=== PATIENT | female | born 1960 ===

== ENCOUNTER 2016-12-05 21:10 | Emergency (ER) | payer MEDICAID ==
[2016-12-05 21:14] VITALS: BP 163/82; PULSE 94; RESP 16; TEMP 98.5; O2SAT 98
--- NOTE | 2016-12-05 22:03 | ED PDOC ---
HPI: Back Time Seen by Provider: 12/05/16 21:22 Chief Complaint (Nursing): Back Pain Chief Complaint (Provider): Right lower back pain x 3 weeks History Per: Patient History/Exam Limitations: no limitations Onset/Duration Of Symptoms: Days Current Symptoms Are (Timing): Still Present Quality Of Discomfort: Sharp (With movement ) Severity: Moderate Pain Scale Rating Of: 7 Previous Symptoms: None Associated Symptoms: None Additional Complaint(s): Pt saw PMD last week and was given unknown muscle relaxor but she is unsure of the name. Pt states she took it a few times. No urinary symptoms. Pt states she has had kidney stones in the past but states it feels a little different. Past Medical History Reviewed: Historical Data, Nursing Documentation, Vital Signs Vital Signs: Last Vital Signs Temp 98.5 F 12/05/16 21:15 Pulse 94 H 12/05/16 21:15 Resp 16 12/05/16 21:15 BP 163/82 H 12/05/16 21:15 Pulse Ox 98 12/05/16 21:15 - Medical History PMH: Diabetes, HTN - Surgical History Surgical History: Cholecystectomy, - Family History Family History: States: No Known Family Hx - Living Arrangements Living Arrangements: With Family - Social History Current smoker - smoking cessation education provided: No Alcohol: None Drugs: Denies - Home Medications Home Medications: Ambulatory Orders Medication Instructions Recorded Ciprofloxacin HCl [Cipro] 500 mg PO BID #14 tab 01/20/15 Ibuprofen [Motrin Tab] 600 mg PO Q6 PRN #20 tab 01/20/15 Tamsulosin [Flomax] 0.4 mg PO DAILY #14 cap 01/20/15 - Allergies Allergies/Adverse Reactions: Allergies Allergy/AdvReac Type Severity Reaction Status Date / Time FISH Allergy RASH Verified 12/05/16 21:15 Review of Systems ROS Statement: Except As Marked, All Systems Reviewed And Found Negative Musculoskeletal: Positive for: Back Pain Physical Exam - Reviewed Nursing Documentation Reviewed: Yes Vital Signs Reviewed: Yes - Physical Exam Appears: Positive for: Well, Non-toxic, No Acute Distress Head Exam: Positive for: ATRAUMATIC, NORMAL INSPECTION, NORMOCEPHALIC Skin: Positive for: Normal Color, Warm, DRY Eye Exam: Positive for: Normal appearance ENT: Positive for: Normal ENT Inspection Neck: Positive for: Normal, Painless ROM Cardiovascular/Chest: Positive for: Regular Rate, Rhythm Respiratory: Positive for: Normal Breath Sounds. Negative for: Accessory Muscle Use, Respiratory Distress Gastrointestinal/Abdominal: Positive for: Normal Exam, Bowel Sounds, Soft. Negative for: Tenderness Back: Positive for: Normal Inspection, Other ((+) right leg raise ). Negative for: Vertebral Tenderness, Muscle Spasm Extremity: Positive for: Normal ROM Neurologic/Psych: Positive for: Alert, Oriented - ECG O2 Sat by Pulse Oximetry: 98 Pulse Ox Interpretation: Normal Medical Decision Making Medical Decision Making: Pt refusing medication and does not want to given urine sample. Disposition - Clinical Impression Clinical Impression: Sciatica - Patient ED Disposition Is Patient to be Admitted: No Counseled Patient/Family Regarding: Diagnosis, Need For Followup - Disposition Disposition: Routine/Home Disposition Time: 23:05 Condition: STABLE Instructions: Sciatica (ED)
== END 2016-12-05 23:32 | disposition home or self-care (01) ==
LOC: H.ER 21:10
DX: M54.31 Sciatica, right side (principal); E11.9 Type 2 diabetes mellitus without complications; I10 Essential (primary) hypertension

== ENCOUNTER 2017-04-27 09:24 | Inpatient (IN) | payer MEDICAID ==
[2017-04-27] MEDS ORDERED: Sodium Chloride 0.9% 1,000 ML IV STA ×2 (09:49→12:04)
--- NOTE | 2017-04-27 09:58 | ED PDOC ---
HPI: General Adult Time Seen by Provider: 04/27/17 09:48 Chief Complaint (Nursing): Weakness/Neurological Deficit Chief Complaint (Provider): weakness, confusion History Per: Patient, Family History/Exam Limitations: clinical condition Onset/Duration Of Symptoms: Days (4-5), Gradual Current Symptoms Are (Timing): Still Present Severity: Moderate Additional Complaint(s): 57yo female per family hx DM and asthma presents c/o generalized weakness, fall last week, now becoming more confused. No focal weakness per family. On evaluation, obvious jaundice when questioned family states "yes, her skin does look more yellow than normal", they deny history of alcohol abuse or frequent tylenol ingestion. She denies abdominal pain or vomiting. History is limited due to both patient and family being poor historians. [place]" Past Medical History Reviewed: Historical Data, Nursing Documentation, Vital Signs Vital Signs: Last Vital Signs Temp 97.6 F 04/27/17 14:04 Pulse 88 04/27/17 14:04 Resp 18 04/27/17 14:04 BP 152/82 H 04/27/17 14:04 Pulse Ox 100 04/27/17 14:04 - Medical History PMH: Asthma, Diabetes, HTN - Surgical History Surgical History: Cholecystectomy, - Family History Family History: States: Unknown Family Hx - Living Arrangements Living Arrangements: With Family - Social History Current smoker - smoking cessation education provided: No (quit 4months ago) Alcohol: None Drugs: Denies - Home Medications Home Medications: Ambulatory Orders Medication Instructions Recorded Insulin Detemir [Levemir] 30 unit SC DAILY 04/27/17 MetFORMIN [glucoPHAGE] 1,000 mg PO BID 04/27/17 Multivitamin [Multi-Vitamin Daily] 1 tab PO DAILY 04/27/17 - Allergies Allergies/Adverse Reactions: Allergies Allergy/AdvReac Type Severity Reaction Status Date / Time FISH Allergy RASH Verified 04/27/17 09:31 Review of Systems ROS Statement: Except As Marked, All Systems Reviewed And Found Negative Constitutional: Positive for: Weakness, Malaise. Negative for: Fever Eyes: Negative for: Vision Change ENT: Negative for: Nose Discharge, Mouth Swelling, Throat Pain Cardiovascular: Negative for: Chest Pain, Palpitations Respiratory: Positive for: Shortness of Breath. Negative for: Cough Gastrointestinal: Negative for: Nausea, Vomiting, Abdominal Pain Genitourinary Female: Negative for: Dysuria Musculoskeletal: Negative for: Neck Pain, Back Pain Skin: Positive for: Jaundice. Negative for: Rash, Lesions Neurological: Positive for: Altered Mental Status, Dizziness. Negative for: Weakness, Headache Psych: Negative for: Suicidal ideation Physical Exam - Reviewed Nursing Documentation Reviewed: Yes Vital Signs Reviewed: Yes - Physical Exam Appears: Positive for: Non-toxic (jaundice, confused, ill appearing). Negative for: Uncomfortable Head Exam: Positive for: ATRAUMATIC, NORMAL INSPECTION, NORMOCEPHALIC Skin: Positive for: Warm, Jaundice Eye Exam: Positive for: EOMI, PERRL, Scleral icterus ENT: Positive for: Normal ENT Inspection Neck: Positive for: Normal, Painless ROM Cardiovascular/Chest: Positive for: Regular Rate, Rhythm Respiratory: Positive for: Normal Breath Sounds. Negative for: Respiratory Distress Gastrointestinal/Abdominal: Positive for: Bowel Sounds, Soft. Negative for: Tenderness, Guarding Back: Positive for: Normal Inspection Extremity: Positive for: Normal ROM Neurologic/Psych: Positive for: Alert, Other (moves all ext w equal tone, confused) - Laboratory Results Result Diagrams: 04/27/17 10:34 04/27/17 10:34 - ECG O2 Sat by Pulse Oximetry: 96 Pulse Ox Interpretation: Normal - Radiology X-Ray: Read By Radiologist X-Ray Interpretation: No Acute Disease - Critical Care Total Time (In Min): 75 Comments: patient required immediate bedside attention given AMS and ill appearance Medical Decision Making Medical Decision Making: Workup was initiated for metabolic vs neurologic vs infectious vs hematologic etiologies EKG reviewed, ?aflutter vs Sinus tach w leavitt waves CXR no focal infiltrate per radiologist labs reviewed, with profound hematologic and metabolic derangememt anemia- likely hemolytic given elev LDH thrombocytopenia - ?TTP vs malignancy BUN 33 [employer] 1.3 Significant hypercalcemia- ?paraneoplastic Lactate elevate 5.1, code sepsis activated and patient received total >30ml/kg. Zosyn/vanco initiated after cultures obtained. 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 : [id number] Patient Name / ID : RADHA ARRIETA / [id number] Exam Date : 04/27/2017 12:41:33 ( Approved ) Study Comment : Sex / Age : F / 57Y Creator : Becky Baron MD Dictator : Becky Baron MD Hospitality Housekeeper : Greens Cutter : Approver2 : Report Date : 04/27/2017 14:14:08 My Comment : PROCEDURE: CT Chest, Abdomen and Pelvis with intravenous contrast HISTORY: Anemia, jaundice COMPARISON: None. TECHNIQUE: CT scan of the chest, abdomen and pelvis was performed after intravenous injection of contrast. Oral contrast was not administered. Coronal and sagittal reformatted images were obtained. IV dose administered: 50 cc Visipaque 320 Radiation dose: Total exam DLP = 1223.64 mGy-cm. This CT exam was performed using one or more of the following dose reduction techniques: Automated exposure control, adjustment of the mA and/or kV according to patient size, and/or use of iterative reconstruction technique. FINDINGS: CT CHEST WITH CONTRAST: LUNGS: The lungs are well inflated. There is confluent airspace disease in the left lower lobe. There is subsegmental atelectasis in the posterior lungs. There are no endobronchial lesions. MEDIASTINUM: There is mild cardiomegaly. No pericardial effusion. LYMPH NODES: No pathologic hilar or mediastinal lymphadenopathy PLEURA: No pleural effusions or pneumothorax. BONES: Diffuse osteolytic metastasis. OTHER FINDINGS: None. CT ABDOMEN AND PELVIS: LIVER: The liver is enlarged and measures 21 cm in craniocaudad dimension. No focal mass. There is mild intrahepatic biliary dilatation and mild diffuse dilatation of the common bile duct in keeping with postcholecystectomy status. GALLBLADDER AND BILE DUCTS: Surgically absent. PANCREAS: Mild diffuse fatty atrophy. No gross lesion or ductal dilatation. SPLEEN: There is moderate splenomegaly. The spleen measures 20 cm. No focal lesions. ADRENALS: Mild thickening without discrete nodule. KIDNEYS AND URETERS: Both kidneys are normal in size and there is homogeneous enhancement. No hydronephrosis. No solid mass. VASCULATURE: No aortic aneurysm. BOWEL: Evaluation of the bowel is limited in the absence of oral contrast. Allowing for this, there is mild small bowel wall thickening. There is also segmental circumferential mural thickening in the splenic flexure of colon. APPENDIX: Normal appendix. PERITONEUM: No free fluid. No free air. LYMPH NODES: No enlarged lymph nodes. BLADDER: Grossly normal in appearance. REPRODUCTIVE: The uterus is normal in size. 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 OTHER FINDINGS: None. IMPRESSION: 1. 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 The differential considerations include metastasis and lymphoma. 2. Mild hepatomegaly and moderate splenomegaly. 3. Evaluation of the colon is limited in the absence of oral contrast. Allowing for this, apparent diffuse small bowel wall thickening is nonspecific and could be related to underdistention or nonspecific enteritis. Also noted is segmental mural thickening in the splenic flexure of colon, again could be related to underdistention however underlying mass cannot be excluded. Please correlate with colonoscopy. 3. Left lower lobe pneumonia. ----- Accession No. : [id number] Patient Name / ID : RADHA ARRIETA / [id number] Exam Date : 04/27/2017 12:44:15 ( Approved ) Study Comment : Sex / Age : F / 57Y Creator : Becky Baron MD Dictator : Becky Baron MD Hospitality Housekeeper : Greens Cutter : Becky Baron MD Approver2 : Report Date : 04/27/2017 14:06:05 My Comment : PROCEDURE: CT HEAD WITHOUT CONTRAST. HISTORY: Fall, altered mental status COMPARISON: None available. TECHNIQUE: Axial computed tomography images were obtained through the head/brain without intravenous contrast. Examination is limited by patient motion. Radiation dose: Total exam DLP = 1735.87 mGy-cm. This CT exam was performed using one or more of the following dose reduction techniques: Automated exposure control, adjustment of the mA and/or kV according to patient size, and/or use of iterative reconstruction technique. FINDINGS: HEMORRHAGE: No intracranial hemorrhage. BRAIN: Grady-white matter differentiation is preserved. There is no mass, mass effect or abnormal extra-axial fluid collection. VENTRICLES: The ventricles are normal in size, shape and configuration. CALVARIUM: There is no calvarial fracture or extracranial soft tissue swelling. PARANASAL SINUSES: There is mild mucosal thickening in the left maxillary sinus. The remaining included paranasal sinuses are predominantly clear. MASTOID AIR CELLS: Predominantly clear. OTHER FINDINGS: None. IMPRESSION: No acute intracranial abnormality. Disposition - Clinical Impression Clinical Impression: T.T.P. syndrome, Malignancy, Sepsis, Severe anemia, Thrombocytopenia - Patient ED Disposition Is Patient to be Admitted: No Counseled Patient/Family Regarding: Studies Performed, Diagnosis - Disposition Disposition Time: 13:00 Condition: CRITICAL - Pt Status Changed To: Hospital Disposition Of: Inpatient - Admit Certification Admit to Inpatient:: After my assessment, the patient will require hospitalization for at least two midnights. This is because of the severity of symptoms shown, intensity of services needed, and/or the medical risk in this patient being treated as an outpatient. - POA Present On Arrival: Falls Or Trauma, Poor Glycemic Control
[2017-04-27 10:42] LABS: BASO # 0.2 K/uL (0.0-0.2); BASO % 1.2 % (0.0-2.0); EOS # 0.1 K/uL (0.0-0.7); EOS % 0.4 % (0.0-4.0); MEAN CELL VOLUME 103.8 fl (81.0-99.0); MEAN CORPUSCULAR HEMOGLOBIN 32.8 pg (27.0-31.0); MEAN CORPUSCULAR HGB CONC 31.6 g/dL (33.0-37.0); MEAN PLATELET VOLUME 10.2 fl (7.2-11.7); MONO # 1.3 K/uL (0.0-0.8); MONO % 7.6 % (0.0-10.0); NEUT # 5.7 K/uL (1.8-7.0); NEUT % 32.8 % (50.0-75.0); NRBC % 8.1 % (0.0-0.0); RED CELL DISTRIBUTION WIDTH 22.7 % (11.5-14.5); WHITE BLOOD COUNT 17.4 K/uL (4.8-10.8)
[2017-04-27 10:46] LABS: URINE BILIRUBIN NEGATIVE (NEGATIVE); URINE BLOOD SMALL (NEGATIVE); URINE COLOR AMBER (YELLOW); URINE GLUCOSE (UA) NEG (Normal); URINE KETONE NEGATIVE (NEGATIVE); URINE LEUKOCYTE ESTERASE NEG Leu/uL (Negative); URINE PROTEIN NEGATIVE (NEGATIVE)
[2017-04-27 10:51] LABS: PARTIAL THROMBOPLASTIN TIME 35.5 Seconds (25.6-37.1)
[2017-04-27 11:11] LABS: ALB/GLOB RATIO 0.5 (1.0-2.1); BILIRUBIN,TOTAL 6.7 mg/dl (0.2-1.3); CARBON DIOXIDE 24 mmol/L (22-30); CHLORIDE 104 mmol/L (98-107); GFR AFRICAN-AMERICAN 56; GLUCOSE,RANDOM 129 mg/dL (65-105); SODIUM 140 mmol/l (132-148); TOTAL PROTEIN 9.1 G/DL (6.3-8.2)
--- NOTE | 2017-04-27 11:12 | RAD ---
HISTORY: SOB COMPARISON: No prior. FINDINGS: LUNGS: The lungs are well inflated. There is left lower lobe atelectasis. No focal consolidation. PLEURA: No significant pleural effusion identified, no pneumothorax apparent. CARDIOVASCULAR: Normal. OSSEOUS STRUCTURES: No significant abnormalities. VISUALIZED UPPER ABDOMEN: Normal. OTHER FINDINGS: None. IMPRESSION: Subsegmental atelectasis in the left lower lobe. No acute findings
[2017-04-27 11:19] LABS: BLOOD UREA NITROGEN 33 mg/dl (7-17); PLATELET COUNT 39 K/uL (130-400)
[2017-04-27 11:21] LABS: ALKALINE PHOSPHATASE 245 U/L (38-126); ALT/SGPT 22 U/L (9-52); AST/SGOT 168 U/L (14-36); POTASSIUM 5.2 MMOL/L (3.6-5.0)
[2017-04-27 11:26] LABS: METAMYELOCYTE 2 % (0-0); MYELOCYTE 1 % (0-0); NEUTROPHIL 39 % (42-75); NUCLEATED RED BLOOD CELL 18 % (0-0); TOTAL CELLS COUNTED 100
[2017-04-27 11:28] LABS: LARGE PLATELETS PRESENT; SMUDGE CELLS PRESENT; SPHEROCYTES SLIGHT
[2017-04-27 11:38] LABS: LIPASE 130 U/L (23-300)
[2017-04-27 11:59] LABS: VENOUS BLOOD GAS BASE EXCESS 3.3 mmol/L (0.0-2.0); VENOUS BLOOD GAS PCO2 42 mmHg (40-60); VENOUS BLOOD PH 7.43 (7.32-7.43)
[2017-04-27 12:05] LABS: ALCOHOL SERUM < 10 mg/dl (0-10)
[2017-04-27] MEDS ORDERED: Iohexol 300 100 ML IJ ONE (12:24)
[2017-04-27] MEDS ORDERED: Sodium Chloride 0.9% 50 ML IV ONE (12:25)
[2017-04-27] MEDS ORDERED: Piperacillin/Tazobact 4.5 GM in Sodium Chloride 0.9% 100 ML IVPB ONE (12:30)
[2017-04-27 12:33] LABS: MAGNESIUM 1.8 MG/DL (1.6-2.3); PHOSPHOROUS 5.1 mg/dl (2.5-4.5); URIC ACID 11.5 mg/Dl (2.2-7.5)
[2017-04-27] MEDS ORDERED: Vancomycin 1 g Inj ONE (12:45)
[2017-04-27] MEDS ORDERED: Iodixanol 320 MG/ML 100 ML BOTTLE IV ONE (12:53)
[2017-04-27 13:29] LABS: T3 UPTAKE 42.7 % (23.0-41.0); T4 7.84 ug/dl (5.5-11.0)
[2017-04-27 13:43] LABS: THYROID STIMULATING HORMONE 0.4 mIU/ML (0.46-4.68)
[2017-04-27 13:53] LABS: VENOUS BLOOD GAS BASE EXCESS 0.3 mmol/L (0.0-2.0); VENOUS BLOOD GAS PCO2 26 mmHg (40-60); VENOUS BLOOD PH 7.53 (7.32-7.43)
[2017-04-27] MEDS ORDERED: Zoledronic Acid 4 MG in Sodium Chloride 0.9% 100 ML IVPB ONE (14:00)
--- NOTE | 2017-04-27 14:07 | CT ---
PROCEDURE: CT HEAD WITHOUT CONTRAST. HISTORY: Fall, altered mental status COMPARISON: None available. TECHNIQUE: Axial computed tomography images were obtained through the head/brain without intravenous contrast. Examination is limited by patient motion. Radiation dose: Total exam DLP = 1735.87 mGy-cm. This CT exam was performed using one or more of the following dose reduction techniques: Automated exposure control, adjustment of the mA and/or kV according to patient size, and/or use of iterative reconstruction technique. FINDINGS: HEMORRHAGE: No intracranial hemorrhage. BRAIN: Grady-white matter differentiation is preserved. There is no mass, mass effect or abnormal extra-axial fluid collection. VENTRICLES: The ventricles are normal in size, shape and configuration. CALVARIUM: There is no calvarial fracture or extracranial soft tissue swelling. PARANASAL SINUSES: There is mild mucosal thickening in the left maxillary sinus. The remaining included paranasal sinuses are predominantly clear. MASTOID AIR CELLS: Predominantly clear. OTHER FINDINGS: None. IMPRESSION: No acute intracranial abnormality.
[2017-04-27] MEDS ORDERED: Hydrocortisone Succinat 250 MG vial IV SCH (14:30)
--- NOTE | 2017-04-27 14:35 | CP.PCM.CON ---
History of Present Illness - History of Present Illness History of Present Illness: This is a 57 yrs old female who came to the Er with severe anemia hgb 5.7, platelets of 39, and wbc 17.4. Her diff showed lymphicytosis, and several Nucleated RBC. There is also a shift to the left in the WBC. The mcv is 103, The peripheral smear shows schiztocytes and NRBC indicating hemolysis. the LDH is also elevated. The pt was apparently fine a week ago. Over the past 2 days she has slowly got confused, and very weak where she could not even walk to the bathroom.She was therefore brought to the ER. Her total protein was elevated to 9.1, with globulin 6.0. her calcium 14.0. bilirubin was 6.7, AST/SGOT Bun is 33 and [id number]. Urinalysis did not show elevated protein. Past medical history of , Dm , and HTN asthma, Her CXR is normal Past Patient History - Past Social History Smoking Status: Smoker Currrent Status Unknown - CARDIAC Hx Hypertension: Yes - PULMONARY Hx Asthma: Yes - NEUROLOGICAL Hx Vertigo: Yes - ENDOCRINE/METABOLIC Hx Diabetes Mellitus Type 2: Yes - HEMATOLOGICAL/ONCOLOGICAL Hx Blood Disorders: Yes Hx Hepatitis C: Yes - MUSCULOSKELETAL/RHEUMATOLOGICAL Hx Musculoskeletal Disorders: Yes Other/Comment: meniscus disease - PSYCHIATRIC Hx Substance Use: No - SURGICAL HISTORY Hx Cholecystectomy: Yes - ANESTHESIA Hx Anesthesia: Yes Meds Allergies/Adverse Reactions: Allergies Allergy/AdvReac Type Severity Reaction Status Date / Time FISH Allergy RASH Verified 04/27/17 09:31 - Medications Medications: Current Medications Hydrocortisone Sodium Succinate (Solu-Cortef) 100 mg IV Q6H ARLET Sodium Chloride (Sodium Chloride 0.9%) 1,000 mls @ 200 mls/hr IV .Q5H STA Stop: 04/27/17 17:03 Zoledronic Acid 4 mg/ Sodium (Chloride) 105 mls @ 210 mls/hr IVPB ONCE ONE Stop: 04/27/17 14:29 Physical Exam - Additional Findings Additional findings: Physical exam; Awake but cannot answer questions . Neck; Supple, no adenopathy Chest; Clear, no rales or rhonchi Heart; RSR, no murmur Abd; soft, no mass, no h/s megaly. Results - Vital Signs Recent Vital Signs: Last Vital Signs Temp 97.6 F 04/27/17 14:04 Pulse 88 04/27/17 14:04 Resp 18 04/27/17 14:04 BP 152/82 H 04/27/17 14:04 Pulse Ox 100 04/27/17 14:04 - Labs Result Diagrams: 04/27/17 10:34 04/27/17 10:34 Labs: Laboratory Results - last 24 hr 04/27/17 04/27/17 04/27/17 10:34 10:34 10:34 WBC 17.4 H D RBC 1.73 L Hgb 5.7 L* Hct 18.0 L MCV 103.8 H D MCH 32.8 H MCHC 31.6 L RDW 22.7 H Plt Count 39 L D MPV 10.2 Neut % (Auto) 32.8 L Lymph % (Auto) 58.0 H [place] % (Auto) 7.6 Eos % (Auto) 0.4 Baso % (Auto) 1.2 Neut # 5.7 Lymph # 10.0 H [place] # 1.3 H Eos # 0.1 Baso # 0.2 Neutrophils % (Manual) 39 L Band Neutrophils % 1 Lymphocytes % (Manual) 41 Monocytes % (Manual) 16 H Metamyelocytes % 2 H Myelocytes % 1 H Nucleated RBC % 18 H Smudge Cells Present Platelet Estimate Decreased L Large Platelets Present Hypochromasia (manual) Slight Poikilocytosis (manual Slight Anisocytosis (manual) Moderate Microcytosis (manual) Slight Macrocytosis (manual) Slight Spherocytes Slight Target Cells Slight Ovalocytes Slight PT INR APTT pO2 VBG pH VBG pCO2 VBG HCO3 VBG Total CO2 VBG O2 Sat (Calc) VBG Base Excess VBG Potassium A-a O2 Difference Glucose Lactate FiO2 Crit Value Called To Crit Value Called By Crit Value Read Back Blood Gas Notified Time Sodium 140 Potassium 5.2 H Chloride 104 Carbon Dioxide 24 Anion Gap 17 BUN 33 H Creatinine 1.2 Est GFR ( Amer) 56 Est GFR (Non-Af Amer) 47 Random Glucose 129 H Uric Acid Calcium 14.0 H* D Phosphorus Magnesium Total Bilirubin 6.7 H AST 168 H ALT 22 Alkaline Phosphatase 245 H Ammonia 24 Lactate Dehydrogenase 1456 H Total Creatine Kinase 42 Troponin I 0.0660 Total Protein 9.1 H Albumin 3.1 L Globulin 6.0 H Albumin/Globulin Ratio 0.5 L Lipase 130 Thyroxine (T4) Total T3 T3 Uptake TSH 3rd Generation Venous Blood Potassium Urine Color Urine Clarity Urine pH Ur Specific [place] Urine Protein Urine Glucose (UA) Urine Ketones Urine Blood Urine Nitrate Urine Bilirubin Urine Urobilinogen Ur Leukocyte Esterase Ur Squamous Epith Cells Amorphous Sediment Hyaline Casts Stool Occult Blood Alcohol, Quantitative < 10 Blood Type Antibody Screen Crossmatch BBK History Checked 04/27/17 04/27/17 04/27/17 10:34 10:34 11:20 WBC RBC Hgb Hct MCV MCH MCHC RDW Plt Count MPV Neut % (Auto) Lymph % (Auto) [place] % (Auto) Eos % (Auto) Baso % (Auto) Neut # Lymph # [place] # Eos # Baso # Neutrophils % (Manual) Band Neutrophils % Lymphocytes % (Manual) Monocytes % (Manual) Metamyelocytes % Myelocytes % Nucleated RBC % Smudge Cells Platelet Estimate Large Platelets Hypochromasia (manual) Poikilocytosis (manual Anisocytosis (manual) Microcytosis (manual) Macrocytosis (manual) Spherocytes Target Cells Ovalocytes PT 19.7 H INR 1.7 H APTT 35.5 pO2 VBG pH VBG pCO2 VBG HCO3 VBG Total CO2 VBG O2 Sat (Calc) VBG Base Excess VBG Potassium A-a O2 Difference Glucose Lactate FiO2 Crit Value Called To Crit Value Called By Crit Value Read Back Blood Gas Notified Time Sodium Potassium Chloride Carbon Dioxide Anion Gap BUN Creatinine Est GFR ( Amer) Est GFR (Non-Af Amer) Random Glucose Uric Acid Calcium Phosphorus Magnesium Total Bilirubin AST ALT Alkaline Phosphatase Ammonia Lactate Dehydrogenase Total Creatine Kinase Troponin I Total Protein Albumin Globulin Albumin/Globulin Ratio Lipase Thyroxine (T4) Total T3 T3 Uptake TSH 3rd Generation Venous Blood Potassium Urine Color [place] Urine Clarity Cloudy Urine pH 6.0 Ur Specific [place] 1.013 Urine Protein Negative Urine Glucose (UA) Neg Urine Ketones Negative Urine Blood Small Urine Nitrate Negative Urine Bilirubin Negative Urine Urobilinogen 4.0 H Ur Leukocyte Esterase Neg Ur Squamous Epith Cells 1 Amorphous Sediment Rare H Hyaline Casts 0-2 Stool Occult Blood Negative Alcohol, Quantitative Blood Type Antibody Screen Crossmatch BBK History Checked 04/27/17 04/27/17 04/27/17 11:39 11:45 12:19 WBC RBC Hgb Hct MCV MCH MCHC RDW Plt Count MPV Neut % (Auto) Lymph % (Auto) [place] % (Auto) Eos % (Auto) Baso % (Auto) Neut # Lymph # [place] # Eos # Baso # Neutrophils % (Manual) Band Neutrophils % Lymphocytes % (Manual) Monocytes % (Manual) Metamyelocytes % Myelocytes % Nucleated RBC % Smudge Cells Platelet Estimate Large Platelets Hypochromasia (manual) Poikilocytosis (manual Anisocytosis (manual) Microcytosis (manual) Macrocytosis (manual) Spherocytes Target Cells Ovalocytes PT INR APTT pO2 24 L VBG pH 7.43 VBG pCO2 42 VBG HCO3 26.9 VBG Total CO2 29.2 H VBG O2 Sat (Calc) 45.5 VBG Base Excess 3.3 H VBG Potassium 4.2 A-a O2 Difference 73.0 Glucose 126 H Lactate 5.1 H* FiO2 21.0 Crit Value Called To Dr thomson Crit Value Called By 15 Crit Value Read Back Y Blood Gas Notified Time 1159 Sodium 139.0 Potassium Chloride 107.0 Carbon Dioxide Anion Gap BUN Creatinine Est GFR ( Amer) Est GFR (Non-Af Amer) Random Glucose Uric Acid 11.5 H Calcium Phosphorus 5.1 H Magnesium 1.8 Total Bilirubin AST ALT Alkaline Phosphatase Ammonia Lactate Dehydrogenase Total Creatine Kinase Troponin I Total Protein Albumin Globulin Albumin/Globulin Ratio Lipase Thyroxine (T4) 7.84 Total T3 0.909 L T3 Uptake 42.7 H TSH 3rd Generation 0.40 L Venous Blood Potassium 4.2 Urine Color Urine Clarity Urine pH Ur Specific [place] Urine Protein Urine Glucose (UA) Urine Ketones Urine Blood Urine Nitrate Urine Bilirubin Urine Urobilinogen Ur Leukocyte Esterase Ur Squamous Epith Cells Amorphous Sediment Hyaline Casts Stool Occult Blood Alcohol, Quantitative Blood Type A POSITIVE Antibody Screen Negative Crossmatch See Detail BBK History Checked No verified bt 04/27/17 13:47 WBC RBC Hgb Hct MCV MCH MCHC RDW Plt Count MPV Neut % (Auto) Lymph % (Auto) [place] % (Auto) Eos % (Auto) Baso % (Auto) Neut # Lymph # [place] # Eos # Baso # Neutrophils % (Manual) Band Neutrophils % Lymphocytes % (Manual) Monocytes % (Manual) Metamyelocytes % Myelocytes % Nucleated RBC % Smudge Cells Platelet Estimate Large Platelets Hypochromasia (manual) Poikilocytosis (manual Anisocytosis (manual) Microcytosis (manual) Macrocytosis (manual) Spherocytes Target Cells Ovalocytes PT INR APTT pO2 46 VBG pH 7.53 H VBG pCO2 26 L VBG HCO3 24.9 VBG Total CO2 22.5 VBG O2 Sat (Calc) VBG Base Excess 0.3 VBG Potassium 3.4 L A-a O2 Difference 71.0 Glucose 99 Lactate 3.6 H FiO2 21.0 Crit Value Called To Dhara mayen Crit Value Called By 15 Crit Value Read Back N Blood Gas Notified Time Sodium 139.0 Potassium Chloride 113.0 H Carbon Dioxide Anion Gap BUN Creatinine Est GFR ( Amer) Est GFR (Non-Af Amer) Random Glucose Uric Acid Calcium Phosphorus Magnesium Total Bilirubin AST ALT Alkaline Phosphatase Ammonia Lactate Dehydrogenase Total Creatine Kinase Troponin I Total Protein Albumin Globulin Albumin/Globulin Ratio Lipase Thyroxine (T4) Total T3 T3 Uptake TSH 3rd Generation Venous Blood Potassium 3.4 L Urine Color Urine Clarity Urine pH Ur Specific [place] Urine Protein Urine Glucose (UA) Urine Ketones Urine Blood Urine Nitrate Urine Bilirubin Urine Urobilinogen Ur Leukocyte Esterase Ur Squamous Epith Cells Amorphous Sediment Hyaline Casts Stool Occult Blood Alcohol, Quantitative Blood Type Antibody Screen Crossmatch BBK History Checked Assessment & Plan - Assessment and Plan (Free Text) Assessment: Imp; Hemolytic anemia , possible multiple myeloma, ?hyperviscosity syndrome. Considering the acute onset of the symptoms and the change in mental status , hemolysis with thrombocytopenia, TTP cannot be ruled out. Plan: Plan; Spoke to data entry processor Dr Patricia nguyen plasmapheresis. which will be done as soon as a emmett catheter is placed. - Date & Time Date: 04/27/17 Time: 14:46
[2017-04-27] MEDS ORDERED: Hydrocortisone- 100 MG in Sodium Chloride 0.9% 100 ML IV SCH (16:00)
--- NOTE | 2017-04-27 16:04 | CP.CCUPN ---
CCU Subjective - Physician Review Subjective (Free Text): Admission to ICU for multiple abnormal Labs: Patient is a poor historian, available [facility] records all reviewed. 57F admitted with altered mental status, frequent falls at home and increasing jaundice. Labs showed an elevated lactate, abnormal LFTs, severe anemia, low platelets, mild coagulopathy, Azotemia with increased K, hypercalcemia. 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 Has already recd a dose of Vanco and Zosyn in the ER, as well as approx. 5L fluids. Other vitals and I/O's reviewed. ALLERGIES: NKDA ROS: Unobtainable due to altered mental status and intubation. No other pertinent negs or positives on 10+ system review. Home Meds: Levemir, Glucophage PMSFH: HTN, DM II, Asthma. All other Nursing and physician documentation reviewed to date; no new pertinent info noted relevant to current medical problems. CXR: minimal scattered interstitial changes, no gross consolidation. EKG: sinus 104/min, nonspecific ST-T changes. IMPRESSION / MAJOR PROBLEMS NOW: 1. AMS, with Severe Anemia, thrombocytopenia, coagulopathy, abnormal LFTs: 2 TTP 2. Azotemia with Hyperkalemia 3. Hypercalcemia PLAN: 1. Central venous line for Plasmapheresis has been placed by Surgical team; plasma exchange anticipated with FFP. 2. IVF hydration. 3. Check repeat serum Ca. One dose of Zometa ordered in ER. 4. Lactates have improved a bit after fluids. 5. Would check HIV status, FROYLAN, and AMAs. 6. PRBCs. No active bleeding now. Check Haptoglobin levels. 7. Empiric abx coverage started with Vanco / Zosyn. 8. No need for airway protection, gag intact and she is conversant after fluid challenges. 9. Full Code status as per Family. Time spent with this patient did not overlap with any other provider's medical or critical care time. Additionally the code selected for the services rendered in this note includes the time spent: talking to the patients family, associated physicians and reviewing hospital data/results not listed here which extended to a total of 45 minutes. CCU Objective - Vital Signs / Intake & Output Vital Signs (Last 4 hours): Vital Signs Temp Pulse Resp BP Pulse Ox 04/27/17 15:50 97.6 F 88 18 154/85 H 100 04/27/17 15:10 96 04/27/17 15:00 97.6 F 88 18 152/82 H 04/27/17 14:04 97.6 F 88 18 152/82 H 100 Intake and Output (Last 8hrs): Intake & Output 04/27/17 04/27/17 04/27/17 06:59 14:59 22:59 Weight 180 lb - Physical Exam Head: Positive for: Atraumatic, Normocephalic Pupils: Positive for: PERRL Extroacular Muscles: Positive for: EOMI Conjunctiva: Positive for: Icteric Mouth: Positive for: Dry Pharnyx: Negative for: ERYTHEMA, EXUDATE Neck: Negative for: Meningeal Signs, JVD, Lymphadenopathy Cardiovascular: Positive for: Regular Rate and Rhythm, Tachycardic. Negative for: Murmurs, Rub Abdomen: Positive for: Normal Bowel Sounds, Other (+ splenomegaly). Negative for: Tenderness, Distention Rectal: Negative for: Occult Blood, Melena, Fissures Lower Extremity: Positive for: Edema, NORMAL PULSES. Negative for: CALF TENDERNESS, Cyanosis Neurological: Positive for: GCS=15, Motor Func Grossly Intact, Normal Sensory Function, Norm Deep Tendon Reflexes Skin: Positive for: Warm, Dry, Other (no petechiae). Negative for: Rashes Psychiatric: Positive for: Alert. Negative for: Oriented x 3 (oriented to person and place) - Medications Active Medications: Active Medications Generic Name Dose Route Start Last Admin Trade Name Freq PRN Reason Stop Dose Admin Hydrocortisone Sodium Succinate 100 mg 04/27/17 14:30 Solu-Cortef IV Q6H ARLET Sodium Chloride 1,000 mls @ 200 mls/hr 04/27/17 12:04 04/27/17 15:28 Sodium Chloride 0.9% IV 04/27/17 17:03 200 mls/hr .Q5H STA Administration Insulin Detemir 12 units 04/27/17 22:00 Levemir SC HS ARLET Insulin Human Lispro 0 units 04/27/17 16:30 Humalog SC ACHS ARLET Protocol - Patient Studies Lab Studies: Lab Studies 04/27/17 04/27/17 04/27/17 Range/Units 13:47 12:19 11:45 WBC (4.8-10.8) K/uL RBC (3.80-5.20) Mil/uL Hgb (12.0-16.0) g/dL Hct (34.0-47.0) % MCV (81.0-99.0) fl MCH (27.0-31.0) pg MCHC (33.0-37.0) g/dL RDW (11.5-14.5) % Plt Count (130-400) K/uL MPV (7.2-11.7) fl Neut % (Auto) (50.0-75.0) % Lymph % (Auto) (20.0-40.0) % Bulloch % (Auto) (0.0-10.0) % Eos % (Auto) (0.0-4.0) % Baso % (Auto) (0.0-2.0) % Neut # (1.8-7.0) K/uL Lymph # (1.0-4.3) K/uL Bulloch # (0.0-0.8) K/uL Eos # (0.0-0.7) K/uL Baso # (0.0-0.2) K/uL Neutrophils % (Manual) (42-75) % Band Neutrophils % (0-2) % Lymphocytes % (Manual) (20-50) % Monocytes % (Manual) (0-10) % Metamyelocytes % (0-0) % Myelocytes % (0-0) % Nucleated RBC % (0-0) % Smudge Cells Platelet Estimate (NORMAL) Large Platelets Hypochromasia (manual) Poikilocytosis (manual Anisocytosis (manual) Microcytosis (manual) Macrocytosis (manual) Spherocytes Target Cells Ovalocytes PT (9.8-13.1) Seconds INR (0.9-1.2) APTT (25.6-37.1) Seconds pO2 46 (30-55) mm/Hg VBG pH 7.53 H (7.32-7.43) VBG pCO2 26 L (40-60) mmHg VBG HCO3 24.9 mmol/L VBG Total CO2 22.5 (22-28) mmol/L VBG O2 Sat (Calc) (40-65) % VBG Base Excess 0.3 (0.0-2.0) mmol/L VBG Potassium 3.4 L (3.6-5.2) mmol/L A-a O2 Difference 71.0 mm/Hg Glucose 99 (65-105) mg/dL Lactate 3.6 H (0.7-2.1) mmol/L FiO2 21.0 % Crit Value Called To R sheri mayen Crit Value Called By 15 Crit Value Read Back N Blood Gas Notified Time Sodium 139.0 (132-148) mmol/l Potassium (3.6-5.0) MMOL/L Chloride 113.0 H (98-107) mmol/L Carbon Dioxide (22-30) mmol/L Anion Gap (10-20) BUN (7-17) mg/dl Creatinine (0.7-1.2) mg/dl Est GFR ( Amer) Est GFR (Non-Af Amer) Random Glucose (65-105) mg/dL Uric Acid 11.5 H (2.2-7.5) mg/Dl Calcium (8.4-10.2) mg/dL Phosphorus 5.1 H (2.5-4.5) mg/dl Magnesium 1.8 (1.6-2.3) MG/DL Total Bilirubin (0.2-1.3) mg/dl AST (14-36) U/L ALT (9-52) U/L Alkaline Phosphatase (38-126) U/L Ammonia (11-51) umo/L Lactate Dehydrogenase (313-618) U/L Total Creatine Kinase (30-135) U/L Troponin I (0.00-0.120) ng/mL Total Protein (6.3-8.2) G/DL Albumin (3.5-5.0) g/dL Globulin (2.2-3.9) gm/dL Albumin/Globulin Ratio (1.0-2.1) Lipase (23-300) U/L Thyroxine (T4) 7.84 (5.5-11.0) ug/dl Total T3 0.909 L (1.49-2.60) nmol/L T3 Uptake 42.7 H (23.0-41.0) % TSH 3rd Generation 0.40 L (0.46-4.68) mIU/ML Venous Blood Potassium 3.4 L (3.6-5.2) mmol/L Urine Color (YELLOW) Urine Clarity (Clear) Urine pH (5.0-8.0) Ur Specific [place] (1.003-1.030) Urine Protein (NEGATIVE) mg/dL Urine Glucose (UA) (Normal) mg/dL Urine Ketones (NEGATIVE) mg/dL Urine Blood (NEGATIVE) Urine Nitrate (NEGATIVE) Urine Bilirubin (NEGATIVE) Urine Urobilinogen (0.2-1.0) mg/dL Ur Leukocyte Esterase (Negative) Barak/uL Ur Squamous Epith Cells (0-5) /hpf Amorphous Sediment (<OCC) /ul Hyaline Casts (0-2) /hpf Stool Occult Blood (NEGATIVE) Alcohol, Quantitative (0-10) mg/dl Blood Type A POSITIVE Antibody Screen Negative Crossmatch See Detail BBK History Checked No verified bt 04/27/17 04/27/17 04/27/17 Range/Units 11:39 11:20 10:34 WBC (4.8-10.8) K/uL RBC (3.80-5.20) Mil/uL Hgb (12.0-16.0) g/dL Hct (34.0-47.0) % MCV (81.0-99.0) fl MCH (27.0-31.0) pg MCHC (33.0-37.0) g/dL RDW (11.5-14.5) % Plt Count (130-400) K/uL MPV (7.2-11.7) fl Neut % (Auto) (50.0-75.0) % Lymph % (Auto) (20.0-40.0) % Bulloch % (Auto) (0.0-10.0) % Eos % (Auto) (0.0-4.0) % Baso % (Auto) (0.0-2.0) % Neut # (1.8-7.0) K/uL Lymph # (1.0-4.3) K/uL Bulloch # (0.0-0.8) K/uL Eos # (0.0-0.7) K/uL Baso # (0.0-0.2) K/uL Neutrophils % (Manual) (42-75) % Band Neutrophils % (0-2) % Lymphocytes % (Manual) (20-50) % Monocytes % (Manual) (0-10) % Metamyelocytes % (0-0) % Myelocytes % (0-0) % Nucleated RBC % (0-0) % Smudge Cells Platelet Estimate (NORMAL) Large Platelets Hypochromasia (manual) Poikilocytosis (manual Anisocytosis (manual) Microcytosis (manual) Macrocytosis (manual) Spherocytes Target Cells Ovalocytes PT (9.8-13.1) Seconds INR (0.9-1.2) APTT (25.6-37.1) Seconds pO2 24 L (30-55) mm/Hg VBG pH 7.43 (7.32-7.43) VBG pCO2 42 (40-60) mmHg VBG HCO3 26.9 mmol/L VBG Total CO2 29.2 H (22-28) mmol/L VBG O2 Sat (Calc) 45.5 (40-65) % VBG Base Excess 3.3 H (0.0-2.0) mmol/L VBG Potassium 4.2 (3.6-5.2) mmol/L A-a O2 Difference 73.0 mm/Hg Glucose 126 H (65-105) mg/dL Lactate 5.1 H* (0.7-2.1) mmol/L FiO2 21.0 % Crit Value Called To Dr thomson Crit Value Called By 15 Crit Value Read Back Y Blood Gas Notified Time 1159 Sodium 139.0 (132-148) mmol/l Potassium (3.6-5.0) MMOL/L Chloride 107.0 (98-107) mmol/L Carbon Dioxide (22-30) mmol/L Anion Gap (10-20) BUN (7-17) mg/dl Creatinine (0.7-1.2) mg/dl Est GFR ( Amer) Est GFR (Non-Af Amer) Random Glucose (65-105) mg/dL Uric Acid (2.2-7.5) mg/Dl Calcium (8.4-10.2) mg/dL Phosphorus (2.5-4.5) mg/dl Magnesium (1.6-2.3) MG/DL Total Bilirubin (0.2-1.3) mg/dl AST (14-36) U/L ALT (9-52) U/L Alkaline Phosphatase (38-126) U/L Ammonia (11-51) umo/L Lactate Dehydrogenase (313-618) U/L Total Creatine Kinase (30-135) U/L Troponin I (0.00-0.120) ng/mL Total Protein (6.3-8.2) G/DL Albumin (3.5-5.0) g/dL Globulin (2.2-3.9) gm/dL Albumin/Globulin Ratio (1.0-2.1) Lipase (23-300) U/L Thyroxine (T4) (5.5-11.0) ug/dl Total T3 (1.49-2.60) nmol/L T3 Uptake (23.0-41.0) % TSH 3rd Generation (0.46-4.68) mIU/ML Venous Blood Potassium 4.2 (3.6-5.2) mmol/L Urine Color Frieda (YELLOW) Urine Clarity Cloudy (Clear) Urine pH 6.0 (5.0-8.0) Ur Specific [place] 1.013 (1.003-1.030) Urine Protein Negative (NEGATIVE) mg/dL Urine Glucose (UA) Neg (Normal) mg/dL Urine Ketones Negative (NEGATIVE) mg/dL Urine Blood Small (NEGATIVE) Urine Nitrate Negative (NEGATIVE) Urine Bilirubin Negative (NEGATIVE) Urine Urobilinogen 4.0 H (0.2-1.0) mg/dL Ur Leukocyte Esterase Neg (Negative) Barak/uL Ur Squamous Epith Cells 1 (0-5) /hpf Amorphous Sediment Rare H (<OCC) /ul Hyaline Casts 0-2 (0-2) /hpf Stool Occult Blood Negative (NEGATIVE) Alcohol, Quantitative (0-10) mg/dl Blood Type Antibody Screen Crossmatch BBK History Checked 04/27/17 04/27/17 04/27/17 Range/Units 10:34 10:34 10:34 WBC 17.4 H D (4.8-10.8) K/uL RBC 1.73 L (3.80-5.20) Mil/uL Hgb 5.7 L* (12.0-16.0) g/dL Hct 18.0 L (34.0-47.0) % MCV 103.8 H D (81.0-99.0) fl MCH 32.8 H (27.0-31.0) pg MCHC 31.6 L (33.0-37.0) g/dL RDW 22.7 H (11.5-14.5) % Plt Count 39 L D (130-400) K/uL MPV 10.2 (7.2-11.7) fl Neut % (Auto) 32.8 L (50.0-75.0) % Lymph % (Auto) 58.0 H (20.0-40.0) % Bulloch % (Auto) 7.6 (0.0-10.0) % Eos % (Auto) 0.4 (0.0-4.0) % Baso % (Auto) 1.2 (0.0-2.0) % Neut # 5.7 (1.8-7.0) K/uL Lymph # 10.0 H (1.0-4.3) K/uL Bulloch # 1.3 H (0.0-0.8) K/uL Eos # 0.1 (0.0-0.7) K/uL Baso # 0.2 (0.0-0.2) K/uL Neutrophils % (Manual) 39 L (42-75) % Band Neutrophils % 1 (0-2) % Lymphocytes % (Manual) 41 (20-50) % Monocytes % (Manual) 16 H (0-10) % Metamyelocytes % 2 H (0-0) % Myelocytes % 1 H (0-0) % Nucleated RBC % 18 H (0-0) % Smudge Cells Present Platelet Estimate Decreased L (NORMAL) Large Platelets Present Hypochromasia (manual) Slight Poikilocytosis (manual Slight Anisocytosis (manual) Moderate Microcytosis (manual) Slight Macrocytosis (manual) Slight Spherocytes Slight Target Cells Slight Ovalocytes Slight PT 19.7 H (9.8-13.1) Seconds INR 1.7 H (0.9-1.2) APTT 35.5 (25.6-37.1) Seconds pO2 (30-55) mm/Hg VBG pH (7.32-7.43) VBG pCO2 (40-60) mmHg VBG HCO3 mmol/L VBG Total CO2 (22-28) mmol/L VBG O2 Sat (Calc) (40-65) % VBG Base Excess (0.0-2.0) mmol/L VBG Potassium (3.6-5.2) mmol/L A-a O2 Difference mm/Hg Glucose (65-105) mg/dL Lactate (0.7-2.1) mmol/L FiO2 % Crit Value Called To Crit Value Called By Crit Value Read Back Blood Gas Notified Time Sodium (132-148) mmol/l Potassium (3.6-5.0) MMOL/L Chloride (98-107) mmol/L Carbon Dioxide (22-30) mmol/L Anion Gap (10-20) BUN (7-17) mg/dl Creatinine (0.7-1.2) mg/dl Est GFR ( Amer) Est GFR (Non-Af Amer) Random Glucose (65-105) mg/dL Uric Acid (2.2-7.5) mg/Dl Calcium (8.4-10.2) mg/dL Phosphorus (2.5-4.5) mg/dl Magnesium (1.6-2.3) MG/DL Total Bilirubin (0.2-1.3) mg/dl AST (14-36) U/L ALT (9-52) U/L Alkaline Phosphatase (38-126) U/L Ammonia 24 (11-51) umo/L Lactate Dehydrogenase (313-618) U/L Total Creatine Kinase (30-135) U/L Troponin I (0.00-0.120) ng/mL Total Protein (6.3-8.2) G/DL Albumin (3.5-5.0) g/dL Globulin (2.2-3.9) gm/dL Albumin/Globulin Ratio (1.0-2.1) Lipase (23-300) U/L Thyroxine (T4) (5.5-11.0) ug/dl Total T3 (1.49-2.60) nmol/L T3 Uptake (23.0-41.0) % TSH 3rd Generation (0.46-4.68) mIU/ML Venous Blood Potassium (3.6-5.2) mmol/L Urine Color (YELLOW) Urine Clarity (Clear) Urine pH (5.0-8.0) Ur Specific [place] (1.003-1.030) Urine Protein (NEGATIVE) mg/dL Urine Glucose (UA) (Normal) mg/dL Urine Ketones (NEGATIVE) mg/dL Urine Blood (NEGATIVE) Urine Nitrate (NEGATIVE) Urine Bilirubin (NEGATIVE) Urine Urobilinogen (0.2-1.0) mg/dL Ur Leukocyte Esterase (Negative) Barak/uL Ur Squamous Epith Cells (0-5) /hpf Amorphous Sediment (<OCC) /ul Hyaline Casts (0-2) /hpf Stool Occult Blood (NEGATIVE) Alcohol, Quantitative (0-10) mg/dl Blood Type Antibody Screen Crossmatch BBK History Checked 04/27/17 Range/Units 10:34 WBC (4.8-10.8) K/uL RBC (3.80-5.20) Mil/uL Hgb (12.0-16.0) g/dL Hct (34.0-47.0) % MCV (81.0-99.0) fl MCH (27.0-31.0) pg MCHC (33.0-37.0) g/dL RDW (11.5-14.5) % Plt Count (130-400) K/uL MPV (7.2-11.7) fl Neut % (Auto) (50.0-75.0) % Lymph % (Auto) (20.0-40.0) % Bull[place] % (Auto) (0.0-10.0) % Eos % (Auto) (0.0-4.0) % Baso % (Auto) (0.0-2.0) % Neut # (1.8-7.0) K/uL Lymph # (1.0-4.3) K/uL Bulloch # (0.0-0.8) K/uL Eos # (0.0-0.7) K/uL Baso # (0.0-0.2) K/uL Neutrophils % (Manual) (42-75) % Band Neutrophils % (0-2) % Lymphocytes % (Manual) (20-50) % Monocytes % (Manual) (0-10) % Metamyelocytes % (0-0) % Myelocytes % (0-0) % Nucleated RBC % (0-0) % Smudge Cells Platelet Estimate (NORMAL) Large Platelets Hypochromasia (manual) Poikilocytosis (manual Anisocytosis (manual) Microcytosis (manual) Macrocytosis (manual) Spherocytes Target Cells Ovalocytes PT (9.8-13.1) Seconds INR (0.9-1.2) APTT (25.6-37.1) Seconds pO2 (30-55) mm/Hg VBG pH (7.32-7.43) VBG pCO2 (40-60) mmHg VBG HCO3 mmol/L VBG Total CO2 (22-28) mmol/L VBG O2 Sat (Calc) (40-65) % VBG Base Excess (0.0-2.0) mmol/L VBG Potassium (3.6-5.2) mmol/L A-a O2 Difference mm/Hg Glucose (65-105) mg/dL Lactate (0.7-2.1) mmol/L FiO2 % Crit Value Called To Crit Value Called By Crit Value Read Back Blood Gas Notified Time Sodium 140 (132-148) mmol/l Potassium 5.2 H (3.6-5.0) MMOL/L Chloride 104 (98-107) mmol/L Carbon Dioxide 24 (22-30) mmol/L Anion Gap 17 (10-20) BUN 33 H (7-17) mg/dl Creatinine 1.2 (0.7-1.2) mg/dl Est GFR ( Amer) 56 Est GFR (Non-Af Amer) 47 Random Glucose 129 H (65-105) mg/dL Uric Acid (2.2-7.5) mg/Dl Calcium 14.0 H* D (8.4-10.2) mg/dL Phosphorus (2.5-4.5) mg/dl Magnesium (1.6-2.3) MG/DL Total Bilirubin 6.7 H (0.2-1.3) mg/dl AST 168 H (14-36) U/L ALT 22 (9-52) U/L Alkaline Phosphatase 245 H (38-126) U/L Ammonia (11-51) umo/L Lactate Dehydrogenase 1456 H (313-618) U/L Total Creatine Kinase 42 (30-135) U/L Troponin I 0.0660 (0.00-0.120) ng/mL Total Protein 9.1 H (6.3-8.2) G/DL Albumin 3.1 L (3.5-5.0) g/dL Globulin 6.0 H (2.2-3.9) gm/dL Albumin/Globulin Ratio 0.5 L (1.0-2.1) Lipase 130 (23-300) U/L Thyroxine (T4) (5.5-11.0) ug/dl Total T3 (1.49-2.60) nmol/L T3 Uptake (23.0-41.0) % TSH 3rd Generation (0.46-4.68) mIU/ML Venous Blood Potassium (3.6-5.2) mmol/L Urine Color (YELLOW) Urine Clarity (Clear) Urine pH (5.0-8.0) Ur Specific [place] (1.003-1.030) Urine Protein (NEGATIVE) mg/dL Urine Glucose (UA) (Normal) mg/dL Urine Ketones (NEGATIVE) mg/dL Urine Blood (NEGATIVE) Urine Nitrate (NEGATIVE) Urine Bilirubin (NEGATIVE) Urine Urobilinogen (0.2-1.0) mg/dL Ur Leukocyte Esterase (Negative) Barak/uL Ur Squamous Epith Cells (0-5) /hpf Amorphous Sediment (<OCC) /ul Hyaline Casts (0-2) /hpf Stool Occult Blood (NEGATIVE) Alcohol, Quantitative < 10 (0-10) mg/dl Blood Type Antibody Screen Crossmatch BBK History Checked Laboratory Results - last 24 hr 04/27/17 04/27/17 04/27/17 10:34 10:34 10:34 WBC 17.4 H D RBC 1.73 L Hgb 5.7 L* Hct 18.0 L MCV 103.8 H D MCH 32.8 H MCHC 31.6 L RDW 22.7 H Plt Count 39 L D MPV 10.2 Neut % (Auto) 32.8 L Lymph % (Auto) 58.0 H Bulloch % (Auto) 7.6 Eos % (Auto) 0.4 Baso % (Auto) 1.2 Neut # 5.7 Lymph # 10.0 H Bulloch # 1.3 H Eos # 0.1 Baso # 0.2 Neutrophils % (Manual) 39 L Band Neutrophils % 1 Lymphocytes % (Manual) 41 Monocytes % (Manual) 16 H Metamyelocytes % 2 H Myelocytes % 1 H Nucleated RBC % 18 H Smudge Cells Present Platelet Estimate Decreased L Large Platelets Present Hypochromasia (manual) Slight Poikilocytosis (manual Slight Anisocytosis (manual) Moderate Microcytosis (manual) Slight Macrocytosis (manual) Slight Spherocytes Slight Target Cells Slight Ovalocytes Slight PT INR APTT pO2 VBG pH VBG pCO2 VBG HCO3 VBG Total CO2 VBG O2 Sat (Calc) VBG Base Excess VBG Potassium A-a O2 Difference Glucose Lactate FiO2 Crit Value Called To Crit Value Called By Crit Value Read Back Blood Gas Notified Time Sodium 140 Potassium 5.2 H Chloride 104 Carbon Dioxide 24 Anion Gap 17 BUN 33 H Creatinine 1.2 Est GFR ( Amer) 56 Est GFR (Non-Af Amer) 47 Random Glucose 129 H Uric Acid Calcium 14.0 H* D Phosphorus Magnesium Total Bilirubin 6.7 H AST 168 H ALT 22 Alkaline Phosphatase 245 H Ammonia 24 Lactate Dehydrogenase 1456 H Total Creatine Kinase 42 Troponin I 0.0660 Total Protein 9.1 H Albumin 3.1 L Globulin 6.0 H Albumin/Globulin Ratio 0.5 L Lipase 130 Thyroxine (T4) Total T3 T3 Uptake TSH 3rd Generation Venous Blood Potassium Urine Color Urine Clarity Urine pH Ur Specific [place] Urine Protein Urine Glucose (UA) Urine Ketones Urine Blood Urine Nitrate Urine Bilirubin Urine Urobilinogen Ur Leukocyte Esterase Ur Squamous Epith Cells Amorphous Sediment Hyaline Casts Stool Occult Blood Alcohol, Quantitative < 10 Blood Type Antibody Screen Crossmatch BBK History Checked 04/27/17 04/27/17 04/27/17 10:34 10:34 11:20 WBC RBC Hgb Hct MCV MCH MCHC RDW Plt Count MPV Neut % (Auto) Lymph % (Auto) Bull[place] % (Auto) Eos % (Auto) Baso % (Auto) Neut # Lymph # Bulloch # Eos # Baso # Neutrophils % (Manual) Band Neutrophils % Lymphocytes % (Manual) Monocytes % (Manual) Metamyelocytes % Myelocytes % Nucleated RBC % Smudge Cells Platelet Estimate Large Platelets Hypochromasia (manual) Poikilocytosis (manual Anisocytosis (manual) Microcytosis (manual) Macrocytosis (manual) Spherocytes Target Cells Ovalocytes PT 19.7 H INR 1.7 H APTT 35.5 pO2 VBG pH VBG pCO2 VBG HCO3 VBG Total CO2 VBG O2 Sat (Calc) VBG Base Excess VBG Potassium A-a O2 Difference Glucose Lactate FiO2 Crit Value Called To Crit Value Called By Crit Value Read Back Blood Gas Notified Time Sodium Potassium Chloride Carbon Dioxide Anion Gap BUN Creatinine Est GFR ( Amer) Est GFR (Non-Af Amer) Random Glucose Uric Acid Calcium Phosphorus Magnesium Total Bilirubin AST ALT Alkaline Phosphatase Ammonia Lactate Dehydrogenase Total Creatine Kinase Troponin I Total Protein Albumin Globulin Albumin/Globulin Ratio Lipase Thyroxine (T4) Total T3 T3 Uptake TSH 3rd Generation Venous Blood Potassium Urine Color Frieda Urine Clarity Cloudy Urine pH 6.0 Ur Specific [place] 1.013 Urine Protein Negative Urine Glucose (UA) Neg Urine Ketones Negative Urine Blood Small Urine Nitrate Negative Urine Bilirubin Negative Urine Urobilinogen 4.0 H Ur Leukocyte Esterase Neg Ur Squamous Epith Cells 1 Amorphous Sediment Rare H Hyaline Casts 0-2 Stool Occult Blood Negative Alcohol, Quantitative Blood Type Antibody Screen Crossmatch BBK History Checked 04/27/17 04/27/17 04/27/17 11:39 11:45 12:19 WBC RBC Hgb Hct MCV MCH MCHC RDW Plt Count MPV Neut % (Auto) Lymph % (Auto) Bull[place] % (Auto) Eos % (Auto) Baso % (Auto) Neut # Lymph # Bull[place] # Eos # Baso # Neutrophils % (Manual) Band Neutrophils % Lymphocytes % (Manual) Monocytes % (Manual) Metamyelocytes % Myelocytes % Nucleated RBC % Smudge Cells Platelet Estimate Large Platelets Hypochromasia (manual) Poikilocytosis (manual Anisocytosis (manual) Microcytosis (manual) Macrocytosis (manual) Spherocytes Target Cells Ovalocytes PT INR APTT pO2 24 L VBG pH 7.43 VBG pCO2 42 VBG HCO3 26.9 VBG Total CO2 29.2 H VBG O2 Sat (Calc) 45.5 VBG Base Excess 3.3 H VBG Potassium 4.2 A-a O2 Difference 73.0 Glucose 126 H Lactate 5.1 H* FiO2 21.0 Crit Value Called To Dr thomson Crit Value Called By 15 Crit Value Read Back Y Blood Gas Notified Time 1159 Sodium 139.0 Potassium Chloride 107.0 Carbon Dioxide Anion Gap BUN Creatinine Est GFR ( Amer) Est GFR (Non-Af Amer) Random Glucose Uric Acid 11.5 H Calcium Phosphorus 5.1 H Magnesium 1.8 Total Bilirubin AST ALT Alkaline Phosphatase Ammonia Lactate Dehydrogenase Total Creatine Kinase Troponin I Total Protein Albumin Globulin Albumin/Globulin Ratio Lipase Thyroxine (T4) 7.84 Total T3 0.909 L T3 Uptake 42.7 H TSH 3rd Generation 0.40 L Venous Blood Potassium 4.2 Urine Color Urine Clarity Urine pH Ur Specific [place] Urine Protein Urine Glucose (UA) Urine Ketones Urine Blood Urine Nitrate Urine Bilirubin Urine Urobilinogen Ur Leukocyte Esterase Ur Squamous Epith Cells Amorphous Sediment Hyaline Casts Stool Occult Blood Alcohol, Quantitative Blood Type A POSITIVE Antibody Screen Negative Crossmatch See Detail BBK History Checked No verified bt 04/27/17 13:47 WBC RBC Hgb Hct MCV MCH MCHC RDW Plt Count MPV Neut % (Auto) Lymph % (Auto) [place] % (Auto) Eos % (Auto) Baso % (Auto) Neut # Lymph # [place] # Eos # Baso # Neutrophils % (Manual) Band Neutrophils % Lymphocytes % (Manual) Monocytes % (Manual) Metamyelocytes % Myelocytes % Nucleated RBC % Smudge Cells Platelet Estimate Large Platelets Hypochromasia (manual) Poikilocytosis (manual Anisocytosis (manual) Microcytosis (manual) Macrocytosis (manual) Spherocytes Target Cells Ovalocytes PT INR APTT pO2 46 VBG pH 7.53 H VBG pCO2 26 L VBG HCO3 24.9 VBG Total CO2 22.5 VBG O2 Sat (Calc) VBG Base Excess 0.3 VBG Potassium 3.4 L A-a O2 Difference 71.0 Glucose 99 Lactate 3.6 H FiO2 21.0 Crit Value Called To Dhara mayen Crit Value Called By 15 Crit Value Read Back N Blood Gas Notified Time Sodium 139.0 Potassium Chloride 113.0 H Carbon Dioxide Anion Gap BUN Creatinine Est GFR ( Amer) Est GFR (Non-Af Amer) Random Glucose Uric Acid Calcium Phosphorus Magnesium Total Bilirubin AST ALT Alkaline Phosphatase Ammonia Lactate Dehydrogenase Total Creatine Kinase Troponin I Total Protein Albumin Globulin Albumin/Globulin Ratio Lipase Thyroxine (T4) Total T3 T3 Uptake TSH 3rd Generation Venous Blood Potassium 3.4 L Urine Color Urine Clarity Urine pH Ur Specific [place] Urine Protein Urine Glucose (UA) Urine Ketones Urine Blood Urine Nitrate Urine Bilirubin Urine Urobilinogen Ur Leukocyte Esterase Ur Squamous Epith Cells Amorphous Sediment Hyaline Casts Stool Occult Blood Alcohol, Quantitative Blood Type Antibody Screen Crossmatch BBK History Checked Radiology Interpretations (Free Text): See above EKG/Cardiology Studies: see above Fingerstick Blood Sugar Results: 143 Review of Systems - Review of Systems All systems: reviewed and no additional remarkable complaints except (as above) Critical Care Progress Note - Ventilator Checklist Head of Bed 30 Degrees: Yes - Extremities/Vascular Does the Patient have a Central Venous Catheter?: Yes Insertion Site: Femoral Vein Does the Patient need a Central Venous Catheter?: Yes Does the Patient have a Valadez Catheter?: No - Prophylaxis GI Prophylaxis GI: Pepsid - Prophylaxis DVT Prophylaxis DVT: SCDs
[2017-04-27] MEDS: Insulin Lispro (humaLOG) 100 Units/ml Inj SC SCH ×2 (16:57→22:00)
--- NOTE | 2017-04-27 17:40 | CARD ---
APPROVED REPORT EKG Measurement Heart [id number] [id number] <Conclusion> Sinus Tachycardia nonspecific stt changes
--- NOTE | 2017-04-27 18:37 | CP.PCM.HP ---
History of Present Illness - History of Present Illness History of Present Illness: Chief complaint: Confusion , altered mental status and generalized weakness History obtained mostly from patient's fiance and son since patient is confused 57 y/o female with PMH IDDM , HTN, dyslipidemia was brought to ER for evaluation. As per son and her fiance for the last 3 days patient has not been herself, she is more weak, unabve to get out of bed, confused , talking to herself, disoriented.Patient also appears more jaundiced. As per family she has been complaining of lower back pain and has been seeing and physicina who gave her an injection 1 month ago.Family denies any upper respiratory illness, nausea , vomiting , diarrhea, abdominal pain , recent illness or blood transfusion.As per family patient was complaining of SOB and some CP as per family. Patient at present is awake , alert , confused , denies any pain or discomfort . Allergies ; NKDA PMH DM , HTN, Dyslipidemia Medications. Vitamins, Levemir Surgery ; left kidney stone Family history ; Denies Socila history :lives in [place] but presently lives with son in [place] , has 2 children, single, has a fiance, quit smoking 1 month ago ( has been smoking for many years /2 PPD ), no ETOH abuse or drug abuse ROs ; 14 point review of system negative except above Code status ; Full next of kin : Daughter Paola # [phone] Fiance Homero [phone] Present on Admission - Present on Admission Any Indicators Present on Admission: No Review of Systems - Review of Systems All systems: reviewed and no additional remarkable complaints except Past Patient History - Infectious Disease Hx of Infectious Diseases: None - Past Medical History & Family History Past Medical History?: No Past Family History: Reviewed and not pertinent - Past Social History Smoking Status: Former Smoker Chewing Tobacco Use: No Cigar Use: No Alcohol: None Drugs: Denies Home Situation {Lives}: With Family Domestic Violence: Negative - CARDIAC Hx Cardiac Disorders: Yes Hx Hypertension: Yes - PULMONARY Hx Asthma: Yes - NEUROLOGICAL Hx Neurological Disorder: Yes Hx Vertigo: Yes - HEENT Hx HEENT Problems: No - RENAL Hx Chronic Kidney Disease: Yes Hx Kidney Stones: Yes (2015) - ENDOCRINE/METABOLIC Hx Endocrine Disorders: Yes Hx Diabetes Mellitus Type 2: Yes - HEMATOLOGICAL/ONCOLOGICAL Hx Blood Disorders: Yes Hx AIDS: No Hx Anemia: No Hx Leukemia: No Hx Sickle Cell Disease: No Hx Unexplained Bleeding: No - INTEGUMENTARY Hx Dermatological Problems: No - MUSCULOSKELETAL/RHEUMATOLOGICAL Hx Musculoskeletal Disorders: Yes Hx Back Pain: Yes Hx Falls: Yes - GASTROINTESTINAL Hx Gastrointestinal Disorders: No Hx Pancreatitis: No HX Swallowing Problems: No Hx Ulcer: No Hx Vomiting: No - GENITOURINARY/GYNECOLOGICAL Hx Genitourinary Disorders: No - PSYCHIATRIC Hx Psychophysiologic Disorder: No Hx Anxiety: No Hx Bipolar Disorder: No Hx Depression: No Hx Emotional Abuse: No Hx Hallucinations: No Hx Substance Use: No - SURGICAL HISTORY Hx Surgeries: Yes Hx Cholecystectomy: Yes - ANESTHESIA Hx Anesthesia: Yes Hx Anesthesia Reactions: No Hx Malignant Hyperthermia: No Has any member of the family had a problem w/ anesthesia?: No Meds Allergies/Adverse Reactions: Allergies Allergy/AdvReac Type Severity Reaction Status Date / Time FISH Allergy RASH Verified 04/27/17 09:31 Physical Exam - Constitutional Appears: Confused, Other (jaundized ) - Head Exam Head Exam: ATRAUMATIC, NORMAL INSPECTION, NORMOCEPHALIC - Eye Exam Eye Exam: PERRL, Scleral icterus - ENT Exam ENT Exam: Mucous Membranes Dry, Normal Exam - Neck Exam Neck exam: Positive for: Normal Inspection - Respiratory Exam Respiratory Exam: Clear to Auscultation Bilateral, NORMAL BREATHING PATTERN. absent: Rales, Rhonchi, Wheezes - Cardiovascular Exam Cardiovascular Exam: REGULAR RHYTHM, RRR, +S1, +S2. absent: JVD - GI/Abdominal Exam GI & Abdominal Exam: Normal Bowel Sounds, Soft. absent: Distended, Guarding, Rebound, Tenderness - Rectal Exam Rectal Exam: Deferred - Extremities Exam Extremities exam: Positive for: normal capillary refill, normal inspection, pedal pulses present. Negative for: calf tenderness, pedal edema - Neurological Exam Neurological exam: Alert Additional comments: awake confused follows commands answering questions moves all 4 extremities - Psychiatric Exam Psychiatric exam: Flat Affect - Skin Skin Exam: Dry, Pallor Additional comments: jaundized no rash , no petechia Results - Vital Signs Recent Vital Signs: Last Vital Signs Temp 97.6 F 04/27/17 15:50 Pulse 78 04/27/17 18:00 Resp 16 04/27/17 18:00 BP 103/56 L 04/27/17 18:00 Pulse Ox 98 04/27/17 18:00 - Labs Result Diagrams: 04/27/17 10:34 11/17/17 10:34 Labs: Laboratory Results - last 24 hr 04/27/17 04/27/17 04/27/17 10:34 10:34 10:34 WBC 17.4 H D RBC 1.73 L Hgb 5.7 L* Hct 18.0 L MCV 103.8 H D MCH 32.8 H MCHC 31.6 L RDW 22.7 H Plt Count 39 L D MPV 10.2 Neut % (Auto) 32.8 L Lymph % (Auto) 58.0 H Anson % (Auto) 7.6 Eos % (Auto) 0.4 Baso % (Auto) 1.2 Neut # 5.7 Lymph # 10.0 H Anson # 1.3 H Eos # 0.1 Baso # 0.2 Neutrophils % (Manual) 39 L Band Neutrophils % 1 Lymphocytes % (Manual) 41 Monocytes % (Manual) 16 H Metamyelocytes % 2 H Myelocytes % 1 H Nucleated RBC % 18 H Smudge Cells Present Platelet Estimate Decreased L Large Platelets Present Hypochromasia (manual) Slight Poikilocytosis (manual Slight Anisocytosis (manual) Moderate Microcytosis (manual) Slight Macrocytosis (manual) Slight Spherocytes Slight Target Cells Slight Ovalocytes Slight PT INR APTT pO2 VBG pH VBG pCO2 VBG HCO3 VBG Total CO2 VBG O2 Sat (Calc) VBG Base Excess VBG Potassium A-a O2 Difference Glucose Lactate FiO2 Crit Value Called To Crit Value Called By Crit Value Read Back Blood Gas Notified Time Sodium 140 Potassium 5.2 H Chloride 104 Carbon Dioxide 24 Anion Gap 17 BUN 33 H Creatinine 1.2 Est GFR ( Amer) 56 Est GFR (Non-Af Amer) 47 POC Glucose (mg/dL) Random Glucose 129 H Uric Acid Calcium 14.0 H* D Phosphorus Magnesium Total Bilirubin 6.7 H AST 168 H ALT 22 Alkaline Phosphatase 245 H Ammonia 24 Lactate Dehydrogenase 1456 H Total Creatine Kinase 42 Troponin I 0.0660 Total Protein 9.1 H Albumin 3.1 L Globulin 6.0 H Albumin/Globulin Ratio 0.5 L Lipase 130 Thyroxine (T4) Total T3 T3 Uptake TSH 3rd Generation Venous Blood Potassium Urine Color Urine Clarity Urine pH Ur Specific Barre Urine Protein Urine Glucose (UA) Urine Ketones Urine Blood Urine Nitrate Urine Bilirubin Urine Urobilinogen Ur Leukocyte Esterase Ur Squamous Epith Cells Amorphous Sediment Hyaline Casts Stool Occult Blood Alcohol, Quantitative < 10 Blood Type Antibody Screen Crossmatch BBK History Checked 04/27/17 04/27/17 04/27/17 10:34 10:34 11:20 WBC RBC Hgb Hct MCV MCH MCHC RDW Plt Count MPV Neut % (Auto) Lymph % (Auto) Anson % (Auto) Eos % (Auto) Baso % (Auto) Neut # Lymph # Anson # Eos # Baso # Neutrophils % (Manual) Band Neutrophils % Lymphocytes % (Manual) Monocytes % (Manual) Metamyelocytes % Myelocytes % Nucleated RBC % Smudge Cells Platelet Estimate Large Platelets Hypochromasia (manual) Poikilocytosis (manual Anisocytosis (manual) Microcytosis (manual) Macrocytosis (manual) Spherocytes Target Cells Ovalocytes PT 19.7 H INR 1.7 H APTT 35.5 pO2 VBG pH VBG pCO2 VBG HCO3 VBG Total CO2 VBG O2 Sat (Calc) VBG Base Excess VBG Potassium A-a O2 Difference Glucose Lactate FiO2 Crit Value Called To Crit Value Called By Crit Value Read Back Blood Gas Notified Time Sodium Potassium Chloride Carbon Dioxide Anion Gap BUN Creatinine Est GFR ( Amer) Est GFR (Non-Af Amer) POC Glucose (mg/dL) Random Glucose Uric Acid Calcium Phosphorus Magnesium Total Bilirubin AST ALT Alkaline Phosphatase Ammonia Lactate Dehydrogenase Total Creatine Kinase Troponin I Total Protein Albumin Globulin Albumin/Globulin Ratio Lipase Thyroxine (T4) Total T3 T3 Uptake TSH 3rd Generation Venous Blood Potassium Urine Color Frieda Urine Clarity Cloudy Urine pH 6.0 Ur Specific Barre 1.013 Urine Protein Negative Urine Glucose (UA) Neg Urine Ketones Negative Urine Blood Small Urine Nitrate Negative Urine Bilirubin Negative Urine Urobilinogen 4.0 H Ur Leukocyte Esterase Neg Ur Squamous Epith Cells 1 Amorphous Sediment Rare H Hyaline Casts 0-2 Stool Occult Blood Negative Alcohol, Quantitative Blood Type Antibody Screen Crossmatch BBK History Checked 04/27/17 04/27/17 04/27/17 11:39 11:45 12:19 WBC RBC Hgb Hct MCV MCH MCHC RDW Plt Count MPV Neut % (Auto) Lymph % (Auto) Anson % (Auto) Eos % (Auto) Baso % (Auto) Neut # Lymph # Anson # Eos # Baso # Neutrophils % (Manual) Band Neutrophils % Lymphocytes % (Manual) Monocytes % (Manual) Metamyelocytes % Myelocytes % Nucleated RBC % Smudge Cells Platelet Estimate Large Platelets Hypochromasia (manual) Poikilocytosis (manual Anisocytosis (manual) Microcytosis (manual) Macrocytosis (manual) Spherocytes Target Cells Ovalocytes PT INR APTT pO2 24 L VBG pH 7.43 VBG pCO2 42 VBG HCO3 26.9 VBG Total CO2 29.2 H VBG O2 Sat (Calc) 45.5 VBG Base Excess 3.3 H VBG Potassium 4.2 A-a O2 Difference 73.0 Glucose 126 H Lactate 5.1 H* FiO2 21.0 Crit Value Called To Dr thomson Crit Value Called By 15 Crit Value Read Back Y Blood Gas Notified Time 1159 Sodium 139.0 Potassium Chloride 107.0 Carbon Dioxide Anion Gap BUN Creatinine Est GFR ( Amer) Est GFR (Non-Af Amer) POC Glucose (mg/dL) Random Glucose Uric Acid 11.5 H Calcium Phosphorus 5.1 H Magnesium 1.8 Total Bilirubin AST ALT Alkaline Phosphatase Ammonia Lactate Dehydrogenase Total Creatine Kinase Troponin I Total Protein Albumin Globulin Albumin/Globulin Ratio Lipase Thyroxine (T4) 7.84 Total T3 0.909 L T3 Uptake 42.7 H TSH 3rd Generation 0.40 L Venous Blood Potassium 4.2 Urine Color Urine Clarity Urine pH Ur Specific Barre Urine Protein Urine Glucose (UA) Urine Ketones Urine Blood Urine Nitrate Urine Bilirubin Urine Urobilinogen Ur Leukocyte Esterase Ur Squamous Epith Cells Amorphous Sediment Hyaline Casts Stool Occult Blood Alcohol, Quantitative Blood Type A POSITIVE Antibody Screen Negative Crossmatch See Detail BBK History Checked No verified bt 04/27/17 04/27/17 13:47 16:38 WBC RBC Hgb Hct MCV MCH MCHC RDW Plt Count MPV Neut % (Auto) Lymph % (Auto) Anson % (Auto) Eos % (Auto) Baso % (Auto) Neut # Lymph # Anson # Eos # Baso # Neutrophils % (Manual) Band Neutrophils % Lymphocytes % (Manual) Monocytes % (Manual) Metamyelocytes % Myelocytes % Nucleated RBC % Smudge Cells Platelet Estimate Large Platelets Hypochromasia (manual) Poikilocytosis (manual Anisocytosis (manual) Microcytosis (manual) Macrocytosis (manual) Spherocytes Target Cells Ovalocytes PT INR APTT pO2 46 VBG pH 7.53 H VBG pCO2 26 L VBG HCO3 24.9 VBG Total CO2 22.5 VBG O2 Sat (Calc) VBG Base Excess 0.3 VBG Potassium 3.4 L A-a O2 Difference 71.0 Glucose 99 Lactate 3.6 H FiO2 21.0 Crit Value Called To Dhara mayen Crit Value Called By 15 Crit Value Read Back N Blood Gas Notified Time Sodium 139.0 Potassium Chloride 113.0 H Carbon Dioxide Anion Gap BUN Creatinine Est GFR ( Amer) Est GFR (Non-Af Amer) POC Glucose (mg/dL) 115 H Random Glucose Uric Acid Calcium Phosphorus Magnesium Total Bilirubin AST ALT Alkaline Phosphatase Ammonia Lactate Dehydrogenase Total Creatine Kinase Troponin I Total Protein Albumin Globulin Albumin/Globulin Ratio Lipase Thyroxine (T4) Total T3 T3 Uptake TSH 3rd Generation Venous Blood Potassium 3.4 L Urine Color Urine Clarity Urine pH Ur Specific Barre Urine Protein Urine Glucose (UA) Urine Ketones Urine Blood Urine Nitrate Urine Bilirubin Urine Urobilinogen Ur Leukocyte Esterase Ur Squamous Epith Cells Amorphous Sediment Hyaline Casts Stool Occult Blood Alcohol, Quantitative Blood Type Antibody Screen Crossmatch BBK History Checked - EKG Data EKG shows normal: Sinus rhythm Rate: Tachycardia - Imaging and Cardiology Chest x-ray Additional comment: no acute pathology CT scan - head Additional comment: no acute pathology abdomen and pelvis Additional comment: 1. 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 The differential considerations include metastasis and lymphoma. 2. Mild hepatomegaly and moderate splenomegaly. 3. Evaluation of the colon is limited in the absence of oral contrast. Allowing for this, apparent diffuse small bowel wall thickening is nonspecific and could be related to underdistention or nonspecific enteritis. Also noted is segmental mural thickening in the splenic flexure of colon, again could be related to underdistention however underlying mass cannot be excluded. Please correlate with colonoscopy. 3. Left lower lobe pneumonia. Assessment & Plan - Assessment and Plan (Free Text) Assessment: 57 y/o female with PMH IDDM , HTN, dyslipidemia was brought to ER for evaluation. As per son and her fiance for the last 3 days patient has not been herself, she is more weak, unable to get out of bed, confused , talking to herself, disoriented.Patient also appears more jaundiced. As per family she has been complaining of lower back pain and has been seeing and physician who gave her an injection 1 month ago.Family denies any upper respiratory illness, nausea , vomiting , diarrhea, abdominal pain , recent illness or blood transfusion.As per family patient was complaining of SOB and some CP as per family. Patient at present is awake , alert , confused , denies any pain or discomfort . In ER patient found to confused , jaundiced with Hgb 5.7, plt 39 K tea 6.7 , elevated LDH WBC 17 k lactic acid 5 cr 1.2 total protein 9 Ca 14 CXR - clear PS showed schisctocytes , nucleated RBC-s Patient is critically ill. Will admit to ICU for sepsis , Altered mental status , metabolic derangement with hypercalcemia, hyperkalemia ,hemolytic anemia and possible malignancy. 1. Sepsis of unclear etiology responded to IVF resuscitation lactic acid elevated 5 , WBC [address] chest showed LLL pneumonia blood and urine cx sent Received vancomycin 1 g IV and Zosyn Continue IV antibiotics Id consult repeat lactic acid 2. Altered mental status most likely related to metabolic derangement ( metabolic encephalopathy) CT head showed no acute pathology hematology consult appreciated and case discussed Peripheral smear showed nucleated RBC-s and schisctocytes -- most likely hemolytic anemia .F/u haptoglobin , fibrinogen CT abdomen and pelvis showed diffuse ostelytic lesions of the skeleton -- most likely multiple myeloma vs other malignancy Follow up flow cytometry, protein electrophoresis continue IVF, IV antibiotics Started Zometa for hypercalcemia Continue Solucortef for hemolytic anemia and transfuse 3 unit PRBC 3. Hemolytic anemia of unclear etiology Hgb 5.7 LDH elevated , bili 6.7-- check haptoglobin hematology consulted peripheral smear showed schistocytes significant for hemolysis Check retic count , haptoglobin, Leonardo test Started Solucortef transfuse 2-3 unit PRBC Check HIV, Hepatis profile , FROYLAN,RF, mycoplasma , fibrinogen, retic count Transfuse 4. Thrombocytopenia/ coagulopathy suspected TTP due to AMS ? PT/INR elevated , no proteinuria, normal Cr - suggest possible DIC secondary to sepsis check Fibrinogen , retic count ,haptoglobin , blood cx, urine cx Hematology on board Hold on any Plt transfusion As per hematology will start Plasmaphresis 5.Diffuse Osteolytic lesions of the spine Probably Multiple myeloma but need to rule out CLL or lymphoma check Flow cytometry ,protein electrophoresis follow up with oncology recommendations 6.Hypercalcemia IVF started Zometa Endo consulted 7. Left Lower Lobe Pneumonia Most likely CAP Check mycoplasma Ag Started vanco and Zosyn 8.DM start diabetic diet Check Hgb A1c Hold insulin for now endo consulted insulin coverage and ACHS 7. Azotemia/ hyperkalemia IVF , 8. DVT/ GI prophylaxis SCD Protonix IV
[2017-04-27] MEDS ORDERED: Albuterol 0.083% Inhal Sol (2.5 mg/3 mL) UD INH PRN ×2 (19:20→19:45)
[2017-04-27] MEDS: Piperacill/Tazo 2.25gm in Dex 2.25 GM/50 ML BAG IVPB SCH (21:34)
[2017-04-27] MEDS: Insulin Detemir 100 Units/ml Inj SC SCH (22:00)
[2017-04-27] MEDS: Hydrocortisone Succinat 250 MG vial IV SCH (22:00)
--- NOTE | 2017-04-27 23:18 | CP.PCM.CON ---
History of Present Illness - History of Present Illness History of Present Illness: REASONS FOR CONSULT : PROBABLE TTP IN NEED FOR TPE .. CASE D/W DR JIMÉNEZ PT WAS SEEN AND EXAMINED IN ICU CASE D/W DR CLAY ,[employer] PER [employer] AND SON : PT HAS H/O IDDM ,HTN AND ASTHMA ONE MONTH AGO SHE STARTED HAVING LOWER BACK PAIN .. WENT TO AN MD IN [facility] WHO GAVE HER LOCAL INJECTION WITH SOME RELIEF WEAKNESS FOR 2 WEEKS SEVERE CHANGE IN MENTAL STATUS FOR 2-3 DAYS .. FELL DOWN Past Patient History - Infectious Disease Hx of Infectious Diseases: None - Past Medical History & Family History Past Medical History?: No Past Family History: Reviewed and not pertinent - Past Social History Smoking Status: Former Smoker Chewing Tobacco Use: No Cigar Use: No Alcohol: None Drugs: Denies Home Situation {Lives}: With Family Domestic Violence: Negative - CARDIAC Hx Cardiac Disorders: Yes Hx Hypertension: Yes - PULMONARY Hx Asthma: Yes - NEUROLOGICAL Hx Neurological Disorder: Yes Hx Vertigo: Yes - HEENT Hx HEENT Problems: No - RENAL Hx Chronic Kidney Disease: Yes Hx Kidney Stones: Yes (2015) - ENDOCRINE/METABOLIC Hx Endocrine Disorders: Yes Hx Diabetes Mellitus Type 2: Yes - HEMATOLOGICAL/ONCOLOGICAL Hx Blood Disorders: Yes Hx AIDS: No Hx Anemia: No Hx Leukemia: No Hx Sickle Cell Disease: No Hx Unexplained Bleeding: No - INTEGUMENTARY Hx Dermatological Problems: No - MUSCULOSKELETAL/RHEUMATOLOGICAL Hx Musculoskeletal Disorders: Yes Hx Back Pain: Yes Hx Falls: Yes - GASTROINTESTINAL Hx Gastrointestinal Disorders: No Hx Pancreatitis: No HX Swallowing Problems: No Hx Ulcer: No Hx Vomiting: No - GENITOURINARY/GYNECOLOGICAL Hx Genitourinary Disorders: No - PSYCHIATRIC Hx Psychophysiologic Disorder: No Hx Anxiety: No Hx Bipolar Disorder: No Hx Depression: No Hx Emotional Abuse: No Hx Hallucinations: No Hx Substance Use: No - SURGICAL HISTORY Hx Surgeries: Yes Hx Cholecystectomy: Yes - ANESTHESIA Hx Anesthesia: Yes Hx Anesthesia Reactions: No Hx Malignant Hyperthermia: No Has any member of the family had a problem w/ anesthesia?: No Meds Allergies/Adverse Reactions: Allergies Allergy/AdvReac Type Severity Reaction Status Date / Time FISH Allergy RASH Verified 04/27/17 09:31 - Medications Medications: Current Medications Acetaminophen (Tylenol 325mg Tab) 650 mg PO Q6H PRN PRN Reason: Fever >100.4 F Albuterol Sulfate (Albuterol 0.083% Inhal Rae (2.5 Mg/3 Ml) Ud) 2.5 mg INH RQ4 PRN PRN Reason: Shortness of Breath Hydrocortisone Sodium Succinate (Solu-Cortef) 100 mg IV 0400,1000,1600,2200 [facility] Vancomycin HCl 1 gm/ Sodium (Chloride) 250 mls @ 166.667 mls/hr IVPB DAILY [facility] PRN Reason: Protocol Piperacillin Sod/Tazobactam Sod (Zosyn 2.25 Gm Iv Premix) 2.25 gm in 50 mls @ 50 mls/hr IVPB Q6 [facility] PRN Reason: Protocol Last Admin: 04/27/17 21:34 Dose: 50 mls/hr Insulin Detemir (Levemir) 12 units SC HS [facility] Insulin Human Lispro (Humalog) 0 units SC ACHS [facility] PRN Reason: Protocol Last Admin: 04/27/17 16:57 Dose: Not Given Ondansetron HCl (Zofran Inj) 4 mg IVP Q6H PRN PRN Reason: Nausea/Vomiting Pantoprazole Sodium (Protonix Inj) 40 mg IVP DAILY [facility] Results - Vital Signs Recent Vital Signs: Last Vital Signs Temp 97.4 F L 04/27/17 18:45 Pulse 74 04/27/17 18:45 Resp 11 L 04/27/17 18:45 BP 113/65 04/27/17 18:45 Pulse Ox 98 04/27/17 18:00 - Labs Result Diagrams: 04/27/17 10:34 04/27/17 10:34 Labs: Laboratory Results - last 24 hr 04/27/17 04/27/17 04/27/17 10:34 10:34 10:34 WBC 17.4 H D RBC 1.73 L Hgb 5.7 L* Hct 18.0 L MCV 103.8 H D MCH 32.8 H MCHC 31.6 L RDW 22.7 H Plt Count 39 L D MPV 10.2 Neut % (Auto) 32.8 L Lymph % (Auto) 58.0 H [place] % (Auto) 7.6 Eos % (Auto) 0.4 Baso % (Auto) 1.2 Neut # 5.7 Lymph # 10.0 H [place] # 1.3 H Eos # 0.1 Baso # 0.2 Neutrophils % (Manual) 39 L Band Neutrophils % 1 Lymphocytes % (Manual) 41 Monocytes % (Manual) 16 H Metamyelocytes % 2 H Myelocytes % 1 H Nucleated RBC % 18 H Smudge Cells Present Platelet Estimate Decreased L Large Platelets Present Hypochromasia (manual) Slight Poikilocytosis (manual Slight Anisocytosis (manual) Moderate Microcytosis (manual) Slight Macrocytosis (manual) Slight Spherocytes Slight Target Cells Slight Ovalocytes Slight PT INR APTT pO2 VBG pH VBG pCO2 VBG HCO3 VBG Total CO2 VBG O2 Sat (Calc) VBG Base Excess VBG Potassium A-a O2 Difference Glucose Lactate FiO2 Crit Value Called To Crit Value Called By Crit Value Read Back Blood Gas Notified Time Sodium 140 Potassium 5.2 H Chloride 104 Carbon Dioxide 24 Anion Gap 17 BUN 33 H Creatinine 1.2 Est GFR ( Amer) 56 Est GFR (Non-Af Amer) 47 POC Glucose (mg/dL) Random Glucose 129 H Uric Acid Calcium 14.0 H* D Phosphorus Magnesium Total Bilirubin 6.7 H AST 168 H ALT 22 Alkaline Phosphatase 245 H Ammonia 24 Lactate Dehydrogenase 1456 H Total Creatine Kinase 42 Troponin I 0.0660 Total Protein 9.1 H Albumin 3.1 L Globulin 6.0 H Albumin/Globulin Ratio 0.5 L Lipase 130 Thyroxine (T4) Total T3 T3 Uptake TSH 3rd Generation Venous Blood Potassium Urine Color Urine Clarity Urine pH Ur Specific [place] Urine Protein Urine Glucose (UA) Urine Ketones Urine Blood Urine Nitrate Urine Bilirubin Urine Urobilinogen Ur Leukocyte Esterase Ur Squamous Epith Cells Amorphous Sediment Hyaline Casts Stool Occult Blood Alcohol, Quantitative < 10 Blood Type Antibody Screen Crossmatch BBK History Checked 04/27/17 04/27/17 04/27/17 10:34 10:34 11:20 WBC RBC Hgb Hct MCV MCH MCHC RDW Plt Count MPV Neut % (Auto) Lymph % (Auto) [place] % (Auto) Eos % (Auto) Baso % (Auto) Neut # Lymph # [place] # Eos # Baso # Neutrophils % (Manual) Band Neutrophils % Lymphocytes % (Manual) Monocytes % (Manual) Metamyelocytes % Myelocytes % Nucleated RBC % Smudge Cells Platelet Estimate Large Platelets Hypochromasia (manual) Poikilocytosis (manual Anisocytosis (manual) Microcytosis (manual) Macrocytosis (manual) Spherocytes Target Cells Ovalocytes PT 19.7 H INR 1.7 H APTT 35.5 pO2 VBG pH VBG pCO2 VBG HCO3 VBG Total CO2 VBG O2 Sat (Calc) VBG Base Excess VBG Potassium A-a O2 Difference Glucose Lactate FiO2 Crit Value Called To Crit Value Called By Crit Value Read Back Blood Gas Notified Time Sodium Potassium Chloride Carbon Dioxide Anion Gap BUN Creatinine Est GFR ( Amer) Est GFR (Non-Af Amer) POC Glucose (mg/dL) Random Glucose Uric Acid Calcium Phosphorus Magnesium Total Bilirubin AST ALT Alkaline Phosphatase Ammonia Lactate Dehydrogenase Total Creatine Kinase Troponin I Total Protein Albumin Globulin Albumin/Globulin Ratio Lipase Thyroxine (T4) Total T3 T3 Uptake TSH 3rd Generation Venous Blood Potassium Urine Color [place] Urine Clarity Cloudy Urine pH 6.0 Ur Specific [place] 1.013 Urine Protein Negative Urine Glucose (UA) Neg Urine Ketones Negative Urine Blood Small Urine Nitrate Negative Urine Bilirubin Negative Urine Urobilinogen 4.0 H Ur Leukocyte Esterase Neg Ur Squamous Epith Cells 1 Amorphous Sediment Rare H Hyaline Casts 0-2 Stool Occult Blood Negative Alcohol, Quantitative Blood Type Antibody Screen Crossmatch BBK History Checked 04/27/17 04/27/17 04/27/17 11:39 11:45 12:19 WBC RBC Hgb Hct MCV MCH MCHC RDW Plt Count MPV Neut % (Auto) Lymph % (Auto) [place] % (Auto) Eos % (Auto) Baso % (Auto) Neut # Lymph # [place] # Eos # Baso # Neutrophils % (Manual) Band Neutrophils % Lymphocytes % (Manual) Monocytes % (Manual) Metamyelocytes % Myelocytes % Nucleated RBC % Smudge Cells Platelet Estimate Large Platelets Hypochromasia (manual) Poikilocytosis (manual Anisocytosis (manual) Microcytosis (manual) Macrocytosis (manual) Spherocytes Target Cells Ovalocytes PT INR APTT pO2 24 L VBG pH 7.43 VBG pCO2 42 VBG HCO3 26.9 VBG Total CO2 29.2 H VBG O2 Sat (Calc) 45.5 VBG Base Excess 3.3 H VBG Potassium 4.2 A-a O2 Difference 73.0 Glucose 126 H Lactate 5.1 H* FiO2 21.0 Crit Value Called To Dr thomson Crit Value Called By 15 Crit Value Read Back Y Blood Gas Notified Time 1159 Sodium 139.0 Potassium Chloride 107.0 Carbon Dioxide Anion Gap BUN Creatinine Est GFR ( Amer) Est GFR (Non-Af Amer) POC Glucose (mg/dL) Random Glucose Uric Acid 11.5 H Calcium Phosphorus 5.1 H Magnesium 1.8 Total Bilirubin AST ALT Alkaline Phosphatase Ammonia Lactate Dehydrogenase Total Creatine Kinase Troponin I Total Protein Albumin Globulin Albumin/Globulin Ratio Lipase Thyroxine (T4) 7.84 Total T3 0.909 L T3 Uptake 42.7 H TSH 3rd Generation 0.40 L Venous Blood Potassium 4.2 Urine Color Urine Clarity Urine pH Ur Specific [place] Urine Protein Urine Glucose (UA) Urine Ketones Urine Blood Urine Nitrate Urine Bilirubin Urine Urobilinogen Ur Leukocyte Esterase Ur Squamous Epith Cells Amorphous Sediment Hyaline Casts Stool Occult Blood Alcohol, Quantitative Blood Type A POSITIVE Antibody Screen Negative Crossmatch See Detail BBK History Checked No verified bt 04/27/17 04/27/17 04/27/17 13:47 16:38 22:18 WBC RBC Hgb Hct MCV MCH MCHC RDW Plt Count MPV Neut % (Auto) Lymph % (Auto) [place] % (Auto) Eos % (Auto) Baso % (Auto) Neut # Lymph # [place] # Eos # Baso # Neutrophils % (Manual) Band Neutrophils % Lymphocytes % (Manual) Monocytes % (Manual) Metamyelocytes % Myelocytes % Nucleated RBC % Smudge Cells Platelet Estimate Large Platelets Hypochromasia (manual) Poikilocytosis (manual Anisocytosis (manual) Microcytosis (manual) Macrocytosis (manual) Spherocytes Target Cells Ovalocytes PT INR APTT pO2 46 VBG pH 7.53 H VBG pCO2 26 L VBG HCO3 24.9 VBG Total CO2 22.5 VBG O2 Sat (Calc) VBG Base Excess 0.3 VBG Potassium 3.4 L A-a O2 Difference 71.0 Glucose 99 Lactate 3.6 H FiO2 21.0 Crit Value Called To Dhara mayen Crit Value Called By 15 Crit Value Read Back N Blood Gas Notified Time Sodium 139.0 Potassium Chloride 113.0 H Carbon Dioxide Anion Gap BUN Creatinine Est GFR ( Amer) Est GFR (Non-Af Amer) POC Glucose (mg/dL) 115 H 123 H Random Glucose Uric Acid Calcium Phosphorus Magnesium Total Bilirubin AST ALT Alkaline Phosphatase Ammonia Lactate Dehydrogenase Total Creatine Kinase Troponin I Total Protein Albumin Globulin Albumin/Globulin Ratio Lipase Thyroxine (T4) Total T3 T3 Uptake TSH 3rd Generation Venous Blood Potassium 3.4 L Urine Color Urine Clarity Urine pH Ur Specific [place] Urine Protein Urine Glucose (UA) Urine Ketones Urine Blood Urine Nitrate Urine Bilirubin Urine Urobilinogen Ur Leukocyte Esterase Ur Squamous Epith Cells Amorphous Sediment Hyaline Casts Stool Occult Blood Alcohol, Quantitative Blood Type Antibody Screen Crossmatch BBK History Checked Assessment & Plan - Assessment and Plan (Free Text) Assessment: SEVERE HEMATOLOGIC DISSORDER .. R/O TTP ..R/O MM SEVERE HYPERCALCEMIA .. P : TRANSFUSE 2-3 UNITS OVER NIGHT IF OK WITH DR JIMÉNEZ START TPE IN AM IV HYDRATION FOR HYPERCALCEMIA CONSENT FOT TPE WAS OBTAINED FROM [facility] OR KEEP A CLOSE EYE - Date & Time Date: 04/27/17 Time: 15:00
--- NOTE | 2017-04-28 03:09 | CON ---
DATE: ENDOCRINOLOGY CONSULTATION LOCATION: In ER holding, probably going to ICU. HISTORY OF PRESENT ILLNESS: This is a 57-year-old female with known history of type 2 insulin-requiring diabetes presenting here with generalized body weakness and increasing bouts of dizziness and lightheadedness with supervening altered mental status and confusion and disorientation, and has been evaluated to have marked hemolytic anemia and also marked hypercalcemia, and is being referred now for endocrine evaluation and management. PAST MEDICAL HISTORY: As mentioned above, history of type 2 insulin-requiring diabetes, currently on a combination of Levemir given once daily with metformin given as 500 mg b.i.d., history of hypertension and dyslipidemia, history of chronic anemia as noted. FAMILY HISTORY: Positive for diabetes and hypertension. SOCIAL HISTORY: The patient has a supportive family. No known substance use. REVIEW OF SYSTEMS: As mentioned above. Admits to generalized body weakness with easy fatigability and tiredness, and suboptimal energy level. Also admits to supervening dizziness and lightheadedness, worse on the day of admission, and she was also noted by her family members to have increasing hypersomnolence with confusion and disorientation as noted. No chest pains or palpitations or PND. Her oral intake has been variable with nausea, dyspepsia and suboptimal meal portions. Also admits to habitual constipation. PHYSICAL EXAMINATION: GENERAL: Is an average built female, in no apparent distress. VITAL SIGNS: Blood pressure of 140/80, pulse of 70 beats per minute and regular, temperature 99, respirations 20, height is 5 feet 4 inches, weight is 180 pounds. HEENT: Head normocephalic. Eyes anicteric with pink conjunctivae. Funduscopy is not possible at this time. Ears, nose and throat otherwise normal. NECK: Supple. Thyroid gland is normal in size. No carotid bruits or cervical adenopathy. CARDIOPULMONARY: Some adynamic precordium. S1, S2 is rapid and regular. LUNGS: Clear to auscultation. ABDOMEN: Flat, soft, with positive bowel sounds. EXTREMITIES: No peripheral edema. Pulses are +2 bilaterally. LABORATORY DATA: Her chemistry showed a BUN of 33, sodium 140, potassium 5.2, chloride 104, CO2 of 24, glucose 129, and creatinine 1.2. Her calcium level is 14.0, with an albumin level of 3.1 and a corrected calcium of 14.9 for the low albumin level. Her LDH 1456. Phosphorus is 5.1. Magnesium is 1.8. The initial hemoglobin is 5.7, WBC 17.4, hematocrit of 18, platelets of 39,000, MCV 103.8. ASSESSMENT: This is a 57-year-old female with marked hemolytic anemia with supervening symptomatic malignant hypercalcemia and the possibility always of an underlying humoral hypercalcemia of malignancy versus osteolytic related hypercalcemia of malignancy has to be excluded at this point in time. The possibility of neuroendocrine versus a paraneoplastic syndrome also has to be excluded at this time. PLAN OF MANAGEMENT: As discussed with the ER physician, we cannot give calcitonin subcutaneously as our hospital pharmacy will not order this medications because of the extremely exorbitant and formidable expense costing over $2000 at this time. So we will actually be recommending Zometa given as 4 mg IV piggyback as one dose, which is also another kind of bisphosphonate which will help lower the malignant range hypercalcemia at this time. We will continue with vigorous IV hydration as given and obtain serial chemistries and supplement accordingly as needed. We will obtain a PTH intact level and a PTH related protein to determine whether we are dealing with an underlying malignancy versus a parathyroid related etiology although this is quite unlikely with the high range of calcium levels as noted. We will obtain baseline thyroid function studies and also a lipid panel, and also a hemoglobin A1c to confirm her prior glycemic control. A low-dose algorithm with Humalog insulin will be given and we will start her right away on the Levemir given as 12 units subcu at bedtime daily to start tonight. We will switch her over to a basal and bolus insulin regimen as indicated. We will follow up. Laure De Santiago MD
[2017-04-28] MEDS: Piperacill/Tazo 2.25gm in Dex 2.25 GM/50 ML BAG IVPB SCH ×4 (04:00→21:23)
[2017-04-28] MEDS: Hydrocortisone Succinat 250 MG vial IV SCH ×4 (04:00→21:23)
[2017-04-28 06:17] LABS: BASO # 0.2 K/uL (0.0-0.2); BASO % 1.2 % (0.0-2.0); EOS % 0.1 % (0.0-4.0); HEMATOCRIT 28.8 % (34.0-47.0); LYMPH # 6.5 K/uL (1.0-4.3); LYMPH % 49.5 % (20.0-40.0); MEAN CELL VOLUME 90.7 fl (81.0-99.0); MEAN CORPUSCULAR HEMOGLOBIN 29.5 pg (27.0-31.0); MEAN CORPUSCULAR HGB CONC 32.5 g/dL (33.0-37.0); MEAN PLATELET VOLUME 9.4 fl (7.2-11.7); MONO # 0.9 K/uL (0.0-0.8); MONO % 6.7 % (0.0-10.0); NEUT # 5.6 K/uL (1.8-7.0); NEUT % 42.5 % (50.0-75.0); NRBC % 8.8 % (0.0-0.0); RED CELL DISTRIBUTION WIDTH 18.6 % (11.5-14.5); WHITE BLOOD COUNT 13.2 K/uL (4.8-10.8)
[2017-04-28 06:38] LABS: ALB/GLOB RATIO 0.5 (1.0-2.1); BILIRUBIN,TOTAL 6.5 mg/dl (0.2-1.3); MAGNESIUM 1.8 MG/DL (1.6-2.3); PHOSPHOROUS 5.2 mg/dl (2.5-4.5); POTASSIUM 4.2 MMOL/L (3.6-5.0); TOTAL PROTEIN 8.4 G/DL (6.3-8.2)
[2017-04-28 06:50] LABS: CALCIUM 13.9 mg/dL (8.4-10.2)
[2017-04-28] MEDS: Insulin Lispro (humaLOG) 100 Units/ml Inj SC SCH ×4 (07:04→21:31)
[2017-04-28 07:11] LABS: PARTIAL THROMBOPLASTIN TIME 41.1 Seconds (25.6-37.1)
[2017-04-28 07:12] LABS: TOTAL PROTEIN, SERUM 6.5 g/dL (6.1-8.1)
[2017-04-28] MEDS ORDERED: methylPREDNISolone 100 MG in Sodium Chloride 0.9% 50 ML IV ONE (10:00)
[2017-04-28] MEDS ORDERED: Calcium Gluconate 9.3 MEQ in Sodium Chloride 0.9% 250 ML IVPB ONE (10:00)
[2017-04-28] MEDS ORDERED: DiphenhydrAMINE 50 mg/ml Inj IVP ONE (10:00)
--- NOTE | 2017-04-28 10:28 | CP.PCM.PN ---
Subjective - Date & Time of Evaluation Date of Evaluation: 04/28/17 Time of Evaluation: 10:25 - Subjective Subjective: Pt is still very lethargic , Does not answer any questions,. Responds to painful stimuli. Her Plasma exchange has still not been done. After 3 units of blood the hgb today is .9.4gms. No platelets were transfused in case this is a TTP. Awaiting the flow cytometry fom the blood done yesterday. Awaiting the protein elctrophoresis and immunofixation. Objective - Vital Signs/Intake and Output Vital Signs (last 24 hours): Temp Pulse Resp BP Pulse Ox 98.4 F 86 16 132/71 96 04/28/17 08:00 04/28/17 10:00 04/28/17 10:00 04/28/17 10:00 04/28/17 10:00 Intake and Output: 04/28/17 04/28/17 06:59 18:59 Output Total 500 Balance -500 - Medications Medications: Current Medications Acetaminophen (Tylenol 325mg Tab) 650 mg PO Q6H PRN PRN Reason: Fever >100.4 F Acetaminophen (Tylenol 650 Mg Supp) 650 mg ND ONCE [facility] Albuterol Sulfate (Albuterol 0.083% Inhal Rae (2.5 Mg/3 Ml) Ud) 2.5 mg INH RQ4 PRN PRN Reason: Shortness of Breath Allopurinol (Zyloprim) 200 mg PO DAILY [facility] Hydrocortisone Sodium Succinate (Solu-Cortef) 100 mg IV 0400,1000,1600,2200 [facility] Last Admin: 04/28/17 09:01 Dose: 100 mg Vancomycin HCl 1 gm/ Sodium (Chloride) 250 mls @ 166.667 mls/hr IVPB DAILY [facility] PRN Reason: Protocol Last Admin: 04/28/17 08:33 Dose: 166.667 mls/hr Piperacillin Sod/Tazobactam Sod (Zosyn 2.25 Gm Iv Premix) 2.25 gm in 50 mls @ 50 mls/hr IVPB Q6 [facility] PRN Reason: Protocol Last Admin: 04/28/17 09:01 Dose: 50 mls/hr Methylprednisolone 100 mg/ (Sodium Chloride) 50 mls @ 100 mls/hr IV ONCE ONE Stop: 04/28/17 10:29 Calcium Gluconate 9.3 meq/ (Sodium Chloride) 270 mls @ 270 mls/hr IVPB ONCE ONE Stop: 04/28/17 10:59 Insulin Detemir (Levemir) 12 units SC HS [facility] Last Admin: 04/27/17 22:00 Dose: 12 units Insulin Human Lispro (Humalog) 0 units SC ACHS [facility] PRN Reason: Protocol Last Admin: 04/28/17 07:04 Dose: Not Given Ondansetron HCl (Zofran Inj) 4 mg IVP Q6H PRN PRN Reason: Nausea/Vomiting Pantoprazole Sodium (Protonix Inj) 40 mg IVP DAILY [facility] Last Admin: 04/28/17 08:32 Dose: 40 mg - Labs Labs: 04/28/17 05:30 04/28/17 05:30 PT 20.7 Seconds (9.8-13.1) H 04/28/17 05:30 INR 1.8 (0.9-1.2) H 04/28/17 05:30 APTT 41.1 Seconds (25.6-37.1) H D 04/28/17 05:30
[2017-04-28] MEDS: Sodium Chloride 0.9% 1,000 ML IV SCH (12:15)
--- NOTE | 2017-04-28 14:26 | CP.PCM.PN ---
Subjective - Date & Time of Evaluation Date of Evaluation: 04/28/17 Time of Evaluation: 10:00 - Subjective Subjective: Patient seen and examined bedside. Lying in bed confused. Opens eyes to name calling and command but unable to answer any questions. Hemodynamically stable, afebrile.Jaundiced, moves her extremities BP 132/71 HR 86 afebrile saturating 96 5 on 2 L O2 via NC WBC 13k hgb 9.4 plt 28 K BUN/cr 35/1.3 Ca 13.9 Objective - Vital Signs/Intake and Output Vital Signs (last 24 hours): Temp Pulse Resp BP Pulse Ox 98.6 F 105 H 24 149/102 H 98 04/28/17 12:00 04/28/17 12:00 04/28/17 12:00 04/28/17 12:00 04/28/17 12:00 Intake and Output: 04/28/17 04/28/17 06:59 18:59 Output Total 500 Balance -500 - Medications Medications: Current Medications Acetaminophen (Tylenol 325mg Tab) 650 mg PO Q6H PRN PRN Reason: Fever >100.4 F Acetaminophen (Tylenol 650 Mg Supp) 650 mg [place] ONCE [facility] Albuterol Sulfate (Albuterol 0.083% Inhal Rae (2.5 Mg/3 Ml) Ud) 2.5 mg INH RQ4 PRN PRN Reason: Shortness of Breath Allopurinol (Zyloprim) 200 mg PO DAILY [facility] Last Admin: 04/28/17 11:34 Dose: 200 mg Hydrocortisone Sodium Succinate (Solu-Cortef) 100 mg IV 0400,1000,1600,2200 [facility] Last Admin: 04/28/17 09:01 Dose: 100 mg Vancomycin HCl 1 gm/ Sodium (Chloride) 250 mls @ 166.667 mls/hr IVPB DAILY [facility] PRN Reason: Protocol Last Admin: 04/28/17 08:33 Dose: 166.667 mls/hr Piperacillin Sod/Tazobactam Sod (Zosyn 2.25 Gm Iv Premix) 2.25 gm in 50 mls @ 50 mls/hr IVPB Q6 [facility] PRN Reason: Protocol Last Admin: 04/28/17 09:01 Dose: 50 mls/hr Sodium Chloride (Sodium Chloride 0.9%) 1,000 mls @ 75 mls/hr IV .[id number] [facility] Stop: 04/29/17 11:50 Last Admin: 04/28/17 12:15 Dose: 75 mls/hr Insulin Detemir (Levemir) 12 units SC HS [facility] Last Admin: 04/27/17 22:00 Dose: 12 units Insulin Human Lispro (Humalog) 0 units SC ACHS [facility] PRN Reason: Protocol Last Admin: 04/28/17 11:33 Dose: Not Given Ondansetron HCl (Zofran Inj) 4 mg IVP Q6H PRN PRN Reason: Nausea/Vomiting Pantoprazole Sodium (Protonix Inj) 40 mg IVP DAILY [facility] Last Admin: 04/28/17 08:32 Dose: 40 mg - Labs Labs: 04/28/17 05:30 04/28/17 05:30 PT 20.7 Seconds (9.8-13.1) H 04/28/17 05:30 INR 1.8 (0.9-1.2) H 04/28/17 05:30 APTT 41.1 Seconds (25.6-37.1) H D 04/28/17 05:30 - Constitutional Appears: Confused, Other (restless) - Head Exam Head Exam: ATRAUMATIC, NORMAL INSPECTION, NORMOCEPHALIC - Eye Exam Eye Exam: EOMI, PERRL, Scleral icterus - ENT Exam ENT Exam: Mucous Membranes Dry, Normal Exam - Neck Exam Neck Exam: Normal Inspection - Respiratory Exam Respiratory Exam: Clear to Ausculation Bilateral. absent: Rales, Rhonchi, Wheezes - Cardiovascular Exam Cardiovascular Exam: REGULAR RHYTHM, RRR, +S1, +S2. absent: JVD - GI/Abdominal Exam GI & Abdominal Exam: Soft, Normal Bowel Sounds. absent: Distended, Guarding, Tenderness, Rebound - Rectal Exam Rectal Exam: Deferred - Extremities Exam Extremities Exam: Full ROM, Normal Capillary Refill, Normal Inspection. absent : Pedal Edema - Neurological Exam Additional comments: responds to name calling and commands, opens eyes, unable to answer questions - Skin Skin Exam: Dry, Warm Additional comments: jaundiced upper chest spider nevi Assessment and Plan - Assessment and Plan (Free Text) Assessment: 57 y/o female with PMH IDDM , HTN, dyslipidemia was brought to ER for evaluation. As per son and her fiance for the last 3 days patient has not been herself, she is more weak, unable to get out of bed, confused , talking to herself, disoriented.Patient also appears more jaundiced. As per family she has been complaining of lower back pain and has been seeing and physician who gave her an injection 1 month ago.Family denies any upper respiratory illness, nausea , vomiting , diarrhea, abdominal pain , recent illness or blood transfusion.As per family patient was complaining of SOB and some CP. Patient at present is awake , alert , confused , denies any pain or discomfort . In ER patient found to confused , jaundiced with Hgb 5.7, plt 39 K tea 6.7 , elevated LDH WBC 17 k lactic acid 5 cr 1.2 total protein 9 Ca 14 CXR - clear Peripheral Smear showed schisctocytes , nucleated RBC-s Pt/Inr elevated Patient is critically ill. Admitted to ICU for sepsis , Altered mental status, metabolic derangement with hypercalcemia, hyperkalemia ,hemolytic anemia and possible malignancy. 1. Sepsis of unclear etiology responded to IVF resuscitation lactic acid and WBC trending down ( 17 K -- 13 K 5--3.6 ) Ct chest showed LLL pneumonia blood and urine cx sent continue vancomycin 1 g IV and Zosyn Id consulted 2. Altered mental status most likely related to metabolic derangement ( metabolic encephalopathy) CT head showed no acute pathology hematology consult appreciated and case discussed Peripheral smear showed nucleated RBC-s and schisctocytes -- most likely hemolytic anemia . PT/INR elevated and fibrinogen low . f/u haptoglobin , retic count, siria test CT abdomen and pelvis showed diffuse ostelytic lesions of the skeleton -- most likely multiple myeloma vs other malignancy Follow up flow cytometry, protein electrophoresis continue IVF, IV antibiotics Started Zometa for hypercalcemia Continue Solucortef for hemolytic anemia and transfused 3 unit PRBC plan for plasmaphresiss today as per hematology 3. Hemolytic anemia of unclear etiology Hgb 5.7 LDH elevated , bili 6.7 peripheral smear showed nucleated RBC-s and schistocytes s/p 3 unit PRBc transfusin with Hgb 9.4 today hematology consult appreciated Check retic count , haptoglobin, Siria test ,Hepatis profile , FROYLAN,RF, mycoplasma continue Solucortef 4. Thrombocytopenia/ coagulopathy suspected TTP due to AMS ? PT/INR elevated , no proteinuria,Fibrinogen low - suggest possible DIC check retic count ,haptoglobin , f/u blood cx, urine cx Hematology on board Hold on any Plt transfusion as per hematology.Plt count trending down to 28 K today ( high risk of bleeding ) As per hematology will start Plasmaphresis 5.Diffuse Osteolytic lesions of the spine Probably Multiple myeloma but need to rule out CLL ,lymphoma OR OTHER MALIGNANCY f/u Flow cytometry ,protein electrophoresis follow up with oncology recommendations 6.Hypercalcemia IVF on Zometa Endo consulted 7. Left Lower Lobe Pneumonia Most likely CAP Check mycoplasma Ag on vanco and Zosyn 8.DM start diabetic diet f/u Hgb A1c Hold insulin for now endo consulted insulin coverage and ACHS 7.KIRSTIN / Azotemia/ hyperkalemia continue IVF Creatinine trending up 1.3 today 8. DVT/ GI prophylaxis SCD Protonix IV
[2017-04-28] MEDS ORDERED: Chlorhexidine Gluconate 1 APPL/PKT TP ONE (14:34)
--- NOTE | 2017-04-28 14:46 | PN ---
DATE: ENDOCRINOLOGY FOLLOWUP NOTE LOCATION: In ICU, room 435. SUBJECTIVE: This is a 57-year-old female with recent admission for marked anemia and supervening malignant hypercalcemia, and is now being followed closely for metabolic management. She received zoledronic acid at 4 mg IV piggyback 1 dose last night for management of marked hypercalcemic elevations as noted. The repeat chemistries today showed a BUN of 35, sodium 142, potassium 4.2, chloride 109, CO2 of 27, glucose 148 and creatinine 1.3. Her calcium level now is 13.9 with an albumin level of 2.7 and a corrected calcium of 15.2 mg per dL. Her liver transaminases are slightly elevated as noted. The glucose values have ranged from 123 to 145 mg per dL. Her latest hematology report showed a CBC of 13.2, hemoglobin of 9.4, hematocrit of 28.8 and platelets of 28,000. She has been seen by multiple specialists like Hematology, Nephrology and Neurology as noted. She was started empirically on hydrocortisone at 100 mg every 6 hours as noted. Moreover, the current impression at this time is hemolytic anemia and associated thrombocytopenia, and there is the possibility of her undergoing plasmapheresis depending on the nephrology evaluation at this time. She has ongoing workup for also possible multiple myeloma. From the Endocrine view point, we have to exclude any underlying neuroendocrine tumors and/or humoral hypercalcemia of malignancy causing the aforementioned malignant rise of the calcium levels. The parathyroid hormone intact level and parathyroid hormone related peptide levels have been sent out today as noted. We will continue the vigorous IV hydration and start her also on nasal calcitonin since we cannot obtain the subcutaneous calcitonin injections because of the formidable and expensive rao tag that goes with the medication. We will obtain serial chemistry and supplement accordingly needed. We will also continue the Levemir given as basal insulin at 12 units subcu at bedtime daily with the low-dose correction scale using Humalog insulin as given. We will follow. Laure De Santiago MD
--- NOTE | 2017-04-28 17:27 | CP.CCUPN ---
CCU Subjective - Physician Review Events Since Last Encounter (Free Text): 04/28/17 17:24 altered mental status, not following commands. CCU Objective - Vital Signs / Intake & Output Vital Signs (Last 4 hours): Vital Signs Temp Pulse Resp BP Pulse Ox 04/28/17 16:00 98.5 F 82 15 121/75 95 04/28/17 14:00 87 15 125/74 95 Intake and Output (Last 8hrs): Intake & Output 04/28/17 04/28/17 04/28/17 06:59 14:59 22:59 Intake Total 250 150 Output Total 500 200 60 Balance -500 50 90 Intake: IV 150 150 Oral 100 Output: Urine 500 200 60 Urethral (Hernandez) 200 60 Urine, Voided 500 Other: # Voids Urine, Voided 2 - Physical Exam Physical Exam Limitations: Positive for: Altered Mental Status Head: Positive for: Atraumatic, Normocephalic Pupils: Positive for: PERRL Extroacular Muscles: Positive for: EOMI Conjunctiva: Positive for: Icteric Mouth: Positive for: Dry Pharnyx: Negative for: ERYTHEMA, EXUDATE Neck: Negative for: Meningeal Signs, JVD, Lymphadenopathy Cardiovascular: Positive for: Regular Rate and Rhythm. Negative for: Murmurs, Rub Abdomen: Positive for: Normal Bowel Sounds, Other (+ splenomegaly). Negative for: Tenderness, Distention Rectal: Negative for: Occult Blood, Melena, Fissures Lower Extremity: Positive for: Edema, NORMAL PULSES. Negative for: CALF TENDERNESS, Cyanosis Neurological: Positive for: GCS=15, Motor Func Grossly Intact, Normal Sensory Function, Norm Deep Tendon Reflexes Skin: Positive for: Warm, Dry, Other (no petechiae). Negative for: Rashes Psychiatric: Positive for: Alert. Negative for: Oriented x 3 (oriented to person and place) - Medications Active Medications: Active Medications Generic Name Dose Route Start Last Admin Trade Name Freq PRN Reason Stop Dose Admin Acetaminophen 650 mg 04/27/17 19:20 Tylenol 325mg Tab PO Q6H PRN Fever >100.4 F Acetaminophen 650 mg 04/28/17 10:00 04/28/17 14:30 Tylenol 650 Mg Supp LA 650 mg ONCE ARLET Administration Albuterol Sulfate 2.5 mg 04/27/17 19:45 Albuterol 0.083% Inhal Rae (2.5 Mg/3 Ml) Ud INH RQ4 PRN Shortness of Breath Allopurinol 200 mg 04/28/17 09:00 04/28/17 11:34 Zyloprim PO 200 mg DAILY ARLET Administration Hydrocortisone Sodium Succinate 100 mg 04/27/17 22:00 04/28/17 16:20 Solu-Cortef IV 100 mg 0400,1000,1600,2200 ARLET Administration Vancomycin HCl 1 gm/ Sodium 250 mls @ 166.667 mls/hr 04/28/17 09:00 04/28/17 08:33 Chloride IVPB 166.667 mls/hr DAILY ARLET Administration Protocol Piperacillin Sod/Tazobactam Sod 2.25 gm in 50 mls @ 50 mls/hr 04/27/17 22:00 04/28/17 16:20 Zosyn 2.25 Gm Iv Premix IVPB 50 mls/hr Q6 ARLET Administration Protocol Sodium Chloride 1,000 mls @ 75 mls/hr 04/28/17 12:00 04/28/17 12:15 Sodium Chloride 0.9% IV 04/29/17 11:50 75 mls/hr .[id number] ARLET Administration Insulin Detemir 12 units 04/27/17 22:00 04/27/17 22:00 Levemir SC 12 units HS ARLET Administration Insulin Human Lispro 0 units 04/27/17 16:30 04/28/17 16:15 Humalog SC Not Given ACHS ARLET Protocol Ondansetron HCl 4 mg 04/27/17 19:20 Zofran Inj IVP Q6H PRN Nausea/Vomiting Pantoprazole Sodium 40 mg 04/28/17 09:00 04/28/17 08:32 Protonix Inj IVP 40 mg DAILY ARLET Administration - Patient Studies Lab Studies: Microbiology Studies 04/27/17 12:49 Urine Culture - Final Urine No Growth (<1,000 CFU/ML) Lab Studies 04/28/17 04/28/17 04/28/17 Range/Units 16:11 11:23 07:03 WBC (4.8-10.8) K/uL RBC (3.80-5.20) Mil/uL Hgb (12.0-16.0) g/dL Hct (34.0-47.0) % MCV (81.0-99.0) fl MCH (27.0-31.0) pg MCHC (33.0-37.0) g/dL RDW (11.5-14.5) % Plt Count (130-400) K/uL MPV (7.2-11.7) fl Neut % (Auto) (50.0-75.0) % Lymph % (Auto) (20.0-40.0) % [place] % (Auto) (0.0-10.0) % Eos % (Auto) (0.0-4.0) % Baso % (Auto) (0.0-2.0) % Neut # (1.8-7.0) K/uL Lymph # (1.0-4.3) K/uL [place] # (0.0-0.8) K/uL Eos # (0.0-0.7) K/uL Baso # (0.0-0.2) K/uL PT (9.8-13.1) Seconds INR (0.9-1.2) APTT (25.6-37.1) Seconds Fibrinogen (200-400) mg/dl Sodium (132-148) mmol/l Potassium (3.6-5.0) MMOL/L Chloride (98-107) mmol/L Carbon Dioxide (22-30) mmol/L Anion Gap (10-20) BUN (7-17) mg/dl Creatinine (0.7-1.2) mg/dl Est GFR ( Amer) Est GFR (Non-Af Amer) POC Glucose (mg/dL) 218 H 158 H 145 H (65-110) mg/dL Random Glucose (65-105) mg/dL Calcium (8.4-10.2) mg/dL Phosphorus (2.5-4.5) mg/dl Magnesium (1.6-2.3) MG/DL Total Bilirubin (0.2-1.3) mg/dl AST (14-36) U/L ALT (9-52) U/L Alkaline Phosphatase (38-126) U/L Total Protein (6.3-8.2) G/DL Total Protein (PEP) (6.1-8.1) g/dL Albumin (3.5-5.0) g/dL Globulin (2.2-3.9) gm/dL Albumin/Globulin Ratio (1.0-2.1) Triglycerides (0-149) mg/DL Cholesterol (0-199) mg/dL LDL Cholesterol Direct (0-129) mg/dL HDL Cholesterol (30-70) MG/DL HIV-1 Ab Rapid Screen (NON REAC) Blood Type Antibody Screen Crossmatch BBK History Checked 04/28/17 04/28/17 04/28/17 Range/Units 05:30 05:30 05:30 WBC 13.2 H (4.8-10.8) K/uL RBC 3.18 L (3.80-5.20) Mil/uL Hgb 9.4 L D (12.0-16.0) g/dL Hct 28.8 L (34.0-47.0) % MCV 90.7 D (81.0-99.0) fl MCH 29.5 (27.0-31.0) pg MCHC 32.5 L (33.0-37.0) g/dL RDW 18.6 H (11.5-14.5) % Plt Count 28 L* D (130-400) K/uL MPV 9.4 (7.2-11.7) fl Neut % (Auto) 42.5 L (50.0-75.0) % Lymph % (Auto) 49.5 H (20.0-40.0) % [place] % (Auto) 6.7 (0.0-10.0) % Eos % (Auto) 0.1 (0.0-4.0) % Baso % (Auto) 1.2 (0.0-2.0) % Neut # 5.6 (1.8-7.0) K/uL Lymph # 6.5 H (1.0-4.3) K/uL Shawnee # 0.9 H (0.0-0.8) K/uL Eos # 0.0 (0.0-0.7) K/uL Baso # 0.2 (0.0-0.2) K/uL PT 20.7 H (9.8-13.1) Seconds INR 1.8 H (0.9-1.2) APTT 41.1 H D (25.6-37.1) Seconds Fibrinogen 129 L* (200-400) mg/dl Sodium (132-148) mmol/l Potassium (3.6-5.0) MMOL/L Chloride (98-107) mmol/L Carbon Dioxide (22-30) mmol/L Anion Gap (10-20) BUN (7-17) mg/dl Creatinine (0.7-1.2) mg/dl Est GFR ( Amer) Est GFR (Non-Af Amer) POC Glucose (mg/dL) (65-110) mg/dL Random Glucose (65-105) mg/dL Calcium (8.4-10.2) mg/dL Phosphorus (2.5-4.5) mg/dl Magnesium (1.6-2.3) MG/DL Total Bilirubin (0.2-1.3) mg/dl AST (14-36) U/L ALT (9-52) U/L Alkaline Phosphatase (38-126) U/L Total Protein (6.3-8.2) G/DL Total Protein (PEP) (6.1-8.1) g/dL Albumin (3.5-5.0) g/dL Globulin (2.2-3.9) gm/dL Albumin/Globulin Ratio (1.0-2.1) Triglycerides (0-149) mg/DL Cholesterol (0-199) mg/dL LDL Cholesterol Direct (0-129) mg/dL HDL Cholesterol (30-70) MG/DL HIV-1 Ab Rapid Screen Non reactive (NON REAC) Blood Type Antibody Screen Crossmatch BBK History Checked 04/28/17 04/27/17 04/27/17 Range/Units 05:30 22:18 17:10 WBC (4.8-10.8) K/uL RBC (3.80-5.20) Mil/uL Hgb (12.0-16.0) g/dL Hct (34.0-47.0) % MCV (81.0-99.0) fl MCH (27.0-31.0) pg MCHC (33.0-37.0) g/dL RDW (11.5-14.5) % Plt Count (130-400) K/uL MPV (7.2-11.7) fl Neut % (Auto) (50.0-75.0) % Lymph % (Auto) (20.0-40.0) % [place] % (Auto) (0.0-10.0) % Eos % (Auto) (0.0-4.0) % Baso % (Auto) (0.0-2.0) % Neut # (1.8-7.0) K/uL Lymph # (1.0-4.3) K/uL Shawnee # (0.0-0.8) K/uL Eos # (0.0-0.7) K/uL Baso # (0.0-0.2) K/uL PT (9.8-13.1) Seconds INR (0.9-1.2) APTT (25.6-37.1) Seconds Fibrinogen (200-400) mg/dl Sodium 142 (132-148) mmol/l Potassium 4.2 (3.6-5.0) MMOL/L Chloride 109 H (98-107) mmol/L Carbon Dioxide 27 (22-30) mmol/L Anion Gap 10 (10-20) BUN 35 H (7-17) mg/dl Creatinine 1.3 H (0.7-1.2) mg/dl Est GFR ( Amer) 51 Est GFR (Non-Af Amer) 43 POC Glucose (mg/dL) 123 H (65-110) mg/dL Random Glucose 148 H (65-105) mg/dL Calcium 13.9 H* (8.4-10.2) mg/dL Phosphorus 5.2 H (2.5-4.5) mg/dl Magnesium 1.8 (1.6-2.3) MG/DL Total Bilirubin 6.5 H (0.2-1.3) mg/dl AST 131 H D (14-36) U/L ALT 22 (9-52) U/L Alkaline Phosphatase 204 H (38-126) U/L Total Protein 8.4 H (6.3-8.2) G/DL Total Protein (PEP) 6.5 (6.1-8.1) g/dL Albumin 2.7 L (3.5-5.0) g/dL Globulin 5.7 H (2.2-3.9) gm/dL Albumin/Globulin Ratio 0.5 L (1.0-2.1) Triglycerides 149 (0-149) mg/DL Cholesterol 96 (0-199) mg/dL LDL Cholesterol Direct 47 (0-129) mg/dL HDL Cholesterol 6 L (30-70) MG/DL HIV-1 Ab Rapid Screen (NON REAC) Blood Type Antibody Screen Crossmatch BBK History Checked 04/27/17 04/27/17 Range/Units 12:19 09:44 WBC (4.8-10.8) K/uL RBC (3.80-5.20) Mil/uL Hgb (12.0-16.0) g/dL Hct (34.0-47.0) % MCV (81.0-99.0) fl MCH (27.0-31.0) pg MCHC (33.0-37.0) g/dL RDW (11.5-14.5) % Plt Count (130-400) K/uL MPV (7.2-11.7) fl Neut % (Auto) (50.0-75.0) % Lymph % (Auto) (20.0-40.0) % [place] % (Auto) (0.0-10.0) % Eos % (Auto) (0.0-4.0) % Baso % (Auto) (0.0-2.0) % Neut # (1.8-7.0) K/uL Lymph # (1.0-4.3) K/uL [place] # (0.0-0.8) K/uL Eos # (0.0-0.7) K/uL Baso # (0.0-0.2) K/uL PT (9.8-13.1) Seconds INR (0.9-1.2) APTT (25.6-37.1) Seconds Fibrinogen (200-400) mg/dl Sodium (132-148) mmol/l Potassium (3.6-5.0) MMOL/L Chloride (98-107) mmol/L Carbon Dioxide (22-30) mmol/L Anion Gap (10-20) BUN (7-17) mg/dl Creatinine (0.7-1.2) mg/dl Est GFR ( Amer) Est GFR (Non-Af Amer) POC Glucose (mg/dL) 143 H (65-110) mg/dL Random Glucose (65-105) mg/dL Calcium (8.4-10.2) mg/dL Phosphorus (2.5-4.5) mg/dl Magnesium (1.6-2.3) MG/DL Total Bilirubin (0.2-1.3) mg/dl AST (14-36) U/L ALT (9-52) U/L Alkaline Phosphatase (38-126) U/L Total Protein (6.3-8.2) G/DL Total Protein (PEP) (6.1-8.1) g/dL Albumin (3.5-5.0) g/dL Globulin (2.2-3.9) gm/dL Albumin/Globulin Ratio (1.0-2.1) Triglycerides (0-149) mg/DL Cholesterol (0-199) mg/dL LDL Cholesterol Direct (0-129) mg/dL HDL Cholesterol (30-70) MG/DL HIV-1 Ab Rapid Screen (NON REAC) Blood Type A POSITIVE Antibody Screen Negative Crossmatch See Detail BBK History Checked No verified bt Laboratory Results - last 24 hr 04/27/17 04/27/17 04/27/17 09:44 12:19 17:10 WBC RBC Hgb Hct MCV MCH MCHC RDW Plt Count MPV Neut % (Auto) Lymph % (Auto) [place] % (Auto) Eos % (Auto) Baso % (Auto) Neut # Lymph # [place] # Eos # Baso # PT INR APTT Fibrinogen Sodium Potassium Chloride Carbon Dioxide Anion Gap BUN Creatinine Est GFR ( Amer) Est GFR (Non-Af Amer) POC Glucose (mg/dL) 143 H Random Glucose Calcium Phosphorus Magnesium Total Bilirubin AST ALT Alkaline Phosphatase Total Protein Total Protein (PEP) 6.5 Albumin Globulin Albumin/Globulin Ratio Triglycerides Cholesterol LDL Cholesterol Direct HDL Cholesterol HIV-1 Ab Rapid Screen Blood Type A POSITIVE Antibody Screen Negative Crossmatch See Detail BBK History Checked No verified bt 04/27/17 04/28/17 04/28/17 22:18 05:30 05:30 WBC 13.2 H RBC 3.18 L Hgb 9.4 L D Hct 28.8 L MCV 90.7 D MCH 29.5 MCHC 32.5 L RDW 18.6 H Plt Count 28 L* D MPV 9.4 Neut % (Auto) 42.5 L Lymph % (Auto) 49.5 H [place] % (Auto) 6.7 Eos % (Auto) 0.1 Baso % (Auto) 1.2 Neut # 5.6 Lymph # 6.5 H Shawnee # 0.9 H Eos # 0.0 Baso # 0.2 PT INR APTT Fibrinogen Sodium 142 Potassium 4.2 Chloride 109 H Carbon Dioxide 27 Anion Gap 10 BUN 35 H Creatinine 1.3 H Est GFR ( Amer) 51 Est GFR (Non-Af Amer) 43 POC Glucose (mg/dL) 123 H Random Glucose 148 H Calcium 13.9 H* Phosphorus 5.2 H Magnesium 1.8 Total Bilirubin 6.5 H AST 131 H D ALT 22 Alkaline Phosphatase 204 H Total Protein 8.4 H Total Protein (PEP) Albumin 2.7 L Globulin 5.7 H Albumin/Globulin Ratio 0.5 L Triglycerides 149 Cholesterol 96 LDL Cholesterol Direct 47 HDL Cholesterol 6 L HIV-1 Ab Rapid Screen Blood Type Antibody Screen Crossmatch BBK History Checked 04/28/17 04/28/17 04/28/17 05:30 05:30 07:03 WBC RBC Hgb Hct MCV MCH MCHC RDW Plt Count MPV Neut % (Auto) Lymph % (Auto) [place] % (Auto) Eos % (Auto) Baso % (Auto) Neut # Lymph # [place] # Eos # Baso # PT 20.7 H INR 1.8 H APTT 41.1 H D Fibrinogen 129 L* Sodium Potassium Chloride Carbon Dioxide Anion Gap BUN Creatinine Est GFR ( Amer) Est GFR (Non-Af Amer) POC Glucose (mg/dL) 145 H Random Glucose Calcium Phosphorus Magnesium Total Bilirubin AST ALT Alkaline Phosphatase Total Protein Total Protein (PEP) Albumin Globulin Albumin/Globulin Ratio Triglycerides Cholesterol LDL Cholesterol Direct HDL Cholesterol HIV-1 Ab Rapid Screen Non reactive Blood Type Antibody Screen Crossmatch BBK History Checked 04/28/17 04/28/17 11:23 16:11 WBC RBC Hgb Hct MCV MCH MCHC RDW Plt Count MPV Neut % (Auto) Lymph % (Auto) [place] % (Auto) Eos % (Auto) Baso % (Auto) Neut # Lymph # [place] # Eos # Baso # PT INR APTT Fibrinogen Sodium Potassium Chloride Carbon Dioxide Anion Gap BUN Creatinine Est GFR ( Amer) Est GFR (Non-Af Amer) POC Glucose (mg/dL) 158 H 218 H Random Glucose Calcium Phosphorus Magnesium Total Bilirubin AST ALT Alkaline Phosphatase Total Protein Total Protein (PEP) Albumin Globulin Albumin/Globulin Ratio Triglycerides Cholesterol LDL Cholesterol Direct HDL Cholesterol HIV-1 Ab Rapid Screen Blood Type Antibody Screen Crossmatch BBK History Checked Fingerstick Blood Sugar Results: 218 Review of Systems - Review of Systems Systems not reviewed;Unavailable: Altered Mental Status Critical Care Progress Note - Nutrition Nutrition: Nutrition Category Date Time Status Heart Healthy Diet [DIET] Diets 04/27/17 Dinner Active Assessment/Plan (1) Severe anemia Assessment and plan: 57yo F. PMHx IDDM, HTN, dyslipidemia, IDDM, nephrolithiasis. p/w AMS, jaundice , anemia. Neuro: altered mental status secondary to metaobolic encephalopathy Pulm: no acute issues, breathing spontaneously on room air CV: hemodynamically stable. Hem: hemolytic anemia (shistocytes, elevated LDH, elevated bilirubin), severe thrombocytopenia, leucocytosis. patient has signs of possible TTP, or DIC, or Multiple Myeloma with AIHA, f/u SPEP/UPEP, flow cytometry. Patient getting plasmapharesis today. Hem/Onc - Dr. Barker Renal: creatinine stabilizing. Endo: IDDM, short acting insulin sliding scale and levemir. GI: heart healthy diet, no signs of liver damage. Jaundice from hemolysis. ID: sepsis from LLL pneumonia seen on CT abdomen, started on Vanco and Zosyn. DVT proph - SCD's, held a/c with current bleeding risk high with coagulopathy. GI proph - protonix IV hernandez for strict I/O's during acute illness Code status - full code Critical Care Time spent 35 minutes Multi-disciplinary rounds were performed with house staff, nursing, speech therapy, respiratory therapy, pharmacy and nutrition with integrated input from the primary team/attending and other consulting services. The documented time is cumulative and includes review of patient data/exams/labs/chart review and examination of the patient on rounds and throughout the day; time is exclusive of any procedures or teaching time. Current Visit: Yes Status: Acute
[2017-04-28] MEDS: Insulin Detemir 100 Units/ml Inj SC SCH (21:24)
[2017-04-29] MEDS: Sodium Chloride 0.9% 1,000 ML IV SCH (02:19)
[2017-04-29 02:46] LABS: ABG ALLEN TEST YES; ARTERIAL BLOOD GAS HCO3 25.6 mmol/L (21-28); ARTERIAL BLOOD GAS O2 CAPACITY 12.9 mL/dL (16-24); ARTERIAL BLOOD GAS O2 CONTENT 11.6 ML/dL (15-23); ARTERIAL BLOOD GAS PH 7.54 (7.35-7.45); ARTERIAL BLOOD GAS PO2 46 mm/Hg (80-100); ARTERIAL BLOOD HGB O2 SAT 86.9 % (95.0-98.0); CARBOXYHEMOGLOBIN 2.5 % (0.5-1.5); HHB 9.6 % (0.0-5.0); METHEMOGLOBIN 1.1 % (0.0-3.0)
--- NOTE | 2017-04-29 03:12 | CP.PCM.PN ---
Subjective - Date & Time of Evaluation Date of Evaluation: 04/29/17 Time of Evaluation: 03:12 - Subjective Subjective: Called to evaluate restless patient The family members present The patient is awake and alert, with groans and moving about the bed restlessly , SOB on 2L of Oxygen via Nasal cannula, IV Fluid NS at 75mls/hr SpO2 92%; HR140/min; RR 28; BP 182/77mmHg Exam: Resp: Inspiratory and expiratory crackles in both lung blanchard CVS: S1 S2 tachycardic and regular ABD: Soft +ve bowel sounds, non tender Ext: No edema Neuro: Non focal ABG on 2L Ph 7.50/27/46/25.6 CXR: Bibasal and bihilar interstitial infiltrate A&P #. Pulmonary congestion - Lsix 80mg IV given - Dilaudid0.5 IV given for anxiety/restlessness #. Hypoxemia - Patient became more restless with the NRBM - High flow Oxygen started at 30Liters / 80% to titrate to EnE338% and over. #. Metabolic Encephalopathy with elevated Calcium, Hemolytic anemia picture - Nephrology on consult - Hematology on consul - Continue Present treatment. Critical care time 25 mins Sea Alejo MD Objective - Vital Signs/Intake and Output Vital Signs (last 24 hours): Temp Pulse Resp BP Pulse Ox 98.9 F 123 H 19 167/98 H 92 L 04/29/17 00:00 04/29/17 02:00 04/29/17 02:00 04/29/17 02:00 04/29/17 02:00 Intake and Output: 04/28/17 04/29/17 18:59 06:59 Intake Total 400 525 Output Total 260 Balance 140 525 - Medications Medications: Current Medications Acetaminophen (Tylenol 325mg Tab) 650 mg PO Q6H PRN PRN Reason: Fever >100.4 F Acetaminophen (Tylenol 650 Mg Supp) 650 mg [place] ONCE ARLET Last Admin: 04/28/17 14:30 Dose: 650 mg Albuterol Sulfate (Albuterol 0.083% Inhal Rae (2.5 Mg/3 Ml) Ud) 2.5 mg INH RQ4 PRN PRN Reason: Shortness of Breath Allopurinol (Zyloprim) 200 mg PO DAILY ARLET Last Admin: 04/28/17 11:34 Dose: 200 mg Furosemide (Lasix) 80 mg IV STAT STA Stop: 04/29/17 03:12 Hydrocortisone Sodium Succinate (Solu-Cortef) 100 mg IV 0400,1000,1600,2200 ON LICENSE OF [facility] Last Admin: 04/28/17 21:23 Dose: 100 mg Hydromorphone HCl (Dilaudid) 0.5 mg IVP Q4 PRN PRN Reason: Pain, moderate (4-7) Last Admin: 04/28/17 23:11 Dose: 0.5 mg Vancomycin HCl 1 gm/ Sodium (Chloride) 250 mls @ 166.667 mls/hr IVPB DAILY ON LICENSE OF [facility] PRN Reason: Protocol Last Admin: 04/28/17 08:33 Dose: 166.667 mls/hr Piperacillin Sod/Tazobactam Sod (Zosyn 2.25 Gm Iv Premix) 2.25 gm in 50 mls @ 50 mls/hr IVPB Q6 ARLET PRN Reason: Protocol Last Admin: 04/28/17 21:23 Dose: 50 mls/hr Sodium Chloride (Sodium Chloride 0.9%) 1,000 mls @ 75 mls/hr IV .[id number] ON LICENSE OF [facility] Stop: 04/29/17 11:50 Last Admin: 04/29/17 02:19 Dose: 75 mls/hr Insulin Detemir (Levemir) 12 units SC HS ON LICENSE OF [facility] Last Admin: 04/28/17 21:24 Dose: 12 units Insulin Human Lispro (Humalog) 0 units SC ACHS ON LICENSE OF [facility] PRN Reason: Protocol Last Admin: 04/28/17 21:31 Dose: Not Given Ondansetron HCl (Zofran Inj) 4 mg IVP Q6H PRN PRN Reason: Nausea/Vomiting Pantoprazole Sodium (Protonix Inj) 40 mg IVP DAILY ON LICENSE OF [facility] Last Admin: 04/28/17 08:32 Dose: 40 mg - Labs Labs: 04/28/17 05:30 04/28/17 05:30 PT 20.7 Seconds (9.8-13.1) H 04/28/17 05:30 INR 1.8 (0.9-1.2) H 04/28/17 05:30 APTT 41.1 Seconds (25.6-37.1) H D 04/28/17 05:30
[2017-04-29] MEDS ORDERED: Sodium Chloride 0.9% 1,000 ML IV SCH (03:17)
[2017-04-29] MEDS: Piperacill/Tazo 2.25gm in Dex 2.25 GM/50 ML BAG IVPB SCH ×4 (03:53→21:47)
[2017-04-29] MEDS: Hydrocortisone Succinat 250 MG vial IV SCH ×4 (04:00→21:48)
[2017-04-29] MEDS ORDERED: Dexmedetomidine Hydrochloride 400 MCG in Sodium Chloride 0.9% 96 ML IV ONE (04:41)
[2017-04-29 06:28] LABS: CALCIUM 12.3 mg/dL (8.4-10.2)
[2017-04-29 06:33] LABS: ABG ALLEN TEST YES; ARTERIAL BLOOD FLOW 30; ARTERIAL BLOOD GAS HCO3 25.8 mmol/L (21-28); ARTERIAL BLOOD GAS MODE HIGH FLOW LPM; ARTERIAL BLOOD GAS O2 CAPACITY 13.2 mL/dL (16-24); ARTERIAL BLOOD GAS O2 CONTENT 12.8 ML/dL (15-23); ARTERIAL BLOOD GAS PH 7.46 (7.35-7.45); ARTERIAL BLOOD GAS PO2 71 mm/Hg (80-100); ARTERIAL BLOOD HGB O2 SAT 93.3 % (95.0-98.0); CARBOXYHEMOGLOBIN 2.4 % (0.5-1.5); HHB 2.6 % (0.0-5.0); METHEMOGLOBIN 1.7 % (0.0-3.0)
[2017-04-29 06:56] LABS: HEMATOCRIT 30.4 % (34.0-47.0); MEAN CELL VOLUME 93.8 fl (81.0-99.0); MEAN CORPUSCULAR HEMOGLOBIN 29.8 pg (27.0-31.0); MEAN CORPUSCULAR HGB CONC 31.7 g/dL (33.0-37.0); WHITE BLOOD COUNT 13.1 K/uL (4.8-10.8)
--- NOTE | 2017-04-29 10:10 | RAD ---
HISTORY: Hypoxic COMPARISON: Portable chest 04/27/2017. FINDINGS: LUNGS: Heterogeneous airspace disease now identified at the mid to inferior right lung zone at the left perihilar and lingular spaces suspicious for interval pneumonia pattern. CHF is a possibility as well. Clinically correlate further. PLEURA: No significant pleural effusion identified, no pneumothorax apparent. CARDIOVASCULAR: Cardiac silhouette remains prominent with questionable all hilar hypervascular markings and pulmonary venous congestion. OSSEOUS STRUCTURES: No significant abnormalities. VISUALIZED UPPER ABDOMEN: Normal. OTHER FINDINGS: None. IMPRESSION: Interval bilateral airspace disease with possible CHF/pulmonary vascular congestion.
--- NOTE | 2017-04-29 10:11 | CP.PCM.PN ---
Subjective - Date & Time of Evaluation Date of Evaluation: 04/29/17 Time of Evaluation: 10:05 - Subjective Subjective: Pt is more awake. Opens her eyes on command. She is very restless and does not answer questions, mainly groans. This is an improvement from when yesterday when she was totally unresponsive. Her HGB had stayed stable after the transfusion., platelets are holding at 31K. The liver enzymes, the bun and creatinine are all trending down as is her calcium which is 100.4 from 14.3, Flow cytometry results not yet available. The SPE and Immunofixation , light chains are all awaited, but there is no protein in the urine. The boyfriend today gives te information that the pt has a h/o hepatitis c and was on Epclusa for the same. This medicine in itself does not cause hemolysis, but it is often given with ribovirin which can can do it. Whether or not pt is on the ribovirin is not known. we also dont have a final report on the ct chest,abdomen and pelvis done in the ER. [place]wr vital signs show a axallary temp of 97.2, h/r 127/min, BP 152/107 and O2 is 96 on high flow oxygen. She is to have another plasmapheresis tomorrow, and hopefully some of te other studies wll br back as well. Objective - Vital Signs/Intake and Output Vital Signs (last 24 hours): Temp Pulse Resp BP Pulse Ox 97.2 F L 128 H 15 155/97 H 98 04/29/17 08:00 04/29/17 09:00 04/29/17 09:00 04/29/17 09:00 04/29/17 09:00 Intake and Output: 04/29/17 04/29/17 06:59 18:59 Intake Total 600 120 Output Total 1250 Balance -650 120 - Medications Medications: Current Medications Acetaminophen (Tylenol 325mg Tab) 650 mg PO Q6H PRN PRN Reason: Fever >100.4 F Acetaminophen (Tylenol 650 Mg Supp) 650 mg [place] ONCE ARLET Last Admin: 04/28/17 14:30 Dose: 650 mg Albuterol Sulfate (Albuterol 0.083% Inhal Rae (2.5 Mg/3 Ml) Ud) 2.5 mg INH RQ4 PRN PRN Reason: Shortness of Breath Allopurinol (Zyloprim) 200 mg PO DAILY [facility] Last Admin: 04/29/17 08:18 Dose: 200 mg Hydrocortisone Sodium Succinate (Solu-Cortef) 100 mg IV 0400,1000,1600,2200 [facility] Last Admin: 04/29/17 09:07 Dose: 100 mg Hydromorphone HCl (Dilaudid) 0.5 mg IVP Q4 PRN PRN Reason: Pain, moderate (4-7) Last Admin: 04/29/17 09:59 Dose: 0.5 mg Vancomycin HCl 1 gm/ Sodium (Chloride) 250 mls @ 166.667 mls/hr IVPB DAILY [facility] PRN Reason: Protocol Last Admin: 04/29/17 08:41 Dose: 166.667 mls/hr Piperacillin Sod/Tazobactam Sod (Zosyn 2.25 Gm Iv Premix) 2.25 gm in 50 mls @ 50 mls/hr IVPB Q6 [facility] PRN Reason: Protocol Last Admin: 04/29/17 09:06 Dose: 50 mls/hr Sodium Chloride (Sodium Chloride 0.9%) 1,000 mls @ 20 mls/hr IV .Q24H [facility] Stop: 04/29/17 11:50 Last Admin: 04/29/17 02:30 Dose: 20 mls/hr Potassium Chloride 10 meq/ (Sodium Chloride) 55 mls @ 55 mls/hr IV Q1 [facility] Stop: 04/29/17 12:59 Last Admin: 04/29/17 10:05 Dose: 55 mls/hr Insulin Detemir (Levemir) 12 units SC HS [facility] Last Admin: 04/28/17 21:24 Dose: 12 units Insulin Human Lispro (Humalog) 0 units SC ACHS [facility] PRN Reason: Protocol Last Admin: 04/28/17 21:31 Dose: Not Given Ondansetron HCl (Zofran Inj) 4 mg IVP Q6H PRN PRN Reason: Nausea/Vomiting Pantoprazole Sodium (Protonix Inj) 40 mg IVP DAILY [facility] Last Admin: 04/29/17 08:18 Dose: 40 mg - Labs Labs: 04/29/17 05:30 04/29/17 05:30 PT 20.7 Seconds (9.8-13.1) H 04/28/17 05:30 INR 1.8 (0.9-1.2) H 04/28/17 05:30 APTT 41.1 Seconds (25.6-37.1) H D 04/28/17 05:30
--- NOTE | 2017-04-29 10:17 | CP.PCM.PN ---
Subjective - Date & Time of Evaluation Date of Evaluation: 04/29/17 Time of Evaluation: 09:40 - Subjective Subjective: Pt's boyfriend was at bedside. Further history obtained form him. He states that pt was and Ex IVDU and has Hep C and is under treatment. Instructed him to bring in any medical record at home. Today he hands me some medical correspondence pt's PMD sent via mail .Reviewed medical records - this was a referral form for pt to see a Tooth Grinder and in it were some medical data. 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 It was noted that her Platelet and hemoglobin dropped thus the PMD was referring her to a Tooth Grinder. Pt is more alert , just moaning but did not verbally respond rto my questions. After some prodding she did raise both arms as intructed. Had eaten breakfast this am accdg to the boyfriend. No fever She had Plasmapharesis yesterday, Objective - Vital Signs/Intake and Output Vital Signs (last 24 hours): Temp Pulse Resp BP Pulse Ox 97.2 F L 128 H 15 155/97 H 98 04/29/17 08:00 04/29/17 09:00 04/29/17 09:00 04/29/17 09:00 04/29/17 09:00 Intake and Output: 04/29/17 04/29/17 06:59 18:59 Intake Total 600 120 Output Total 1250 Balance -650 120 - Medications Medications: Current Medications Acetaminophen (Tylenol 325mg Tab) 650 mg PO Q6H PRN PRN Reason: Fever >100.4 F Acetaminophen (Tylenol 650 Mg Supp) 650 mg SC ONCE [facility] Last Admin: 04/28/17 14:30 Dose: 650 mg Albuterol Sulfate (Albuterol 0.083% Inhal Rae (2.5 Mg/3 Ml) Ud) 2.5 mg INH RQ4 PRN PRN Reason: Shortness of Breath Allopurinol (Zyloprim) 200 mg PO DAILY [facility] Last Admin: 04/29/17 08:18 Dose: 200 mg Hydrocortisone Sodium Succinate (Solu-Cortef) 100 mg IV 0400,1000,1600,2200 [facility] Last Admin: 04/29/17 09:07 Dose: 100 mg Hydromorphone HCl (Dilaudid) 0.5 mg IVP Q4 PRN PRN Reason: Pain, moderate (4-7) Last Admin: 04/29/17 09:59 Dose: 0.5 mg Vancomycin HCl 1 gm/ Sodium (Chloride) 250 mls @ 166.667 mls/hr IVPB DAILY [facility] PRN Reason: Protocol Last Admin: 04/29/17 08:41 Dose: 166.667 mls/hr Piperacillin Sod/Tazobactam Sod (Zosyn 2.25 Gm Iv Premix) 2.25 gm in 50 mls @ 50 mls/hr IVPB Q6 [facility] PRN Reason: Protocol Last Admin: 04/29/17 09:06 Dose: 50 mls/hr Sodium Chloride (Sodium Chloride 0.9%) 1,000 mls @ 20 mls/hr IV .Q24H [facility] Stop: 04/29/17 11:50 Last Admin: 04/29/17 02:30 Dose: 20 mls/hr Potassium Chloride 10 meq/ (Sodium Chloride) 55 mls @ 55 mls/hr IV Q1 [facility] Stop: 04/29/17 12:59 Last Admin: 04/29/17 10:05 Dose: 55 mls/hr Insulin Detemir (Levemir) 12 units SC HS [facility] Last Admin: 04/28/17 21:24 Dose: 12 units Insulin Human Lispro (Humalog) 0 units SC ACHS [facility] PRN Reason: Protocol Last Admin: 04/28/17 21:31 Dose: Not Given Ondansetron HCl (Zofran Inj) 4 mg IVP Q6H PRN PRN Reason: Nausea/Vomiting Pantoprazole Sodium (Protonix Inj) 40 mg IVP DAILY [facility] Last Admin: 04/29/17 08:18 Dose: 40 mg - Labs Labs: 04/29/17 05:30 04/29/17 05:30 PT 20.7 Seconds (9.8-13.1) H 04/28/17 05:30 INR 1.8 (0.9-1.2) H 04/28/17 05:30 APTT 41.1 Seconds (25.6-37.1) H D 04/28/17 05:30 - Constitutional Appears: Toxic, Older Than Stated Age, Chronically Ill - Head Exam Head Exam: NORMAL INSPECTION, NORMOCEPHALIC - Eye Exam Eye Exam: EOMI, Normal appearance, PERRL Pupil Exam: NORMAL ACCOMODATION - ENT Exam ENT Exam: Mucous Membranes Moist, Normal External Ear Exam - Neck Exam Neck Exam: Full ROM. absent: Meningismus - Respiratory Exam Respiratory Exam: Rales. absent: Wheezes Additional comments: On High Flow Oxygen - Cardiovascular Exam Cardiovascular Exam: Tachycardia, REGULAR RHYTHM, +S1, +S2 - GI/Abdominal Exam GI & Abdominal Exam: Distended, Soft, Normal Bowel Sounds. absent: Tenderness - Extremities Exam Extremities Exam: Full ROM, Normal Capillary Refill, Pedal Edema - Neurological Exam Neurological Exam: Alert, Awake Additional comments: moves all extremities does not follow all commands - Psychiatric Exam Psychiatric exam: Flat Affect - Skin Skin Exam: Dry, Pallor, Warm Assessment and Plan - Assessment and Plan (Free Text) Assessment: 57 y/o female with PMH IDDM , HTN, dyslipidemia , Cirrhosis sec to Hep C was brought to ER bec of AMS. For the past 3 days patient has not been herself, she was very weak, unable to get out of bed, confused , talking to herself, disoriented. Patient also appears jaundiced. As per family she has been complaining of lower back pain and has been seeing and physician who gave her an injection 1 month ago. Family denies any upper respiratory illness, nausea , vomiting , diarrhea, abdominal pain , recent illness or blood transfusion.As per family patient was complaining of SOB and some CP. In ER patient found to confused , jaundiced with Hgb 5.7, plt 39 K tea 6.7 , elevated LDH WBC 17 k lactic acid 5 cr 1.2 total protein 9 Ca 14 CXR - clear Peripheral Smear showed schistocytes , nucleated RBC-s Pt/Inr elevated Patient is critically ill. Admitted to ICU for sepsis , Altered mental status, metabolic derangement with hypercalcemia, hyperkalemia ,hemolytic anemia and possible malignancy. Some new information gathered - Pt has Hx of Cirrhosis due to Hep C and is on treatment with Ribavirin and Epclusa since February. ( Ribavirin can be the etiology of her Hemolytic Anemia) 1. Sepsis of ? sec to PNeumonia responded to IVF resuscitation lactic acid and WBC trending down ( 17 K -- 13 K 5--3.6 ) Ct chest showed LLL pneumonia blood and urine cx sent continue vancomycin 1 g IV and Zosyn ID consulted 2. Altered mental status likely sec to Metabolic Encephalopathy most likely related to metabolic derangement CT head showed no acute pathology hematology consult appreciated and case discussed Peripheral smear showed nucleated RBC-s and schisctocytes -- most likely hemolytic anemia . PT/INR elevated and fibrinogen low . f/u haptoglobin , retic count, siria test CT abdomen and pelvis showed diffuse ostelytic lesions of the skeleton -- most likely multiple myeloma vs other malignancy Follow up flow cytometry, protein electrophoresis continue IVF, IV antibiotics Started Zometa for hypercalcemia Continue Solucortef for hemolytic anemia and transfused 3 unit PRBC plan for plasmaphresiss today as per hematology 3. Hemolytic anemia prob sec to Ribavirin Hgb 5.7 LDH elevated , bili 6.7 peripheral smear showed nucleated RBC-s and schistocytes s/p 3 unit PRBc transfusin with Hgb 9.4 hematology consult appreciated Check retic count , haptoglobin, Siria test ,Hepatis profile , FROYLAN,RF, mycoplasma continue Solucortef 4. Thrombocytopenia/ coagulopathy prob sec to Cirrhosis initially suspected TTP and was started on Plasmapharesis PT/INR elevated , no proteinuria,Fibrinogen low - suggest possible DIC check retic count ,haptoglobin , f/u blood cx, urine cx Hematology on board Hold off any Platelet transfusion as per hematology 5.Diffuse Osteolytic lesions of the spine Probably Multiple myeloma but need to rule out CLL ,lymphoma OR OTHER MALIGNANCY f/u Flow cytometry ,protein electrophoresis follow up with oncology recommendations 6.Hypercalcemia IVF on Zometa Endo consulted 7. Left Lower Lobe Pneumonia Most likely CAP Check mycoplasma Ag on vanco and Zosyn 8.DM start diabetic diet f/u Hgb A1c endo consulted - started Levemir insulin coverage and ACHS 7.KIRSTIN / Azotemia/ hyperkalemia ? sec to MM continue IVF monitor renal fxn 8. DVT/ GI prophylaxis SCD Protonix IV no anticoag sec to thrmobocytopenia
[2017-04-29] MEDS: Insulin Lispro (humaLOG) 100 Units/ml Inj SC SCH ×4 (11:08→21:47)
--- NOTE | 2017-04-29 15:23 | CP.PCM.PN ---
Subjective - Date & Time of Evaluation Date of Evaluation: 04/29/17 Time of Evaluation: 14:00 - Subjective Subjective: SEEN ON RENAL F/U HAD TPE YESTERDAY .. FOR 2ND ONE TOMORROW ALL PREVIOUS EMR REVIWED Objective - Vital Signs/Intake and Output Vital Signs (last 24 hours): Temp Pulse Resp BP Pulse Ox 97.4 F L 140 H 38 H 158/60 H 96 04/29/17 12:00 04/29/17 14:00 04/29/17 14:00 04/29/17 14:00 04/29/17 14:00 Intake and Output: 04/29/17 04/29/17 06:59 18:59 Intake Total 600 640 Output Total 1250 Balance -650 640 - Medications Medications: Current Medications Acetaminophen (Tylenol 325mg Tab) 650 mg PO Q6H PRN PRN Reason: Fever >100.4 F Acetaminophen (Tylenol 650 Mg Supp) 650 mg [place] ONCE [facility] Last Admin: 04/28/17 14:30 Dose: 650 mg Albuterol Sulfate (Albuterol 0.083% Inhal Rae (2.5 Mg/3 Ml) Ud) 2.5 mg INH RQ4 PRN PRN Reason: Shortness of Breath Allopurinol (Zyloprim) 200 mg PO DAILY [facility] Last Admin: 04/29/17 08:18 Dose: 200 mg Haloperidol Lactate (Haldol) 2.5 mg IVP Q6 PRN PRN Reason: Agitation Last Admin: 04/29/17 15:06 Dose: 2.5 mg Hydrocortisone Sodium Succinate (Solu-Cortef) 100 mg IV 0400,1000,1600,2200 [facility] Last Admin: 04/29/17 15:08 Dose: 100 mg Hydromorphone HCl (Dilaudid) 0.5 mg IVP Q4 PRN PRN Reason: Pain, moderate (4-7) Last Admin: 04/29/17 09:59 Dose: 0.5 mg Vancomycin HCl 1 gm/ Sodium (Chloride) 250 mls @ 166.667 mls/hr IVPB DAILY [facility] PRN Reason: Protocol Last Admin: 04/29/17 08:41 Dose: 166.667 mls/hr Piperacillin Sod/Tazobactam Sod (Zosyn 2.25 Gm Iv Premix) 2.25 gm in 50 mls @ 50 mls/hr IVPB Q6 [facility] PRN Reason: Protocol Last Admin: 04/29/17 15:09 Dose: 50 mls/hr Insulin Detemir (Levemir) 12 units SC HS [facility] Last Admin: 04/28/17 21:24 Dose: 12 units Insulin Human Lispro (Humalog) 0 units SC ACHS [facility] PRN Reason: Protocol Last Admin: 04/29/17 14:35 Dose: Not Given Ondansetron HCl (Zofran Inj) 4 mg IVP Q6H PRN PRN Reason: Nausea/Vomiting Pantoprazole Sodium (Protonix Inj) 40 mg IVP DAILY [facility] Last Admin: 04/29/17 08:18 Dose: 40 mg - Labs Labs: 04/29/17 05:30 04/29/17 05:30 PT 20.7 Seconds (9.8-13.1) H 04/28/17 05:30 INR 1.8 (0.9-1.2) H 04/28/17 05:30 APTT 41.1 Seconds (25.6-37.1) H D 04/28/17 05:30
--- NOTE | 2017-04-29 15:40 | CP.CCUPN ---
CCU Subjective - Physician Review Events Since Last Encounter (Free Text): 04/29/17 15:26 more alert today, responding more appropriately, but still in an agitated state. CCU Objective - Vital Signs / Intake & Output Vital Signs (Last 4 hours): Vital Signs Temp Pulse Resp BP Pulse Ox 04/29/17 14:00 140 H 38 H 158/60 H 96 04/29/17 13:00 130 H 24 140/90 97 04/29/17 12:00 97.4 F L 119 H 34 H 171/90 H 98 04/29/17 11:47 20 Intake and Output (Last 8hrs): Intake & Output 04/29/17 04/29/17 04/29/17 06:59 14:59 22:59 Intake Total 400 640 Output Total 1250 Balance -850 640 Intake: IV 325 Intake, Piggyback 50 400 Oral 25 240 Output: Urine 1250 Urethral (Hernandez) 1250 - Physical Exam Physical Exam Limitations: Positive for: Altered Mental Status Head: Positive for: Atraumatic, Normocephalic Pupils: Positive for: PERRL Extroacular Muscles: Positive for: EOMI Conjunctiva: Positive for: Icteric Mouth: Positive for: Dry Pharnyx: Negative for: ERYTHEMA, EXUDATE Neck: Negative for: Meningeal Signs, JVD, Lymphadenopathy Cardiovascular: Positive for: Regular Rate and Rhythm. Negative for: Murmurs, Rub Abdomen: Positive for: Normal Bowel Sounds, Other (+ splenomegaly). Negative for: Tenderness, Distention Rectal: Negative for: Occult Blood, Melena, Fissures Lower Extremity: Positive for: Edema, NORMAL PULSES. Negative for: CALF TENDERNESS, Cyanosis Neurological: Positive for: GCS=15, Motor Func Grossly Intact, Normal Sensory Function, Norm Deep Tendon Reflexes Skin: Positive for: Warm, Dry, Other (no petechiae). Negative for: Rashes Psychiatric: Positive for: Alert. Negative for: Oriented x 3 (oriented to person and place) - Medications Active Medications: Active Medications Generic Name Dose Route Start Last Admin Trade Name Freq PRN Reason Stop Dose Admin Acetaminophen 650 mg 04/27/17 19:20 Tylenol 325mg Tab PO Q6H PRN Fever >100.4 F Acetaminophen 650 mg 04/28/17 10:00 04/28/17 14:30 Tylenol 650 Mg Supp SD 650 mg ONCE ARLET Administration Albuterol Sulfate 2.5 mg 04/27/17 19:45 Albuterol 0.083% Inhal Rae (2.5 Mg/3 Ml) Ud INH RQ4 PRN Shortness of Breath Allopurinol 200 mg 04/28/17 09:00 04/29/17 08:18 Zyloprim PO 200 mg DAILY [facility] Administration Haloperidol Lactate 2.5 mg 04/29/17 13:43 04/29/17 15:06 Haldol IVP 2.5 mg Q6 PRN Administration Agitation Hydrocortisone Sodium Succinate 100 mg 04/27/17 22:00 04/29/17 15:08 Solu-Cortef IV 100 mg 0400,1000,1600,2200 ARLET Administration Hydromorphone HCl 0.5 mg 04/28/17 23:02 04/29/17 09:59 Dilaudid IVP 0.5 mg Q4 PRN Administration Pain, moderate (4-7) Vancomycin HCl 1 gm/ Sodium 250 mls @ 166.667 mls/hr 04/28/17 09:00 04/29/17 08:41 Chloride IVPB 166.667 mls/hr DAILY [facility] Administration Protocol Piperacillin Sod/Tazobactam Sod 2.25 gm in 50 mls @ 50 mls/hr 04/27/17 22:00 04/29/17 15:09 Zosyn 2.25 Gm Iv Premix IVPB 50 mls/hr Q6 [facility] Administration Protocol Insulin Detemir 12 units 04/27/17 22:00 04/28/17 21:24 Levemir SC 12 units HS [facility] Administration Insulin Human Lispro 0 units 04/27/17 16:30 04/29/17 14:35 Humalog SC Not Given ACHS [facility] Protocol Ondansetron HCl 4 mg 04/27/17 19:20 Zofran Inj IVP Q6H PRN Nausea/Vomiting Pantoprazole Sodium 40 mg 04/28/17 09:00 04/29/17 08:18 Protonix Inj IVP 40 mg DAILY [facility] Administration - Patient Studies Lab Studies: Microbiology Studies 04/27/17 20:22 MRSA Culture (Admit) - Final Nose MRSA NOT DETECTED 04/27/17 14:05 Blood Culture - Preliminary Blood-Venous NO GROWTH AFTER 24 HOURS 04/27/17 13:35 Blood Culture - Preliminary Blood-Venous NO GROWTH AFTER 24 HOURS 04/27/17 12:49 Urine Culture - Final Urine No Growth (<1,000 CFU/ML) Lab Studies 04/29/17 04/29/17 04/29/17 Range/Units 11:04 06:28 05:30 WBC (4.8-10.8) K/uL RBC (3.80-5.20) Mil/uL Hgb (12.0-16.0) g/dL Hct (34.0-47.0) % MCV (81.0-99.0) fl MCH (27.0-31.0) pg MCHC (33.0-37.0) g/dL RDW (11.5-14.5) % Plt Count (130-400) K/uL Retic Count (0.5-1.5) % Fibrinogen (200-400) mg/dl pCO2 35 (35-45) mm/Hg pO2 71 L (80-100) mm/Hg HCO3 25.8 (21-28) mmol/L ABG pH 7.46 H (7.35-7.45) ABG Total CO2 26.0 (22-28) mmol/L ABG O2 Saturation 97.3 (95-98) % ABG O2 Content 12.8 L (15-23) ML/dL ABG Base Excess 1.2 (-2.0-3.0) mmol/L ABG Hemoglobin 9.7 L (11.7-17.4) g/dL ABG Carboxyhemoglobin 2.4 H (0.5-1.5) % POC ABG HHb (Measured) 2.6 (0.0-5.0) % ABG Methemoglobin 1.7 (0.0-3.0) % ABG O2 Capacity 13.2 L (16-24) mL/dL Roman Test Yes A-a O2 Difference 456.0 mm/Hg Hgb O2 Saturation 93.3 L (95.0-98.0) % Liter Flow 30 Vent Mode High flow lpm FiO2 80.0 % Sodium 146 (132-148) mmol/l Potassium 3.0 L (3.6-5.0) MMOL/L Chloride 109 H (98-107) mmol/L Carbon Dioxide 24 (22-30) mmol/L Anion Gap 16 (10-20) BUN 47 H (7-17) mg/dl Creatinine 1.4 H (0.7-1.2) mg/dl Est GFR ( Amer) 47 Est GFR (Non-Af Amer) 39 POC Glucose (mg/dL) 183 H (65-110) mg/dL Random Glucose 175 H (65-105) mg/dL Hemoglobin A1c (4.2-6.5) % Calcium 12.3 H (8.4-10.2) mg/dL 04/29/17 04/29/17 04/29/17 Range/Units 05:30 05:30 03:49 WBC 13.1 H (4.8-10.8) K/uL RBC 3.24 L (3.80-5.20) Mil/uL Hgb 9.7 L (12.0-16.0) g/dL Hct 30.4 L (34.0-47.0) % MCV 93.8 D (81.0-99.0) fl MCH 29.8 (27.0-31.0) pg MCHC 31.7 L (33.0-37.0) g/dL RDW 21.0 H (11.5-14.5) % Plt Count 31 L (130-400) K/uL Retic Count (0.5-1.5) % Fibrinogen 151 L (200-400) mg/dl pCO2 (35-45) mm/Hg pO2 (80-100) mm/Hg HCO3 (21-28) mmol/L ABG pH (7.35-7.45) ABG Total CO2 (22-28) mmol/L ABG O2 Saturation (95-98) % ABG O2 Content (15-23) ML/dL ABG Base Excess (-2.0-3.0) mmol/L ABG Hemoglobin (11.7-17.4) g/dL ABG Carboxyhemoglobin (0.5-1.5) % POC ABG HHb (Measured) (0.0-5.0) % ABG Methemoglobin (0.0-3.0) % ABG O2 Capacity (16-24) mL/dL Roman Test A-a O2 Difference mm/Hg Hgb O2 Saturation (95.0-98.0) % Liter Flow Vent Mode FiO2 % Sodium (132-148) mmol/l Potassium (3.6-5.0) MMOL/L Chloride (98-107) mmol/L Carbon Dioxide (22-30) mmol/L Anion Gap (10-20) BUN (7-17) mg/dl Creatinine (0.7-1.2) mg/dl Est GFR ( Amer) Est GFR (Non-Af Amer) POC Glucose (mg/dL) 193 H (65-110) mg/dL Random Glucose (65-105) mg/dL Hemoglobin A1c (4.2-6.5) % Calcium (8.4-10.2) mg/dL 04/29/17 04/28/17 04/28/17 Range/Units 02:38 21:24 17:56 WBC (4.8-10.8) K/uL RBC (3.80-5.20) Mil/uL Hgb (12.0-16.0) g/dL Hct (34.0-47.0) % MCV (81.0-99.0) fl MCH (27.0-31.0) pg MCHC (33.0-37.0) g/dL RDW (11.5-14.5) % Plt Count (130-400) K/uL Retic Count (0.5-1.5) % Fibrinogen (200-400) mg/dl pCO2 27 L (35-45) mm/Hg pO2 46 L (80-100) mm/Hg HCO3 25.6 (21-28) mmol/L ABG pH 7.54 H (7.35-7.45) ABG Total CO2 23.9 (22-28) mmol/L ABG O2 Saturation 90.1 L (95-98) % ABG O2 Content 11.6 L (15-23) ML/dL ABG Base Excess 1.1 (-2.0-3.0) mmol/L ABG Hemoglobin 9.5 L (11.7-17.4) g/dL ABG Carboxyhemoglobin 2.5 H (0.5-1.5) % POC ABG HHb (Measured) 9.6 H (0.0-5.0) % ABG Methemoglobin 1.1 (0.0-3.0) % ABG O2 Capacity 12.9 L (16-24) mL/dL Roman Test Yes A-a O2 Difference 120.0 mm/Hg Hgb O2 Saturation 86.9 L (95.0-98.0) % Liter Flow Vent Mode FiO2 28.0 % Sodium (132-148) mmol/l Potassium (3.6-5.0) MMOL/L Chloride (98-107) mmol/L Carbon Dioxide (22-30) mmol/L Anion Gap (10-20) BUN (7-17) mg/dl Creatinine (0.7-1.2) mg/dl Est GFR ( Amer) Est GFR (Non-Af Amer) POC Glucose (mg/dL) 208 H 214 H (65-110) mg/dL Random Glucose (65-105) mg/dL Hemoglobin A1c (4.2-6.5) % Calcium (8.4-10.2) mg/dL 04/28/17 04/28/17 04/28/17 Range/Units 17:42 16:11 05:30 WBC (4.8-10.8) K/uL RBC (3.80-5.20) Mil/uL Hgb (12.0-16.0) g/dL Hct (34.0-47.0) % MCV (81.0-99.0) fl MCH (27.0-31.0) pg MCHC (33.0-37.0) g/dL RDW (11.5-14.5) % Plt Count (130-400) K/uL Retic Count 6.3 H (0.5-1.5) % Fibrinogen (200-400) mg/dl pCO2 (35-45) mm/Hg pO2 (80-100) mm/Hg HCO3 (21-28) mmol/L ABG pH (7.35-7.45) ABG Total CO2 (22-28) mmol/L ABG O2 Saturation (95-98) % ABG O2 Content (15-23) ML/dL ABG Base Excess (-2.0-3.0) mmol/L ABG Hemoglobin (11.7-17.4) g/dL ABG Carboxyhemoglobin (0.5-1.5) % POC ABG HHb (Measured) (0.0-5.0) % ABG Methemoglobin (0.0-3.0) % ABG O2 Capacity (16-24) mL/dL Roman Test A-a O2 Difference mm/Hg Hgb O2 Saturation (95.0-98.0) % Liter Flow Vent Mode FiO2 % Sodium (132-148) mmol/l Potassium (3.6-5.0) MMOL/L Chloride (98-107) mmol/L Carbon Dioxide (22-30) mmol/L Anion Gap (10-20) BUN (7-17) mg/dl Creatinine (0.7-1.2) mg/dl Est GFR ( Amer) Est GFR (Non-Af Amer) POC Glucose (mg/dL) 218 H (65-110) mg/dL Random Glucose (65-105) mg/dL Hemoglobin A1c 5.7 (4.2-6.5) % Calcium (8.4-10.2) mg/dL 04/27/17 Range/Units 09:44 WBC (4.8-10.8) K/uL RBC (3.80-5.20) Mil/uL Hgb (12.0-16.0) g/dL Hct (34.0-47.0) % MCV (81.0-99.0) fl MCH (27.0-31.0) pg MCHC (33.0-37.0) g/dL RDW (11.5-14.5) % Plt Count (130-400) K/uL Retic Count (0.5-1.5) % Fibrinogen (200-400) mg/dl pCO2 (35-45) mm/Hg pO2 (80-100) mm/Hg HCO3 (21-28) mmol/L ABG pH (7.35-7.45) ABG Total CO2 (22-28) mmol/L ABG O2 Saturation (95-98) % ABG O2 Content (15-23) ML/dL ABG Base Excess (-2.0-3.0) mmol/L ABG Hemoglobin (11.7-17.4) g/dL ABG Carboxyhemoglobin (0.5-1.5) % POC ABG HHb (Measured) (0.0-5.0) % ABG Methemoglobin (0.0-3.0) % ABG O2 Capacity (16-24) mL/dL Roman Test A-a O2 Difference mm/Hg Hgb O2 Saturation (95.0-98.0) % Liter Flow Vent Mode FiO2 % Sodium (132-148) mmol/l Potassium (3.6-5.0) MMOL/L Chloride (98-107) mmol/L Carbon Dioxide (22-30) mmol/L Anion Gap (10-20) BUN (7-17) mg/dl Creatinine (0.7-1.2) mg/dl Est GFR ( Amer) Est GFR (Non-Af Amer) POC Glucose (mg/dL) 143 H (65-110) mg/dL Random Glucose (65-105) mg/dL Hemoglobin A1c (4.2-6.5) % Calcium (8.4-10.2) mg/dL Laboratory Results - last 24 hr 04/27/17 04/28/17 04/28/17 09:44 05:30 16:11 WBC RBC Hgb Hct MCV MCH MCHC RDW Plt Count Retic Count Fibrinogen pCO2 pO2 HCO3 ABG pH ABG Total CO2 ABG O2 Saturation ABG O2 Content ABG Base Excess ABG Hemoglobin ABG Carboxyhemoglobin POC ABG HHb (Measured) ABG Methemoglobin ABG O2 Capacity Roman Test A-a O2 Difference Hgb O2 Saturation Liter Flow Vent Mode FiO2 Sodium Potassium Chloride Carbon Dioxide Anion Gap BUN Creatinine Est GFR ( Amer) Est GFR (Non-Af Amer) POC Glucose (mg/dL) 143 H 218 H Random Glucose Hemoglobin A1c 5.7 Calcium 04/28/17 04/28/17 04/28/17 17:42 17:56 21:24 WBC RBC Hgb Hct MCV MCH MCHC RDW Plt Count Retic Count 6.3 H Fibrinogen pCO2 pO2 HCO3 ABG pH ABG Total CO2 ABG O2 Saturation ABG O2 Content ABG Base Excess ABG Hemoglobin ABG Carboxyhemoglobin POC ABG HHb (Measured) ABG Methemoglobin ABG O2 Capacity Roman Test A-a O2 Difference Hgb O2 Saturation Liter Flow Vent Mode FiO2 Sodium Potassium Chloride Carbon Dioxide Anion Gap BUN Creatinine Est GFR ( Amer) Est GFR (Non-Af Amer) POC Glucose (mg/dL) 214 H 208 H Random Glucose Hemoglobin A1c Calcium 04/29/17 04/29/17 04/29/17 02:38 03:49 05:30 WBC RBC Hgb Hct MCV MCH MCHC RDW Plt Count Retic Count Fibrinogen 151 L pCO2 27 L pO2 46 L HCO3 25.6 ABG pH 7.54 H ABG Total CO2 23.9 ABG O2 Saturation 90.1 L ABG O2 Content 11.6 L ABG Base Excess 1.1 ABG Hemoglobin 9.5 L ABG Carboxyhemoglobin 2.5 H POC ABG HHb (Measured) 9.6 H ABG Methemoglobin 1.1 ABG O2 Capacity 12.9 L Roman Test Yes A-a O2 Difference 120.0 Hgb O2 Saturation 86.9 L Liter Flow Vent Mode FiO2 28.0 Sodium Potassium Chloride Carbon Dioxide Anion Gap BUN Creatinine Est GFR ( Amer) Est GFR (Non-Af Amer) POC Glucose (mg/dL) 193 H Random Glucose Hemoglobin A1c Calcium 04/29/17 04/29/17 04/29/17 05:30 05:30 06:28 WBC 13.1 H RBC 3.24 L Hgb 9.7 L Hct 30.4 L MCV 93.8 D MCH 29.8 MCHC 31.7 L RDW 21.0 H Plt Count 31 L Retic Count Fibrinogen pCO2 35 pO2 71 L HCO3 25.8 ABG pH 7.46 H ABG Total CO2 26.0 ABG O2 Saturation 97.3 ABG O2 Content 12.8 L ABG Base Excess 1.2 ABG Hemoglobin 9.7 L ABG Carboxyhemoglobin 2.4 H POC ABG HHb (Measured) 2.6 ABG Methemoglobin 1.7 ABG O2 Capacity 13.2 L Roman Test Yes A-a O2 Difference 456.0 Hgb O2 Saturation 93.3 L Liter Flow 30 Vent Mode High flow lpm FiO2 80.0 Sodium 146 Potassium 3.0 L Chloride 109 H Carbon Dioxide 24 Anion Gap 16 BUN 47 H Creatinine 1.4 H Est GFR ( Amer) 47 Est GFR (Non-Af Amer) 39 POC Glucose (mg/dL) Random Glucose 175 H Hemoglobin A1c Calcium 12.3 H 04/29/17 11:04 WBC RBC Hgb Hct MCV MCH MCHC RDW Plt Count Retic Count Fibrinogen pCO2 pO2 HCO3 ABG pH ABG Total CO2 ABG O2 Saturation ABG O2 Content ABG Base Excess ABG Hemoglobin ABG Carboxyhemoglobin POC ABG HHb (Measured) ABG Methemoglobin ABG O2 Capacity Roman Test A-a O2 Difference Hgb O2 Saturation Liter Flow Vent Mode FiO2 Sodium Potassium Chloride Carbon Dioxide Anion Gap BUN Creatinine Est GFR ( Amer) Est GFR (Non-Af Amer) POC Glucose (mg/dL) 183 H Random Glucose Hemoglobin A1c Calcium EKG/Cardiology Studies: Cardiology / EKG Studies 04/29/17 EKG [ELECTROCARDIOGRAM] Stat Comment: Mode Of Transportation: PORTABLE Reason For Exam: r/o qt prolongation EKG [ELECTROCARDIOGRAM] Stat Comment: Mode Of Transportation: PORTABLE Reason For Exam: svt Fingerstick Blood Sugar Results: 193 Review of Systems - Review of Systems Systems not reviewed;Unavailable: Altered Mental Status Critical Care Progress Note - Nutrition Nutrition: Nutrition Category Date Time Status Heart Healthy Diet [DIET] Diets 04/27/17 Dinner Active Assessment/Plan (1) Severe anemia Assessment and plan: 57yo F. PMHx IDDM, HTN, dyslipidemia, IDDM, nephrolithiasis. p/w AMS, jaundice , anemia. Neuro: altered mental status secondary to metaobolic encephalopathy Pulm: significant pulmonary edema after plasmapharesis, diuresing now. if not responsive to diuresis, then must consider possible TRALI. CV: hemodynamically stable. Hem: After speaking with patient's boyfriend, it was discovered she was on treatment for Hepatitis C with EPCLUSA + Ribavirin. 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 severe thrombocytopenia chronic. Patient getting plasmapharesis again tomorrow, but may have to hold off because of possible TRALI/TACO. Hem/Onc - Dr. Barker Renal: creatinine stabilizing. Endo: IDDM, short acting insulin sliding scale and levemir. GI: heart healthy diet, Hepatitis C cirrhosis. Jaundice from hemolysis. Will consult GI. ID: sepsis from LLL pneumonia seen on CT abdomen, started on Vanco and Zosyn. DVT proph - SCD's, held a/c with current bleeding risk high with coagulopathy. GI proph - protonix IV hernandez for strict I/O's during acute illness Code status - full code Critical Care Time spent 35 minutes Multi-disciplinary rounds were performed with house staff, nursing, speech therapy, respiratory therapy, pharmacy and nutrition with integrated input from the primary team/attending and other consulting services. The documented time is cumulative and includes review of patient data/exams/labs/chart review and examination of the patient on rounds and throughout the day; time is exclusive of any procedures or teaching time. Current Visit: Yes Status: Acute
[2017-04-29 16:12] LABS: ABG ALLEN TEST YES; ARTERIAL BLOOD FLOW 30; ARTERIAL BLOOD GAS HCO3 21.3 mmol/L (21-28); ARTERIAL BLOOD GAS MODE HIGH FLOW LPM; ARTERIAL BLOOD GAS O2 CAPACITY 13.8 mL/dL (16-24); ARTERIAL BLOOD GAS O2 CONTENT 13.4 ML/dL (15-23); ARTERIAL BLOOD GAS PH 7.49 (7.35-7.45); ARTERIAL BLOOD GAS PO2 69 mm/Hg (80-100); ARTERIAL BLOOD HGB O2 SAT 94.5 % (95.0-98.0); CARBOXYHEMOGLOBIN 2.3 % (0.5-1.5); HHB 2.5 % (0.0-5.0); METHEMOGLOBIN 0.6 % (0.0-3.0)
--- NOTE | 2017-04-29 17:06 | RAD ---
HISTORY: pulmonary edema COMPARISON: Portable chest 04/29/2017 3:01 a.m.. FINDINGS: LUNGS: Bilateral limited infiltrates have increased particularly at the right base and left perihilar and basilar regions. PLEURA: No significant pleural effusion identified, no pneumothorax apparent. CARDIOVASCULAR: Cardiac size is stable. Pulmonary vascular markings are obscured by infiltrates. Pulmonary venous congestion is not completely excluded. OSSEOUS STRUCTURES: No significant abnormalities. VISUALIZED UPPER ABDOMEN: Normal. OTHER FINDINGS: None. IMPRESSION: Increasing heterogeneous endplates are identified at the mid inferior lung zones bilaterally. Remainder the examination appears stable. Clinical and radiographic follow-up are advised. Pulmonary venous congestion is not excluded however the vascular markings are obscured by infiltrates bilaterally. Cardiac size appears stable.
--- NOTE | 2017-04-29 18:34 | PN ---
DATE: ENDOCRINOLOGY FOLLOWUP NOTE LOCATION: In ICU room 421. SUBJECTIVE: This is a 57-year-old female with marked hemolytic anemia and currently also being followed closely for metabolic management because of supervening malignant hypercalcemia as noted thereof. She is undergoing metabolic and hematologic workup at this time for the etiology of the upper mentioned. Her latest chemistry showed a BUN of 35, sodium 142, potassium 4.2, chloride 109, CO2 of 27, glucose 148, and creatinine 1.3. Her calcium level is 13.9 with an albumin level of 2.7 and a corrected calcium of 15.2 mg/dL. Her glucose values are fluctuating as she is currently on IV steroid therapy given as hydrocortisone at 100 mg every 6 hours as noted. Her glucose levels have ranged from 208 to 214 mg/dL. So, at this time, she has received one dose of zoledronic acid or Zometa at 4 mg IV piggyback at the emergency room on admission. We do not carry calcitonin injections as the rao is formidable and quite expensive. This time, she is also receiving IV hydration as given. The repeat calcium levels are pending today as noted. If hypercalcemic levels persist, then we will consider the addition of another bisphosphonate as indicated. The nasal calcitonin can also be given although this is not as potent as the subcutaneous calcitonin injections. We will obtain serial chemistries and supplement accordingly as needed. We will follow this. Laure De Santiago MD
[2017-04-29 19:01] LABS: IGG,SERUM 2163 mg/dL (694-1618); IGM,SERUM 1778 mg/dL (48-271)
[2017-04-29] MEDS: Insulin Detemir 100 Units/ml Inj SC SCH (21:46)
[2017-04-30] MEDS: Hydrocortisone Succinat 250 MG vial IV SCH ×4 (03:30→21:13)
[2017-04-30] MEDS: Piperacill/Tazo 2.25gm in Dex 2.25 GM/50 ML BAG IVPB SCH ×4 (03:30→21:13)
[2017-04-30 05:27] LABS: BASO # 0.1 K/uL (0.0-0.2); BASO % 0.6 % (0.0-2.0); HEMATOCRIT 29.6 % (34.0-47.0); LYMPH # 5.9 K/uL (1.0-4.3); LYMPH % 36.8 % (20.0-40.0); MEAN CELL VOLUME 97.4 fl (81.0-99.0); MEAN CORPUSCULAR HEMOGLOBIN 30.6 pg (27.0-31.0); MEAN CORPUSCULAR HGB CONC 31.4 g/dL (33.0-37.0); MEAN PLATELET VOLUME 9.2 fl (7.2-11.7); MONO # 0.9 K/uL (0.0-0.8); MONO % 5.8 % (0.0-10.0); NEUT # 9.1 K/uL (1.8-7.0); NEUT % 56.8 % (50.0-75.0); NRBC % 6.8 % (0.0-0.0); RED CELL DISTRIBUTION WIDTH 22.2 % (11.5-14.5); WHITE BLOOD COUNT 16.1 K/uL (4.8-10.8)
[2017-04-30 05:38] LABS: ALB/GLOB RATIO 0.6 (1.0-2.1); BILIRUBIN,TOTAL 7.2 mg/dl (0.2-1.3); CALCIUM 11.2 mg/dL (8.4-10.2); POTASSIUM 3.4 MMOL/L (3.6-5.0); TOTAL PROTEIN 7.3 G/DL (6.3-8.2)
[2017-04-30 06:14] LABS: ABG ALLEN TEST YES; ARTERIAL BLOOD GAS HCO3 28.2 mmol/L (21-28); ARTERIAL BLOOD GAS MODE CPAP; ARTERIAL BLOOD GAS O2 CAPACITY 13.6 mL/dL (16-24); ARTERIAL BLOOD GAS O2 CONTENT 13.7 ML/dL (15-23); ARTERIAL BLOOD GAS PH 7.46 (7.35-7.45); ARTERIAL BLOOD GAS PO2 130 mm/Hg (80-100); ARTERIAL BLOOD HGB O2 SAT 97.3 % (95.0-98.0); CARBOXYHEMOGLOBIN 2.1 % (0.5-1.5); HHB -0.4 % (0.0-5.0); METHEMOGLOBIN 0.9 % (0.0-3.0)
--- NOTE | 2017-04-30 10:28 | RAD ---
HISTORY: Pulmonary edema COMPARISON: April 29, 2017. FINDINGS: LUNGS: Interval improvement in pulmonary edema. PLEURA: No significant pleural effusion identified, no pneumothorax apparent. CARDIOVASCULAR: No significant interval change compared to the prior examination(s). OSSEOUS STRUCTURES: No significant abnormalities. VISUALIZED UPPER ABDOMEN: Normal. OTHER FINDINGS: None. IMPRESSION: Improving pulmonary edema.
--- NOTE | 2017-04-30 10:56 | CP.PCM.PN ---
Subjective - Date & Time of Evaluation Date of Evaluation: 04/30/17 Time of Evaluation: 10:55 - Subjective Subjective: Post transfusion the HGB has stayed stable, WBC and Platelets are more or less stable. The serum calcium is down to 11,3.Her immunofixation shows increase in IGG to 2163 and IGM TO 1778. IgA IS NORMAL. There is still no protein in the urine. The LFT however are slowly going up, and the creatinine is up to 1.8. She is more alert after the plasmapheresis but she seems to have had a reaction to the plasma given during pheresis. Will speak to Dr Gomez if albumin can be used with the next plasmapheresis. Objective - Vital Signs/Intake and Output Vital Signs (last 24 hours): Temp Pulse Resp BP Pulse Ox 97.7 F 121 H 19 145/82 95 04/30/17 08:00 04/30/17 10:00 04/30/17 10:00 04/30/17 10:00 04/30/17 10:00 Intake and Output: 04/30/17 04/30/17 06:59 18:59 Intake Total 100 600 Output Total 650 825 Balance -550 -225 - Medications Medications: Current Medications Acetaminophen (Tylenol 325mg Tab) 650 mg PO Q6H PRN PRN Reason: Fever >100.4 F Acetaminophen (Tylenol 650 Mg Supp) 650 mg NH ONCE [facility] Last Admin: 04/28/17 14:30 Dose: 650 mg Albuterol Sulfate (Albuterol 0.083% Inhal Rae (2.5 Mg/3 Ml) Ud) 2.5 mg INH RQ4 PRN PRN Reason: Shortness of Breath Allopurinol (Zyloprim) 200 mg PO DAILY [facility] Last Admin: 04/30/17 10:02 Dose: 200 mg Furosemide (Lasix) 40 mg IV Q12H [facility] Stop: 04/30/17 16:01 Last Admin: 04/30/17 03:31 Dose: 40 mg Haloperidol Lactate (Haldol) 2.5 mg IVP Q6 PRN PRN Reason: Agitation Last Admin: 04/30/17 01:10 Dose: 2.5 mg Hydrocortisone Sodium Succinate (Solu-Cortef) 100 mg IV 0400,1000,1600,2200 ARLET Last Admin: 04/30/17 09:59 Dose: 100 mg Hydromorphone HCl (Dilaudid) 0.5 mg IVP Q4 PRN PRN Reason: Pain, moderate (4-7) Last Admin: 04/30/17 01:02 Dose: 0.5 mg Vancomycin HCl 1 gm/ Sodium (Chloride) 250 mls @ 166.667 mls/hr IVPB DAILY [facility] PRN Reason: Protocol Last Admin: 04/30/17 10:01 Dose: 166.667 mls/hr Piperacillin Sod/Tazobactam Sod (Zosyn 2.25 Gm Iv Premix) 2.25 gm in 50 mls @ 50 mls/hr IVPB Q6 [facility] PRN Reason: Protocol Last Admin: 04/30/17 10:03 Dose: 50 mls/hr Insulin Detemir (Levemir) 12 units SC HS [facility] Last Admin: 04/29/17 21:46 Dose: 12 units Insulin Human Lispro (Humalog) 0 units SC ACHS [facility] PRN Reason: Protocol Last Admin: 04/29/17 21:47 Dose: Not Given Ondansetron HCl (Zofran Inj) 4 mg IVP Q6H PRN PRN Reason: Nausea/Vomiting Pantoprazole Sodium (Protonix Inj) 40 mg IVP DAILY [facility] Last Admin: 04/30/17 09:59 Dose: 40 mg - Labs Labs: 04/30/17 04:20 04/30/17 04:20 PT 27.2 Seconds (9.8-13.1) H D 04/30/17 04:20 INR 2.4 (0.9-1.2) H D 04/30/17 04:20 APTT 37.0 Seconds (25.6-37.1) 04/30/17 04:20
[2017-04-30] MEDS ORDERED: Potassium Chloride 20 mEq ER Tab PO ONE (11:15)
--- NOTE | 2017-04-30 11:44 | CP.PCM.CON ---
History of Present Illness - History of Present Illness History of Present Illness: 57yo with pmhx of Hep C with cirrhosis on Ribavirin and Epclusa presented with weakness and confusion and found to have hemolytic anemia and low platelets Past Patient History - Infectious Disease Hx of Infectious Diseases: None - Past Medical History & Family History Past Medical History?: No Past Family History: Reviewed and not pertinent - Past Social History Smoking Status: Former Smoker Chewing Tobacco Use: No Cigar Use: No Alcohol: None Drugs: Denies Home Situation {Lives}: With Family Domestic Violence: Negative - CARDIAC Hx Cardiac Disorders: Yes Hx Hypertension: Yes - PULMONARY Hx Asthma: Yes - NEUROLOGICAL Hx Neurological Disorder: Yes Hx Vertigo: Yes - HEENT Hx HEENT Problems: No - RENAL Hx Chronic Kidney Disease: Yes Hx Kidney Stones: Yes (2015) - ENDOCRINE/METABOLIC Hx Endocrine Disorders: Yes Hx Diabetes Mellitus Type 2: Yes - HEMATOLOGICAL/ONCOLOGICAL Hx Blood Disorders: Yes Hx AIDS: No Hx Anemia: No Hx Leukemia: No Hx Sickle Cell Disease: No Hx Unexplained Bleeding: No - INTEGUMENTARY Hx Dermatological Problems: No - MUSCULOSKELETAL/RHEUMATOLOGICAL Hx Musculoskeletal Disorders: Yes Hx Back Pain: Yes Hx Falls: Yes - GASTROINTESTINAL Hx Gastrointestinal Disorders: No Hx Pancreatitis: No HX Swallowing Problems: No Hx Ulcer: No Hx Vomiting: No - GENITOURINARY/GYNECOLOGICAL Hx Genitourinary Disorders: No - PSYCHIATRIC Hx Psychophysiologic Disorder: No Hx Anxiety: No Hx Bipolar Disorder: No Hx Depression: No Hx Emotional Abuse: No Hx Hallucinations: No Hx Substance Use: No - SURGICAL HISTORY Hx Surgeries: Yes Hx Cholecystectomy: Yes - ANESTHESIA Hx Anesthesia: Yes Hx Anesthesia Reactions: No Hx Malignant Hyperthermia: No Has any member of the family had a problem w/ anesthesia?: No Meds Allergies/Adverse Reactions: Allergies Allergy/AdvReac Type Severity Reaction Status Date / Time FISH Allergy RASH Verified 04/27/17 09:31 - Medications Medications: Current Medications Acetaminophen (Tylenol 325mg Tab) 650 mg PO Q6H PRN PRN Reason: Fever >100.4 F Acetaminophen (Tylenol 650 Mg Supp) 650 mg [place] [facility] Last Admin: 04/28/17 14:30 Dose: 650 mg Albuterol Sulfate (Albuterol 0.083% Inhal Rae (2.5 Mg/3 Ml) Ud) 2.5 mg INH RQ4 PRN PRN Reason: Shortness of Breath Allopurinol (Zyloprim) 200 mg PO DAILY [facility] Last Admin: 04/30/17 10:02 Dose: 200 mg Furosemide (Lasix) 40 mg IV Q12H [facility] Stop: 04/30/17 16:01 Last Admin: 04/30/17 03:31 Dose: 40 mg Haloperidol Lactate (Haldol) 2.5 mg IVP Q6 PRN PRN Reason: Agitation Last Admin: 04/30/17 01:10 Dose: 2.5 mg Hydrocortisone Sodium Succinate (Solu-Cortef) 100 mg IV 0400,1000,1600,2200 [facility] Last Admin: 04/30/17 09:59 Dose: 100 mg Hydromorphone HCl (Dilaudid) 0.5 mg IVP Q4 PRN PRN Reason: Pain, moderate (4-7) Last Admin: 04/30/17 01:02 Dose: 0.5 mg Vancomycin HCl 1 gm/ Sodium (Chloride) 250 mls @ 166.667 mls/hr IVPB DAILY [facility] PRN Reason: Protocol Last Admin: 04/30/17 10:01 Dose: 166.667 mls/hr Piperacillin Sod/Tazobactam Sod (Zosyn 2.25 Gm Iv Premix) 2.25 gm in 50 mls @ 50 mls/hr IVPB Q6 [facility] PRN Reason: Protocol Last Admin: 04/30/17 10:03 Dose: 50 mls/hr Insulin Detemir (Levemir) 12 units SC HS [facility] Last Admin: 04/29/17 21:46 Dose: 12 units Insulin Human Lispro (Humalog) 0 units SC ACHS [facility] PRN Reason: Protocol Last Admin: 04/29/17 21:47 Dose: Not Given Ondansetron HCl (Zofran Inj) 4 mg IVP Q6H PRN PRN Reason: Nausea/Vomiting Pantoprazole Sodium (Protonix Inj) 40 mg IVP DAILY [facility] Last Admin: 04/30/17 09:59 Dose: 40 mg Physical Exam - Constitutional Appears: Confused Additional comments: answers sporadically. - Respiratory Exam Additional comments: scattered rales Results - Vital Signs Recent Vital Signs: Last Vital Signs Temp 97.7 F 04/30/17 08:00 Pulse 121 H 04/30/17 10:00 Resp 19 04/30/17 10:00 BP 145/82 04/30/17 10:00 Pulse Ox 95 11/20/17 10:00 - Labs Result Diagrams: 04/30/17 04:20 04/30/17 04:20 Labs: Laboratory Results - last 24 hr 04/27/17 04/28/17 04/29/17 17:10 05:30 15:52 WBC RBC Hgb Hct MCV MCH MCHC RDW Plt Count MPV Neut % (Auto) Lymph % (Auto) [place] % (Auto) Eos % (Auto) Baso % (Auto) Neut # Lymph # [place] # Eos # Baso # PT INR APTT Fibrinogen pCO2 23 L pO2 69 L HCO3 21.3 ABG pH 7.49 H ABG Total CO2 18.2 L ABG O2 Saturation 97.4 ABG O2 Content 13.4 L ABG Base Excess -4.6 L ABG Hemoglobin 10.0 L ABG Carboxyhemoglobin 2.3 H POC ABG HHb (Measured) 2.5 ABG Methemoglobin 0.6 ABG O2 Capacity 13.8 L Roman Test Yes A-a O2 Difference 473.0 Hgb O2 Saturation 94.5 L Liter Flow 30 Vent Mode High flow lpm FiO2 80.0 CPAP Crit Value Called To Dr jay gonzalez Crit Value Called By Crit Value Read Back Y Blood Gas Notified Time 1606 Sodium Potassium Chloride Carbon Dioxide Anion Gap BUN Creatinine Est GFR ( Amer) Est GFR (Non-Af Amer) POC Glucose (mg/dL) Random Glucose Hemoglobin A1c 5.7 Calcium Total Bilirubin AST ALT Alkaline Phosphatase NT-Pro-B Natriuret Pep Total Protein Albumin Globulin Albumin/Globulin Ratio Vancomycin Trough IgG 2163 H IgA 386 IgM 1778 H 04/29/17 04/29/17 04/29/17 16:07 17:01 21:45 WBC RBC Hgb Hct MCV MCH MCHC RDW Plt Count MPV Neut % (Auto) Lymph % (Auto) [place] % (Auto) Eos % (Auto) Baso % (Auto) Neut # Lymph # [place] # Eos # Baso # PT INR APTT Fibrinogen pCO2 pO2 HCO3 ABG pH ABG Total CO2 ABG O2 Saturation ABG O2 Content ABG Base Excess ABG Hemoglobin ABG Carboxyhemoglobin POC ABG HHb (Measured) ABG Methemoglobin ABG O2 Capacity Roman Test A-a O2 Difference Hgb O2 Saturation Liter Flow Vent Mode FiO2 CPAP Crit Value Called To Crit Value Called By Crit Value Read Back Blood Gas Notified Time Sodium Potassium Chloride Carbon Dioxide Anion Gap BUN Creatinine Est GFR ( Amer) Est GFR (Non-Af Amer) POC Glucose (mg/dL) 127 H 182 H Random Glucose Hemoglobin A1c Calcium Total Bilirubin AST ALT Alkaline Phosphatase NT-Pro-B Natriuret Pep 01417 H Total Protein Albumin Globulin Albumin/Globulin Ratio Vancomycin Trough IgG IgA IgM 04/30/17 04/30/17 04/30/17 04:20 04:20 04:20 WBC 16.1 H RBC 3.03 L Hgb 9.3 L Hct 29.6 L MCV 97.4 D MCH 30.6 MCHC 31.4 L RDW 22.2 H Plt Count 26 L* MPV 9.2 Neut % (Auto) 56.8 Lymph % (Auto) 36.8 [place] % (Auto) 5.8 Eos % (Auto) 0.0 Baso % (Auto) 0.6 Neut # 9.1 H Lymph # 5.9 H [place] # 0.9 H Eos # 0.0 Baso # 0.1 PT 27.2 H D INR 2.4 H D APTT 37.0 Fibrinogen 107 L* pCO2 pO2 HCO3 ABG pH ABG Total CO2 ABG O2 Saturation ABG O2 Content ABG Base Excess ABG Hemoglobin ABG Carboxyhemoglobin POC ABG HHb (Measured) ABG Methemoglobin ABG O2 Capacity Roman Test A-a O2 Difference Hgb O2 Saturation Liter Flow Vent Mode FiO2 CPAP Crit Value Called To Crit Value Called By Crit Value Read Back Blood Gas Notified Time Sodium 149 H Potassium 3.4 L Chloride 109 H Carbon Dioxide 30 Anion Gap 13 BUN 64 H Creatinine 1.8 H Est GFR ( Amer) 35 Est GFR (Non-Af Amer) 29 POC Glucose (mg/dL) Random Glucose 213 H Hemoglobin A1c Calcium 11.2 H Total Bilirubin 7.2 H AST 184 H D ALT 51 Alkaline Phosphatase 126 D NT-Pro-B Natriuret Pep Total Protein 7.3 Albumin 2.8 L Globulin 4.5 H Albumin/Globulin Ratio 0.6 L Vancomycin Trough IgG IgA IgM 04/30/17 04/30/17 04:20 06:08 WBC RBC Hgb Hct MCV MCH MCHC RDW Plt Count MPV Neut % (Auto) Lymph % (Auto) [place] % (Auto) Eos % (Auto) Baso % (Auto) Neut # Lymph # [place] # Eos # Baso # PT INR APTT Fibrinogen pCO2 40 pO2 130 H HCO3 28.2 H ABG pH 7.46 H ABG Total CO2 29.6 H ABG O2 Saturation 100.4 H ABG O2 Content 13.7 L ABG Base Excess 4.2 H ABG Hemoglobin 9.8 L ABG Carboxyhemoglobin 2.1 H POC ABG HHb (Measured) -0.4 L ABG Methemoglobin 0.9 ABG O2 Capacity 13.6 L Roman Test Yes A-a O2 Difference 390.0 Hgb O2 Saturation 97.3 Liter Flow Vent Mode Cpap FiO2 80.0 CPAP 8 Crit Value Called To Crit Value Called By Crit Value Read Back Blood Gas Notified Time Sodium Potassium Chloride Carbon Dioxide Anion Gap BUN Creatinine Est GFR ( Amer) Est GFR (Non-Af Amer) POC Glucose (mg/dL) Random Glucose Hemoglobin A1c Calcium Total Bilirubin AST ALT Alkaline Phosphatase NT-Pro-B Natriuret Pep Total Protein Albumin Globulin Albumin/Globulin Ratio Vancomycin Trough 15.8 H IgG IgA IgM Assessment & Plan - Assessment and Plan (Free Text) Assessment: AMS with hep C and cirrhosis. Perihilar infiltrate. Agree with Vanocmyin 1 g q d and Zosyn for a total of 7 days follow up blood cultures which have been so far negative.
--- NOTE | 2017-04-30 12:21 | CARD ---
APPROVED REPORT EKG Measurement Heart [id number] <Conclusion> Sinus tachycardia Cannot rule out Anterior infarct, age undetermined ST & T wave abnormality, consider lateral ischemia Abnormal ECG
--- NOTE | 2017-04-30 12:21 | CARD ---
APPROVED REPORT EKG Measurement Heart [id number] <Conclusion> Sinus tachycardia Cannot rule out Anterior infarct, age undetermined T wave abnormality, consider lateral ischemia Abnormal ECG
[2017-04-30] MEDS: Insulin Lispro (humaLOG) 100 Units/ml Inj SC SCH ×3 (12:28→21:12)
--- NOTE | 2017-04-30 12:33 | CP.PCM.PN ---
Subjective - Date & Time of Evaluation Date of Evaluation: 04/30/17 Time of Evaluation: 12:00 - Subjective Subjective: Pt seen and examined more alert today still confused moans but no concrete verbal response No fever tachycardic CXR show Pulm Edema Had long talk with pt's daughter Paola who is the next of kin : wants pt to be Full Code however she said that she will speak with pt's boyfriend to ask his wishes too since pt and BF have been together for 14yrs. Discussed test results, diff diagnoses and treatment plan. Objective - Vital Signs/Intake and Output Vital Signs (last 24 hours): Temp Pulse Resp BP Pulse Ox 98.2 F 130 H 24 180/94 H 96 04/30/17 12:00 04/30/17 12:00 04/30/17 12:00 04/30/17 12:00 04/30/17 12:00 Intake and Output: 04/30/17 04/30/17 06:59 18:59 Intake Total 100 600 Output Total 650 975 Balance -550 -375 - Medications Medications: Current Medications Acetaminophen (Tylenol 325mg Tab) 650 mg PO Q6H PRN PRN Reason: Fever >100.4 F Acetaminophen (Tylenol 650 Mg Supp) 650 mg [place] ONCE [facility] Last Admin: 04/28/17 14:30 Dose: 650 mg Albuterol Sulfate (Albuterol 0.083% Inhal Rae (2.5 Mg/3 Ml) Ud) 2.5 mg INH RQ4 PRN PRN Reason: Shortness of Breath Allopurinol (Zyloprim) 200 mg PO DAILY [facility] Last Admin: 04/30/17 10:02 Dose: 200 mg Furosemide (Lasix) 40 mg IV Q12H [facility] Stop: 04/30/17 16:01 Last Admin: 04/30/17 03:31 Dose: 40 mg Haloperidol Lactate (Haldol) 2.5 mg IVP Q6 PRN PRN Reason: Agitation Last Admin: 04/30/17 01:10 Dose: 2.5 mg Hydrocortisone Sodium Succinate (Solu-Cortef) 100 mg IV 0400,1000,1600,2200 [facility] Last Admin: 04/30/17 09:59 Dose: 100 mg Hydromorphone HCl (Dilaudid) 0.5 mg IVP Q4 PRN PRN Reason: Pain, moderate (4-7) Last Admin: 04/30/17 01:02 Dose: 0.5 mg Vancomycin HCl 1 gm/ Sodium (Chloride) 250 mls @ 166.667 mls/hr IVPB DAILY [facility] PRN Reason: Protocol Last Admin: 04/30/17 10:01 Dose: 166.667 mls/hr Piperacillin Sod/Tazobactam Sod (Zosyn 2.25 Gm Iv Premix) 2.25 gm in 50 mls @ 50 mls/hr IVPB Q6 [facility] PRN Reason: Protocol Last Admin: 04/30/17 10:03 Dose: 50 mls/hr Insulin Detemir (Levemir) 12 units SC HS [facility] Last Admin: 04/29/17 21:46 Dose: 12 units Insulin Human Lispro (Humalog) 0 units SC ACHS [facility] PRN Reason: Protocol Last Admin: 04/30/17 12:28 Dose: Not Given Ondansetron HCl (Zofran Inj) 4 mg IVP Q6H PRN PRN Reason: Nausea/Vomiting Pantoprazole Sodium (Protonix Inj) 40 mg IVP DAILY [facility] Last Admin: 04/30/17 09:59 Dose: 40 mg - Labs Labs: 04/30/17 04:20 04/30/17 04:20 PT 27.2 Seconds (9.8-13.1) H D 04/30/17 04:20 INR 2.4 (0.9-1.2) H D 04/30/17 04:20 APTT 37.0 Seconds (25.6-37.1) 04/30/17 04:20 - Constitutional Appears: Toxic, Older Than Stated Age, Chronically Ill - Head Exam Head Exam: NORMAL INSPECTION, NORMOCEPHALIC - Eye Exam Eye Exam: EOMI, Normal appearance, PERRL Pupil Exam: NORMAL ACCOMODATION - ENT Exam ENT Exam: Mucous Membranes Moist, Normal External Ear Exam - Neck Exam Neck Exam: Full ROM. absent: Meningismus - Respiratory Exam Respiratory Exam: Rales. absent: Wheezes Additional comments: On High Flow Oxygen - Cardiovascular Exam Cardiovascular Exam: Tachycardia, REGULAR RHYTHM, +S1, +S2 - GI/Abdominal Exam GI & Abdominal Exam: Distended, Soft, Normal Bowel Sounds. absent: Tenderness - Extremities Exam Extremities Exam: Full ROM, Normal Capillary Refill, Pedal Edema - Neurological Exam Neurological Exam: Alert, Awake Additional comments: moves all extremities does not follow all commands - Psychiatric Exam Psychiatric exam: Flat Affect - Skin Skin Exam: Dry, Pallor, Warm Assessment and Plan - Assessment and Plan (Free Text) Assessment: 57 y/o female with PMH IDDM , HTN, dyslipidemia , Cirrhosis sec to Hep C was brought to ER bec of AMS. For the past 3 days patient has not been herself, she was very weak, unable to get out of bed, confused , talking to herself, disoriented. Patient also appears jaundiced. As per family she has been complaining of lower back pain and has been seeing and physician who gave her an injection 1 month ago. Family denies any upper respiratory illness, nausea , vomiting , diarrhea, abdominal pain , recent illness or blood transfusion.As per family patient was complaining of SOB and some CP. In ER patient found to confused , jaundiced with Hgb 5.7, plt 39 K tea 6.7 , elevated LDH WBC 17 k lactic acid 5 cr 1.2 total protein 9 Ca 14 CXR - clear Peripheral Smear showed schistocytes , nucleated RBC-s Pt/Inr elevated Patient is critically ill. Admitted to ICU for sepsis , Altered mental status, metabolic derangement with hypercalcemia, hyperkalemia ,hemolytic anemia and possible malignancy. Some new information gathered - Pt has Hx of Cirrhosis due to Hep C and is on treatment with Ribavirin and Epclusa since February. ( Ribavirin can cause Hemolytic Anemia) 1. Sepsis sec to PNeumonia responded to IVF resuscitation elevated lactic acid and WBC Ct chest showed LLL pneumonia blood and urine cx sent continue vancomycin 1 g IV and Zosyn ID consulted- discussed case with Dr Topete , agree with the abx 2. Altered mental status likely sec to Metabolic Encephalopathy ? TTP most likely related to metabolic derangement CT head showed no acute pathology hematology consult appreciated and case discussed Peripheral smear showed nucleated RBC-s and schisctocytes -- most likely hemolytic anemia . PT/INR elevated and fibrinogen low . f/u haptoglobin , retic count, siria test CT abdomen and pelvis showed diffuse ostelytic lesions of the skeleton -- most likely multiple myeloma vs other malignancy ( Monoclonal gammopathy) Follow up flow cytometry, protein electrophoresis continue IVF, IV antibiotics Started Zometa for hypercalcemia Continue Solucortef for hemolytic anemia and transfused 3 unit PRBC plan for plasmaphresiss today as per hematology Ammonia level normal 3. Hemolytic anemia ? TTP/DIC prob related to Ribavirin Hgb 5.7 LDH elevated , bili 6.7 peripheral smear showed nucleated RBC-s and schistocytes s/p 3 unit PRBc transfusin with Hgb 9.4 hematology consult appreciated Retic ct elevated Low Fibrinogen haptoglobin, Siria test ,Hepatis profile , FROYLAN,RF, mycoplasma continue Solucortef 4. Thrombocytopenia/ coagulopathy prob sec to Cirrhosis suspected TTP and was started on Plasmapharesis PT/INR elevated , no proteinuria,Fibrinogen low - suggest possible DIC retic count: elevated to 6 ,haptoglobin pending, blood cx, urine cx : negative so far Hematology on board Hold off any Platelet transfusion as per hematology 5.Diffuse Osteolytic lesions of the spine Probably Multiple myeloma but need to rule out CLL ,lymphoma OR OTHER MALIGNANCY f/u Flow cytometry ,protein electrophoresis follow up with oncology recommendations 6.Hypercalcemia prob sec to malignancy IVF on Zometa Endo consulted 7. Left Lower Lobe Pneumonia Most likely CAP Check mycoplasma Ag on vanco and Zosyn 8.DM start diabetic diet f/u Hgb A1c endo consulted - started Levemir insulin coverage and ACHS 7.KIRSTIN / Azotemia/ hyperkalemia ? sec to MM continue IVF monitor renal fxn 8. Pulmonary Edema - happened 2 hrs after Plasmapharesis - minimal response to diuretics - ? sec to Transfusion rx ??? vs Volume overload 9. Cirrhosis due to Hep C - pt was on Rivabirin and Epclusa treatment since February DVT/ GI prophylaxis SCD Protonix IV no anticoag sec to thrmobocytopenia
--- NOTE | 2017-04-30 14:53 | CP.CCUPN ---
CCU Subjective - Physician Review Events Since Last Encounter (Free Text): 04/30/17 14:43 alert, follows commands, but still disoriented. CCU Objective - Vital Signs / Intake & Output Vital Signs (Last 4 hours): Vital Signs Temp Pulse Resp BP Pulse Ox 04/30/17 14:00 81 15 134/73 100 04/30/17 13:27 20 04/30/17 12:00 98.2 F 130 H 24 180/94 H 96 Intake and Output (Last 8hrs): Intake & Output 04/29/17 04/30/17 04/30/17 22:59 06:59 14:59 Intake Total 50 100 650 Output Total 1204 233 0419 Balance -950 -550 -425 Intake: Intake, Piggyback 50 100 300 Oral 350 Output: Urine 6769 800 5232 Urethral (Hernandez) 5932 477 0300 - Physical Exam Physical Exam Limitations: Positive for: Altered Mental Status Head: Positive for: Atraumatic, Normocephalic Pupils: Positive for: PERRL Extroacular Muscles: Positive for: EOMI Conjunctiva: Positive for: Icteric Mouth: Positive for: Dry Pharnyx: Negative for: ERYTHEMA, EXUDATE Neck: Negative for: Meningeal Signs, JVD, Lymphadenopathy Cardiovascular: Positive for: Regular Rate and Rhythm. Negative for: Murmurs, Rub Abdomen: Positive for: Normal Bowel Sounds, Other (+ splenomegaly). Negative for: Tenderness, Distention Rectal: Negative for: Occult Blood, Melena, Fissures Lower Extremity: Positive for: Edema, NORMAL PULSES. Negative for: CALF TENDERNESS, Cyanosis Neurological: Positive for: GCS=15, Motor Func Grossly Intact, Normal Sensory Function, Norm Deep Tendon Reflexes Skin: Positive for: Warm, Dry, Other (no petechiae). Negative for: Rashes Psychiatric: Positive for: Alert. Negative for: Oriented x 3 (oriented to person and place) - Medications Active Medications: Active Medications Generic Name Dose Route Start Last Admin Trade Name Freq PRN Reason Stop Dose Admin Acetaminophen 650 mg 04/27/17 19:20 Tylenol 325mg Tab PO Q6H PRN Fever >100.4 F Acetaminophen 650 mg 04/28/17 10:00 04/28/17 14:30 Tylenol 650 Mg Supp [place] 650 mg ONCE ARLET Administration Albuterol Sulfate 2.5 mg 04/27/17 19:45 Albuterol 0.083% Inhal Rae (2.5 Mg/3 Ml) Ud INH RQ4 PRN Shortness of Breath Allopurinol 200 mg 04/28/17 09:00 04/30/17 10:02 Zyloprim PO 200 mg DAILY ARLET Administration Furosemide 40 mg 04/29/17 16:00 04/30/17 03:31 Lasix IV 04/30/17 16:01 40 mg Q12H ARLET Administration Haloperidol Lactate 2.5 mg 04/29/17 13:43 04/30/17 01:10 Haldol IVP 2.5 mg Q6 PRN Administration Agitation Hydrocortisone Sodium Succinate 100 mg 04/27/17 22:00 04/30/17 09:59 Solu-Cortef IV 100 mg 0400,1000,1600,2200 ARLET Administration Hydromorphone HCl 0.5 mg 04/28/17 23:02 04/30/17 01:02 Dilaudid IVP 0.5 mg Q4 PRN Administration Pain, moderate (4-7) Vancomycin HCl 1 gm/ Sodium 250 mls @ 166.667 mls/hr 04/28/17 09:00 04/30/17 10:01 Chloride IVPB 166.667 mls/hr DAILY COUNTS INCLUDE 234 BEDS AT THE [facility] Administration Protocol Piperacillin Sod/Tazobactam Sod 2.25 gm in 50 mls @ 50 mls/hr 04/27/17 22:00 04/30/17 10:03 Zosyn 2.25 Gm Iv Premix IVPB 50 mls/hr Q6 COUNTS INCLUDE 234 BEDS AT THE [facility] Administration Protocol Insulin Detemir 14 units 04/30/17 22:00 Levemir SC [facility] Insulin Human Lispro 0 units 04/27/17 16:30 04/30/17 12:28 Humalog SC Not Given ACHS COUNTS INCLUDE 234 BEDS AT THE [facility] Protocol Ondansetron HCl 4 mg 04/27/17 19:20 Zofran Inj IVP Q6H PRN Nausea/Vomiting Pantoprazole Sodium 40 mg 04/28/17 09:00 04/30/17 09:59 Protonix Inj IVP 40 mg DAILY COUNTS INCLUDE 234 BEDS AT THE [facility] Administration - Patient Studies Lab Studies: Microbiology Studies 04/27/17 14:05 Blood Culture - Preliminary Blood-Venous NO GROWTH AFTER 48 HOURS 04/27/17 13:35 Blood Culture - Preliminary Blood-Venous NO GROWTH AFTER 48 HOURS 04/27/17 20:22 MRSA Culture (Admit) - Final Nose MRSA NOT DETECTED Lab Studies 04/30/17 04/30/17 04/30/17 Range/Units 11:31 06:08 04:20 WBC (4.8-10.8) K/uL RBC (3.80-5.20) Mil/uL Hgb (12.0-16.0) g/dL Hct (34.0-47.0) % MCV (81.0-99.0) fl MCH (27.0-31.0) pg MCHC (33.0-37.0) g/dL RDW (11.5-14.5) % Plt Count (130-400) K/uL MPV (7.2-11.7) fl Neut % (Auto) (50.0-75.0) % Lymph % (Auto) (20.0-40.0) % Sully % (Auto) (0.0-10.0) % Eos % (Auto) (0.0-4.0) % Baso % (Auto) (0.0-2.0) % Neut # (1.8-7.0) K/uL Lymph # (1.0-4.3) K/uL Sully # (0.0-0.8) K/uL Eos # (0.0-0.7) K/uL Baso # (0.0-0.2) K/uL PT (9.8-13.1) Seconds INR (0.9-1.2) APTT (25.6-37.1) Seconds Fibrinogen (200-400) mg/dl pCO2 40 (35-45) mm/Hg pO2 130 H (80-100) mm/Hg HCO3 28.2 H (21-28) mmol/L ABG pH 7.46 H (7.35-7.45) ABG Total CO2 29.6 H (22-28) mmol/L ABG O2 Saturation 100.4 H (95-98) % ABG O2 Content 13.7 L (15-23) ML/dL ABG Base Excess 4.2 H (-2.0-3.0) mmol/L ABG Hemoglobin 9.8 L (11.7-17.4) g/dL ABG Carboxyhemoglobin 2.1 H (0.5-1.5) % POC ABG HHb (Measured) -0.4 L (0.0-5.0) % ABG Methemoglobin 0.9 (0.0-3.0) % ABG O2 Capacity 13.6 L (16-24) mL/dL Roman Test Yes A-a O2 Difference 390.0 mm/Hg Hgb O2 Saturation 97.3 (95.0-98.0) % Liter Flow Vent Mode Cpap FiO2 80.0 % CPAP 8 Crit Value Called To Crit Value Called By Crit Value Read Back Blood Gas Notified Time Sodium (132-148) mmol/l Potassium (3.6-5.0) MMOL/L Chloride (98-107) mmol/L Carbon Dioxide (22-30) mmol/L Anion Gap (10-20) BUN (7-17) mg/dl Creatinine (0.7-1.2) mg/dl Est GFR ( Amer) Est GFR (Non-Af Amer) POC Glucose (mg/dL) 241 H (65-110) mg/dL Random Glucose (65-105) mg/dL Calcium (8.4-10.2) mg/dL Total Bilirubin (0.2-1.3) mg/dl AST (14-36) U/L ALT (9-52) U/L Alkaline Phosphatase (38-126) U/L NT-Pro-B Natriuret Pep (0-900) pg/ml Total Protein (6.3-8.2) G/DL Albumin (3.5-5.0) g/dL Globulin (2.2-3.9) gm/dL Albumin/Globulin Ratio (1.0-2.1) Vancomycin Trough 15.8 H (5.0-10.0) ug/mL IgG (694-1618) mg/dL IgA (81-463) mg/dL IgM (48-271) mg/dL 04/30/17 04/30/17 04/30/17 Range/Units 04:20 04:20 04:20 WBC 16.1 H (4.8-10.8) K/uL RBC 3.03 L (3.80-5.20) Mil/uL Hgb 9.3 L (12.0-16.0) g/dL Hct 29.6 L (34.0-47.0) % MCV 97.4 D (81.0-99.0) fl MCH 30.6 (27.0-31.0) pg MCHC 31.4 L (33.0-37.0) g/dL RDW 22.2 H (11.5-14.5) % Plt Count 26 L* (130-400) K/uL MPV 9.2 (7.2-11.7) fl Neut % (Auto) 56.8 (50.0-75.0) % Lymph % (Auto) 36.8 (20.0-40.0) % Sully % (Auto) 5.8 (0.0-10.0) % Eos % (Auto) 0.0 (0.0-4.0) % Baso % (Auto) 0.6 (0.0-2.0) % Neut # 9.1 H (1.8-7.0) K/uL Lymph # 5.9 H (1.0-4.3) K/uL Sully # 0.9 H (0.0-0.8) K/uL Eos # 0.0 (0.0-0.7) K/uL Baso # 0.1 (0.0-0.2) K/uL PT 27.2 H D (9.8-13.1) Seconds INR 2.4 H D (0.9-1.2) APTT 37.0 (25.6-37.1) Seconds Fibrinogen 107 L* (200-400) mg/dl pCO2 (35-45) mm/Hg pO2 (80-100) mm/Hg HCO3 (21-28) mmol/L ABG pH (7.35-7.45) ABG Total CO2 (22-28) mmol/L ABG O2 Saturation (95-98) % ABG O2 Content (15-23) ML/dL ABG Base Excess (-2.0-3.0) mmol/L ABG Hemoglobin (11.7-17.4) g/dL ABG Carboxyhemoglobin (0.5-1.5) % POC ABG HHb (Measured) (0.0-5.0) % ABG Methemoglobin (0.0-3.0) % ABG O2 Capacity (16-24) mL/dL Roman Test A-a O2 Difference mm/Hg Hgb O2 Saturation (95.0-98.0) % Liter Flow Vent Mode FiO2 % CPAP Crit Value Called To Crit Value Called By Crit Value Read Back Blood Gas Notified Time Sodium 149 H (132-148) mmol/l Potassium 3.4 L (3.6-5.0) MMOL/L Chloride 109 H (98-107) mmol/L Carbon Dioxide 30 (22-30) mmol/L Anion Gap 13 (10-20) BUN 64 H (7-17) mg/dl Creatinine 1.8 H (0.7-1.2) mg/dl Est GFR ( Amer) 35 Est GFR (Non-Af Amer) 29 POC Glucose (mg/dL) (65-110) mg/dL Random Glucose 213 H (65-105) mg/dL Calcium 11.2 H (8.4-10.2) mg/dL Total Bilirubin 7.2 H (0.2-1.3) mg/dl AST 184 H D (14-36) U/L ALT 51 (9-52) U/L Alkaline Phosphatase 126 D (38-126) U/L NT-Pro-B Natriuret Pep (0-900) pg/ml Total Protein 7.3 (6.3-8.2) G/DL Albumin 2.8 L (3.5-5.0) g/dL Globulin 4.5 H (2.2-3.9) gm/dL Albumin/Globulin Ratio 0.6 L (1.0-2.1) Vancomycin Trough (5.0-10.0) ug/mL IgG (694-1618) mg/dL IgA (81-463) mg/dL IgM (48-271) mg/dL 04/29/17 04/29/17 04/29/17 Range/Units 21:45 17:01 16:07 WBC (4.8-10.8) K/uL RBC (3.80-5.20) Mil/uL Hgb (12.0-16.0) g/dL Hct (34.0-47.0) % MCV (81.0-99.0) fl MCH (27.0-31.0) pg MCHC (33.0-37.0) g/dL RDW (11.5-14.5) % Plt Count (130-400) K/uL MPV (7.2-11.7) fl Neut % (Auto) (50.0-75.0) % Lymph % (Auto) (20.0-40.0) % Sully % (Auto) (0.0-10.0) % Eos % (Auto) (0.0-4.0) % Baso % (Auto) (0.0-2.0) % Neut # (1.8-7.0) K/uL Lymph # (1.0-4.3) K/uL Sully # (0.0-0.8) K/uL Eos # (0.0-0.7) K/uL Baso # (0.0-0.2) K/uL PT (9.8-13.1) Seconds INR (0.9-1.2) APTT (25.6-37.1) Seconds Fibrinogen (200-400) mg/dl pCO2 (35-45) mm/Hg pO2 (80-100) mm/Hg HCO3 (21-28) mmol/L ABG pH (7.35-7.45) ABG Total CO2 (22-28) mmol/L ABG O2 Saturation (95-98) % ABG O2 Content (15-23) ML/dL ABG Base Excess (-2.0-3.0) mmol/L ABG Hemoglobin (11.7-17.4) g/dL ABG Carboxyhemoglobin (0.5-1.5) % POC ABG HHb (Measured) (0.0-5.0) % ABG Methemoglobin (0.0-3.0) % ABG O2 Capacity (16-24) mL/dL Roman Test A-a O2 Difference mm/Hg Hgb O2 Saturation (95.0-98.0) % Liter Flow Vent Mode FiO2 % CPAP Crit Value Called To Crit Value Called By Crit Value Read Back Blood Gas Notified Time Sodium (132-148) mmol/l Potassium (3.6-5.0) MMOL/L Chloride (98-107) mmol/L Carbon Dioxide (22-30) mmol/L Anion Gap (10-20) BUN (7-17) mg/dl Creatinine (0.7-1.2) mg/dl Est GFR ( Amer) Est GFR (Non-Af Amer) POC Glucose (mg/dL) 182 H 127 H (65-110) mg/dL Random Glucose (65-105) mg/dL Calcium (8.4-10.2) mg/dL Total Bilirubin (0.2-1.3) mg/dl AST (14-36) U/L ALT (9-52) U/L Alkaline Phosphatase (38-126) U/L NT-Pro-B Natriuret Pep 17516 H (0-900) pg/ml Total Protein (6.3-8.2) G/DL Albumin (3.5-5.0) g/dL Globulin (2.2-3.9) gm/dL Albumin/Globulin Ratio (1.0-2.1) Vancomycin Trough (5.0-10.0) ug/mL IgG (694-1618) mg/dL IgA (81-463) mg/dL IgM (48-271) mg/dL 04/29/17 04/27/17 Range/Units 15:52 17:10 WBC (4.8-10.8) K/uL RBC (3.80-5.20) Mil/uL Hgb (12.0-16.0) g/dL Hct (34.0-47.0) % MCV (81.0-99.0) fl MCH (27.0-31.0) pg MCHC (33.0-37.0) g/dL RDW (11.5-14.5) % Plt Count (130-400) K/uL MPV (7.2-11.7) fl Neut % (Auto) (50.0-75.0) % Lymph % (Auto) (20.0-40.0) % Sully % (Auto) (0.0-10.0) % Eos % (Auto) (0.0-4.0) % Baso % (Auto) (0.0-2.0) % Neut # (1.8-7.0) K/uL Lymph # (1.0-4.3) K/uL Sully # (0.0-0.8) K/uL Eos # (0.0-0.7) K/uL Baso # (0.0-0.2) K/uL PT (9.8-13.1) Seconds INR (0.9-1.2) APTT (25.6-37.1) Seconds Fibrinogen (200-400) mg/dl pCO2 23 L (35-45) mm/Hg pO2 69 L (80-100) mm/Hg HCO3 21.3 (21-28) mmol/L ABG pH 7.49 H (7.35-7.45) ABG Total CO2 18.2 L (22-28) mmol/L ABG O2 Saturation 97.4 (95-98) % ABG O2 Content 13.4 L (15-23) ML/dL ABG Base Excess -4.6 L (-2.0-3.0) mmol/L ABG Hemoglobin 10.0 L (11.7-17.4) g/dL ABG Carboxyhemoglobin 2.3 H (0.5-1.5) % POC ABG HHb (Measured) 2.5 (0.0-5.0) % ABG Methemoglobin 0.6 (0.0-3.0) % ABG O2 Capacity 13.8 L (16-24) mL/dL Roman Test Yes A-a O2 Difference 473.0 mm/Hg Hgb O2 Saturation 94.5 L (95.0-98.0) % Liter Flow 30 Vent Mode High flow lpm FiO2 80.0 % CPAP Crit Value Called To Dr jay gonzalez Crit Value Called By Osman Crit Value Read Back Y Blood Gas Notified Time 1606 Sodium (132-148) mmol/l Potassium (3.6-5.0) MMOL/L Chloride (98-107) mmol/L Carbon Dioxide (22-30) mmol/L Anion Gap (10-20) BUN (7-17) mg/dl Creatinine (0.7-1.2) mg/dl Est GFR ( Amer) Est GFR (Non-Af Amer) POC Glucose (mg/dL) (65-110) mg/dL Random Glucose (65-105) mg/dL Calcium (8.4-10.2) mg/dL Total Bilirubin (0.2-1.3) mg/dl AST (14-36) U/L ALT (9-52) U/L Alkaline Phosphatase (38-126) U/L NT-Pro-B Natriuret Pep (0-900) pg/ml Total Protein (6.3-8.2) G/DL Albumin (3.5-5.0) g/dL Globulin (2.2-3.9) gm/dL Albumin/Globulin Ratio (1.0-2.1) Vancomycin Trough (5.0-10.0) ug/mL IgG 2163 H (694-1618) mg/dL IgA 386 (81-463) mg/dL IgM 1778 H (48-271) mg/dL Laboratory Results - last 24 hr 04/27/17 04/29/17 04/29/17 17:10 15:52 16:07 WBC RBC Hgb Hct MCV MCH MCHC RDW Plt Count MPV Neut % (Auto) Lymph % (Auto) Sully % (Auto) Eos % (Auto) Baso % (Auto) Neut # Lymph # Sully # Eos # Baso # PT INR APTT Fibrinogen pCO2 23 L pO2 69 L HCO3 21.3 ABG pH 7.49 H ABG Total CO2 18.2 L ABG O2 Saturation 97.4 ABG O2 Content 13.4 L ABG Base Excess -4.6 L ABG Hemoglobin 10.0 L ABG Carboxyhemoglobin 2.3 H POC ABG HHb (Measured) 2.5 ABG Methemoglobin 0.6 ABG O2 Capacity 13.8 L Roman Test Yes A-a O2 Difference 473.0 Hgb O2 Saturation 94.5 L Liter Flow 30 Vent Mode High flow lpm FiO2 80.0 CPAP Crit Value Called To Dr jay gonzalez Crit Value Called By Osman Crit Value Read Back Y Blood Gas Notified Time 1606 Sodium Potassium Chloride Carbon Dioxide Anion Gap BUN Creatinine Est GFR ( Amer) Est GFR (Non-Af Amer) POC Glucose (mg/dL) 127 H Random Glucose Calcium Total Bilirubin AST ALT Alkaline Phosphatase NT-Pro-B Natriuret Pep Total Protein Albumin Globulin Albumin/Globulin Ratio Vancomycin Trough IgG 2163 H IgA 386 IgM 1778 H 04/29/17 04/29/17 04/30/17 17:01 21:45 04:20 WBC 16.1 H RBC 3.03 L Hgb 9.3 L Hct 29.6 L MCV 97.4 D MCH 30.6 MCHC 31.4 L RDW 22.2 H Plt Count 26 L* MPV 9.2 Neut % (Auto) 56.8 Lymph % (Auto) 36.8 Sully % (Auto) 5.8 Eos % (Auto) 0.0 Baso % (Auto) 0.6 Neut # 9.1 H Lymph # 5.9 H Sully # 0.9 H Eos # 0.0 Baso # 0.1 PT INR APTT Fibrinogen pCO2 pO2 HCO3 ABG pH ABG Total CO2 ABG O2 Saturation ABG O2 Content ABG Base Excess ABG Hemoglobin ABG Carboxyhemoglobin POC ABG HHb (Measured) ABG Methemoglobin ABG O2 Capacity Roman Test A-a O2 Difference Hgb O2 Saturation Liter Flow Vent Mode FiO2 CPAP Crit Value Called To Crit Value Called By Crit Value Read Back Blood Gas Notified Time Sodium Potassium Chloride Carbon Dioxide Anion Gap BUN Creatinine Est GFR ( Amer) Est GFR (Non-Af Amer) POC Glucose (mg/dL) 182 H Random Glucose Calcium Total Bilirubin AST ALT Alkaline Phosphatase NT-Pro-B Natriuret Pep 54653 H Total Protein Albumin Globulin Albumin/Globulin Ratio Vancomycin Trough IgG IgA IgM 04/30/17 04/30/17 04/30/17 04:20 04:20 04:20 WBC RBC Hgb Hct MCV MCH MCHC RDW Plt Count MPV Neut % (Auto) Lymph % (Auto) Sully % (Auto) Eos % (Auto) Baso % (Auto) Neut # Lymph # Sully # Eos # Baso # PT 27.2 H D INR 2.4 H D APTT 37.0 Fibrinogen 107 L* pCO2 pO2 HCO3 ABG pH ABG Total CO2 ABG O2 Saturation ABG O2 Content ABG Base Excess ABG Hemoglobin ABG Carboxyhemoglobin POC ABG HHb (Measured) ABG Methemoglobin ABG O2 Capacity Roman Test A-a O2 Difference Hgb O2 Saturation Liter Flow Vent Mode FiO2 CPAP Crit Value Called To Crit Value Called By Crit Value Read Back Blood Gas Notified Time Sodium 149 H Potassium 3.4 L Chloride 109 H Carbon Dioxide 30 Anion Gap 13 BUN 64 H Creatinine 1.8 H Est GFR ( Amer) 35 Est GFR (Non-Af Amer) 29 POC Glucose (mg/dL) Random Glucose 213 H Calcium 11.2 H Total Bilirubin 7.2 H AST 184 H D ALT 51 Alkaline Phosphatase 126 D NT-Pro-B Natriuret Pep Total Protein 7.3 Albumin 2.8 L Globulin 4.5 H Albumin/Globulin Ratio 0.6 L Vancomycin Trough 15.8 H IgG IgA IgM 04/30/17 04/30/17 06:08 11:31 WBC RBC Hgb Hct MCV MCH MCHC RDW Plt Count MPV Neut % (Auto) Lymph % (Auto) Sully % (Auto) Eos % (Auto) Baso % (Auto) Neut # Lymph # Sully # Eos # Baso # PT INR APTT Fibrinogen pCO2 40 pO2 130 H HCO3 28.2 H ABG pH 7.46 H ABG Total CO2 29.6 H ABG O2 Saturation 100.4 H ABG O2 Content 13.7 L ABG Base Excess 4.2 H ABG Hemoglobin 9.8 L ABG Carboxyhemoglobin 2.1 H POC ABG HHb (Measured) -0.4 L ABG Methemoglobin 0.9 ABG O2 Capacity 13.6 L Roman Test Yes A-a O2 Difference 390.0 Hgb O2 Saturation 97.3 Liter Flow Vent Mode Cpap FiO2 80.0 CPAP 8 Crit Value Called To Crit Value Called By Crit Value Read Back Blood Gas Notified Time Sodium Potassium Chloride Carbon Dioxide Anion Gap BUN Creatinine Est GFR ( Amer) Est GFR (Non-Af Amer) POC Glucose (mg/dL) 241 H Random Glucose Calcium Total Bilirubin AST ALT Alkaline Phosphatase NT-Pro-B Natriuret Pep Total Protein Albumin Globulin Albumin/Globulin Ratio Vancomycin Trough IgG IgA IgM Fingerstick Blood Sugar Results: 241 Review of Systems - Review of Systems Systems not reviewed;Unavailable: Altered Mental Status Critical Care Progress Note - Nutrition Nutrition: Nutrition Category Date Time Status Heart Healthy Diet [DIET] Diets 04/27/17 Dinner Active Assessment/Plan (1) Severe anemia Assessment and plan: 57yo F. PMHx IDDM, HTN, dyslipidemia, IDDM, nephrolithiasis. p/w AMS, jaundice , anemia. Neuro: altered mental status secondary to metaobolic encephalopathy. Patient had initial improvement after first plasmapharesis, so will try one more time. MRI of brain when patient more cooperative, may need sedation. Possible also steroid psychosis. Pulm: significant pulmonary edema after plasmapharesis, diuresing now. if not responsive to diuresis, then must consider possible TRALI. CV: hemodynamically stable. Hem: After speaking with patient's boyfriend, it was discovered she was on treatment for Hepatitis C with EPCLUSA + Ribavirin. 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 severe thrombocytopenia chronic. Patient getting plasmapharesis with albumin. Patient possibly has multiple myeloma (hypercalcemia, CKD, back pain with lytic lesions on spine), or some type of polyclonal gammopathy. BM biopsy still planned. Solu-Cortef 100mg qid , must consider tapering off. Hem/Onc - Dr. Barker Renal: creatinine stabilizing. Plasmapharesis with FFP, c/b possible TRALI (). Next plasmapharesis will be done with albumin. Renal - Dr. Lovett Endo: IDDM, short acting insulin sliding scale and levemir. GI: heart healthy diet, Hepatitis C cirrhosis. Jaundice from hemolysis. Will consult GI. Patient can restart hepatitis C treatment, with Ribavirin at a lower dose or not at all, GI to make this decision, at a later date. ID: sepsis from LLL pneumonia seen on CT abdomen, started on Vanco and Zosyn. DVT proph - SCD's, held a/c with severe thrombocytopenia GI proph - protonix IV hernandez for strict I/O's during acute illness Code status - full code Critical Care Time spent 35 minutes Multi-disciplinary rounds were performed with house staff, nursing, speech therapy, respiratory therapy, pharmacy and nutrition with integrated input from the primary team/attending and other consulting services. The documented time is cumulative and includes review of patient data/exams/labs/chart review and examination of the patient on rounds and throughout the day; time is exclusive of any procedures or teaching time. Current Visit: Yes Status: Acute
--- NOTE | 2017-04-30 19:58 | CP.PCM.PN ---
Subjective - Date & Time of Evaluation Date of Evaluation: 04/30/17 Time of Evaluation: 15:00 - Subjective Subjective: SEEN ON RENAL F/U D/W COMPUTER FORENSIC EXAMINER .. A CALL WAS LEFT TO DR JIMÉNEZ .. WILL SPEAK WITH HER IN AM ' WILL C/O WITH TPE USING 5% ALBUMIN .. NOT USING FFP THE CLINICAL PICTURE IS NOT CLEAR YET R/O TTP VS MM .. R/O OTHER ETIOLOGIES WELL AFTER BRIEF PERIOD OF IMPROVEMENT AFTER THE TPE ON SAT .. SHE DETERIORATED AGAIN D/W COMPUTER FORENSIC EXAMINER ..WOULD NOT GIVE FFP REPLACEMENT FOR TPE ALL PREVIOUS EMR REVIEWED .. LABS REVIEWED THOROUGHLY CASE D/W SISTERS AND DAUGHTER ON BED SIDE Objective - Vital Signs/Intake and Output Vital Signs (last 24 hours): Temp Pulse Resp BP Pulse Ox 98.3 F 119 H 36 H 143/92 H 95 04/30/17 16:00 04/30/17 18:00 04/30/17 19:05 04/30/17 18:00 04/30/17 18:00 Intake and Output: 04/30/17 05/01/17 18:59 06:59 Intake Total 650 Output Total 1575 Balance -925 - Medications Medications: Current Medications Acetaminophen (Tylenol 325mg Tab) 650 mg PO Q6H PRN PRN Reason: Fever >100.4 F Acetaminophen (Tylenol 650 Mg Supp) 650 mg MD ONCE [facility] Last Admin: 04/28/17 14:30 Dose: 650 mg Albuterol Sulfate (Albuterol 0.083% Inhal Rae (2.5 Mg/3 Ml) Ud) 2.5 mg INH RQ4 PRN PRN Reason: Shortness of Breath Allopurinol (Zyloprim) 200 mg PO DAILY [facility] Last Admin: 04/30/17 10:02 Dose: 200 mg Haloperidol Lactate (Haldol) 2.5 mg IVP Q6 PRN PRN Reason: Agitation Last Admin: 04/30/17 01:10 Dose: 2.5 mg Hydrocortisone Sodium Succinate (Solu-Cortef) 100 mg IV 0400,1000,1600,2200 [facility] Last Admin: 04/30/17 16:25 Dose: 100 mg Hydromorphone HCl (Dilaudid) 0.5 mg IVP Q4 PRN PRN Reason: Pain, moderate (4-7) Last Admin: 04/30/17 01:02 Dose: 0.5 mg Vancomycin HCl 1 gm/ Sodium (Chloride) 250 mls @ 166.667 mls/hr IVPB DAILY [facility] PRN Reason: Protocol Last Admin: 04/30/17 10:01 Dose: 166.667 mls/hr Piperacillin Sod/Tazobactam Sod (Zosyn 2.25 Gm Iv Premix) 2.25 gm in 50 mls @ 50 mls/hr IVPB Q6 ARLET PRN Reason: Protocol Last Admin: 04/30/17 16:27 Dose: 50 mls/hr Insulin Detemir (Levemir) 14 units SC HS ARLET Insulin Human Lispro (Humalog) 0 units SC ACHS ARLET PRN Reason: Protocol Last Admin: 04/30/17 16:23 Dose: Not Given Ondansetron HCl (Zofran Inj) 4 mg IVP Q6H PRN PRN Reason: Nausea/Vomiting Pantoprazole Sodium (Protonix Inj) 40 mg IVP DAILY [facility] Last Admin: 04/30/17 09:59 Dose: 40 mg - Labs Labs: 04/30/17 04:20 04/30/17 04:20 PT 27.2 Seconds (9.8-13.1) H D 04/30/17 04:20 INR 2.4 (0.9-1.2) H D 04/30/17 04:20 APTT 37.0 Seconds (25.6-37.1) 04/30/17 04:20
[2017-04-30] MEDS ORDERED: Lactulose 10 gm/15 ml (Rectal Use) PR PRN (21:41)
--- NOTE | 2017-04-30 22:02 | CP.PCM.CON ---
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 As per family who was bedside, they were unaware of her previous medical conditions and tx of Hep C with underlying cirrhosis. As per daughter, the last 3 days, she has not been herself. She is more weak, unable to get out of bed, confused , talking to herself, disoriented. Patient also appears more jaundiced. As per family she has been complaining of lower back pain and has been seeing physcians in [place] who gave her an injection 1 month ago. The family produced a recent referal from [facility] with revealed that she was on multiple regiments including: ribavirin, epclusa, and vosevi. According to the document produced by the family, it revealed that she was taking all three medication currently. Unsure if the pt was compliant. She presented with severe anemia with hgb 5.7, platelets of 39, and wbc 17.4. Her diff showed lymphicytosis, and several Nucleated RBC. There is also a shift to the left in the WBC. The mcv is 103, The peripheral smear shows schiztocytes. 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 Only 1 report of BM in the last nursing shift. She is markedly confused and unaware of her surrounding PMH DM , HTN, Dyslipidemia Surgery ; left kidney stone Family history ; Denies Socila history :lives in [place] but presently lives with son in [place] , has 2 children, single, has a fiance, quit smoking 1 month ago ( has been smoking for many years 1/2 PPD ), no ETOH abuse or drug abuse Endo Hx: unknown ROS: could not conduct Past Patient History - Infectious Disease Hx of Infectious Diseases: None - Past Medical History & Family History Past Medical History?: No Past Family History: Reviewed and not pertinent - Past Social History Smoking Status: Former Smoker Chewing Tobacco Use: No Cigar Use: No Alcohol: None Drugs: Denies Home Situation {Lives}: With Family Domestic Violence: Negative - CARDIAC Hx Cardiac Disorders: Yes Hx Hypertension: Yes - PULMONARY Hx Asthma: Yes - NEUROLOGICAL Hx Neurological Disorder: Yes Hx Vertigo: Yes - HEENT Hx HEENT Problems: No - RENAL Hx Chronic Kidney Disease: Yes Hx Kidney Stones: Yes (2016) - ENDOCRINE/METABOLIC Hx Endocrine Disorders: Yes Hx Diabetes Mellitus Type 2: Yes - HEMATOLOGICAL/ONCOLOGICAL Hx Blood Disorders: Yes Hx AIDS: No Hx Anemia: No Hx Leukemia: No Hx Sickle Cell Disease: No Hx Unexplained Bleeding: No - INTEGUMENTARY Hx Dermatological Problems: No - MUSCULOSKELETAL/RHEUMATOLOGICAL Hx Musculoskeletal Disorders: Yes Hx Back Pain: Yes Hx Falls: Yes - GASTROINTESTINAL Hx Gastrointestinal Disorders: No Hx Pancreatitis: No HX Swallowing Problems: No Hx Ulcer: No Hx Vomiting: No - GENITOURINARY/GYNECOLOGICAL Hx Genitourinary Disorders: No - PSYCHIATRIC Hx Psychophysiologic Disorder: No Hx Anxiety: No Hx Bipolar Disorder: No Hx Depression: No Hx Emotional Abuse: No Hx Hallucinations: No Hx Substance Use: No - SURGICAL HISTORY Hx Surgeries: Yes Hx Cholecystectomy: Yes - ANESTHESIA Hx Anesthesia: Yes Hx Anesthesia Reactions: No Hx Malignant Hyperthermia: No Has any member of the family had a problem w/ anesthesia?: No Meds Allergies/Adverse Reactions: Allergies Allergy/AdvReac Type Severity Reaction Status Date / Time FISH Allergy RASH Verified 04/27/17 09:31 - Medications Medications: Current Medications Acetaminophen (Tylenol 325mg Tab) 650 mg PO Q6H PRN PRN Reason: Fever >100.4 F Acetaminophen (Tylenol 650 Mg Supp) 650 mg RI ONCE [facility] Last Admin: 04/28/17 14:30 Dose: 650 mg Albuterol Sulfate (Albuterol 0.083% Inhal Rae (2.5 Mg/3 Ml) Ud) 2.5 mg INH RQ4 PRN PRN Reason: Shortness of Breath Allopurinol (Zyloprim) 200 mg PO DAILY [facility] Last Admin: 04/30/17 10:02 Dose: 200 mg Haloperidol Lactate (Haldol) 2.5 mg IVP Q6 PRN PRN Reason: Agitation Last Admin: 04/30/17 01:10 Dose: 2.5 mg Hydrocortisone Sodium Succinate (Solu-Cortef) 100 mg IV 0400,1000,1600,2200 [facility] Last Admin: 04/30/17 21:13 Dose: 100 mg Hydromorphone HCl (Dilaudid) 0.5 mg IVP Q4 PRN PRN Reason: Pain, moderate (4-7) Last Admin: 04/30/17 01:02 Dose: 0.5 mg Vancomycin HCl 1 gm/ Sodium (Chloride) 250 mls @ 166.667 mls/hr IVPB DAILY ARLET PRN Reason: Protocol Last Admin: 04/30/17 10:01 Dose: 166.667 mls/hr Piperacillin Sod/Tazobactam Sod (Zosyn 2.25 Gm Iv Premix) 2.25 gm in 50 mls @ 50 mls/hr IVPB Q6 ARLET PRN Reason: Protocol Last Admin: 04/30/17 21:13 Dose: 50 mls/hr Insulin Detemir (Levemir) 14 units SC HS ARLET Insulin Human Lispro (Humalog) 0 units SC ACHS ARLET PRN Reason: Protocol Last Admin: 04/30/17 21:12 Dose: Not Given Lactulose (Enulose) 20 gm PO Q1 ARLET Lactulose (Generlac) 200 gm RI PRN PRN PRN Reason: if unable to take PO lactulose Ondansetron HCl (Zofran Inj) 4 mg IVP Q6H PRN PRN Reason: Nausea/Vomiting Pantoprazole Sodium (Protonix Inj) 40 mg IVP DAILY [facility] Last Admin: 04/30/17 09:59 Dose: 40 mg Physical Exam - Constitutional Appears: Agitated, Confused, Chronically Ill - Head Exam Head Exam: ATRAUMATIC, NORMOCEPHALIC - Eye Exam Eye Exam: Scleral icterus - ENT Exam ENT Exam: Mucous Membranes Moist - Respiratory Exam Respiratory Exam: Clear to Auscultation Bilateral, NORMAL BREATHING PATTERN. absent: Rales, Rhonchi, Wheezes, Respiratory Distress - Cardiovascular Exam Cardiovascular Exam: REGULAR RHYTHM, +S1, +S2 - GI/Abdominal Exam GI & Abdominal Exam: Normal Bowel Sounds, Soft. absent: Guarding, Organomegaly , Rebound, Rigid, Tenderness - Extremities Exam Extremities exam: Negative for: joint swelling, pedal edema - Neurological Exam Additional comments: confused - Psychiatric Exam Additional comments: unable to assess - Skin Skin Exam: Dry, Intact, Warm Additional comments: juandiced Results - Vital Signs Recent Vital Signs: Last Vital Signs Temp 98.3 F 04/30/17 20:00 Pulse 124 H 04/30/17 20:00 Resp 27 H 04/30/17 20:00 BP 135/99 H 04/30/17 20:00 Pulse Ox 94 L 04/30/17 20:00 - Labs Result Diagrams: 04/30/17 04:20 04/30/17 04:20 Labs: Laboratory Results - last 24 hr 04/27/17 04/30/17 04/30/17 11:45 04:20 04:20 WBC 16.1 H RBC 3.03 L Hgb 9.3 L Hct 29.6 L MCV 97.4 D MCH 30.6 MCHC 31.4 L RDW 22.2 H Plt Count 26 L* MPV 9.2 Neut % (Auto) 56.8 Lymph % (Auto) 36.8 [place] % (Auto) 5.8 Eos % (Auto) 0.0 Baso % (Auto) 0.6 Neut # 9.1 H Lymph # 5.9 H [place] # 0.9 H Eos # 0.0 Baso # 0.1 PT 27.2 H D INR 2.4 H D APTT 37.0 Fibrinogen 107 L* pCO2 pO2 HCO3 ABG pH ABG Total CO2 ABG O2 Saturation ABG O2 Content ABG Base Excess ABG Hemoglobin ABG Carboxyhemoglobin POC ABG HHb (Measured) ABG Methemoglobin ABG O2 Capacity Roman Test A-a O2 Difference Hgb O2 Saturation Vent Mode FiO2 CPAP Sodium Potassium Chloride Carbon Dioxide Anion Gap BUN Creatinine Est GFR ( Amer) Est GFR (Non-Af Amer) POC Glucose (mg/dL) Random Glucose Calcium Total Bilirubin AST ALT Alkaline Phosphatase Total Protein Albumin Globulin Albumin/Globulin Ratio PTH Intact Whole Molec 12 L Vancomycin Trough 04/30/17 04/30/17 04/30/17 04:20 04:20 06:08 WBC RBC Hgb Hct MCV MCH MCHC RDW Plt Count MPV Neut % (Auto) Lymph % (Auto) [place] % (Auto) Eos % (Auto) Baso % (Auto) Neut # Lymph # [place] # Eos # Baso # PT INR APTT Fibrinogen pCO2 40 pO2 130 H HCO3 28.2 H ABG pH 7.46 H ABG Total CO2 29.6 H ABG O2 Saturation 100.4 H ABG O2 Content 13.7 L ABG Base Excess 4.2 H ABG Hemoglobin 9.8 L ABG Carboxyhemoglobin 2.1 H POC ABG HHb (Measured) -0.4 L ABG Methemoglobin 0.9 ABG O2 Capacity 13.6 L Roman Test Yes A-a O2 Difference 390.0 Hgb O2 Saturation 97.3 Vent Mode Cpap FiO2 80.0 CPAP 8 Sodium 149 H Potassium 3.4 L Chloride 109 H Carbon Dioxide 30 Anion Gap 13 BUN 64 H Creatinine 1.8 H Est GFR ( Amer) 35 Est GFR (Non-Af Amer) 29 POC Glucose (mg/dL) Random Glucose 213 H Calcium 11.2 H Total Bilirubin 7.2 H AST 184 H D ALT 51 Alkaline Phosphatase 126 D Total Protein 7.3 Albumin 2.8 L Globulin 4.5 H Albumin/Globulin Ratio 0.6 L PTH Intact Whole Molec Vancomycin Trough 15.8 H 04/30/17 04/30/17 04/30/17 11:31 16:03 21:12 WBC RBC Hgb Hct MCV MCH MCHC RDW Plt Count MPV Neut % (Auto) Lymph % (Auto) [place] % (Auto) Eos % (Auto) Baso % (Auto) Neut # Lymph # [place] # Eos # Baso # PT INR APTT Fibrinogen pCO2 pO2 HCO3 ABG pH ABG Total CO2 ABG O2 Saturation ABG O2 Content ABG Base Excess ABG Hemoglobin ABG Carboxyhemoglobin POC ABG HHb (Measured) ABG Methemoglobin ABG O2 Capacity Roman Test A-a O2 Difference Hgb O2 Saturation Vent Mode FiO2 CPAP Sodium Potassium Chloride Carbon Dioxide Anion Gap BUN Creatinine Est GFR ( Amer) Est GFR (Non-Af Amer) POC Glucose (mg/dL) 241 H 208 H 205 H Random Glucose Calcium Total Bilirubin AST ALT Alkaline Phosphatase Total Protein Albumin Globulin Albumin/Globulin Ratio PTH Intact Whole Molec Vancomycin Trough Assessment & Plan - Assessment and Plan (Free Text) Assessment: Janet Taylor is a 57f w/ hx of cirrhosis, HCV, anemia, hx of polysubstance use who presents to the Er with weakness and confusion. Pt had marked anemia and thrombocytopenia Hemolytic anemia likely 2/2 HCV meds especially ribaviran Chronic HCV on tx as oupt Cirrhosis etiology like HCV Thrombocytopenia 2/2 to the above Severe Hepatic Encephalopathy Plan: -would give aggressive lactulose PO until pt has 2-3 BM daily -if unable to take PO, use RI -do not continue Hep C tx for now -can consider adding xifaxan if HE is not improved by tomorrow -strict aspiration precaution -Keep NPO for now -no indication for any endoscopy at this time -anemia likey hemolytic 2/2 HCV tx -transfuse as per Hem/Onc -keep hgb > 7 -Will continue to follow D/W Dr. Fuchs <Alina Fuchs MD - Last Filed: 05/01/17 11:15> Meds - Medications Medications: Current Medications Acetaminophen (Tylenol 325mg Tab) 650 mg PO Q6H PRN PRN Reason: Fever >100.4 F Acetaminophen (Tylenol 650 Mg Supp) 650 mg RI ONCE [facility] Last Admin: 04/28/17 14:30 Dose: 650 mg Albuterol Sulfate (Albuterol 0.083% Inhal Rae (2.5 Mg/3 Ml) Ud) 2.5 mg INH RQ4 PRN PRN Reason: Shortness of Breath Allopurinol (Zyloprim) 200 mg PO DAILY [facility] Last Admin: 05/01/17 09:42 Dose: Not Given Haloperidol Lactate (Haldol) 2.5 mg IVP Q6 PRN PRN Reason: Agitation Last Admin: 04/30/17 01:10 Dose: 2.5 mg Hydrocortisone Sodium Succinate (Solu-Cortef) 100 mg IV 0400,1000,1600,2200 [facility] Last Admin: 05/01/17 09:22 Dose: 100 mg Hydromorphone HCl (Dilaudid) 0.5 mg IVP Q4 PRN PRN Reason: Pain, moderate (4-7) Last Admin: 04/30/17 01:02 Dose: 0.5 mg Vancomycin HCl 1 gm/ Sodium (Chloride) 250 mls @ 166.667 mls/hr IVPB DAILY ARLET PRN Reason: Protocol Last Admin: 05/01/17 08:27 Dose: 166.667 mls/hr Piperacillin Sod/Tazobactam Sod (Zosyn 2.25 Gm Iv Premix) 2.25 gm in 50 mls @ 50 mls/hr IVPB Q6 ARLET PRN Reason: Protocol Last Admin: 05/01/17 09:22 Dose: 50 mls/hr Insulin Detemir (Levemir) 14 units SC HS [facility] Last Admin: 04/30/17 22:06 Dose: 14 u Insulin Human Lispro (Humalog) 0 units SC ACHS ARLET PRN Reason: Protocol Last Admin: 05/01/17 06:37 Dose: Not Given Lactulose (Enulose) 20 gm PO Q1 [facility]LET Last Admin: 05/01/17 07:13 Dose: Not Given Lactulose (Generlac) 200 gm RI Q4 PRN PRN Reason: Constipation Ondansetron HCl (Zofran Inj) 4 mg IVP Q6H PRN PRN Reason: Nausea/Vomiting Pantoprazole Sodium (Protonix Inj) 40 mg IVP DAILY [facility] Last Admin: 05/01/17 08:27 Dose: 40 mg Results - Vital Signs Recent Vital Signs: Last Vital Signs Temp 98.9 F 05/01/17 08:00 Pulse 111 H 05/01/17 10:35 Resp 30 H 05/01/17 10:35 BP 117/65 05/01/17 10:35 Pulse Ox 99 05/01/17 10:35 - Labs Result Diagrams: 05/01/17 04:20 05/01/17 04:20 Labs: Laboratory Results - last 24 hr 04/27/17 04/28/17 04/28/17 11:45 05:30 18:15 WBC RBC Hgb Hct MCV MCH MCHC RDW Plt Count MPV Neut % (Auto) Lymph % (Auto) [place] % (Auto) Eos % (Auto) Baso % (Auto) Neut # Lymph # [place] # Eos # Baso # ESR Haptoglobin <15 L G6PD RBC Count pCO2 pO2 HCO3 ABG pH ABG Total CO2 ABG O2 Saturation ABG O2 Content ABG Base Excess ABG Hemoglobin ABG Carboxyhemoglobin POC ABG HHb (Measured) ABG Methemoglobin ABG O2 Capacity Roman Test A-a O2 Difference Hgb O2 Saturation Liter Flow Vent Mode FiO2 Blood Gas Comments Crit Value Called To Crit Value Called By Crit Value Read Back Blood Gas Notified Time Sodium Potassium Chloride Carbon Dioxide Anion Gap BUN Creatinine Est GFR ( Amer) Est GFR (Non-Af Amer) POC Glucose (mg/dL) Random Glucose Calcium Total Bilirubin AST ALT Alkaline Phosphatase Total Protein Albumin Globulin Albumin/Globulin Ratio PTH Intact Whole Molec 12 L Urine Immunofixation Not detected Mycoplasma pneumon IgG 2.63 H 04/29/17 04/30/17 04/30/17 17:01 11:31 16:03 WBC RBC Hgb Hct MCV MCH MCHC RDW Plt Count MPV Neut % (Auto) Lymph % (Auto) [place] % (Auto) Eos % (Auto) Baso % (Auto) Neut # Lymph # [place] # Eos # Baso # ESR Haptoglobin G6PD RBC Count 16.8 H pCO2 pO2 HCO3 ABG pH ABG Total CO2 ABG O2 Saturation ABG O2 Content ABG Base Excess ABG Hemoglobin ABG Carboxyhemoglobin POC ABG HHb (Measured) ABG Methemoglobin ABG O2 Capacity Roman Test A-a O2 Difference Hgb O2 Saturation Liter Flow Vent Mode FiO2 Blood Gas Comments Crit Value Called To Crit Value Called By Crit Value Read Back Blood Gas Notified Time Sodium Potassium Chloride Carbon Dioxide Anion Gap BUN Creatinine Est GFR ( Amer) Est GFR (Non-Af Amer) POC Glucose (mg/dL) 241 H 208 H Random Glucose Calcium Total Bilirubin AST ALT Alkaline Phosphatase Total Protein Albumin Globulin Albumin/Globulin Ratio PTH Intact Whole Molec Urine Immunofixation Mycoplasma pneumon IgG 04/30/17 05/01/17 05/01/17 21:12 04:20 04:20 WBC 19.0 H RBC 3.47 L Hgb 10.5 L Hct 33.7 L MCV 97.1 MCH 30.3 MCHC 31.2 L RDW 24.4 H Plt Count 36 L MPV 12.1 H Neut % (Auto) 63.3 Lymph % (Auto) 31.4 [place] % (Auto) 4.8 Eos % (Auto) 0.0 Baso % (Auto) 0.5 Neut # 12.0 H Lymph # 5.9 H [place] # 0.9 H Eos # 0.0 Baso # 0.1 ESR 66 H Haptoglobin G6PD RBC Count pCO2 pO2 HCO3 ABG pH ABG Total CO2 ABG O2 Saturation ABG O2 Content ABG Base Excess ABG Hemoglobin ABG Carboxyhemoglobin POC ABG HHb (Measured) ABG Methemoglobin ABG O2 Capacity Roman Test A-a O2 Difference Hgb O2 Saturation Liter Flow Vent Mode FiO2 Blood Gas Comments Crit Value Called To Crit Value Called By Crit Value Read Back Blood Gas Notified Time Sodium 153 H Potassium 3.5 L Chloride 113 H Carbon Dioxide 21 L Anion Gap 23 H BUN 69 H Creatinine 1.7 H Est GFR ( Amer) 38 Est GFR (Non-Af Amer) 31 POC Glucose (mg/dL) 205 H Random Glucose 203 H Calcium 10.6 H Total Bilirubin 9.0 H AST 283 H D ALT 68 H D Alkaline Phosphatase 145 H Total Protein 7.7 Albumin 3.0 L Globulin 4.7 H Albumin/Globulin Ratio 0.6 L PTH Intact Whole Molec Urine Immunofixation Mycoplasma pneumon IgG 05/01/17 05/01/17 05:13 08:30 WBC RBC Hgb Hct MCV MCH MCHC RDW Plt Count MPV Neut % (Auto) Lymph % (Auto) [place] % (Auto) Eos % (Auto) Baso % (Auto) Neut # Lymph # [place] # Eos # Baso # ESR Haptoglobin G6PD RBC Count pCO2 22 L pO2 54 L HCO3 19.9 L ABG pH 7.47 H ABG Total CO2 16.7 L ABG O2 Saturation 92.1 L ABG O2 Content 12.6 L ABG Base Excess -6.2 L ABG Hemoglobin 10.1 L ABG Carboxyhemoglobin 2.6 H POC ABG HHb (Measured) 7.6 H ABG Methemoglobin 1.2 ABG O2 Capacity 13.7 L Rmoan Test Yes A-a O2 Difference 489.0 Hgb O2 Saturation 88.7 L Liter Flow 30 Vent Mode Hfov FiO2 80.0 Blood Gas Comments Hiflow 30/80% Crit Value Called To Dr arturo maria Crit Value Called By 15 Crit Value Read Back Y Blood Gas Notified Time 831 Sodium Potassium Chloride Carbon Dioxide Anion Gap BUN Creatinine Est GFR ( Amer) Est GFR (Non-Af Amer) POC Glucose (mg/dL) 185 H Random Glucose Calcium Total Bilirubin AST ALT Alkaline Phosphatase Total Protein Albumin Globulin Albumin/Globulin Ratio PTH Intact Whole Molec Urine Immunofixation Mycoplasma pneumon IgG Attending/Attestation - Attestation I have personally seen and examined this patient.: Yes I have fully participated in the care of the patient.: Yes I have reviewed all pertinent clinical information: Yes Notes (Text): 05/01/17 11:01 This is 57 yr old F with HCV cirrhosis on treatmeent started at [facility] from October- Feb 2017. She has been on multiple medications including epclusa, visovi, ribavirin and presented to ER 5 days ago with pancytopenia. She has portal HTN with splenomegaly and bone marrow suppresion with hemolytic anemia due to ribavirin. Patient was obtunded in MICU nad not oriented to self, place or time. History taken from the daughter who found clinic papers in her mothers home. She has history of IVDA with incarceration for 5 years. As per daughter she does not abuse alcohol. She has never had EGD/ colonoscopy. Will start lactulose po and rectal with goal BM of 2 per day. NPO till mental status is more alert. Hold ribavirin. 05/01/17 11:15
[2017-04-30] MEDS: Insulin Detemir 100 Units/ml Inj SC SCH (22:06)
[2017-05-01] MEDS: Hydrocortisone Succinat 250 MG vial IV SCH ×2 (03:43→09:22)
[2017-05-01] MEDS: Piperacill/Tazo 2.25gm in Dex 2.25 GM/50 ML BAG IVPB SCH ×4 (05:00→21:50)
[2017-05-01 05:43] LABS: ALB/GLOB RATIO 0.6 (1.0-2.1); CALCIUM 10.6 mg/dL (8.4-10.2); POTASSIUM 3.5 MMOL/L (3.6-5.0); TOTAL PROTEIN 7.7 G/DL (6.3-8.2)
[2017-05-01 06:08] LABS: BASO # 0.1 K/uL (0.0-0.2); BASO % 0.5 % (0.0-2.0); HEMATOCRIT 33.7 % (34.0-47.0); LYMPH # 5.9 K/uL (1.0-4.3); LYMPH % 31.4 % (20.0-40.0); MEAN CELL VOLUME 97.1 fl (81.0-99.0); MEAN CORPUSCULAR HEMOGLOBIN 30.3 pg (27.0-31.0); MEAN CORPUSCULAR HGB CONC 31.2 g/dL (33.0-37.0); MEAN PLATELET VOLUME 12.1 fl (7.2-11.7); MONO # 0.9 K/uL (0.0-0.8); MONO % 4.8 % (0.0-10.0); NEUT % 63.3 % (50.0-75.0); NRBC % 6.8 % (0.0-0.0); RED CELL DISTRIBUTION WIDTH 24.4 % (11.5-14.5)
[2017-05-01] MEDS: Insulin Lispro (humaLOG) 100 Units/ml Inj SC SCH ×4 (06:37→23:09)
--- NOTE | 2017-05-01 08:01 | CP.PCM.PN ---
Subjective - Date & Time of Evaluation Date of Evaluation: 05/01/17 Time of Evaluation: 07:30 - Subjective Subjective: Patient was seen and evaluated bedside.critically ill female lying in bed , obtunded , moaning, unable to respond to verbal commands , not opening her eyes On high flow O2 via NC 30 LPM FIO2 80 %,in respiratory distress tachypneic with RR ranging 40 ,tachycardic HR 118-125, afebrile, with accessory muscle use . ABG PCO2 22 PO2 54 Ph 7.47 CO3 19 WBXc 19 K Hgb 10.5 Plt 36 K BUN/cr 69/1.7 Na 153 I/O 988/2325 CXR showed stable pulmonary edema Objective - Vital Signs/Intake and Output Vital Signs (last 24 hours): Temp Pulse Resp BP Pulse Ox 99.3 F 118 H 34 H 134/76 97 05/01/17 04:00 05/01/17 06:00 05/01/17 07:33 05/01/17 06:00 05/01/17 06:00 Intake and Output: 05/01/17 05/01/17 06:59 18:59 Intake Total 338 2 Output Total 750 Balance -412 2 - Medications Medications: Current Medications Acetaminophen (Tylenol 325mg Tab) 650 mg PO Q6H PRN PRN Reason: Fever >100.4 F Acetaminophen (Tylenol 650 Mg Supp) 650 mg SC ONCE [facility] Last Admin: 04/28/17 14:30 Dose: 650 mg Albuterol Sulfate (Albuterol 0.083% Inhal Rae (2.5 Mg/3 Ml) Ud) 2.5 mg INH RQ4 PRN PRN Reason: Shortness of Breath Allopurinol (Zyloprim) 200 mg PO DAILY [facility] Last Admin: 04/30/17 10:02 Dose: 200 mg Haloperidol Lactate (Haldol) 2.5 mg IVP Q6 PRN PRN Reason: Agitation Last Admin: 04/30/17 01:10 Dose: 2.5 mg Hydrocortisone Sodium Succinate (Solu-Cortef) 100 mg IV 0400,1000,1600,2200 [facility] Last Admin: 05/01/17 03:43 Dose: 100 mg Hydromorphone HCl (Dilaudid) 0.5 mg IVP Q4 PRN PRN Reason: Pain, moderate (4-7) Last Admin: 04/30/17 01:02 Dose: 0.5 mg Vancomycin HCl 1 gm/ Sodium (Chloride) 250 mls @ 166.667 mls/hr IVPB DAILY [facility] PRN Reason: Protocol Last Admin: 04/30/17 10:01 Dose: 166.667 mls/hr Piperacillin Sod/Tazobactam Sod (Zosyn 2.25 Gm Iv Premix) 2.25 gm in 50 mls @ 50 mls/hr IVPB Q6 [facility] PRN Reason: Protocol Last Admin: 05/01/17 05:00 Dose: 50 mls/hr Insulin Detemir (Levemir) 14 units SC HS [facility] Last Admin: 04/30/17 22:06 Dose: 14 u Insulin Human Lispro (Humalog) 0 units SC ACHS [facility] PRN Reason: Protocol Last Admin: 05/01/17 06:37 Dose: Not Given Lactulose (Enulose) 20 gm PO Q1 [facility] Last Admin: 05/01/17 07:13 Dose: Not Given Lactulose (Generlac) 200 gm SC Q4 PRN PRN Reason: Constipation Ondansetron HCl (Zofran Inj) 4 mg IVP Q6H PRN PRN Reason: Nausea/Vomiting Pantoprazole Sodium (Protonix Inj) 40 mg IVP DAILY [facility] Last Admin: 04/30/17 09:59 Dose: 40 mg - Labs Labs: 05/01/17 04:20 05/01/17 04:20 PT 27.2 Seconds (9.8-13.1) H D 04/30/17 04:20 INR 2.4 (0.9-1.2) H D 04/30/17 04:20 APTT 37.0 Seconds (25.6-37.1) 04/30/17 04:20 - Constitutional Appears: Toxic, In Acute Distress, Agitated, Confused, Chronically Ill, Other ( obtunded) - Head Exam Head Exam: ATRAUMATIC, NORMOCEPHALIC Additional comments: jaundiced - Eye Exam Eye Exam: PERRL - ENT Exam ENT Exam: Mucous Membranes Dry - Neck Exam Neck Exam: Normal Inspection - Respiratory Exam Respiratory Exam: Accessory Muscle Use, Prolonged Expiratory Phase, Rales, Respiratory Distress. absent: Rhonchi, Wheezes - Cardiovascular Exam Cardiovascular Exam: Tachycardia, +S1, +S2. absent: JVD - GI/Abdominal Exam GI & Abdominal Exam: Soft, Normal Bowel Sounds. 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 For the past 3 days patient has not been herself, she was very weak, unable to get out of bed, confused , talking to herself, disoriented. Patient also appears jaundiced. As per family she has been complaining of lower back pain and has been seeing and physician who gave her an injection 1 month ago. Family denies any upper respiratory illness, nausea , vomiting , diarrhea, abdominal pain , recent illness or blood transfusion.As per family patient was complaining of SOB and some CP. In ER patient found to confused , jaundiced with Hgb 5.7, plt 39 K tea 6.7 , elevated LDH WBC 17 k lactic acid 5 cr 1.2 total protein 9 Ca 14 CXR - clear Peripheral Smear showed schistocytes , nucleated RBC-s Pt/Inr elevated Patient is critically ill. Admitted to ICU for sepsis , Altered mental status, metabolic derangement with hypercalcemia, hyperkalemia ,hemolytic anemia and possible malignancy. 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 ( Ribavirin can cause Hemolytic Anemia) 1. Acute hypoxemic respiratory failure multifactorial -- secondary to pulmonary edema, pneumonia and metabolic encephalopathy patient in respiratory distress with RR 40 while on high flow with FIo2 80% , ABG with PO2 54 PCO2 22 HCO3 19 CXR showed stable pulmonary edema intubated and placed on MV hold off sedation for now due to low BP Continue with plasmaphresiss as planned Continue IV antibiotics will call pulmonary eval for vent management Continue lasix PRN if BP allows patient has guarded prognosis 2. Sepsis sec to Pneumonia continue IVF resuscitation lactic acid trendoing up from 5 to 15 and WBC elevated to 19 k, afebrile Ct chest showed LLL pneumonia blood and urine cx sent continue vancomycin 1 g IV and Zosyn ID consulted- discussed case with Dr Topete , agree with the abx 3. Altered mental status likely sec to Metabolic Encephalopathy ? TTP most likely related to metabolic derangement CT head showed no acute pathology hematology consult appreciated and case discussed Peripheral smear showed nucleated RBC-s and schisctocytes -- most likely hemolytic anemia . PT/INR elevated and fibrinogen low CT abdomen and pelvis showed diffuse ostelytic lesions of the skeleton -- most likely multiple myeloma vs other malignancy ( Monoclonal gammopathy) Follow up flow cytometry, protein electrophoresis continue IVF, IV antibiotics Started Zometa for hypercalcemia Continue Solucortef for hemolytic anemia and transfused 3 unit PRBC Continue plasmaphresiss today as per hematology with albumin instead of plasma continue lactulose as per GI to improve mental status 4. Hemolytic anemia ? TTP/DIC prob related to Ribavirin Hgb 5.7 LDH elevated , bili 6.7 peripheral smear showed nucleated RBC-s and schistocytes s/p 3 unit PRBc transfusin with Hgb 9.4 hematology consult appreciated Retic ct elevated Low Fibrinogen haptoglobin, Leonardo test ,Hepatis profile , FROYLAN,RF, mycoplasma-- pending patient has hepatitis C + continue Solucortef management as per hematology 5. Thrombocytopenia/ coagulopathy prob sec to Cirrhosis suspected TTP and was started on Plasmapharesis PT/INR elevated , no proteinuria,Fibrinogen low - suggest possible DIC retic count: elevated to 6 ,haptoglobin pending, blood cx, urine cx : negative so far Hematology on board Hold off any Platelet transfusion as per hematology continue plasmaphresis 6.Diffuse Osteolytic lesions of the spine Probably Multiple myeloma but need to rule out CLL ,lymphoma OR OTHER MALIGNANCY f/u Flow cytometry ,protein electrophoresis follow up with oncology recommendations 7.Hypercalcemia prob sec to malignancy IVF on Zometa Endo consulted 8. Left Lower Lobe Pneumonia Most likely CAP Check mycoplasma Ag on vanco and Zosyn 9.DM npo for now endo consulted - started Levemir insulin coverage and ACHS will start tube feeding 10.KIRSTIN / Azotemia/ hyperkalemia ? sec to MM continue IVF monitor renal fxn BUN/Cr 69/1.7 11. Pulmonary Edema happened 2 hrs after Plasmapharesis minimal response to diuretics ? sec to Transfusion rx ??? vs Volume overload continue plasmaphresis with albumin insteda of plasma continue lasix PRN if BP allows 12. 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 once kidney fxn is stable will order triple phase liver CT and possible colonoscopy for better evaluation of segmental mural thickening in splenic flexure 13. DVT/ GI prophylaxis SCD Protonix IV no anticoag sec to thrombocytopenia
--- NOTE | 2017-05-01 08:07 | CP.CCUPN ---
CCU Subjective - Physician Review Events Since Last Encounter (Free Text): 05/01/17 The patient was Seen/interviewed and examined by me at the bedside during ICU round, Medical records reviewed and Management issues were discussed and formulated with the house staff. 57 Years old Female with PMHx of HTN, dyslipidemia, IDDM, Chronic HCV (on 4 medications at [facility] including epclusa, vosevi and Ribavirin ) with cirrhosis and asthma Who was initially BIB EMS to Emergency department with complaint of generalized weakness, fall last week, now becoming more confused. As per daughter, Pt has not been herself the last 3 days, she is weaker, unable to get out of bed, talking to herself, confused and disoriented. She currently in the ICU for altered mental status secondary to metabolic encephalopathy (CT head showed no acute pathology), and sepsis from LLL pneumonia managed with IV Vanco and Zosyn. Also undergoing plasmapheresis for possible Hemolytic anemia/TTP/DIC Peripheral smear showed several nucleated RBCs and schiztocytes. Immunofixation shows increase in IGG to 2163, IGM TO 1778 and IGA is normal. Patient more confused today, does not follow basic commands, Hypoxemia noted on the ABG. She was urgently intubated today after discussing with the family at bedside. Afebrile Cloudy ritchie urine noted, and CXR consistent with bibasilar infilterates. Pt started on PO Lactulose, had couple of loose BM over last 24H. Sedated, orally intubated, comfortable, NAD Last 24H I&O 988/2325 Scheduled for plasmapheresis. PRVC AC14 TV450 FiO2 60% PEEP5, Saturation 92-96% 05/01/17 15:19 Patient current condition discussed with the family at bedside, prognosis guarded, Pt Full code Critical Care Time Spent (in minutes): 54 CCU Objective - Vital Signs / Intake & Output Vital Signs (Last 4 hours): Vital Signs Pulse Resp BP Pulse Ox 05/01/17 07:33 34 H 05/01/17 06:17 41 H 05/01/17 06:00 118 H 28 H 134/76 97 Intake and Output (Last 8hrs): Intake & Output 04/30/17 05/01/17 05/01/17 22:59 06:59 14:59 Intake Total 60 278 2 Output Total 500 750 Balance -440 -472 2 Weight 165 lb Intake: IV 10 18 2 Intake, Piggyback 50 50 Oral 210 Output: Urine 500 750 Urethral (Valadez) 500 750 Other: # Bowel Movements 1 - Physical Exam Head: Positive for: Atraumatic, Normocephalic Pupils: Positive for: PERRL Extroacular Muscles: Positive for: EOMI Conjunctiva: Positive for: Icteric Mouth: Positive for: Dry Pharnyx: Negative for: ERYTHEMA, EXUDATE Neck: Negative for: Meningeal Signs, JVD, Lymphadenopathy Cardiovascular: Positive for: Regular Rate and Rhythm. Negative for: Murmurs, Rub Abdomen: Positive for: Normal Bowel Sounds, Other (+ splenomegaly). Negative for: Tenderness, Distention Rectal: Negative for: Occult Blood, Melena, Fissures Lower Extremity: Positive for: Edema, NORMAL PULSES. Negative for: CALF TENDERNESS, Cyanosis Neurological: Positive for: CN II-XII Intact (Unable to assest ), Motor Func Grossly Intact, Normal Sensory Function, Norm Deep Tendon Reflexes. Negative for: GCS=15 Skin: Positive for: Warm, Dry, Other (no petechiae). Negative for: Rashes Psychiatric: Positive for: Alert. Negative for: Oriented x 3 (Confused disoriented to person, time and place) - Medications Active Medications: Active Medications Generic Name Dose Route Start Last Admin Trade Name Freq PRN Reason Stop Dose Admin Acetaminophen 650 mg 04/27/17 19:20 Tylenol 325mg Tab PO Q6H PRN Fever >100.4 F Acetaminophen 650 mg 04/28/17 10:00 04/28/17 14:30 Tylenol 650 Mg Supp NE 650 mg ONCE [facility] Administration Albuterol Sulfate 2.5 mg 04/27/17 19:45 Albuterol 0.083% Inhal Rae (2.5 Mg/3 Ml) Ud INH RQ4 PRN Shortness of Breath Allopurinol 200 mg 04/28/17 09:00 04/30/17 10:02 Zyloprim PO 200 mg DAILY [facility] Administration Haloperidol Lactate 2.5 mg 04/29/17 13:43 04/30/17 01:10 Haldol IVP 2.5 mg Q6 PRN Administration Agitation Hydrocortisone Sodium Succinate 100 mg 04/27/17 22:00 05/01/17 03:43 Solu-Cortef IV 100 mg 0400,1000,1600,2200 [facility] Administration Hydromorphone HCl 0.5 mg 04/28/17 23:02 04/30/17 01:02 Dilaudid IVP 0.5 mg Q4 PRN Administration Pain, moderate (4-7) Vancomycin HCl 1 gm/ Sodium 250 mls @ 166.667 mls/hr 04/28/17 09:00 04/30/17 10:01 Chloride IVPB 166.667 mls/hr DAILY [facility] Administration Protocol Piperacillin Sod/Tazobactam Sod 2.25 gm in 50 mls @ 50 mls/hr 04/27/17 22:00 05/01/17 05:00 Zosyn 2.25 Gm Iv Premix IVPB 50 mls/hr Q6 [facility] Administration Protocol Insulin Detemir 14 units 04/30/17 22:00 04/30/17 22:06 Levemir SC 14 u HS [facility] Administration Insulin Human Lispro 0 units 04/27/17 16:30 05/01/17 06:37 Humalog SC Not Given ACHS [facility] Protocol Lactulose 20 gm 04/30/17 22:00 05/01/17 07:13 Enulose PO Not Given Q1 [facility] Lactulose 200 gm 04/30/17 21:41 Generlac NE Q4 PRN Constipation Ondansetron HCl 4 mg 04/27/17 19:20 Zofran Inj IVP Q6H PRN Nausea/Vomiting Pantoprazole Sodium 40 mg 04/28/17 09:00 04/30/17 09:59 Protonix Inj IVP 40 mg DAILY [facility] Administration - Patient Studies Lab Studies: Microbiology Studies 04/27/17 14:05 Blood Culture - Preliminary Blood-Venous NO GROWTH AFTER 3 DAYS 04/27/17 13:35 Blood Culture - Preliminary Blood-Venous NO GROWTH AFTER 3 DAYS Lab Studies 05/01/17 05/01/17 05/01/17 Range/Units 05:13 04:20 04:20 WBC 19.0 H (4.8-10.8) K/uL RBC 3.47 L (3.80-5.20) Mil/uL Hgb 10.5 L (12.0-16.0) g/dL Hct 33.7 L (34.0-47.0) % MCV 97.1 (81.0-99.0) fl MCH 30.3 (27.0-31.0) pg MCHC 31.2 L (33.0-37.0) g/dL RDW 24.4 H (11.5-14.5) % Plt Count 36 L (130-400) K/uL MPV 12.1 H (7.2-11.7) fl Neut % (Auto) 63.3 (50.0-75.0) % Lymph % (Auto) 31.4 (20.0-40.0) % [place] % (Auto) 4.8 (0.0-10.0) % Eos % (Auto) 0.0 (0.0-4.0) % Baso % (Auto) 0.5 (0.0-2.0) % Neut # 12.0 H (1.8-7.0) K/uL Lymph # 5.9 H (1.0-4.3) K/uL [place] # 0.9 H (0.0-0.8) K/uL Eos # 0.0 (0.0-0.7) K/uL Baso # 0.1 (0.0-0.2) K/uL ESR 66 H (0-30) mm/hr Sodium 153 H (132-148) mmol/l Potassium 3.5 L (3.6-5.0) MMOL/L Chloride 113 H (98-107) mmol/L Carbon Dioxide 21 L (22-30) mmol/L Anion Gap 23 H (10-20) BUN 69 H (7-17) mg/dl Creatinine 1.7 H (0.7-1.2) mg/dl Est GFR ( Amer) 38 Est GFR (Non-Af Amer) 31 POC Glucose (mg/dL) 185 H (65-110) mg/dL Random Glucose 203 H (65-105) mg/dL Calcium 10.6 H (8.4-10.2) mg/dL Total Bilirubin 9.0 H (0.2-1.3) mg/dl AST 283 H D (14-36) U/L ALT 68 H D (9-52) U/L Alkaline Phosphatase 145 H (38-126) U/L Total Protein 7.7 (6.3-8.2) G/DL Albumin 3.0 L (3.5-5.0) g/dL Globulin 4.7 H (2.2-3.9) gm/dL Albumin/Globulin Ratio 0.6 L (1.0-2.1) PTH Intact Whole Molec (14-64) pg/mL 04/30/17 04/30/17 04/30/17 Range/Units 21:12 16:03 11:31 WBC (4.8-10.8) K/uL RBC (3.80-5.20) Mil/uL Hgb (12.0-16.0) g/dL Hct (34.0-47.0) % MCV (81.0-99.0) fl MCH (27.0-31.0) pg MCHC (33.0-37.0) g/dL RDW (11.5-14.5) % Plt Count (130-400) K/uL MPV (7.2-11.7) fl Neut % (Auto) (50.0-75.0) % Lymph % (Auto) (20.0-40.0) % [place] % (Auto) (0.0-10.0) % Eos % (Auto) (0.0-4.0) % Baso % (Auto) (0.0-2.0) % Neut # (1.8-7.0) K/uL Lymph # (1.0-4.3) K/uL [place] # (0.0-0.8) K/uL Eos # (0.0-0.7) K/uL Baso # (0.0-0.2) K/uL ESR (0-30) mm/hr Sodium (132-148) mmol/l Potassium (3.6-5.0) MMOL/L Chloride (98-107) mmol/L Carbon Dioxide (22-30) mmol/L Anion Gap (10-20) BUN (7-17) mg/dl Creatinine (0.7-1.2) mg/dl Est GFR ( Amer) Est GFR (Non-Af Amer) POC Glucose (mg/dL) 205 H 208 H 241 H (65-110) mg/dL Random Glucose (65-105) mg/dL Calcium (8.4-10.2) mg/dL Total Bilirubin (0.2-1.3) mg/dl AST (14-36) U/L ALT (9-52) U/L Alkaline Phosphatase (38-126) U/L Total Protein (6.3-8.2) G/DL Albumin (3.5-5.0) g/dL Globulin (2.2-3.9) gm/dL Albumin/Globulin Ratio (1.0-2.1) PTH Intact Whole Molec (14-64) pg/mL 04/27/17 Range/Units 11:45 WBC (4.8-10.8) K/uL RBC (3.80-5.20) Mil/uL Hgb (12.0-16.0) g/dL Hct (34.0-47.0) % MCV (81.0-99.0) fl MCH (27.0-31.0) pg MCHC (33.0-37.0) g/dL RDW (11.5-14.5) % Plt Count (130-400) K/uL MPV (7.2-11.7) fl Neut % (Auto) (50.0-75.0) % Lymph % (Auto) (20.0-40.0) % [place] % (Auto) (0.0-10.0) % Eos % (Auto) (0.0-4.0) % Baso % (Auto) (0.0-2.0) % Neut # (1.8-7.0) K/uL Lymph # (1.0-4.3) K/uL [place] # (0.0-0.8) K/uL Eos # (0.0-0.7) K/uL Baso # (0.0-0.2) K/uL ESR (0-30) mm/hr Sodium (132-148) mmol/l Potassium (3.6-5.0) MMOL/L Chloride (98-107) mmol/L Carbon Dioxide (22-30) mmol/L Anion Gap (10-20) BUN (7-17) mg/dl Creatinine (0.7-1.2) mg/dl Est GFR ( Amer) Est GFR (Non-Af Amer) POC Glucose (mg/dL) (65-110) mg/dL Random Glucose (65-105) mg/dL Calcium (8.4-10.2) mg/dL Total Bilirubin (0.2-1.3) mg/dl AST (14-36) U/L ALT (9-52) U/L Alkaline Phosphatase (38-126) U/L Total Protein (6.3-8.2) G/DL Albumin (3.5-5.0) g/dL Globulin (2.2-3.9) gm/dL Albumin/Globulin Ratio (1.0-2.1) PTH Intact Whole Molec 12 L (14-64) pg/mL Laboratory Results - last 24 hr 04/27/17 04/30/17 04/30/17 11:45 11:31 16:03 WBC RBC Hgb Hct MCV MCH MCHC RDW Plt Count MPV Neut % (Auto) Lymph % (Auto) [place] % (Auto) Eos % (Auto) Baso % (Auto) Neut # Lymph # [place] # Eos # Baso # ESR Sodium Potassium Chloride Carbon Dioxide Anion Gap BUN Creatinine Est GFR ( Amer) Est GFR (Non-Af Amer) POC Glucose (mg/dL) 241 H 208 H Random Glucose Calcium Total Bilirubin AST ALT Alkaline Phosphatase Total Protein Albumin Globulin Albumin/Globulin Ratio PTH Intact Whole Molec 12 L 04/30/17 05/01/17 05/01/17 21:12 04:20 04:20 WBC 19.0 H RBC 3.47 L Hgb 10.5 L Hct 33.7 L MCV 97.1 MCH 30.3 MCHC 31.2 L RDW 24.4 H Plt Count 36 L MPV 12.1 H Neut % (Auto) 63.3 Lymph % (Auto) 31.4 [place] % (Auto) 4.8 Eos % (Auto) 0.0 Baso % (Auto) 0.5 Neut # 12.0 H Lymph # 5.9 H [place] # 0.9 H Eos # 0.0 Baso # 0.1 ESR 66 H Sodium 153 H Potassium 3.5 L Chloride 113 H Carbon Dioxide 21 L Anion Gap 23 H BUN 69 H Creatinine 1.7 H Est GFR ( Amer) 38 Est GFR (Non-Af Amer) 31 POC Glucose (mg/dL) 205 H Random Glucose 203 H Calcium 10.6 H Total Bilirubin 9.0 H AST 283 H D ALT 68 H D Alkaline Phosphatase 145 H Total Protein 7.7 Albumin 3.0 L Globulin 4.7 H Albumin/Globulin Ratio 0.6 L PTH Intact Whole Molec 05/01/17 05:13 WBC RBC Hgb Hct MCV MCH MCHC RDW Plt Count MPV Neut % (Auto) Lymph % (Auto) [place] % (Auto) Eos % (Auto) Baso % (Auto) Neut # Lymph # [place] # Eos # Baso # ESR Sodium Potassium Chloride Carbon Dioxide Anion Gap BUN Creatinine Est GFR ( Amer) Est GFR (Non-Af Amer) POC Glucose (mg/dL) 185 H Random Glucose Calcium Total Bilirubin AST ALT Alkaline Phosphatase Total Protein Albumin Globulin Albumin/Globulin Ratio PTH Intact Whole Molec Fingerstick Blood Sugar Results: 185 Review of Systems - Review of Systems Systems not reviewed;Unavailable: Intubated Critical Care Progress Note - Ventilator Checklist Head of Bed 30 Degrees: Yes Daily Sedation Vacation: Yes Daily Assessment of Readiness to Wean: Yes Daily Spontaneous Breathing Trial: Yes PUD Prophalyxis: Yes DVT Prophylaxis: Yes Oral Care with Chlorhexidine Gluconate {CHG}: Yes - Extremities/Vascular Does the Patient have a Central Venous Catheter?: Yes Does the Patient need a Central Venous Catheter?: Yes Does the Patient have a Valadez Catheter?: Yes Does the Patient need a Valadez Catheter?: Yes - Prophylaxis GI Prophylaxis GI: PPI - Prophylaxis DVT Prophylaxis DVT: Not Indicated (no anticoag sec to thrmobocytopenia ) - Nutrition Nutrition: Nutrition Category Date Time Status Heart Healthy Diet [DIET] Diets 04/27/17 Dinner Active Assessment/Plan (1) Acute respiratory failure with hypoxia Current Visit: Yes Status: Acute Comment: Intubated today for airway protection Continue with ICU care for hemodynamic and Respiratory monitoring Continue IV Vancomycin and Piperacillin Sod/Tazobactam Aggressive pulmonary toilet Maintain aspiration precautions (2) Altered mental status Current Visit: Yes Status: Acute Comment: Intubated today for airway protection Toxic/metabolic encephalopathy in the sitting of severe sepsis, Acute renal injury and possible TTP syndrome CT head showed no acute pathology (3) Severe sepsis Current Visit: Yes Status: Acute Comment: sepsis from Bibasilar pneumonia IV Vanco and Zosyn IV Hydrations with isotoinc 0.9% at 100 ml/H Maintain MAP 65-75 (4) Metabolic encephalopathy Current Visit: Yes Status: Acute (5) Coagulopathy Current Visit: Yes Status: Acute (6) Cirrhosis of liver Current Visit: Yes Status: Acute (7) KIRSTIN (acute kidney injury) Current Visit: Yes Status: Acute Comment: IV Hydrations with isotoinc 0.9% at 100 ml/H Hydrocortisone decreased today to 100 Q 8H Maintain MAP 65-75 Strict I&O (8) Thrombocytopenia Current Visit: Yes Status: Acute
[2017-05-01 08:31] LABS: ABG ALLEN TEST YES; ARTERIAL BLOOD FLOW 30; ARTERIAL BLOOD GAS HCO3 19.9 mmol/L (21-28); ARTERIAL BLOOD GAS MODE HFOV; ARTERIAL BLOOD GAS O2 CAPACITY 13.7 mL/dL (16-24); ARTERIAL BLOOD GAS O2 CONTENT 12.6 ML/dL (15-23); ARTERIAL BLOOD GAS PH 7.47 (7.35-7.45); ARTERIAL BLOOD GAS PO2 54 mm/Hg (80-100); ARTERIAL BLOOD HGB O2 SAT 88.7 % (95.0-98.0); CARBOXYHEMOGLOBIN 2.6 % (0.5-1.5); HHB 7.6 % (0.0-5.0); METHEMOGLOBIN 1.2 % (0.0-3.0)
--- NOTE | 2017-05-01 09:27 | CP.PCM.PN ---
<Job Whiting - Last Filed: 05/01/17 09:28> Subjective - Date & Time of Evaluation Date of Evaluation: 05/01/17 Time of Evaluation: 07:00 - Subjective Subjective: PGY4 GI Follow-up Pt seen and examined bedside obtunded in respir distress RN reports 3 BM overnight NPO ROS: 10 point ROS conducted and otherwise neg Objective - Vital Signs/Intake and Output Vital Signs (last 24 hours): Temp Pulse Resp BP Pulse Ox 98.9 F 131 H 63 H 145/69 100 05/01/17 08:00 05/01/17 08:00 05/01/17 08:00 05/01/17 08:00 05/01/17 08:00 Intake and Output: 05/01/17 05/01/17 06:59 18:59 Intake Total 338 2 Output Total 750 Balance -412 2 - Medications Medications: Current Medications Acetaminophen (Tylenol 325mg Tab) 650 mg PO Q6H PRN PRN Reason: Fever >100.4 F Acetaminophen (Tylenol 650 Mg Supp) 650 mg [place] ONCE [facility] Last Admin: 04/28/17 14:30 Dose: 650 mg Albuterol Sulfate (Albuterol 0.083% Inhal Rae (2.5 Mg/3 Ml) Ud) 2.5 mg INH RQ4 PRN PRN Reason: Shortness of Breath Allopurinol (Zyloprim) 200 mg PO DAILY [facility] Last Admin: 04/30/17 10:02 Dose: 200 mg Haloperidol Lactate (Haldol) 2.5 mg IVP Q6 PRN PRN Reason: Agitation Last Admin: 04/30/17 01:10 Dose: 2.5 mg Hydrocortisone Sodium Succinate (Solu-Cortef) 100 mg IV 0400,1000,1600,2200 [facility] Last Admin: 05/01/17 09:22 Dose: 100 mg Hydromorphone HCl (Dilaudid) 0.5 mg IVP Q4 PRN PRN Reason: Pain, moderate (4-7) Last Admin: 04/30/17 01:02 Dose: 0.5 mg Vancomycin HCl 1 gm/ Sodium (Chloride) 250 mls @ 166.667 mls/hr IVPB DAILY [facility] PRN Reason: Protocol Last Admin: 05/01/17 08:27 Dose: 166.667 mls/hr Piperacillin Sod/Tazobactam Sod (Zosyn 2.25 Gm Iv Premix) 2.25 gm in 50 mls @ 50 mls/hr IVPB Q6 [facility] PRN Reason: Protocol Last Admin: 05/01/17 09:22 Dose: 50 mls/hr Insulin Detemir (Levemir) 14 units SC HS [facility] Last Admin: 04/30/17 22:06 Dose: 14 u Insulin Human Lispro (Humalog) 0 units SC ACHS [facility] PRN Reason: Protocol Last Admin: 05/01/17 06:37 Dose: Not Given Lactulose (Enulose) 20 gm PO Q1 [facility] Last Admin: 05/01/17 07:13 Dose: Not Given Lactulose (Generlac) 200 gm [place] Q4 PRN PRN Reason: Constipation Ondansetron HCl (Zofran Inj) 4 mg IVP Q6H PRN PRN Reason: Nausea/Vomiting Pantoprazole Sodium (Protonix Inj) 40 mg IVP DAILY [facility] Last Admin: 05/01/17 08:27 Dose: 40 mg - Labs Labs: 05/01/17 04:20 05/01/17 04:20 PT 27.2 Seconds (9.8-13.1) H D 04/30/17 04:20 INR 2.4 (0.9-1.2) H D 04/30/17 04:20 APTT 37.0 Seconds (25.6-37.1) 04/30/17 04:20 - Constitutional Appears: In Acute Distress, Other (obtunded) - Head Exam Head Exam: NORMOCEPHALIC - Eye Exam Eye Exam: Scleral icterus - Neck Exam Neck Exam: Normal Inspection - Respiratory Exam Respiratory Exam: Clear to Ausculation Bilateral, NORMAL BREATHING PATTERN. absent: Rales, Rhonchi, Wheezes, Respiratory Distress - Cardiovascular Exam Cardiovascular Exam: REGULAR RHYTHM, +S1, +S2 - GI/Abdominal Exam GI & Abdominal Exam: Soft, Normal Bowel Sounds. absent: Guarding, Rigid, Hyperactive Bowel Sounds, Organomegaly, Rebound - Extremities Exam Extremities Exam: absent: Joint Swelling, Pedal Edema - Neurological Exam Neurological Exam: Altered. absent: Alert, Awake - Psychiatric Exam Additional comments: could not assess - Skin Skin Exam: Dry, Intact, Normal Color, Warm Assessment and Plan - Assessment and Plan (Free Text) Assessment: Janet Taylor is a 57f w/ hx of cirrhosis, HCV, anemia, hx of polysubstance use who presents to the Er with weakness and confusion. Pt had marked anemia and thrombocytopenia Hemolytic anemia likely 2/2 HCV meds especially ribaviran Chronic HCV on tx as oupt Cirrhosis etiology like HCV Thrombocytopenia 2/2 to the above Severe Hepatic Encephalopathy Plan: -continue aggressive lactulose PO until pt has 2-3 BM daily -if unable to take PO, use WI -do not continue Hep C tx for now -can consider adding xifaxan if HE is not improved by tomorrow -strict aspiration precaution -Keep NPO for now -no indication for any endoscopy at this time -anemia likey hemolytic 2/2 HCV tx -transfuse as per Hem/Onc -keep hgb > 7 -will likely get intubated today after goals of care conversation with family D/W Dr. Fuchs <Alina Fuchs MD - Last Filed: 05/01/17 11:17> Objective - Vital Signs/Intake and Output Vital Signs (last 24 hours): Temp Pulse Resp BP Pulse Ox 98.9 F 111 H 30 H 117/65 99 05/01/17 08:00 05/01/17 10:35 05/01/17 10:35 05/01/17 10:35 05/01/17 10:35 Intake and Output: 05/01/17 05/01/17 06:59 18:59 Intake Total 338 2 Output Total 750 Balance -412 2 - Medications Medications: Current Medications Acetaminophen (Tylenol 325mg Tab) 650 mg PO Q6H PRN PRN Reason: Fever >100.4 F Acetaminophen (Tylenol 650 Mg Supp) 650 mg [place] ONCE [facility] Last Admin: 04/28/17 14:30 Dose: 650 mg Albuterol Sulfate (Albuterol 0.083% Inhal Rae (2.5 Mg/3 Ml) Ud) 2.5 mg INH RQ4 PRN PRN Reason: Shortness of Breath Allopurinol (Zyloprim) 200 mg PO DAILY [facility] Last Admin: 05/01/17 09:42 Dose: Not Given Haloperidol Lactate (Haldol) 2.5 mg IVP Q6 PRN PRN Reason: Agitation Last Admin: 04/30/17 01:10 Dose: 2.5 mg Hydrocortisone Sodium Succinate (Solu-Cortef) 100 mg IV 0400,1000,1600,2200 [facility] Last Admin: 05/01/17 09:22 Dose: 100 mg Hydromorphone HCl (Dilaudid) 0.5 mg IVP Q4 PRN PRN Reason: Pain, moderate (4-7) Last Admin: 04/30/17 01:02 Dose: 0.5 mg Vancomycin HCl 1 gm/ Sodium (Chloride) 250 mls @ 166.667 mls/hr IVPB DAILY [facility] PRN Reason: Protocol Last Admin: 05/01/17 08:27 Dose: 166.667 mls/hr Piperacillin Sod/Tazobactam Sod (Zosyn 2.25 Gm Iv Premix) 2.25 gm in 50 mls @ 50 mls/hr IVPB Q6 [facility] PRN Reason: Protocol Last Admin: 05/01/17 09:22 Dose: 50 mls/hr Sodium Chloride (Sodium Chloride 0.9%) 1,000 mls @ 100 mls/hr IV .Q10H [facility] Stop: 05/02/17 11:05 Insulin Detemir (Levemir) 14 units SC HS [facility] Last Admin: 04/30/17 22:06 Dose: 14 u Insulin Human Lispro (Humalog) 0 units SC ACHS [facility] PRN Reason: Protocol Last Admin: 05/01/17 06:37 Dose: Not Given Lactulose (Enulose) 20 gm PO Q1 [facility] Last Admin: 05/01/17 07:13 Dose: Not Given Lactulose (Generlac) 200 gm [place] Q4 PRN PRN Reason: Constipation Ondansetron HCl (Zofran Inj) 4 mg IVP Q6H PRN PRN Reason: Nausea/Vomiting Pantoprazole Sodium (Protonix Inj) 40 mg IVP DAILY [facility] Last Admin: 05/01/17 08:27 Dose: 40 mg - Labs Labs: 05/01/17 04:20 05/01/17 04:20 PT 27.2 Seconds (9.8-13.1) H D 04/30/17 04:20 INR 2.4 (0.9-1.2) H D 04/30/17 04:20 APTT 37.0 Seconds (25.6-37.1) 04/30/17 04:20 Attending/Attestation - Attestation I have personally seen and examined this patient.: Yes I have fully participated in the care of the patient.: Yes I have reviewed all pertinent clinical information, including history, physical exam and plan: Yes Notes (Text): 05/01/17 11:16 This is 57 yr old F with HCV cirrhosis on treatmeent started at [facility] from October- Feb 2017. She has been on multiple medications including epclusa, visovi, ribavirin and presented to ER 5 days ago with pancytopenia. She has portal HTN with splenomegaly and bone marrow suppresion with hemolytic anemia due to ribavirin. Patient was obtunded in MICU nad not oriented to self, place or time. History taken from the daughter who found clinic papers in her mothers home. She has history of IVDA with incarceration for 5 years. As per daughter she does not abuse alcohol. She has never had EGD/ colonoscopy. Started lactulose po and rectal with goal BM of 2 per day but was more obtunded this am. Will need intubation for airway protection. NPO till mental status is more alert. Hold ribavirin.
--- NOTE | 2017-05-01 10:01 | PN ---
ENDOCRINOLOGY FOLLOWUP NOTE DATE: 04/30/2017 LOCATION: In ICU room 421. SUBJECTIVE: This is a 57-year-old female with marked anemia and supervening malignant hypercalcemia and is now being followed closely for metabolic management. Her glycemic levels are fluctuating, but improved and the latest glucose levels have ranged from 182 to 241 mg/dL. The latest chemistry showed a BUN of 64, sodium 149, potassium 3.4, chloride 109, CO2 of 30, glucose 213, and creatinine 1.8. Her proBNP is 34,600. The glucose values have ranged from 127 to 182 and 241 mg/dL. So, at this time, we will modify and increase the basal insulin with Levemir to be given as 14 units subcutaneously at bedtime daily to start tonight. We will modify the coverage scale to obviate hypoglycemia and detailed orders have been given. We will also titrate the dose regimen to optimize metabolic control as she is currently still on the IV steroids as given and mentioned. The repeat calcium level is now 11.2 with albumin level of 2.8 and the corrected calcium of 12.4 mg/dL. The IV hydration has been slowed down and has been switched over to Lasix therapy given as 40 mg IV every 12 hours as ordered and this could also promote calciuresis as mentioned. We will await the reports of the parathyroid hormone intact level and the parathyroid hormone related peptide, which will confirm on the date of presence of any underlying humoral hypercalcemia of malignancy. With this degree of elevation of the calcium, it is quite unlikely to have a parathyroid-related hormonal dysfunction. We will obtain serial chemistry and supplement accordingly as needed. We will follow. Laure De Santiago MD
[2017-05-01] MEDS ORDERED: Propofol 10 mg/ml 1,000 MG/100 ML VIAL ONE (10:20)
--- NOTE | 2017-05-01 10:33 | PCM.ANES ---
Anesthesia Emergent Intubation - Diagnosis Working Diagnosis:: hepatic encephalopathy, pneumonia, resp. distress, thrombocytopenia - Consult Reason for Consult:: respiratory distress - Intubation Attempts Previous Number of Intubation Attempts:: 0 - Pre-Intubation Vital Signs Blood Pressure: 117/65 Heart Rate: 111 Respiratory Rate: 30 O2 Sat: 99 Oxygen Delivery Method: Non-Rebreather Level Of Consciousness: Lethargic Intubation Meds Given: Propofol - Airway Management Oropharyngeal Area Suctioned: No PreOxygenation: 100 Inhalation: No Rapid Sequence: No Cricoid Pressure: Yes Possible Aspiration: No - Method of Intubation Intubation Method: Oral ETT ETT Size: 7.5 Lipline@: 21 Easy: Yes Atramatic: Yes - Intubation Devices Uche Blade Size Used: 3 Tamra Forcepts Used: No [place] Scope Used: No Fiber Optic Scope: No - Placement Confirmation Breath Sounds Present & Equal Bilaterally: Yes Gurgling Sounds Not Audible at Epigastrum: Yes Positive EtCO2: Yes Portable CXR: No Recommendations: Ventilator, Chest X Ray, ABG - Post-Intubation Vital Signs Blood Pressure: 118/75 Heart Rate: 110 Respiratory Rate: 10 O2 Sat: 100 FIO2: 100
[2017-05-01] MEDS ORDERED: Sodium Chloride 0.9% 1,000 ML IV SCH (11:15)
--- NOTE | 2017-05-01 11:22 | RAD ---
PROCEDURE: CHEST RADIOGRAPH, 1 VIEW HISTORY: Pneumonia COMPARISON: Chest radiograph dated 04/30/2017. FINDINGS: LUNGS: Stable pulmonary edema. PLEURA: No pneumothorax or pleural fluid seen. CARDIOVASCULAR: Normal. OSSEOUS STRUCTURES: No significant abnormalities. VISUALIZED UPPER ABDOMEN: Right upper quadrant surgical clips redemonstrated. OTHER FINDINGS: None. IMPRESSION: Stable pulmonary edema.
--- NOTE | 2017-05-01 11:33 | RAD ---
HISTORY: Post Intubation COMPARISON: Chest radiograph performed approximately 3 hours prior FINDINGS: Lines and tubes Interval intubation with endotracheal tube tip between the clavicles and yuly. Orogastric tube placement with tip in the stomach. LUNGS: Stable pulmonary edema. PLEURA: No significant pleural effusion identified, no pneumothorax apparent. CARDIOVASCULAR: Normal. OSSEOUS STRUCTURES: No significant abnormalities. VISUALIZED UPPER ABDOMEN: Right upper quadrant surgical clips redemonstrated. OTHER FINDINGS: None. IMPRESSION: Interval placement of endotracheal and orogastric tubes in satisfactory position. Stable pulmonary edema. No other significant interval changes.
[2017-05-01] MEDS ORDERED: Albumin Human 5% (12.5 gm/250 ml) IV SCH (12:15)
--- NOTE | 2017-05-01 12:18 | CP.PCM.PN ---
Subjective - Date & Time of Evaluation Date of Evaluation: 05/01/17 Time of Evaluation: 12:14 - Subjective Subjective: Pt needed to be intubated today because her O2 sat dropped to 50%. According to GI pt had been on 4 medicationas for the hepatitis, and this was probably responsible for the hemolysis and the mental confusion. Her CBC has been stable and improving. will ck the flow cytometry when available Objective - Vital Signs/Intake and Output Vital Signs (last 24 hours): Temp Pulse Resp BP Pulse Ox 98.9 F 111 H 30 H 117/65 99 05/01/17 08:00 05/01/17 10:35 05/01/17 10:35 05/01/17 10:35 05/01/17 10:35 Intake and Output: 05/01/17 05/01/17 06:59 18:59 Intake Total 338 302 Output Total 750 Balance -412 302 - Medications Medications: Current Medications Acetaminophen (Tylenol 325mg Tab) 650 mg PO Q6H PRN PRN Reason: Fever >100.4 F Acetaminophen (Tylenol 650 Mg Supp) 650 mg [place] ONCE [facility] Last Admin: 04/28/17 14:30 Dose: 650 mg Albumin Human (Albumin Human 5% (12.5 Gm/250 Ml)) 12.5 gm IV ONCE [facility] Albuterol Sulfate (Albuterol 0.083% Inhal Rae (2.5 Mg/3 Ml) Ud) 2.5 mg INH RQ4 PRN PRN Reason: Shortness of Breath Allopurinol (Zyloprim) 200 mg PO DAILY [facility] Last Admin: 05/01/17 09:42 Dose: Not Given Haloperidol Lactate (Haldol) 2.5 mg IVP Q6 PRN PRN Reason: Agitation Last Admin: 04/30/17 01:10 Dose: 2.5 mg Hydrocortisone Sodium Succinate (Solu-Cortef) 100 mg IV Q8 [facility] Hydromorphone HCl (Dilaudid) 0.5 mg IVP Q4 PRN PRN Reason: Pain, moderate (4-7) Last Admin: 04/30/17 01:02 Dose: 0.5 mg Vancomycin HCl 1 gm/ Sodium (Chloride) 250 mls @ 166.667 mls/hr IVPB DAILY [facility] PRN Reason: Protocol Last Admin: 05/01/17 08:27 Dose: 166.667 mls/hr Piperacillin Sod/Tazobactam Sod (Zosyn 2.25 Gm Iv Premix) 2.25 gm in 50 mls @ 50 mls/hr IVPB Q6 [facility] PRN Reason: Protocol Last Admin: 05/01/17 09:22 Dose: 50 mls/hr Sodium Chloride (Sodium Chloride 0.9%) 1,000 mls @ 100 mls/hr IV .Q10H [facility] Stop: 05/02/17 11:05 Last Admin: 05/01/17 11:56 Dose: 100 mls/hr Insulin Detemir (Levemir) 14 units SC HS [facility] Last Admin: 04/30/17 22:06 Dose: 14 u Insulin Human Lispro (Humalog) 0 units SC ACHS [facility] PRN Reason: Protocol Last Admin: 05/01/17 11:51 Dose: Not Given Lactulose (Enulose) 20 gm PO Q1 [facility] Last Admin: 05/01/17 07:13 Dose: Not Given Lactulose (Generlac) 200 gm [place] Q4 PRN PRN Reason: Constipation Ondansetron HCl (Zofran Inj) 4 mg IVP Q6H PRN PRN Reason: Nausea/Vomiting Pantoprazole Sodium (Protonix Inj) 40 mg IVP DAILY [facility] Last Admin: 05/01/17 08:27 Dose: 40 mg - Labs Labs: 05/01/17 04:20 05/01/17 04:20 PT 27.2 Seconds (9.8-13.1) H D 04/30/17 04:20 INR 2.4 (0.9-1.2) H D 04/30/17 04:20 APTT 37.0 Seconds (25.6-37.1) 04/30/17 04:20
--- NOTE | 2017-05-01 15:55 | PN ---
DATE: ENDOCRINOLOGY FOLLOWUP NOTE LOCATION: Room 421, ICU. SUBJECTIVE: This is a 57-year-old female with recent uncontrolled type 2 insulin-requiring diabetes presenting here with marked hemolytic anemia and supervening malignant hypercalcemia and is now being followed closely for metabolic management. Her glucose values are fluctuating but much improved at this time and have ranged from 171-185 mg/dL. The latest chemistry shows a BUN of 69, sodium 153, potassium 3.5, chloride 113, CO2 of 21, glucose 203, and creatinine 1.7. Her calcium level is 10.6 mg/dL as noted. So, we will continue the vigorous IV hydration as ordered. We will concur with the hematologic management as noted thereof. We will obtain serial chemistries and supplement accordingly as needed. We will follow. Laure De Santiago MD
[2017-05-01] MEDS ORDERED: Sodium Chloride 3% for Inhalation 4 ML VIAL.NEB IH PRN (17:13)
[2017-05-01 17:31] LABS: BASO % 0.2 % (0.0-2.0); EOS # 0.1 K/uL (0.0-0.7); EOS % 0.8 % (0.0-4.0); HEMATOCRIT 22.8 % (34.0-47.0); LYMPH # 2.6 K/uL (1.0-4.3); LYMPH % 14.6 % (20.0-40.0); MEAN CELL VOLUME 96.9 fl (81.0-99.0); MEAN CORPUSCULAR HEMOGLOBIN 30.4 pg (27.0-31.0); MEAN CORPUSCULAR HGB CONC 31.4 g/dL (33.0-37.0); MEAN PLATELET VOLUME 12.2 fl (7.2-11.7); MONO # 1.2 K/uL (0.0-0.8); MONO % 6.9 % (0.0-10.0); NEUT # 13.8 K/uL (1.8-7.0); NEUT % 77.5 % (50.0-75.0); NRBC % 1.9 % (0.0-0.0); RED CELL DISTRIBUTION WIDTH 23.7 % (11.5-14.5); WHITE BLOOD COUNT 17.8 K/uL (4.8-10.8)
[2017-05-01 18:09] LABS: ALB/GLOB RATIO 1.7 (1.0-2.1); BILIRUBIN,TOTAL 5.1 mg/dl (0.2-1.3); CALCIUM 8.7 mg/dL (8.4-10.2); MAGNESIUM 1.9 MG/DL (1.6-2.3); PHOSPHOROUS 2.7 mg/dl (2.5-4.5)
[2017-05-01] MEDS ORDERED: Potassium Chloride 20 MEQ in Sodium Chloride 0.45% 1,000 ML IV SCH (18:30)
--- NOTE | 2017-05-01 20:20 | CP.PCM.PN ---
Subjective - Date & Time of Evaluation Date of Evaluation: 05/01/17 Time of Evaluation: 13:00 - Subjective Subjective: SEEN ON RENAL F/U GETTING HER SECOND TPE .. REPLACEMENT WITH 5% ALB ALL PREVIOUS EMR REVIEWED NOW HAS HCV AND LIVER SCIRRHOSIS WITH HEPATIC ENCEPHALOPATHY SHOULD WE C/W TPE ? Objective - Vital Signs/Intake and Output Vital Signs (last 24 hours): Temp Pulse Resp BP Pulse Ox 99.7 F H 96 H 20 96/49 L 100 05/01/17 16:00 05/01/17 18:00 05/01/17 18:00 05/01/17 18:00 05/01/17 18:00 Intake and Output: 05/01/17 05/02/17 18:59 06:59 Intake Total 952 100 Output Total 200 Balance 752 100 - Medications Medications: Current Medications Acetaminophen (Tylenol 650 Mg Supp) 650 mg [place] ONCE [facility] Last Admin: 04/28/17 14:30 Dose: 650 mg Albumin Human (Albumin Human 5% (12.5 Gm/250 Ml)) 125 gm IV DAILY [facility] Stop: 05/04/17 15:00 Last Admin: 05/01/17 17:34 Dose: 125 gm Albuterol Sulfate (Albuterol 0.083% Inhal Rae (2.5 Mg/3 Ml) Ud) 2.5 mg INH RQ4 PRN PRN Reason: Shortness of Breath Allopurinol (Zyloprim) 200 mg PO DAILY [facility] Last Admin: 05/01/17 09:42 Dose: Not Given Hydrocortisone Sodium Succinate (Solu-Cortef) 100 mg IV Q8 [facility] Last Admin: 05/01/17 17:18 Dose: 100 mg Hydromorphone HCl (Dilaudid) 0.5 mg IVP Q4 PRN PRN Reason: Pain, moderate (4-7) Last Admin: 04/30/17 01:02 Dose: 0.5 mg Vancomycin HCl 1 gm/ Sodium (Chloride) 250 mls @ 166.667 mls/hr IVPB DAILY [facility] PRN Reason: Protocol Last Admin: 05/01/17 08:27 Dose: 166.667 mls/hr Piperacillin Sod/Tazobactam Sod (Zosyn 2.25 Gm Iv Premix) 2.25 gm in 50 mls @ 50 mls/hr IVPB Q6 [facility] PRN Reason: Protocol Last Admin: 05/01/17 17:18 Dose: 50 mls/hr Potassium Chloride 20 meq/ (Sodium Chloride) 1,010 mls @ 125 mls/hr IV .Q8H5M [facility] Stop: 05/02/17 18:21 Potassium Chloride 10 meq/ (Sodium Chloride) 55 mls @ 55 mls/hr IV Q1 [facility] Stop: 05/01/17 20:59 Insulin Detemir (Levemir) 14 units SC HS [facility] Last Admin: 04/30/17 22:06 Dose: 14 u Insulin Human Lispro (Humalog) 0 units SC ACHS [facility] PRN Reason: Protocol Last Admin: 05/01/17 16:25 Dose: Not Given Lactulose (Enulose) 20 gm PO Q1 [facility] Last Admin: 05/01/17 07:13 Dose: Not Given Lactulose (Generlac) 200 gm [place] Q4 PRN PRN Reason: Constipation Ondansetron HCl (Zofran Inj) 4 mg IVP Q6H PRN PRN Reason: Nausea/Vomiting Pantoprazole Sodium (Protonix Inj) 40 mg IVP DAILY [facility] Last Admin: 05/01/17 08:27 Dose: 40 mg - Labs Labs: 05/01/17 17:22 05/01/17 17:22 PT 45.1 Seconds (9.8-13.1) H* 05/01/17 12:15 INR 3.9 (0.9-1.2) H D 05/01/17 12:15 APTT 37.0 Seconds (25.6-37.1) 04/30/17 04:20
[2017-05-01] MEDS: Insulin Detemir 100 Units/ml Inj SC SCH (23:09)
[2017-05-02] MEDS: Piperacill/Tazo 2.25gm in Dex 2.25 GM/50 ML BAG IVPB SCH ×4 (03:11→21:56)
[2017-05-02 04:29] LABS: ABG ALLEN TEST YES; ABG MECHANICAL RATE 14; ARTERIAL BLOOD GAS MODE A/C; ARTERIAL BLOOD GAS O2 CAPACITY 13.9 mL/dL (16-24); ARTERIAL BLOOD GAS O2 CONTENT 13.8 ML/dL (15-23); ARTERIAL BLOOD GAS PH 7.42 (7.35-7.45); ARTERIAL BLOOD GAS PO2 89 mm/Hg (80-100); ARTERIAL BLOOD HGB O2 SAT 96.1 % (95.0-98.0); ATERIAL BLOOD GAS PEEP 5; HHB 0.7 % (0.0-5.0); METHEMOGLOBIN 1.2 % (0.0-3.0)
[2017-05-02] MEDS: Insulin Lispro (humaLOG) 100 Units/ml Inj SC SCH ×4 (06:47→22:00)
[2017-05-02 07:32] LABS: BETA 1 GLOBULIN 0.2 g/dL (0.4-0.6); BETA 2 GLOBULIN 0.4 g/dL (0.2-0.5); GAMMA GLOBULIN 3.1 g/dL (0.8-1.7)
[2017-05-02 08:34] LABS: HEMATOCRIT 35.2 % (34.0-47.0); MEAN CELL VOLUME 92.5 fl (81.0-99.0); MEAN CORPUSCULAR HEMOGLOBIN 30.5 pg (27.0-31.0); MEAN CORPUSCULAR HGB CONC 32.9 g/dL (33.0-37.0); WHITE BLOOD COUNT 20.3 K/uL (4.8-10.8)
[2017-05-02 08:51] LABS: ALB/GLOB RATIO 1.2 (1.0-2.1); BILIRUBIN,TOTAL 11.7 mg/dl (0.2-1.3); CALCIUM 9.2 mg/dL (8.4-10.2); POTASSIUM 3.2 MMOL/L (3.6-5.0)
[2017-05-02] MEDS ORDERED: Albumin Human 5% (12.5 gm/250 ml) IV SCH (09:00)
--- NOTE | 2017-05-02 11:14 | RAD ---
PROCEDURE: CHEST RADIOGRAPH, 1 VIEW HISTORY: intubated COMPARISON: 05/01/2017 FINDINGS: LUNGS: Patchy bilateral airspace opacities right mid- more confluent in appearance. Considerations are coalescing pulmonary infiltrates center coalescing pulmonary edema. PLEURA: No pneumothorax or pleural fluid seen. CARDIOVASCULAR: Heart size top normal. OSSEOUS STRUCTURES: No significant abnormalities. VISUALIZED UPPER ABDOMEN: Normal. OTHER FINDINGS: Endotracheal tube approximately 2 to 3 cm from the yuly. For O gastric or NG tube tip in stomach. Surgical clips right upper quadrant cholecystectomy status inferred. IMPRESSION: The coalescent airspace opacities -more pronounced in the right mid to lower lung zone appear slightly more dense compared to the most recent exam. Clinical correlation with presentation regarding infiltrate and/or pulmonary edema recommended No pleural effusions appreciated Endotracheal tube and NG/OG tube satisfactory in position
--- NOTE | 2017-05-02 11:17 | CP.PCM.PN ---
Subjective - Date & Time of Evaluation Date of Evaluation: 05/02/17 Time of Evaluation: 11:12 - Subjective Subjective: Pt had a plasmapheresis done using albumin instead of plasma. She tolerated it well, but her hgb dropped to 7.2gms, She was transfused 2 units of packed cells. Today her hgb is 11.6, platelets are still low. She is intubated but very restless. Will monitor CBC. Objective - Vital Signs/Intake and Output Vital Signs (last 24 hours): Temp Pulse Resp BP Pulse Ox 99.2 F 117 H 27 H 124/74 98 05/02/17 08:00 05/02/17 10:00 05/02/17 10:00 05/02/17 10:00 05/02/17 10:00 Intake and Output: 05/02/17 05/02/17 06:59 18:59 Intake Total 1755 550 Output Total 330 Balance 1425 550 - Medications Medications: Current Medications Acetaminophen (Tylenol 650 Mg Supp) 650 mg [place] ONCE [facility] Last Admin: 04/28/17 14:30 Dose: 650 mg Albumin Human (Albumin Human 5% (12.5 Gm/250 Ml)) 125 gm IV DAILY [facility] Stop: 05/04/17 15:00 Last Admin: 05/01/17 17:34 Dose: 125 gm Albuterol Sulfate (Albuterol 0.083% Inhal Rae (2.5 Mg/3 Ml) Ud) 2.5 mg INH RQ4 PRN PRN Reason: Shortness of Breath Allopurinol (Zyloprim) 200 mg PO DAILY [facility] Last Admin: 05/01/17 09:42 Dose: Not Given Hydrocortisone Sodium Succinate (Solu-Cortef) 100 mg IV Q8 [facility] Last Admin: 05/02/17 08:59 Dose: 100 mg Hydromorphone HCl (Dilaudid) 0.5 mg IVP Q4 PRN PRN Reason: Pain, moderate (4-7) Last Admin: 04/30/17 01:02 Dose: 0.5 mg Hydromorphone HCl (Dilaudid) 1 mg IVP Q4 PRN PRN Reason: Agitation Vancomycin HCl 1 gm/ Sodium (Chloride) 250 mls @ 166.667 mls/hr IVPB DAILY [facility] PRN Reason: Protocol Last Admin: 05/02/17 09:00 Dose: 166.667 mls/hr Piperacillin Sod/Tazobactam Sod (Zosyn 2.25 Gm Iv Premix) 2.25 gm in 50 mls @ 50 mls/hr IVPB Q6 [facility] PRN Reason: Protocol Last Admin: 05/02/17 09:09 Dose: 50 mls/hr Insulin Detemir (Levemir) 14 units SC HS [facility] Last Admin: 05/01/17 23:09 Dose: 14 u Insulin Human Lispro (Humalog) 0 units SC ACHS [facility] PRN Reason: Protocol Last Admin: 05/02/17 06:47 Dose: 3 u Lactulose (Enulose) 20 gm PO Q1 [facility] Last Admin: 05/01/17 07:13 Dose: Not Given Lactulose (Generlac) 200 gm [place] Q4 PRN PRN Reason: Constipation Ondansetron HCl (Zofran Inj) 4 mg IVP Q6H PRN PRN Reason: Nausea/Vomiting Pantoprazole Sodium (Protonix Inj) 40 mg IVP DAILY [facility] Last Admin: 05/02/17 09:00 Dose: 40 mg - Labs Labs: 05/02/17 08:20 05/02/17 08:20 PT 44.3 Seconds (9.8-13.1) H* 05/02/17 08:20 INR 3.8 (0.9-1.2) H 05/02/17 08:20 APTT 37.0 Seconds (25.6-37.1) 04/30/17 04:20
--- NOTE | 2017-05-02 11:29 | CP.PCM.PN ---
Addendum entered and electronically signed by Job Whiting DO 05/02/17 11:39: MELD 37 05/02/2017, but may be falsely elevated in the setting of hemolytic anemia Original Note: <Job Whiting - Last Filed: 05/02/17 11:32> Subjective - Date & Time of Evaluation Date of Evaluation: 05/02/17 Time of Evaluation: 10:30 - Subjective Subjective: PGY4 GI Follow-up Pt seen and examined bedside s/p intubation and sedated RN reports no BM overnight NPO ROS: 10 point ROS conducted and otherwise neg Objective - Vital Signs/Intake and Output Vital Signs (last 24 hours): Temp Pulse Resp BP Pulse Ox 99.2 F 117 H 27 H 124/74 98 05/02/17 08:00 05/02/17 10:00 05/02/17 10:00 05/02/17 10:00 05/02/17 10:00 Intake and Output: 05/02/17 05/02/17 06:59 18:59 Intake Total 1755 550 Output Total 330 Balance 1425 550 - Medications Medications: Current Medications Acetaminophen (Tylenol 650 Mg Supp) 650 mg NC ONCE ARLET Last Admin: 04/28/17 14:30 Dose: 650 mg Albumin Human (Albumin Human 5% (12.5 Gm/250 Ml)) 125 gm IV DAILY ARLET Stop: 05/04/17 15:00 Last Admin: 05/01/17 17:34 Dose: 125 gm Albuterol Sulfate (Albuterol 0.083% Inhal Rae (2.5 Mg/3 Ml) Ud) 2.5 mg INH RQ4 PRN PRN Reason: Shortness of Breath Allopurinol (Zyloprim) 200 mg PO DAILY ARLET Last Admin: 05/01/17 09:42 Dose: Not Given Hydrocortisone Sodium Succinate (Solu-Cortef) 100 mg IV Q8 ARLET Last Admin: 05/02/17 08:59 Dose: 100 mg Hydromorphone HCl (Dilaudid) 0.5 mg IVP Q4 PRN PRN Reason: Pain, moderate (4-7) Last Admin: 04/30/17 01:02 Dose: 0.5 mg Hydromorphone HCl (Dilaudid) 1 mg IVP Q4 PRN PRN Reason: Agitation Vancomycin HCl 1 gm/ Sodium (Chloride) 250 mls @ 166.667 mls/hr IVPB DAILY [facility] PRN Reason: Protocol Last Admin: 05/02/17 09:00 Dose: 166.667 mls/hr Piperacillin Sod/Tazobactam Sod (Zosyn 2.25 Gm Iv Premix) 2.25 gm in 50 mls @ 50 mls/hr IVPB Q6 [facility] PRN Reason: Protocol Last Admin: 05/02/17 09:09 Dose: 50 mls/hr Insulin Detemir (Levemir) 14 units SC HS [facility] Last Admin: 05/01/17 23:09 Dose: 14 u Insulin Human Lispro (Humalog) 0 units SC ACHS [facility] PRN Reason: Protocol Last Admin: 05/02/17 06:47 Dose: 3 u Lactulose (Enulose) 20 gm PO Q1 [facility] Last Admin: 05/01/17 07:13 Dose: Not Given Lactulose (Generlac) 200 gm NC Q4 PRN PRN Reason: Constipation Ondansetron HCl (Zofran Inj) 4 mg IVP Q6H PRN PRN Reason: Nausea/Vomiting Pantoprazole Sodium (Protonix Inj) 40 mg IVP DAILY [facility] Last Admin: 05/02/17 09:00 Dose: 40 mg - Labs Labs: 05/02/17 08:20 05/02/17 08:20 PT 44.3 Seconds (9.8-13.1) H* 05/02/17 08:20 INR 3.8 (0.9-1.2) H 05/02/17 08:20 APTT 37.0 Seconds (25.6-37.1) 04/30/17 04:20 - Constitutional Appears: No Acute Distress - Head Exam Head Exam: ATRAUMATIC, NORMOCEPHALIC - Eye Exam Eye Exam: Scleral icterus - ENT Exam ENT Exam: Mucous Membranes Moist - Cardiovascular Exam Cardiovascular Exam: REGULAR RHYTHM, +S1, +S2 - GI/Abdominal Exam GI & Abdominal Exam: Soft, Hypoactive Bowel Sounds. absent: Firm, Guarding, Rigid, Hyperactive Bowel Sounds, Organomegaly - Extremities Exam Extremities Exam: absent: Joint Swelling, Pedal Edema - Neurological Exam Neurological Exam: Altered - Psychiatric Exam Additional comments: could not assess - Skin Skin Exam: Dry, Intact, Warm Additional comments: juandice Assessment and Plan - Assessment and Plan (Free Text) Assessment: Assessment: Janet Taylor is a 57f w/ hx of cirrhosis, HCV, anemia, hx of polysubstance use who presents to the Er with weakness and confusion. Pt had marked anemia and thrombocytopenia Hemolytic anemia likely 2/2 HCV meds especially ribaviran Chronic HCV on tx as oupt Cirrhosis etiology like HCV Thrombocytopenia 2/2 to the above Severe Hepatic Encephalopathy Plan: -continue lactulose PO via OG -Give lactulose 20g 4 hrs for 2-3 BM daily -if unable to take PO, use NC -continue to hold Hep C tx for now -no indication for any endoscopy at this time -anemia likey hemolytic 2/2 HCV tx -transfuse as per Hem/Onc -keep hgb > 7, but restrict PRBC transfusion since she is cirrhotic, today hgb ~ 11 s/p 1 unit PRBC -No other active treatment recommend at this time -fractionate Bilirubin to determine etiology, r/o hemolytic anemia as the cause of rise -will eventually need a Triple phase to r/o HCC or biliary mass or lesion D/W Dr. Fuchs <Jef CUEVAS,[facility] - Last Filed: 05/02/17 14:03> Objective - Vital Signs/Intake and Output Vital Signs (last 24 hours): Temp Pulse Resp BP Pulse Ox 99.2 F 110 H 22 128/79 97 05/02/17 12:00 05/02/17 13:00 05/02/17 13:00 05/02/17 13:00 05/02/17 13:00 Intake and Output: 05/02/17 05/02/17 06:59 18:59 Intake Total 1755 800 Output Total 330 Balance 1425 800 - Medications Medications: Current Medications Acetaminophen (Tylenol 650 Mg Supp) 650 mg NC ONCE ARLET Last Admin: 04/28/17 14:30 Dose: 650 mg Albumin Human (Albumin Human 5% (12.5 Gm/250 Ml)) 125 gm IV DAILY ARLET Stop: 05/04/17 15:00 Last Admin: 05/01/17 17:34 Dose: 125 gm Albuterol Sulfate (Albuterol 0.083% Inhal Rae (2.5 Mg/3 Ml) Ud) 2.5 mg INH RQ4 PRN PRN Reason: Shortness of Breath Allopurinol (Zyloprim) 200 mg PO DAILY [facility] Last Admin: 05/01/17 09:42 Dose: Not Given Hydrocortisone Sodium Succinate (Solu-Cortef) 100 mg IV Q8 [facility] Last Admin: 05/02/17 08:59 Dose: 100 mg Hydromorphone HCl (Dilaudid) 0.5 mg IVP Q4 PRN PRN Reason: Pain, moderate (4-7) Last Admin: 04/30/17 01:02 Dose: 0.5 mg Hydromorphone HCl (Dilaudid) 1 mg IVP Q4 PRN PRN Reason: Agitation Last Admin: 05/02/17 11:15 Dose: 1 mg Vancomycin HCl 1 gm/ Sodium (Chloride) 250 mls @ 166.667 mls/hr IVPB DAILY [facility] PRN Reason: Protocol Last Admin: 05/02/17 09:00 Dose: 166.667 mls/hr Piperacillin Sod/Tazobactam Sod (Zosyn 2.25 Gm Iv Premix) 2.25 gm in 50 mls @ 50 mls/hr IVPB Q6 [facility] PRN Reason: Protocol Last Admin: 05/02/17 09:09 Dose: 50 mls/hr Insulin Detemir (Levemir) 14 units SC HS [facility] Last Admin: 05/01/17 23:09 Dose: 14 u Insulin Human Lispro (Humalog) 0 units SC ACHS [facility] PRN Reason: Protocol Last Admin: 05/02/17 12:11 Dose: 4 u Lactulose (Enulose) 20 gm PO QID [facility] Last Admin: 05/02/17 12:12 Dose: 20 gm Ondansetron HCl (Zofran Inj) 4 mg IVP Q6H PRN PRN Reason: Nausea/Vomiting Pantoprazole Sodium (Protonix Inj) 40 mg IVP DAILY [facility] Last Admin: 05/02/17 09:00 Dose: 40 mg - Labs Labs: 05/02/17 08:20 05/02/17 08:20 PT 44.3 Seconds (9.8-13.1) H* 05/02/17 08:20 INR 3.8 (0.9-1.2) H 05/02/17 08:20 APTT 37.0 Seconds (25.6-37.1) 04/30/17 04:20 Attending/Attestation - Attestation I have personally seen and examined this patient.: Yes I have fully participated in the care of the patient.: Yes I have reviewed all pertinent clinical information, including history, physical exam and plan: Yes Notes (Text): 05/02/17 13:57 This is 57 yr old F with HCV cirrhosis on treatmeent started at [facility] from October- Feb 2017. She has been on multiple medications including epclusa, visovi, ribavirin and presented to ER few days ago with pancytopenia. She has portal HTN with splenomegaly and bone marrow suppresion with hemolytic anemia due to ribavirin. Patient was obtunded in MICU s/p intubation for airway protection. On high FiO2 today. On lactulose with adequate bowel movements. High MELD of 37 precluding transplant evlaluation. Total bilirubin trending up- could be hemolysis component. Will get fractionated bilirubin. No overt signs of GI bleeding. goal Hb/Hct should be 7/21 in setting of cirrhosis. Reviewed CT abdomen and pelvis- has bony lytic lesions likely metastatic with thickening of sigmoid colon. No previous EGD/ colonoscopy. Grim prognosis. Team should discuss with family goals of care. Will follow. Discussed with admissions advisor. 05/02/17 14:01
--- NOTE | 2017-05-02 11:37 | CP.CCUPN ---
CCU Subjective - Physician Review Subjective (Free Text): Eyes closed, remains lethargic and obtunded, minimal withdrawal to pain stimuli , orally intubated yesterday AM, breathing and assisting the vent at 24 on AC 14, 450ml, 60% and PEEP5, SPO2 100%. Given 2 units PRBCs yesterday for repeat HGB 7.2 post Plasmapheresis and HGB this AM = 11.6. 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 Other vitals and I/O's reviewed. Tmax 99.7 F last 24H. Overall positive fluid balance last 24 hours. ROS: Intubated and lethargic: No other pertinent negs or positives on 10+ system review. 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 CXR: ETT position Ok above yuly, scattered R sided infiltrates- owing to technique, mostly unchanged from yesterdays film. IMPRESSION / MAJOR PROBLEMS NOW: 1. AMS, with Severe Anemia, thrombocytopenia, coagulopathy, abnormal LFTs: 2 TTP, w/u for occult malignancy so far inconclusive. 2. Azotemia with Hyperkalemia 3. s/p Hypercalcemia on admission PLAN: 1. Further plasmapheresis now placed on hold as per Heme-Onc and Nephro. 2. CT Brain to assess for any occult ICH. Will stop CT AP today, no precipitous drop in HGB noted, nor any suspicion of retroperitoneal bleeding. 3. Tap water hydration. Stop saline - containing fluids. Much diarrheal stools noted. 4. 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 5. Empiric Zosyn / Vanco noted. Sputum cx from 05/01 pending. 6. Fibrinogen levels also low, with low platelets. Consider Cryoppt if active bleeding evident. 7. Try decreasing FiO2 to 50%, no other MV weans contemplated as she remains lethargic. 8. Bilirubin levels increasing again, but low Hgb yesterday may have been a lab error. Repeat chemistry and LFTs with fractionated Bili levels. 9. Jevity or Vital feeds, will discuss with Lisw. CCU Objective - Vital Signs / Intake & Output Vital Signs (Last 4 hours): Vital Signs Temp Pulse Resp BP Pulse Ox 05/02/17 10:00 117 H 27 H 124/74 98 05/02/17 09:00 106 H 21 152/93 H 97 05/02/17 08:00 99.2 F 113 H 13 148/93 H 98 Intake and Output (Last 8hrs): Intake & Output 05/01/17 05/02/17 05/02/17 22:59 06:59 14:59 Intake Total 690 1515 550 Output Total 230 300 Balance 460 1215 550 Weight 170 lb Intake: IV 500 700 250 Intake, Piggyback 150 100 300 Tube Feeding 40 40 Blood Product 650 Free Water Flush 25 Output: Gastric Amount 30 Stomach 30 Urine 200 300 Urethral (Valadez) 200 300 Other: # Bowel Movements 1 - Physical Exam Head: Positive for: Atraumatic, Normocephalic Pupils: Positive for: PERRL Extroacular Muscles: Positive for: EOMI Conjunctiva: Positive for: Icteric Mouth: Positive for: Dry Pharnyx: Negative for: ERYTHEMA, EXUDATE Neck: Negative for: Meningeal Signs, JVD, Lymphadenopathy Cardiovascular: Positive for: Regular Rate and Rhythm. Negative for: Murmurs, Rub Abdomen: Positive for: Normal Bowel Sounds, Other (+ splenomegaly). Negative for: Tenderness, Distention Rectal: Negative for: Occult Blood, Melena, Fissures Lower Extremity: Positive for: Edema, NORMAL PULSES. Negative for: CALF TENDERNESS, Cyanosis Neurological: Positive for: CN II-XII Intact (Unable to assest ), Motor Func Grossly Intact, Normal Sensory Function, Norm Deep Tendon Reflexes. Negative for: GCS=15 Skin: Positive for: Warm, Dry, Other (no petechiae). Negative for: Rashes Psychiatric: Positive for: Alert. Negative for: Oriented x 3 (Confused disoriented to person, time and place) - Medications Active Medications: Active Medications Generic Name Dose Route Start Last Admin Trade Name Freq PRN Reason Stop Dose Admin Acetaminophen 650 mg 04/28/17 10:00 04/28/17 14:30 Tylenol 650 Mg Supp GA 650 mg ONCE ARLET Administration Albumin Human 125 gm 05/02/17 09:00 05/01/17 17:34 Albumin Human 5% (12.5 Gm/250 Ml) IV 05/04/17 15:00 125 gm DAILY ARLET Administration Albuterol Sulfate 2.5 mg 04/27/17 19:45 Albuterol 0.083% Inhal Rae (2.5 Mg/3 Ml) Ud INH RQ4 PRN Shortness of Breath Allopurinol 200 mg 04/28/17 09:00 05/01/17 09:42 Zyloprim PO Not Given DAILY ARLET Hydrocortisone Sodium Succinate 100 mg 05/01/17 17:00 05/02/17 08:59 Solu-Cortef IV 100 mg Q8 ARLET Administration Hydromorphone HCl 0.5 mg 04/28/17 23:02 04/30/17 01:02 Dilaudid IVP 0.5 mg Q4 PRN Administration Pain, moderate (4-7) Hydromorphone HCl 1 mg 05/02/17 11:10 Dilaudid IVP Q4 PRN Agitation Vancomycin HCl 1 gm/ Sodium 250 mls @ 166.667 mls/hr 04/28/17 09:00 05/02/17 09:00 Chloride IVPB 166.667 mls/hr DAILY [facility] Administration Protocol Piperacillin Sod/Tazobactam Sod 2.25 gm in 50 mls @ 50 mls/hr 04/27/17 22:00 05/02/17 09:09 Zosyn 2.25 Gm Iv Premix IVPB 50 mls/hr Q6 [facility] Administration Protocol Insulin Detemir 14 units 04/30/17 22:00 05/01/17 23:09 Levemir SC 14 u HS ARLET Administration Insulin Human Lispro 0 units 04/27/17 16:30 05/02/17 06:47 Humalog SC 3 u ACHS [facility] Administration Protocol Lactulose 20 gm 04/30/17 22:00 05/01/17 07:13 Enulose PO Not Given Q1 ARLET Lactulose 200 gm 04/30/17 21:41 Generlac GA Q4 PRN Constipation Ondansetron HCl 4 mg 04/27/17 19:20 Zofran Inj IVP Q6H PRN Nausea/Vomiting Pantoprazole Sodium 40 mg 04/28/17 09:00 05/02/17 09:00 Protonix Inj IVP 40 mg DAILY ARLET Administration - Patient Studies Lab Studies: Microbiology Studies 05/01/17 17:22 Gram Stain - Final Sputum 04/27/17 14:05 Blood Culture - Preliminary Blood-Venous NO GROWTH AFTER 4 DAYS 04/27/17 13:35 Blood Culture - Preliminary Blood-Venous NO GROWTH AFTER 4 DAYS Lab Studies 05/02/17 05/02/17 05/02/17 Range/Units 08:20 08:20 08:20 WBC 20.3 H (4.8-10.8) K/uL RBC 3.80 (3.80-5.20) Mil/uL Hgb 11.6 L D (12.0-16.0) g/dL Hct 35.2 (34.0-47.0) % MCV 92.5 D (81.0-99.0) fl MCH 30.5 (27.0-31.0) pg MCHC 32.9 L (33.0-37.0) g/dL RDW 21.0 H (11.5-14.5) % Plt Count 32 L (130-400) K/uL MPV (7.2-11.7) fl Neut % (Auto) (50.0-75.0) % Lymph % (Auto) (20.0-40.0) % [place] % (Auto) (0.0-10.0) % Eos % (Auto) (0.0-4.0) % Baso % (Auto) (0.0-2.0) % Neut # (1.8-7.0) K/uL Lymph # (1.0-4.3) K/uL [place] # (0.0-0.8) K/uL Eos # (0.0-0.7) K/uL Baso # (0.0-0.2) K/uL PT 44.3 H* (9.8-13.1) Seconds INR 3.8 H (0.9-1.2) pCO2 (35-45) mm/Hg pO2 (80-100) mm/Hg HCO3 (21-28) mmol/L ABG pH (7.35-7.45) ABG Total CO2 (22-28) mmol/L ABG O2 Saturation (95-98) % ABG O2 Content (15-23) ML/dL ABG Base Excess (-2.0-3.0) mmol/L ABG Hemoglobin (11.7-17.4) g/dL ABG Carboxyhemoglobin (0.5-1.5) % POC ABG HHb (Measured) (0.0-5.0) % ABG Methemoglobin (0.0-3.0) % ABG O2 Capacity (16-24) mL/dL Roman Test A-a O2 Difference mm/Hg Hgb O2 Saturation (95.0-98.0) % Vent Mode Mechanical Rate FiO2 % Tidal Volume PEEP Sodium 157 H (132-148) mmol/l Potassium 3.2 L (3.6-5.0) MMOL/L Chloride 120 H (98-107) mmol/L Carbon Dioxide 21 L (22-30) mmol/L Anion Gap 19 (10-20) BUN 90 H (7-17) mg/dl Creatinine 2.0 H (0.7-1.2) mg/dl Est GFR ( Amer) 31 Est GFR (Non-Af Amer) 26 POC Glucose (mg/dL) (65-110) mg/dL Random Glucose 273 H (65-105) mg/dL Calcium 9.2 (8.4-10.2) mg/dL Phosphorus (2.5-4.5) mg/dl Magnesium (1.6-2.3) MG/DL Total Bilirubin 11.7 H (0.2-1.3) mg/dl AST 230 H D (14-36) U/L ALT 82 H D (9-52) U/L Alkaline Phosphatase 79 (38-126) U/L Total Protein 6.0 L (6.3-8.2) G/DL Albumin 3.3 L (3.5-5.0) g/dL Albumin (PEP) (3.8-4.8) g/dL Globulin 2.8 (2.2-3.9) gm/dL Albumin/Globulin Ratio 1.2 (1.0-2.1) Btbpx-0-Aixtxemrs (0.2-0.3) g/dL Vkppm-4-Pvijncyup (0.5-0.9) g/dL Jqfp-2-Mnlahvsq (0.4-0.6) g/dL Xnmo-7-Vweerfzj (0.2-0.5) g/dL Gamma Globulins (0.8-1.7) g/dL Abnorm Protein Band 1 Abnorm Protein Band 2 Abnorm Protein Band 3 BEKAH & SPEP Interp Serum Immunofixation (Not Detected) Hepatitis A IgM Ab (NEGATIVE) Hep Bs Antigen (NEGATIVE) Hep B Core IgM Ab (NEGATIVE) Hepatitis C Antibody (NEGATIVE) Mycoplasma pneumon IgM (<770) U/mL Blood Type Antibody Screen Crossmatch BBK History Checked 05/02/17 05/02/17 05/01/17 Range/Units 05:36 04:22 21:40 WBC (4.8-10.8) K/uL RBC (3.80-5.20) Mil/uL Hgb (12.0-16.0) g/dL Hct (34.0-47.0) % MCV (81.0-99.0) fl MCH (27.0-31.0) pg MCHC (33.0-37.0) g/dL RDW (11.5-14.5) % Plt Count (130-400) K/uL MPV (7.2-11.7) fl Neut % (Auto) (50.0-75.0) % Lymph % (Auto) (20.0-40.0) % [place] % (Auto) (0.0-10.0) % Eos % (Auto) (0.0-4.0) % Baso % (Auto) (0.0-2.0) % Neut # (1.8-7.0) K/uL Lymph # (1.0-4.3) K/uL [place] # (0.0-0.8) K/uL Eos # (0.0-0.7) K/uL Baso # (0.0-0.2) K/uL PT (9.8-13.1) Seconds INR (0.9-1.2) pCO2 33 L (35-45) mm/Hg pO2 89 (80-100) mm/Hg HCO3 23.0 (21-28) mmol/L ABG pH 7.42 (7.35-7.45) ABG Total CO2 22.4 (22-28) mmol/L ABG O2 Saturation 99.3 H (95-98) % ABG O2 Content 13.8 L (15-23) ML/dL ABG Base Excess -2.5 L (-2.0-3.0) mmol/L ABG Hemoglobin 10.1 L (11.7-17.4) g/dL ABG Carboxyhemoglobin 2.0 H (0.5-1.5) % POC ABG HHb (Measured) 0.7 (0.0-5.0) % ABG Methemoglobin 1.2 (0.0-3.0) % ABG O2 Capacity 13.9 L (16-24) mL/dL Roman Test Yes A-a O2 Difference 298.0 mm/Hg Hgb O2 Saturation 96.1 (95.0-98.0) % Vent Mode A/c Mechanical Rate 14 FiO2 60.0 % Tidal Volume 450 PEEP 5 Sodium (132-148) mmol/l Potassium (3.6-5.0) MMOL/L Chloride (98-107) mmol/L Carbon Dioxide (22-30) mmol/L Anion Gap (10-20) BUN (7-17) mg/dl Creatinine (0.7-1.2) mg/dl Est GFR ( Amer) Est GFR (Non-Af Amer) POC Glucose (mg/dL) 282 H (65-110) mg/dL Random Glucose (65-105) mg/dL Calcium (8.4-10.2) mg/dL Phosphorus (2.5-4.5) mg/dl Magnesium (1.6-2.3) MG/DL Total Bilirubin (0.2-1.3) mg/dl AST (14-36) U/L ALT (9-52) U/L Alkaline Phosphatase (38-126) U/L Total Protein (6.3-8.2) G/DL Albumin (3.5-5.0) g/dL Albumin (PEP) (3.8-4.8) g/dL Globulin (2.2-3.9) gm/dL Albumin/Globulin Ratio (1.0-2.1) Veafs-6-Eoqabhexk (0.2-0.3) g/dL Ojinr-0-Hvbzkhyxf (0.5-0.9) g/dL Wktx-2-Hgqaiofh (0.4-0.6) g/dL Lxij-9-Tkzdjdjd (0.2-0.5) g/dL Gamma Globulins (0.8-1.7) g/dL Abnorm Protein Band 1 Abnorm Protein Band 2 Abnorm Protein Band 3 BEKAH & SPEP Interp Serum Immunofixation (Not Detected) Hepatitis A IgM Ab (NEGATIVE) Hep Bs Antigen (NEGATIVE) Hep B Core IgM Ab (NEGATIVE) Hepatitis C Antibody (NEGATIVE) Mycoplasma pneumon IgM (<770) U/mL Blood Type A POSITIVE Antibody Screen Negative Crossmatch See Detail BBK History Checked Patient has bt 05/01/17 05/01/17 05/01/17 Range/Units 21:14 17:22 17:22 WBC 17.8 H (4.8-10.8) K/uL RBC 2.36 L (3.80-5.20) Mil/uL Hgb 7.2 L D (12.0-16.0) g/dL Hct 22.8 L (34.0-47.0) % MCV 96.9 (81.0-99.0) fl MCH 30.4 (27.0-31.0) pg MCHC 31.4 L (33.0-37.0) g/dL RDW 23.7 H (11.5-14.5) % Plt Count 30 L* (130-400) K/uL MPV 12.2 H (7.2-11.7) fl Neut % (Auto) 77.5 H (50.0-75.0) % Lymph % (Auto) 14.6 L (20.0-40.0) % [place] % (Auto) 6.9 (0.0-10.0) % Eos % (Auto) 0.8 (0.0-4.0) % Baso % (Auto) 0.2 (0.0-2.0) % Neut # 13.8 H (1.8-7.0) K/uL Lymph # 2.6 (1.0-4.3) K/uL [place] # 1.2 H (0.0-0.8) K/uL Eos # 0.1 (0.0-0.7) K/uL Baso # 0.0 (0.0-0.2) K/uL PT (9.8-13.1) Seconds INR (0.9-1.2) pCO2 (35-45) mm/Hg pO2 (80-100) mm/Hg HCO3 (21-28) mmol/L ABG pH (7.35-7.45) ABG Total CO2 (22-28) mmol/L ABG O2 Saturation (95-98) % ABG O2 Content (15-23) ML/dL ABG Base Excess (-2.0-3.0) mmol/L ABG Hemoglobin (11.7-17.4) g/dL ABG Carboxyhemoglobin (0.5-1.5) % POC ABG HHb (Measured) (0.0-5.0) % ABG Methemoglobin (0.0-3.0) % ABG O2 Capacity (16-24) mL/dL Roman Test A-a O2 Difference mm/Hg Hgb O2 Saturation (95.0-98.0) % Vent Mode Mechanical Rate FiO2 % Tidal Volume PEEP Sodium 157 H (132-148) mmol/l Potassium 3.0 L (3.6-5.0) MMOL/L Chloride 120 H (98-107) mmol/L Carbon Dioxide 16 L (22-30) mmol/L Anion Gap 24 H (10-20) BUN 70 H (7-17) mg/dl Creatinine 1.9 H (0.7-1.2) mg/dl Est GFR ( Amer) 33 Est GFR (Non-Af Amer) 27 POC Glucose (mg/dL) 245 H (65-110) mg/dL Random Glucose 158 H (65-105) mg/dL Calcium 8.7 (8.4-10.2) mg/dL Phosphorus 2.7 (2.5-4.5) mg/dl Magnesium 1.9 (1.6-2.3) MG/DL Total Bilirubin 5.1 H (0.2-1.3) mg/dl AST 109 H D (14-36) U/L ALT 51 (9-52) U/L Alkaline Phosphatase 36 L D (38-126) U/L Total Protein 5.0 L (6.3-8.2) G/DL Albumin 3.1 L (3.5-5.0) g/dL Albumin (PEP) (3.8-4.8) g/dL Globulin 1.8 L (2.2-3.9) gm/dL Albumin/Globulin Ratio 1.7 (1.0-2.1) Exlgy-4-Qasmkhyxn (0.2-0.3) g/dL Blehk-6-Bpnptzqoq (0.5-0.9) g/dL Cvpq-5-Lxebfkym (0.4-0.6) g/dL Yftf-0-Mfmzivyd (0.2-0.5) g/dL Gamma Globulins (0.8-1.7) g/dL Abnorm Protein Band 1 Abnorm Protein Band 2 Abnorm Protein Band 3 BEKAH & SPEP Interp Serum Immunofixation (Not Detected) Hepatitis A IgM Ab (NEGATIVE) Hep Bs Antigen (NEGATIVE) Hep B Core IgM Ab (NEGATIVE) Hepatitis C Antibody (NEGATIVE) Mycoplasma pneumon IgM (<770) U/mL Blood Type Antibody Screen Crossmatch BBK History Checked 05/01/17 05/01/17 05/01/17 Range/Units 16:17 12:15 04:20 WBC (4.8-10.8) K/uL RBC (3.80-5.20) Mil/uL Hgb (12.0-16.0) g/dL Hct (34.0-47.0) % MCV (81.0-99.0) fl MCH (27.0-31.0) pg MCHC (33.0-37.0) g/dL RDW (11.5-14.5) % Plt Count (130-400) K/uL MPV (7.2-11.7) fl Neut % (Auto) (50.0-75.0) % Lymph % (Auto) (20.0-40.0) % [place] % (Auto) (0.0-10.0) % Eos % (Auto) (0.0-4.0) % Baso % (Auto) (0.0-2.0) % Neut # (1.8-7.0) K/uL Lymph # (1.0-4.3) K/uL [place] # (0.0-0.8) K/uL Eos # (0.0-0.7) K/uL Baso # (0.0-0.2) K/uL PT 45.1 H* (9.8-13.1) Seconds INR 3.9 H D (0.9-1.2) pCO2 (35-45) mm/Hg pO2 (80-100) mm/Hg HCO3 (21-28) mmol/L ABG pH (7.35-7.45) ABG Total CO2 (22-28) mmol/L ABG O2 Saturation (95-98) % ABG O2 Content (15-23) ML/dL ABG Base Excess (-2.0-3.0) mmol/L ABG Hemoglobin (11.7-17.4) g/dL ABG Carboxyhemoglobin (0.5-1.5) % POC ABG HHb (Measured) (0.0-5.0) % ABG Methemoglobin (0.0-3.0) % ABG O2 Capacity (16-24) mL/dL Roman Test A-a O2 Difference mm/Hg Hgb O2 Saturation (95.0-98.0) % Vent Mode Mechanical Rate FiO2 % Tidal Volume PEEP Sodium (132-148) mmol/l Potassium (3.6-5.0) MMOL/L Chloride (98-107) mmol/L Carbon Dioxide (22-30) mmol/L Anion Gap (10-20) BUN (7-17) mg/dl Creatinine (0.7-1.2) mg/dl Est GFR ( Amer) Est GFR (Non-Af Amer) POC Glucose (mg/dL) 189 H (65-110) mg/dL Random Glucose (65-105) mg/dL Calcium (8.4-10.2) mg/dL Phosphorus (2.5-4.5) mg/dl Magnesium (1.6-2.3) MG/DL Total Bilirubin (0.2-1.3) mg/dl AST (14-36) U/L ALT (9-52) U/L Alkaline Phosphatase (38-126) U/L Total Protein (6.3-8.2) G/DL Albumin (3.5-5.0) g/dL Albumin (PEP) (3.8-4.8) g/dL Globulin (2.2-3.9) gm/dL Albumin/Globulin Ratio (1.0-2.1) Bcorg-5-Bqvjrxmdz (0.2-0.3) g/dL Jopxn-4-Klgaccnek (0.5-0.9) g/dL Bohn-3-Lwlzeanm (0.4-0.6) g/dL Mafy-9-Jamkfwdp (0.2-0.5) g/dL Gamma Globulins (0.8-1.7) g/dL Abnorm Protein Band 1 Abnorm Protein Band 2 Abnorm Protein Band 3 BEKAH & SPEP Interp Serum Immunofixation (Not Detected) Hepatitis A IgM Ab Negative (NEGATIVE) Hep Bs Antigen Negative (NEGATIVE) Hep B Core IgM Ab Negative (NEGATIVE) Hepatitis C Antibody Reactive (NEGATIVE) Mycoplasma pneumon IgM (<770) U/mL Blood Type Antibody Screen Crossmatch BBK History Checked 04/28/17 04/27/17 04/27/17 Range/Units 05:30 17:10 17:10 WBC (4.8-10.8) K/uL RBC (3.80-5.20) Mil/uL Hgb (12.0-16.0) g/dL Hct (34.0-47.0) % MCV (81.0-99.0) fl MCH (27.0-31.0) pg MCHC (33.0-37.0) g/dL RDW (11.5-14.5) % Plt Count (130-400) K/uL MPV (7.2-11.7) fl Neut % (Auto) (50.0-75.0) % Lymph % (Auto) (20.0-40.0) % [place] % (Auto) (0.0-10.0) % Eos % (Auto) (0.0-4.0) % Baso % (Auto) (0.0-2.0) % Neut # (1.8-7.0) K/uL Lymph # (1.0-4.3) K/uL [place] # (0.0-0.8) K/uL Eos # (0.0-0.7) K/uL Baso # (0.0-0.2) K/uL PT (9.8-13.1) Seconds INR (0.9-1.2) pCO2 (35-45) mm/Hg pO2 (80-100) mm/Hg HCO3 (21-28) mmol/L ABG pH (7.35-7.45) ABG Total CO2 (22-28) mmol/L ABG O2 Saturation (95-98) % ABG O2 Content (15-23) ML/dL ABG Base Excess (-2.0-3.0) mmol/L ABG Hemoglobin (11.7-17.4) g/dL ABG Carboxyhemoglobin (0.5-1.5) % POC ABG HHb (Measured) (0.0-5.0) % ABG Methemoglobin (0.0-3.0) % ABG O2 Capacity (16-24) mL/dL Roman Test A-a O2 Difference mm/Hg Hgb O2 Saturation (95.0-98.0) % Vent Mode Mechanical Rate FiO2 % Tidal Volume PEEP Sodium (132-148) mmol/l Potassium (3.6-5.0) MMOL/L Chloride (98-107) mmol/L Carbon Dioxide (22-30) mmol/L Anion Gap (10-20) BUN (7-17) mg/dl Creatinine (0.7-1.2) mg/dl Est GFR ( Amer) Est GFR (Non-Af Amer) POC Glucose (mg/dL) (65-110) mg/dL Random Glucose (65-105) mg/dL Calcium (8.4-10.2) mg/dL Phosphorus (2.5-4.5) mg/dl Magnesium (1.6-2.3) MG/DL Total Bilirubin (0.2-1.3) mg/dl AST (14-36) U/L ALT (9-52) U/L Alkaline Phosphatase (38-126) U/L Total Protein (6.3-8.2) G/DL Albumin (3.5-5.0) g/dL Albumin (PEP) 2.0 L (3.8-4.8) g/dL Globulin (2.2-3.9) gm/dL Albumin/Globulin Ratio (1.0-2.1) Lmnqe-9-Kqbsjuymx 0.2 (0.2-0.3) g/dL Utkyu-0-Yyscmhdpx 0.6 (0.5-0.9) g/dL Rtqa-2-Ytvayikp 0.2 L (0.4-0.6) g/dL Lylh-8-Kjxoioks 0.4 (0.2-0.5) g/dL Gamma Globulins 3.1 H (0.8-1.7) g/dL Abnorm Protein Band 1 TEST NOT PERFORMED Abnorm Protein Band 2 TEST NOT PERFORMED Abnorm Protein Band 3 TEST NOT PERFORMED BEKAH & SPEP Interp See note Serum Immunofixation Not detected (Not Detected) Hepatitis A IgM Ab (NEGATIVE) Hep Bs Antigen (NEGATIVE) Hep B Core IgM Ab (NEGATIVE) Hepatitis C Antibody (NEGATIVE) Mycoplasma pneumon IgM 1683 H (<770) U/mL Blood Type Antibody Screen Crossmatch BBK History Checked Laboratory Results - last 24 hr 04/27/17 04/27/17 04/28/17 17:10 17:10 05:30 WBC RBC Hgb Hct MCV MCH MCHC RDW Plt Count MPV Neut % (Auto) Lymph % (Auto) [place] % (Auto) Eos % (Auto) Baso % (Auto) Neut # Lymph # [place] # Eos # Baso # PT INR pCO2 pO2 HCO3 ABG pH ABG Total CO2 ABG O2 Saturation ABG O2 Content ABG Base Excess ABG Hemoglobin ABG Carboxyhemoglobin POC ABG HHb (Measured) ABG Methemoglobin ABG O2 Capacity Roman Test A-a O2 Difference Hgb O2 Saturation Vent Mode Mechanical Rate FiO2 Tidal Volume PEEP Sodium Potassium Chloride Carbon Dioxide Anion Gap BUN Creatinine Est GFR ( Amer) Est GFR (Non-Af Amer) POC Glucose (mg/dL) Random Glucose Calcium Phosphorus Magnesium Total Bilirubin AST ALT Alkaline Phosphatase Total Protein Albumin Albumin (PEP) 2.0 L Globulin Albumin/Globulin Ratio Cogto-5-Mavhfpbow 0.2 Yyxcd-1-Xqqzmjnwr 0.6 Nxby-2-Edooorjq 0.2 L Jqjg-5-Bglspvqi 0.4 Gamma Globulins 3.1 H Abnorm Protein Band 1 TEST NOT PERFORMED Abnorm Protein Band 2 TEST NOT PERFORMED Abnorm Protein Band 3 TEST NOT PERFORMED BEKAH & SPEP Interp See note Serum Immunofixation Not detected Hepatitis A IgM Ab Hep Bs Antigen Hep B Core IgM Ab Hepatitis C Antibody Mycoplasma pneumon IgM 1683 H Blood Type Antibody Screen Crossmatch BBK History Checked 05/01/17 05/01/17 05/01/17 04:20 12:15 16:17 WBC RBC Hgb Hct MCV MCH MCHC RDW Plt Count MPV Neut % (Auto) Lymph % (Auto) [place] % (Auto) Eos % (Auto) Baso % (Auto) Neut # Lymph # [place] # Eos # Baso # PT 45.1 H* INR 3.9 H D pCO2 pO2 HCO3 ABG pH ABG Total CO2 ABG O2 Saturation ABG O2 Content ABG Base Excess ABG Hemoglobin ABG Carboxyhemoglobin POC ABG HHb (Measured) ABG Methemoglobin ABG O2 Capacity Roman Test A-a O2 Difference Hgb O2 Saturation Vent Mode Mechanical Rate FiO2 Tidal Volume PEEP Sodium Potassium Chloride Carbon Dioxide Anion Gap BUN Creatinine Est GFR ( Amer) Est GFR (Non-Af Amer) POC Glucose (mg/dL) 189 H Random Glucose Calcium Phosphorus Magnesium Total Bilirubin AST ALT Alkaline Phosphatase Total Protein Albumin Albumin (PEP) Globulin Albumin/Globulin Ratio Jzqpo-1-Zyjrvhwhm Ytxyu-2-Xeyvvbmze Jars-3-Xqprqtot Pnip-0-Mqltvbgt Gamma Globulins Abnorm Protein Band 1 Abnorm Protein Band 2 Abnorm Protein Band 3 BEKAH & SPEP Interp Serum Immunofixation Hepatitis A IgM Ab Negative Hep Bs Antigen Negative Hep B Core IgM Ab Negative Hepatitis C Antibody Reactive Mycoplasma pneumon IgM Blood Type Antibody Screen Crossmatch BBK History Checked 05/01/17 05/01/17 05/01/17 17:22 17:22 21:14 WBC 17.8 H RBC 2.36 L Hgb 7.2 L D Hct 22.8 L MCV 96.9 MCH 30.4 MCHC 31.4 L RDW 23.7 H Plt Count 30 L* MPV 12.2 H Neut % (Auto) 77.5 H Lymph % (Auto) 14.6 L [place] % (Auto) 6.9 Eos % (Auto) 0.8 Baso % (Auto) 0.2 Neut # 13.8 H Lymph # 2.6 [place] # 1.2 H Eos # 0.1 Baso # 0.0 PT INR pCO2 pO2 HCO3 ABG pH ABG Total CO2 ABG O2 Saturation ABG O2 Content ABG Base Excess ABG Hemoglobin ABG Carboxyhemoglobin POC ABG HHb (Measured) ABG Methemoglobin ABG O2 Capacity Roman Test A-a O2 Difference Hgb O2 Saturation Vent Mode Mechanical Rate FiO2 Tidal Volume PEEP Sodium 157 H Potassium 3.0 L Chloride 120 H Carbon Dioxide 16 L Anion Gap 24 H BUN 70 H Creatinine 1.9 H Est GFR ( Amer) 33 Est GFR (Non-Af Amer) 27 POC Glucose (mg/dL) 245 H Random Glucose 158 H Calcium 8.7 Phosphorus 2.7 Magnesium 1.9 Total Bilirubin 5.1 H AST 109 H D ALT 51 Alkaline Phosphatase 36 L D Total Protein 5.0 L Albumin 3.1 L Albumin (PEP) Globulin 1.8 L Albumin/Globulin Ratio 1.7 Lhhja-3-Lcizefgwr Xseka-5-Pgyrdlnms Wchd-6-Yqorkvlk Yroh-0-Sjbwzcse Gamma Globulins Abnorm Protein Band 1 Abnorm Protein Band 2 Abnorm Protein Band 3 BEKAH & SPEP Interp Serum Immunofixation Hepatitis A IgM Ab Hep Bs Antigen Hep B Core IgM Ab Hepatitis C Antibody Mycoplasma pneumon IgM Blood Type Antibody Screen Crossmatch BBK History Checked 05/01/17 05/02/17 05/02/17 21:40 04:22 05:36 WBC RBC Hgb Hct MCV MCH MCHC RDW Plt Count MPV Neut % (Auto) Lymph % (Auto) [place] % (Auto) Eos % (Auto) Baso % (Auto) Neut # Lymph # [place] # Eos # Baso # PT INR pCO2 33 L pO2 89 HCO3 23.0 ABG pH 7.42 ABG Total CO2 22.4 ABG O2 Saturation 99.3 H ABG O2 Content 13.8 L ABG Base Excess -2.5 L ABG Hemoglobin 10.1 L ABG Carboxyhemoglobin 2.0 H POC ABG HHb (Measured) 0.7 ABG Methemoglobin 1.2 ABG O2 Capacity 13.9 L Roman Test Yes A-a O2 Difference 298.0 Hgb O2 Saturation 96.1 Vent Mode A/c Mechanical Rate 14 FiO2 60.0 Tidal Volume 450 PEEP 5 Sodium Potassium Chloride Carbon Dioxide Anion Gap BUN Creatinine Est GFR ( Amer) Est GFR (Non-Af Amer) POC Glucose (mg/dL) 282 H Random Glucose Calcium Phosphorus Magnesium Total Bilirubin AST ALT Alkaline Phosphatase Total Protein Albumin Albumin (PEP) Globulin Albumin/Globulin Ratio Lxguz-5-Ojrtcxfey Gzwjf-7-Kjkiodvle Sxud-1-Cosdvubd Tfbl-6-Vuvjkulm Gamma Globulins Abnorm Protein Band 1 Abnorm Protein Band 2 Abnorm Protein Band 3 BEKAH & SPEP Interp Serum Immunofixation Hepatitis A IgM Ab Hep Bs Antigen Hep B Core IgM Ab Hepatitis C Antibody Mycoplasma pneumon IgM Blood Type A POSITIVE Antibody Screen Negative Crossmatch See Detail BBK History Checked Patient has bt 05/02/17 05/02/17 05/02/17 08:20 08:20 08:20 WBC 20.3 H RBC 3.80 Hgb 11.6 L D Hct 35.2 MCV 92.5 D MCH 30.5 MCHC 32.9 L RDW 21.0 H Plt Count 32 L MPV Neut % (Auto) Lymph % (Auto) [place] % (Auto) Eos % (Auto) Baso % (Auto) Neut # Lymph # [place] # Eos # Baso # PT 44.3 H* INR 3.8 H pCO2 pO2 HCO3 ABG pH ABG Total CO2 ABG O2 Saturation ABG O2 Content ABG Base Excess ABG Hemoglobin ABG Carboxyhemoglobin POC ABG HHb (Measured) ABG Methemoglobin ABG O2 Capacity Roman Test A-a O2 Difference Hgb O2 Saturation Vent Mode Mechanical Rate FiO2 Tidal Volume PEEP Sodium 157 H Potassium 3.2 L Chloride 120 H Carbon Dioxide 21 L Anion Gap 19 BUN 90 H Creatinine 2.0 H Est GFR ( Amer) 31 Est GFR (Non-Af Amer) 26 POC Glucose (mg/dL) Random Glucose 273 H Calcium 9.2 Phosphorus Magnesium Total Bilirubin 11.7 H AST 230 H D ALT 82 H D Alkaline Phosphatase 79 Total Protein 6.0 L Albumin 3.3 L Albumin (PEP) Globulin 2.8 Albumin/Globulin Ratio 1.2 Eukpj-2-Tcwnrndea Xzmjp-4-Wpsopnrgk Jkgs-6-Wsiyehta Lhis-0-Cwziodqe Gamma Globulins Abnorm Protein Band 1 Abnorm Protein Band 2 Abnorm Protein Band 3 BEKAH & SPEP Interp Serum Immunofixation Hepatitis A IgM Ab Hep Bs Antigen Hep B Core IgM Ab Hepatitis C Antibody Mycoplasma pneumon IgM Blood Type Antibody Screen Crossmatch BBK History Checked Fingerstick Blood Sugar Results: 282 Review of Systems - Review of Systems Systems not reviewed;Unavailable: Intubated Critical Care Progress Note - Ventilator Checklist Head of Bed 30 Degrees: Yes Daily Sedation Vacation: Yes Daily Assessment of Readiness to Wean: Yes Daily Spontaneous Breathing Trial: No (too lethargic) PUD Prophalyxis: Yes DVT Prophylaxis: Yes Oral Care with Chlorhexidine Gluconate {CHG}: Yes - Vent Settings MODE:: ASSIST CONTROL (14) TIDAL VOLUME:: 450 RESP RATE:: 14 FIO2:: 60 PEEP:: 5 - Extremities/Vascular Does the Patient have a Central Venous Catheter?: Yes Insertion Site: Femoral Vein Does the Patient need a Central Venous Catheter?: Yes Does the Patient have a Valadez Catheter?: Yes Does the Patient need a Valadez Catheter?: Yes Catheter Insertion Criteria: Need for accurate measurement of output in critically ill patient - Restraints Justification for Restraints: High risk for self extubation, High risk for removing IV access, High risk for harming self - Prophylaxis GI Prophylaxis GI: PPI - Prophylaxis DVT Prophylaxis DVT: SCDs - Nutrition Nutrition: Nutrition Category Date Time Status Heart Healthy Diet [DIET] Diets 04/27/17 Dinner Active
--- NOTE | 2017-05-02 11:38 | CARD ---
APPROVED REPORT EXAM: Two-dimensional and M-mode echocardiogram with Doppler and color Doppler. Other Information Quality : GoodRhythm : Tachycardia Technically limited study due to Pt on Vent. INDICATION Congestive Heart Failure 2D DIMENSIONS IVSd0.89 (0.7-1.1cm)LVDd4.12 (3.9-5.9cm) PWd0.84 (0.7-1.1cm)IVSs1.06 (0.8-1.2cm) LVDs3.95 (2.5-4.0cm)FS (%) 4.1 % PWs1.04 (0.8-1.2cm) Mitral Valve E/A ratio0.0 TDI E/Lateral E'0.0E/Medial E'0.0 Tricuspid Valve TR Peak [id number] Peak Gr.32mmHg [id number] LEFT VENTRICLE The left ventricle is normal size. There is normal left ventricular wall thickness. Left ventricle systolic function is moderately to severely impaired. The Ejection Fraction is 20-25%. Apical 2/3 septum and apical 1/2 of lateral wall were moderately hypokinetic Other LV segments were adequately contractile. Transmitral Doppler flow pattern is Grade I-abnormal relaxation pattern. RIGHT VENTRICLE The right ventricle is normal size. There is normal right ventricular wall thickness. The right ventricular systolic function is normal. ATRIA The left atrium size is normal. The right atrium size is normal. AORTIC VALVE The aortic valve is normal in structure. No aortic regurgitation is present. There is no aortic valvular stenosis. MITRAL VALVE The mitral valve is normal in structure. There is no evidence of mitral valve prolapse. There is no mitral valve stenosis. Mitral regurgitation is trace. TRICUSPID VALVE The tricuspid valve is normal in structure. There is moderate tricuspid regurgitation. Right ventricular systolic pressure is estimated at 43 mmHg. There is mild-moderate pulmonary hypertension. PULMONIC VALVE The pulmonary valve is normal in structure. There is no pulmonic valvular regurgitation. GREAT VESSELS The aortic root is normal in size. Due to poor image quality, the IVC could not be assessed. PERICARDIAL EFFUSION The pericardium appears normal. <Conclusion> Pt had a mild persistent sinus thachycardia thruogh out the study. The left ventricle is normal size. There is normal left ventricular wall thickness. Apical 2/3 septum and apical 1/2 of lateral wall were moderately hypokinetic Other LV segments were adequately contractile. Left ventricle systolic function is moderately to severely impaired. The Ejection Fraction is 20-25%. Transmitral Doppler flow pattern is Grade I-abnormal relaxation pattern. There is moderate tricuspid regurgitation. There is mild-moderate pulmonary hypertension.
--- NOTE | 2017-05-02 12:20 | CP.PCM.PN ---
Subjective - Date & Time of Evaluation Date of Evaluation: 05/02/17 Time of Evaluation: 11:45 - Subjective Subjective: Pt's daughter and fiancee is at bedside Pt remains intubated on Vent remains confused not sedated had low grade fever 99.7 yesterday Objective - Vital Signs/Intake and Output Vital Signs (last 24 hours): Temp Pulse Resp BP Pulse Ox 99.2 F 117 H 27 H 124/74 98 05/02/17 08:00 05/02/17 10:00 05/02/17 10:00 05/02/17 10:00 05/02/17 10:00 Intake and Output: 05/02/17 05/02/17 06:59 18:59 Intake Total 1755 550 Output Total 330 Balance 1425 550 - Medications Medications: Current Medications Acetaminophen (Tylenol 650 Mg Supp) 650 mg MA ONCE AR[facility] Last Admin: 04/28/17 14:30 Dose: 650 mg Albumin Human (Albumin Human 5% (12.5 Gm/250 Ml)) 125 gm IV DAILY [facility] Stop: 05/04/17 15:00 Last Admin: 05/01/17 17:34 Dose: 125 gm Albuterol Sulfate (Albuterol 0.083% Inhal Rae (2.5 Mg/3 Ml) Ud) 2.5 mg INH RQ4 PRN PRN Reason: Shortness of Breath Allopurinol (Zyloprim) 200 mg PO DAILY [facility] Last Admin: 05/01/17 09:42 Dose: Not Given Hydrocortisone Sodium Succinate (Solu-Cortef) 100 mg IV Q8 [facility] Last Admin: 05/02/17 08:59 Dose: 100 mg Hydromorphone HCl (Dilaudid) 0.5 mg IVP Q4 PRN PRN Reason: Pain, moderate (4-7) Last Admin: 04/30/17 01:02 Dose: 0.5 mg Hydromorphone HCl (Dilaudid) 1 mg IVP Q4 PRN PRN Reason: Agitation Last Admin: 05/02/17 11:15 Dose: 1 mg Vancomycin HCl 1 gm/ Sodium (Chloride) 250 mls @ 166.667 mls/hr IVPB DAILY [facility] PRN Reason: Protocol Last Admin: 05/02/17 09:00 Dose: 166.667 mls/hr Piperacillin Sod/Tazobactam Sod (Zosyn 2.25 Gm Iv Premix) 2.25 gm in 50 mls @ 50 mls/hr IVPB Q6 [facility] PRN Reason: Protocol Last Admin: 05/02/17 09:09 Dose: 50 mls/hr Insulin Detemir (Levemir) 14 units SC HS [facility] Last Admin: 05/01/17 23:09 Dose: 14 u Insulin Human Lispro (Humalog) 0 units SC ACHS [facility] PRN Reason: Protocol Last Admin: 05/02/17 12:11 Dose: 4 u Lactulose (Enulose) 20 gm PO QID [facility] Last Admin: 05/02/17 12:12 Dose: 20 gm Ondansetron HCl (Zofran Inj) 4 mg IVP Q6H PRN PRN Reason: Nausea/Vomiting Pantoprazole Sodium (Protonix Inj) 40 mg IVP DAILY [facility] Last Admin: 05/02/17 09:00 Dose: 40 mg - Labs Labs: 05/02/17 08:20 05/02/17 08:20 PT 44.3 Seconds (9.8-13.1) H* 05/02/17 08:20 INR 3.8 (0.9-1.2) H 05/02/17 08:20 APTT 37.0 Seconds (25.6-37.1) 04/30/17 04:20 - Constitutional Appears: Toxic, In Acute Distress, Agitated, Confused, Chronically Ill Intubated on Vent - Head Exam Head Exam: ATRAUMATIC, NORMOCEPHALIC Additional comments: jaundiced - Eye Exam Eye Exam: PERRL - ENT Exam ENT Exam: Mucous Membranes Dry - Neck Exam Neck Exam: Normal Inspection - Respiratory Exam Respiratory Exam: Accessory Muscle Use, Rales, + rhonchi Intubated on Vent - Cardiovascular Exam Cardiovascular Exam: Tachycardia, +S1, +S2. absent: JVD - GI/Abdominal Exam GI & Abdominal Exam: Soft, Normal Bowel Sounds. absent: Distended, Guarding, Tenderness, Rebound - Rectal Exam Rectal Exam: Deferred - Extremities Exam Extremities Exam: absent: Calf Tenderness, Pedal Edema - Neurological Exam Additional comments: unresponsive to verbal command, episodes of restlessness confused - Skin Skin Exam: Dry, Warm Additional comments: jaundiced Assessment and Plan - Assessment and Plan (Free Text) Assessment: 57 y/o female with PMH IDDM , HTN, dyslipidemia , Cirrhosis sec to Hep C was brought to ER bec of [facility]. For the past 3 days patient has not been herself, she was very weak, unable to get out of bed, confused , talking to herself, disoriented. Patient also appears jaundiced. As per family she has been complaining of lower back pain and has been seeing and physician who gave her an injection 1 month ago. Family denies any upper respiratory illness, nausea , vomiting , diarrhea, abdominal pain , recent illness or blood transfusion. In ER patient found to confused , jaundiced with Hgb 5.7, plt 39 K tea 6.7 , elevated LDH WBC 17 k lactic acid 5 cr 1.2 total protein 9 Ca 14 CXR - clear Peripheral Smear showed schistocytes , nucleated RBC-s Pt/Inr elevated Patient is critically ill. Admitted to ICU for sepsis , Altered mental status, metabolic derangement with hypercalcemia, hyperkalemia ,hemolytic anemia and possible malignancy. 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 ( Ribavirin can cause Hemolytic Anemia) 1. Acute hypoxemic respiratory failure multifactorial -- secondary to pulmonary edema, pneumonia and metabolic encephalopathy patient in respiratory distress with RR 40 while on high flow with FIo2 80% , ABG with PO2 54 PCO2 22 HCO3 19 CXR showed stable pulmonary edema intubated and placed on MV Continue IV antibiotics Pulmonary eval for vent management Continue lasix PRN if BP allows patient has guarded prognosis 2. Sepsis sec to Pneumonia continue IVF resuscitation lactic acid elevated + leukocytosis Ct chest showed LLL pneumonia blood and urine cx sent continue vancomycin 1 g IV and Zosyn ID consulted- discussed case with Dr Topete , agree with the abx 3. Altered mental status likely sec to Metabolic Encephalopathy ? TTP r/o Hepatic Encephalopathy most likely related to metabolic derangement CT head showed no acute pathology hematology consult appreciated and case discussed Peripheral smear showed nucleated RBC-s and schisctocytes -- most likely hemolytic anemia . PT/INR elevated and fibrinogen low CT abdomen and pelvis showed diffuse ostelytic lesions of the skeleton -- r/o Malignancy) Follow up flow cytometry, protein electrophoresis continue IVF, IV antibiotics Started Zometa for hypercalcemia Continue Solucortef for hemolytic anemia transfused 3 unit PRBC Received plasmaphresis as per hematology with albumin instead of plasma continue lactulose as per GI to improve mental status 4. Hemolytic anemia ? TTP/DIC prob related to Ribavirin Hgb 5.7 LDH elevated , bili 6.7 peripheral smear showed nucleated RBC-s and schistocytes s/p 3 unit PRBc transfusin with Hgb 9.4 hematology consult appreciated Retic ct elevated Low Fibrinogen haptoglobin, Leonardo test ,Hepatis profile , FROYLAN,RF, mycoplasma-- pending patient has hepatitis C + continue Solucortef management as per hematology 5. Thrombocytopenia/ coagulopathy prob sec to Cirrhosis suspected TTP and was started on Plasmapharesis PT/INR elevated , no proteinuria,Fibrinogen low - suggest possible DIC retic count: elevated to 6 ,haptoglobin pending, blood cx, urine cx : negative so far Hematology on board Hold off any Platelet transfusion as per hematology continue plasmaphresis 6.Diffuse Osteolytic lesions of the spine need to rule out MM, CLL ,lymphoma OR OTHER MALIGNANCY Flow cytometry : negative protein electrophoresis: polyclonal spikes follow up with oncology recommendations chcel CEA 7.Hypercalcemia prob sec to malignancy IVF on Zometa Endo consulted 8. 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 once kidney fxn is stable will order triple phase liver CT and possible colonoscopy for better evaluation of segmental mural thickening in splenic flexure 9.DM npo for now endo consulted - started Levemir insulin coverage and ACHS on tube feeding 10.KIRSTIN / Azotemia/ hyperkalemia continue IVF monitor renal fxn BUN/Cr 69/1.7 11. Pulmonary Edema happened 2 hrs after Plasmapharesis minimal response to diuretics ? sec to Transfusion rx ??? vs Volume overload plasmaphresis changed to albumin instead of plasma continue lasix PRN if BP allows DVT/ GI prophylaxis SCD Protonix IV no anticoag sec to thrombocytopenia
--- NOTE | 2017-05-02 12:57 | CT ---
PROCEDURE: CT HEAD WITHOUT CONTRAST. HISTORY: Lethargy / Obtundation, r/o Bleed COMPARISON: 04/27/2017 TECHNIQUE: Axial computed tomography images were obtained through the head/brain without intravenous contrast. Radiation dose: Total exam DLP = 2703.90 mGy-cm. This CT exam was performed using one or more of the following dose reduction techniques: Automated exposure control, adjustment of the mA and/or kV according to patient size, and/or use of iterative reconstruction technique. FINDINGS: HEMORRHAGE: No intracranial hemorrhage. BRAIN: No mass effect or edema. No atrophy or chronic microvascular ischemic changes. VENTRICLES: Unremarkable. No hydrocephalus. CALVARIUM: Unremarkable. PARANASAL SINUSES: Chronic left maxillary sinusitis is noted MASTOID AIR CELLS: Unremarkable as visualized. No inflammatory changes. OTHER FINDINGS: None. IMPRESSION: No intracranial mass, hemorrhage or evidence of acute infarct. Chronic left maxillary sinusitis. Otherwise unremarkable.
[2017-05-02 16:00] LABS: ADAMTS13 ACT W REFLX INHIB >200 % Activity (68-163)
[2017-05-02] MEDS ORDERED: Insulin Detemir 100 Units/ml Inj SC SCH (22:00)
--- NOTE | 2017-05-03 02:17 | PN ---
DATE: ENDOCRINOLOGY FOLLOWUP LOCATION: In the room 421, ICU. SUBJECTIVE: This is a 57-year-old female with marked hemolytic anemia and associated thrombocytopenia and now undergoing hematologic evaluation and management and is also being followed closely for metabolic management because of supervening malignant-range hypercalcemia as noted thereof. She received zoledronic acid given as a stat dose for management of the upper mentioned with improving metabolic profile as noted thereof. The latest chemistry shows a BUN of 90, sodium 157, potassium 3.2, chloride , glucose 273, and creatinine 2.0. Her glucose levels have ranged from 246 to 319 mg/dL. Her latest calcium level is 11.7 mg/dL with slightly elevated liver transaminases as noted thereof. Her parathyroid hormone level was reported as normal and so this will actually exclude the possibility of a parathyroid-related etiology for the malignant hypercalcemia. The most likely etiology of course would be the so-called humoral hypercalcemia of malignancy versus osteolytic-related malignant process and there is ongoing oncologic workup at this time as noted. We will continue the IV hydration as given and also repeat the serial chemistries and supplement accordingly as needed. We will follow and advise accordingly. Laure De Santiago MD
[2017-05-03] MEDS: Piperacill/Tazo 2.25gm in Dex 2.25 GM/50 ML BAG IVPB SCH ×4 (04:14→21:20)
[2017-05-03 05:19] LABS: ABG ALLEN TEST YES; ABG MECHANICAL RATE 14; ARTERIAL BLOOD GAS HCO3 21.7 mmol/L (21-28); ARTERIAL BLOOD GAS MODE A/C; ARTERIAL BLOOD GAS O2 CAPACITY 15.3 mL/dL (16-24); ARTERIAL BLOOD GAS O2 CONTENT 15.4 ML/dL (15-23); ARTERIAL BLOOD GAS PH 7.43 (7.35-7.45); ARTERIAL BLOOD GAS PO2 119 mm/Hg (80-100); ARTERIAL BLOOD HGB O2 SAT 96.3 % (95.0-98.0); ATERIAL BLOOD GAS PEEP 5; CARBOXYHEMOGLOBIN 2.4 % (0.5-1.5); HHB -0.5 % (0.0-5.0); METHEMOGLOBIN 1.7 % (0.0-3.0)
[2017-05-03 05:56] LABS: BASO # 0.1 K/uL (0.0-0.2); BASO % 0.7 % (0.0-2.0); EOS % 0.2 % (0.0-4.0); HEMATOCRIT 36.6 % (34.0-47.0); LYMPH # 5.3 K/uL (1.0-4.3); LYMPH % 25.4 % (20.0-40.0); MEAN CELL VOLUME 96.7 fl (81.0-99.0); MEAN CORPUSCULAR HEMOGLOBIN 30.5 pg (27.0-31.0); MEAN CORPUSCULAR HGB CONC 31.5 g/dL (33.0-37.0); MEAN PLATELET VOLUME 11.1 fl (7.2-11.7); MONO # 0.8 K/uL (0.0-0.8); MONO % 3.8 % (0.0-10.0); NEUT # 14.6 K/uL (1.8-7.0); NEUT % 69.9 % (50.0-75.0); NRBC % 15.3 % (0.0-0.0); RED CELL DISTRIBUTION WIDTH 22.4 % (11.5-14.5); WHITE BLOOD COUNT 20.9 K/uL (4.8-10.8)
[2017-05-03 06:17] LABS: PARTIAL THROMBOPLASTIN TIME 55.6 Seconds (25.6-37.1)
[2017-05-03] MEDS: Insulin Lispro (humaLOG) 100 Units/ml Inj SC SCH ×6 (06:35→21:23)
[2017-05-03 06:40] LABS: BILIRUBIN,TOTAL 14.6 mg/dl (0.2-1.3); CALCIUM 9.5 mg/dL (8.4-10.2); MAGNESIUM 2.5 MG/DL (1.6-2.3); PHOSPHOROUS 2.3 mg/dl (2.5-4.5); POTASSIUM 3.6 MMOL/L (3.6-5.0); TOTAL PROTEIN 6.2 G/DL (6.3-8.2)
[2017-05-03 07:06] LABS: KAPPA/LAMBDA FREE RATIO 2.15 (0.26-1.65)
--- NOTE | 2017-05-03 07:25 | CP.PCM.PN ---
<Job Whiting - Last Filed: 05/03/17 07:27> Subjective - Date & Time of Evaluation Date of Evaluation: 05/03/17 Time of Evaluation: 07:30 - Subjective Subjective: PGY4 GI Follow-up Pt seen and examined bedside s/p intubation and sedated RN reports 3 BM overnight NPO ROS: 10 point ROS conducted and otherwise neg Objective - Vital Signs/Intake and Output Vital Signs (last 24 hours): Temp Pulse Resp BP Pulse Ox 99.8 F H 107 H 20 120/72 100 05/03/17 06:00 05/03/17 07:00 05/03/17 07:00 05/03/17 07:00 05/03/17 07:00 Intake and Output: 05/03/17 05/03/17 06:59 18:59 Intake Total 934 Output Total 365 Balance 569 - Medications Medications: Current Medications Acetaminophen (Tylenol 650 Mg Supp) 650 mg NC ONCE ARLET Last Admin: 04/28/17 14:30 Dose: 650 mg Albumin Human (Albumin Human 5% (12.5 Gm/250 Ml)) 125 gm IV DAILY [facility] Stop: 05/04/17 15:00 Last Admin: 05/01/17 17:34 Dose: 125 gm Albuterol Sulfate (Albuterol 0.083% Inhal Rae (2.5 Mg/3 Ml) Ud) 2.5 mg INH RQ4 PRN PRN Reason: Shortness of Breath Allopurinol (Zyloprim) 200 mg PO DAILY [facility] Last Admin: 05/02/17 14:42 Dose: Not Given Hydrocortisone Sodium Succinate (Solu-Cortef) 100 mg IV Q8 [facility] Last Admin: 05/03/17 01:03 Dose: 100 mg Hydromorphone HCl (Dilaudid) 0.5 mg IVP Q4 PRN PRN Reason: Pain, moderate (4-7) Last Admin: 04/30/17 01:02 Dose: 0.5 mg Hydromorphone HCl (Dilaudid) 1 mg IVP Q4 PRN PRN Reason: Agitation Last Admin: 05/02/17 11:15 Dose: 1 mg Vancomycin HCl 1 gm/ Sodium (Chloride) 250 mls @ 166.667 mls/hr IVPB DAILY [facility] PRN Reason: Protocol Last Admin: 05/02/17 09:00 Dose: 166.667 mls/hr Piperacillin Sod/Tazobactam Sod (Zosyn 2.25 Gm Iv Premix) 2.25 gm in 50 mls @ 50 mls/hr IVPB Q6 [facility] PRN Reason: Protocol Last Admin: 05/03/17 04:14 Dose: 50 mls/hr Insulin Detemir (Levemir) 20 units SC HS [facility] Last Admin: 05/02/17 22:30 Dose: 20 u Insulin Detemir (Levemir) 12 units SC DAILY [facility] Insulin Human Lispro (Humalog) 0 units SC ACHS [facility] PRN Reason: Protocol Last Admin: 05/03/17 06:35 Dose: 3 u Lactulose (Enulose) 20 gm PO QID [facility] Last Admin: 05/02/17 21:58 Dose: 20 gm Ondansetron HCl (Zofran Inj) 4 mg IVP Q6H PRN PRN Reason: Nausea/Vomiting Pantoprazole Sodium (Protonix Inj) 40 mg IVP DAILY [facility] Last Admin: 05/02/17 09:00 Dose: 40 mg - Labs Labs: 05/03/17 04:20 05/03/17 04:20 PT 44.3 Seconds (9.8-13.1) H* 05/02/17 08:20 INR 3.8 (0.9-1.2) H 05/02/17 08:20 APTT 55.6 Seconds (25.6-37.1) H D 05/03/17 04:20 - Constitutional Appears: No Acute Distress - Head Exam Head Exam: ATRAUMATIC, NORMOCEPHALIC - Eye Exam Eye Exam: Scleral icterus - ENT Exam ENT Exam: Mucous Membranes Moist - Respiratory Exam Respiratory Exam: Clear to Ausculation Bilateral, NORMAL BREATHING PATTERN. absent: Rales, Rhonchi, Wheezes, Respiratory Distress - Cardiovascular Exam Cardiovascular Exam: REGULAR RHYTHM, +S1, +S2 - GI/Abdominal Exam GI & Abdominal Exam: Soft, Hypoactive Bowel Sounds, Normal Bowel Sounds. absent : Guarding, Rigid, Tenderness, Organomegaly - Extremities Exam Extremities Exam: absent: Joint Swelling, Pedal Edema - Neurological Exam Neurological Exam: Altered - Psychiatric Exam Additional comments: could not assess - Skin Skin Exam: Dry, Intact, Warm Additional comments: juandiced Assessment and Plan - Assessment and Plan (Free Text) Assessment: Janet Taylor is a 57f w/ hx of cirrhosis, HCV, anemia, hx of polysubstance use who presents to the Er with weakness and confusion. Pt had marked anemia and thrombocytopenia Hemolytic anemia likely 2/2 HCV meds especially ribaviran Chronic HCV on tx as oupt Cirrhosis etiology like HCV Thrombocytopenia 2/2 to the above Severe Hepatic Encephalopathy Splenic flexure thickening, r/o lesion Plan: -continue lactulose PO via OG -Give lactulose 20g 4 hrs for 2-3 BM daily -if unable to take PO, use NC -continue to hold Hep C tx for now -no indication for any endoscopy at this time -keep hgb > 7, but restrict PRBC transfusion since she is cirrhotic, today hgb ~ 11 s/p 1 unit PRBC -No other active treatment recommend at this time -fractionate Bilirubin to determine etiology, r/o hemolytic anemia as the cause of rise -will eventually need a Triple phase to r/o HCC or biliary mass or lesion -will eventually need outpt colonscopy to eval sigmoid/splenic flexure thickening D/W Dr. Yusuf <Joaquin Yusuf - Last Filed: 05/03/17 09:56> Objective - Vital Signs/Intake and Output Vital Signs (last 24 hours): Temp Pulse Resp BP Pulse Ox 99.1 F 105 H 16 116/74 100 05/03/17 08:00 05/03/17 08:00 05/03/17 08:00 05/03/17 08:00 05/03/17 08:00 Intake and Output: 05/03/17 05/03/17 06:59 18:59 Intake Total 934 Output Total 365 Balance 569 - Medications Medications: Current Medications Acetaminophen (Tylenol 650 Mg Supp) 650 mg NC ONCE ARLET Last Admin: 04/28/17 14:30 Dose: 650 mg Albuterol Sulfate (Albuterol 0.083% Inhal Rae (2.5 Mg/3 Ml) Ud) 2.5 mg INH RQ4 PRN PRN Reason: Shortness of Breath Allopurinol (Zyloprim) 200 mg PO DAILY [facility] Last Admin: 05/03/17 08:50 Dose: 200 mg Hydrocortisone Sodium Succinate (Solu-Cortef) 100 mg IV Q8 [facility] Last Admin: 05/03/17 08:50 Dose: 100 mg Hydromorphone HCl (Dilaudid) 0.5 mg IVP Q4 PRN PRN Reason: Pain, moderate (4-7) Last Admin: 04/30/17 01:02 Dose: 0.5 mg Hydromorphone HCl (Dilaudid) 1 mg IVP Q4 PRN PRN Reason: Agitation Last Admin: 05/02/17 11:15 Dose: 1 mg Vancomycin HCl 1 gm/ Sodium (Chloride) 250 mls @ 166.667 mls/hr IVPB DAILY [facility] PRN Reason: Protocol Last Admin: 05/02/17 09:00 Dose: 166.667 mls/hr Piperacillin Sod/Tazobactam Sod (Zosyn 2.25 Gm Iv Premix) 2.25 gm in 50 mls @ 50 mls/hr IVPB Q6 [facility] PRN Reason: Protocol Last Admin: 05/03/17 04:14 Dose: 50 mls/hr Azithromycin 500 mg/ Sodium (Chloride) 250 mls @ 250 mls/hr IVPB DAILY [facility] PRN Reason: Protocol Azithromycin 500 mg/ Sodium (Chloride) 250 mls @ 250 mls/hr IVPB STAT STA PRN Reason: Protocol Stop: 05/03/17 10:16 Insulin Detemir (Levemir) 20 units SC HS [facility] Last Admin: 05/02/17 22:30 Dose: 20 u Insulin Detemir (Levemir) 12 units SC DAILY [facility] Last Admin: 05/03/17 08:51 Dose: 12 u Insulin Human Lispro (Humalog) 0 units SC ACHS [facility] PRN Reason: Protocol Last Admin: 05/03/17 06:35 Dose: 3 u Lactulose (Enulose) 20 gm PO QID [facility] Last Admin: 05/03/17 08:50 Dose: 20 gm Pantoprazole Sodium (Protonix Inj) 40 mg IVP DAILY [facility] Last Admin: 05/03/17 08:50 Dose: 40 mg - Labs Labs: 05/03/17 04:20 05/03/17 04:20 PT 44.3 Seconds (9.8-13.1) H* 05/02/17 08:20 INR 3.8 (0.9-1.2) H 05/02/17 08:20 APTT 55.6 Seconds (25.6-37.1) H D 05/03/17 04:20 Attending/Attestation - Attestation I have personally seen and examined this patient.: Yes I have fully participated in the care of the patient.: Yes I have reviewed all pertinent clinical information, including history, physical exam and plan: Yes Notes (Text): 05/03/17 09:49 I have seen and examined patient with GI fellow. She remains intubated in ICU, though is awake and able to move her extremities on command. According to nursing staff, patient with 3 bowel movements overnight. No reported abdominal pain, nausea, vomiting. Tolerating tube feeding without difficulty. Review of vitals from today shows tachycardia. HCV decompensated cirrhosis with features of progressive liver failure Anemia, thrombocytopenia Altered mental stauts, HE Sepsis, pneumonia - Continue with antibiotics and ventilator management as per critical care team - Continue with tube feeding as tolerated - Bilirubin continues to trend up along with elevated INR - liver failure with high MELD, non-transplant candidate - overall poor patient prognosis - Obtain repeat abdominal US with doppler - Elevated CEA along with thickening seen on CT imaging, possible underlying malignancy. If patient recovers from acute decompensation, she would benefit from endoscopic evaluation - Will continue to monitor patient clinical course
[2017-05-03] MEDS ORDERED: Insulin Detemir 100 Units/ml Inj SC SCH ×2 (09:00→22:00)
[2017-05-03] MEDS ORDERED: Azithromycin 500 MG in Sodium Chloride 0.9% 250 ML IVPB STA (09:17)
--- NOTE | 2017-05-03 10:43 | RAD ---
HISTORY: vented COMPARISON: Yesterday FINDINGS: LUNGS: There is mild interval improvement in aeration bilaterally. Endotracheal tube is noted in the distal trachea 1-2 centimeters above the yuly. NG tube is unchanged. PLEURA: No new effusion. CARDIOVASCULAR: Vasculature may be minimally improved. OSSEOUS STRUCTURES: No significant abnormalities. VISUALIZED UPPER ABDOMEN: Normal. OTHER FINDINGS: None. IMPRESSION: Mild interval improvement aeration.
--- NOTE | 2017-05-03 11:32 | CP.PCM.PN ---
Subjective - Date & Time of Evaluation Date of Evaluation: 05/03/17 Time of Evaluation: 10:30 - Subjective Subjective: Pt seen and examined Family at bedside Answered questions Pt remains intubated on Vent - FIO2 decreased to 50=% Has low grade fever 4 BM since last night Good Urine output Pt is awake however not verbally responsive and does not follow commands Objective - Vital Signs/Intake and Output Vital Signs (last 24 hours): Temp Pulse Resp BP Pulse Ox 100.1 F H 119 H 30 H 142/93 H 100 05/03/17 11:19 05/03/17 11:00 05/03/17 11:00 05/03/17 11:00 05/03/17 11:00 Intake and Output: 05/03/17 05/03/17 06:59 18:59 Intake Total 934 595 Output Total 365 220 Balance 569 375 - Medications Medications: Current Medications Acetaminophen (Tylenol 650 Mg Supp) 650 mg TN ONCE ARLET Last Admin: 04/28/17 14:30 Dose: 650 mg Albuterol Sulfate (Albuterol 0.083% Inhal Rae (2.5 Mg/3 Ml) Ud) 2.5 mg INH RQ4 PRN PRN Reason: Shortness of Breath Allopurinol (Zyloprim) 200 mg PO DAILY [facility] Last Admin: 05/03/17 08:50 Dose: 200 mg Hydrocortisone Sodium Succinate (Solu-Cortef) 100 mg IV Q8 ARLET Last Admin: 05/03/17 08:50 Dose: 100 mg Hydromorphone HCl (Dilaudid) 0.5 mg IVP Q4 PRN PRN Reason: Pain, moderate (4-7) Last Admin: 04/30/17 01:02 Dose: 0.5 mg Hydromorphone HCl (Dilaudid) 1 mg IVP Q4 PRN PRN Reason: Agitation Last Admin: 05/02/17 11:15 Dose: 1 mg Vancomycin HCl 1 gm/ Sodium (Chloride) 250 mls @ 166.667 mls/hr IVPB DAILY [facility] PRN Reason: Protocol Last Admin: 05/03/17 09:55 Dose: 166.667 mls/hr Piperacillin Sod/Tazobactam Sod (Zosyn 2.25 Gm Iv Premix) 2.25 gm in 50 mls @ 50 mls/hr IVPB Q6 [facility]LET PRN Reason: Protocol Last Admin: 05/03/17 09:56 Dose: 50 mls/hr Azithromycin 500 mg/ Sodium (Chloride) 250 mls @ 250 mls/hr IVPB DAILY [facility] PRN Reason: Protocol Insulin Detemir (Levemir) 12 units SC DAILY [facility] Last Admin: 05/03/17 08:51 Dose: 12 u Insulin Detemir (Levemir) 30 units SC HS [facility]LET Insulin Human Lispro (Humalog) 0 units SC ACHS [facility] PRN Reason: Protocol Insulin Human Lispro (Humalog) 8 units SC AC [facility]LET Lactulose (Enulose) 20 gm PO QID [facility] Last Admin: 05/03/17 08:50 Dose: 20 gm Pantoprazole Sodium (Protonix Inj) 40 mg IVP DAILY [facility] Last Admin: 05/03/17 08:50 Dose: 40 mg - Labs Labs: 05/03/17 04:20 05/03/17 04:20 PT 43.3 Seconds (9.8-13.1) H* 05/03/17 09:10 INR 3.7 (0.9-1.2) H 05/03/17 09:10 APTT 55.6 Seconds (25.6-37.1) H D 05/03/17 04:20 - Constitutional Appears: Toxic, In Acute Distress, Agitated, Confused, Chronically Ill Intubated on Vent - Head Exam Head Exam: ATRAUMATIC, NORMOCEPHALIC Additional comments: jaundiced - Eye Exam Eye Exam: PERRL - ENT Exam ENT Exam: Mucous Membranes Dry - Neck Exam Neck Exam: Normal Inspection - Respiratory Exam Respiratory Exam: Accessory Muscle Use, Rales, + rhonchi, no wheeze Intubated on Vent - Cardiovascular Exam Cardiovascular Exam: Tachycardia, +S1, +S2. absent: JVD - GI/Abdominal Exam GI & Abdominal Exam: Soft, Normal Bowel Sounds. 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 For the past 3 days patient has not been herself, she was very weak, unable to get out of bed, confused , talking to herself, disoriented. Patient also appears jaundiced. As per family she has been complaining of lower back pain and has been seeing and physician who gave her an injection 1 month ago. Family denies any upper respiratory illness, nausea , vomiting , diarrhea, abdominal pain , recent illness or blood transfusion. In ER patient found to confused , jaundiced with Hgb 5.7, plt 39 K tea 6.7 , elevated LDH WBC 17 k lactic acid 5 cr 1.2 total protein 9 Ca 14 Peripheral Smear showed schistocytes , nucleated RBC-s Pt/Inr elevated Patient is critically ill. Admitted to ICU for sepsis , Altered mental status, metabolic derangement with hypercalcemia, hyperkalemia ,hemolytic anemia and possible malignancy. CT of the abd and pelvis: 1. 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 The differential considerations include metastasis and lymphoma. 2. Mild hepatomegaly and moderate splenomegaly. 3. Evaluation of the colon is limited in the absence of oral contrast. Allowing for this, apparent diffuse small bowel wall thickening is nonspecific and could be related to underdistention or nonspecific enteritis. Also noted is segmental mural thickening in the splenic flexure of colon, again could be related to underdistention however underlying mass cannot be excluded. Please correlate with colonoscopy. 3. Left lower lobe pneumonia. 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 ( Ribavirin can cause Hemolytic Anemia). Attempted to contct PMD to get more info however she has not called back - [facility] - [phone]. 1. Acute hypoxemic respiratory failure ( intubated ) multifactorial -- secondary to pulmonary edema, pneumonia and metabolic encephalopathy patient was in respiratory distress with RR 40 while on high flow with FIo2 80 % , ABG with PO2 54 PCO2 22 HCO3 19 CXR showed stable pulmonary edema intubated and placed on MV Continue IV antibiotics Pulmonary eval for vent management Continue lasix PRN if BP allows patient has guarded prognosis 2. Sepsis sec to Pneumonia lactic acid elevated + leukocytosis, low grade fever Ct chest showed LLL pneumonia blood c/s : neg so far Mycoplasm IgM + continue vancomycin 1 g IV and Zosyn , added Azithro IV ID consulted- discussed case with Dr Topete , agree with the abx 3. Altered mental status likely sec to Metabolic Encephalopathy r/o Hepatic Encephalopathy vs sec to TTP most likely related to metabolic derangement CT head showed no acute pathology hematology consult appreciated and case discussed Peripheral smear showed nucleated RBC-s and schisctocytes -- most likely hemolytic anemia . PT/INR elevated and fibrinogen low CT abdomen and pelvis showed diffuse ostelytic lesions of the skeleton -- r/o Malignancy) continue IVF, IV antibiotics Started Zometa for hypercalcemia Continue Solucortef for hemolytic anemia transfused 3 unit PRBC Received plasmaphresis as rec by hematology with albumin instead of plasma continue lactulose as per GI to improve mental status 4. Hemolytic anemia ? TTP/DIC prob related to Ribavirin Hgb 5.7 LDH elevated , bili 6.7 peripheral smear showed nucleated RBC-s and schistocytes s/p 3 unit PRBc transfusin with Hgb 9.4 hematology consult appreciated Retic ct elevated Low Fibrinogen haptoglobin, Leonardo test ,Hepatis profile , FROYLAN,RF, mycoplasma-- pending patient has hepatitis C + continue Solucortef management as per hematology 5. Thrombocytopenia/ coagulopathy prob sec to Cirrhosis suspected TTP and was started on Plasmapharesis PT/INR elevated , no proteinuria,Fibrinogen low - suggest possible DIC retic count: elevated to 6 ,haptoglobin pending, blood cx, urine cx : negative so far Hematology on board Hold off any Platelet transfusion as per hematology continue plasmaphresis 6.Diffuse Osteolytic lesions of the spine need to rule out MM, CLL ,lymphoma OR OTHER MALIGNANCY Flow cytometry : negative protein electrophoresis: polyclonal spikes follow up with oncology recommendations elevated [id number] 7.Hypercalcemia prob sec to malignancy IVF on Zometa Endo consulted 8. 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 once kidney fxn is stable will order triple phase liver CT possible colonoscopy for better evaluation of segmental mural thickening in splenic flexure 9.DM npo for now endo consulted - started Levemir insulin coverage and ACHS on tube feeding 10.KIRSTIN / Azotemia/ hyperkalemia continue IVF monitor renal fxn BUN/Cr 69/1.7 11. Pulmonary Edema happened 2 hrs after Plasmapharesis minimal response to diuretics ? sec to Transfusion rx ??? vs Volume overload plasmaphresis changed to albumin instead of plasma continue lasix PRN if BP allows DVT/ GI prophylaxis SCD Protonix IV no anticoag sec to thrombocytopenia
--- NOTE | 2017-05-03 11:34 | CP.CCUPN ---
CCU Subjective - Physician Review Subjective (Free Text): Intermittently awake with eyes open, eyes do not respond to confrontation, and not following commands nor interactive, MV day #3, breathing and assisting the vent at 20 on AC 14, 450ml, 60% and PEEP5, SPO2 100%. Patient has had no hypotensive nor hypoxemic episodes over the last 24H. Frequent and intermittent jerky movements of RUE observed. No active bleeding noted. Other vitals and I/O's reviewed. Tmax 100.3F last 24H. Overall positive fluid balance last 24 hours. ROS: Intubated and lethargic: No other pertinent negs or positives on 10+ system review. 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 CXR: ETT position Ok above yuly, scattered R sided infiltrates- owing to technique, mostly unchanged from yesterdays film. IMPRESSION / MAJOR PROBLEMS NOW: 1. 57F presented with AMS, with Severe Anemia, thrombocytopenia, coagulopathy , abnormal LFTs: initially felt 2 TTP, w/u for occult malignancy so far inconclusive as to primary CA. 2. New Lactate Acidosis, not shock/hypotension related, ?? myoclonus / Seizures 3. Azotemia with Hyperkalemia 4. s/p Hypercalcemia on admission PLAN: 1. Follow serial Lactates, CPK, check mixed venous SvO2. 2. Further plasmapheresis now placed on hold as per Heme-Onc and Nephro. BUN levels approaching need for possible acute HD. Saline containing fluids stopped , on Tap water administration via OGT feeds. May need D5W fluids to limit further rise in serum Na levels. 3. CT Brain negative as to other structural causes of AMS. Ongoing lactulose as per GI recommendations. 4. Empiric Zosyn / Vanco noted. Azithro added to cover for Mycoplasma. 5. Fibrinogen levels also lower, with low platelets. Consider Cryoppt if active bleeding evident. 6. Search for primary malignancy ongoing. CCU Objective - Vital Signs / Intake & Output Vital Signs (Last 4 hours): Vital Signs Temp Pulse Resp BP Pulse Ox 05/03/17 11:19 100.1 F H 05/03/17 11:00 119 H 30 H 142/93 H 100 05/03/17 10:00 126 H 26 H 153/88 H 100 05/03/17 09:00 105 H 19 119/76 100 05/03/17 08:00 99.1 F 105 H 16 116/74 100 Intake and Output (Last 8hrs): Intake & Output 05/02/17 05/03/17 05/03/17 22:59 06:59 14:59 Intake Total 552 622 595 Output Total 465 350 220 Balance 87 272 375 Weight 172 lb 11.2 oz Intake: IV 2 12 300 Intake, Piggyback 50 50 15 Tube Feeding 100 160 80 Free Water Flush 400 400 200 Output: Gastric Amount 15 Stomach 15 Urine 450 350 120 Urethral (Valadez) 450 350 120 Stool 100 Other: # Bowel Movements 2 - Physical Exam Head: Positive for: Atraumatic, Normocephalic Pupils: Positive for: PERRL Extroacular Muscles: Positive for: EOMI Conjunctiva: Positive for: Icteric Mouth: Positive for: Dry Pharnyx: Negative for: ERYTHEMA, EXUDATE Neck: Negative for: Meningeal Signs, JVD, Lymphadenopathy Cardiovascular: Positive for: Regular Rate and Rhythm. Negative for: Murmurs, Rub Abdomen: Positive for: Normal Bowel Sounds, Other (+ splenomegaly). Negative for: Tenderness, Distention Rectal: Negative for: Occult Blood, Melena, Fissures Lower Extremity: Positive for: Edema, NORMAL PULSES. Negative for: CALF TENDERNESS, Cyanosis Neurological: Positive for: CN II-XII Intact (Unable to assest ), Motor Func Grossly Intact, Normal Sensory Function, Norm Deep Tendon Reflexes. Negative for: GCS=15 Skin: Positive for: Warm, Dry, Other (no petechiae). Negative for: Rashes Psychiatric: Positive for: Alert. Negative for: Oriented x 3 (Confused disoriented to person, time and place) - Medications Active Medications: Active Medications Generic Name Dose Route Start Last Admin Trade Name Freq PRN Reason Stop Dose Admin Acetaminophen 650 mg 04/28/17 10:00 04/28/17 14:30 Tylenol 650 Mg Supp ID 650 mg ONCE ARLET Administration Albuterol Sulfate 2.5 mg 04/27/17 19:45 Albuterol 0.083% Inhal Rae (2.5 Mg/3 Ml) Ud INH RQ4 PRN Shortness of Breath Allopurinol 200 mg 04/28/17 09:00 05/03/17 08:50 Zyloprim PO 200 mg DAILY ARLET Administration Hydrocortisone Sodium Succinate 100 mg 05/01/17 17:00 05/03/17 08:50 Solu-Cortef IV 100 mg Q8 ARLET Administration Hydromorphone HCl 0.5 mg 04/28/17 23:02 04/30/17 01:02 Dilaudid IVP 0.5 mg Q4 PRN Administration Pain, moderate (4-7) Hydromorphone HCl 1 mg 05/02/17 11:10 05/02/17 11:15 Dilaudid IVP 1 mg Q4 PRN Administration Agitation Vancomycin HCl 1 gm/ Sodium 250 mls @ 166.667 mls/hr 04/28/17 09:00 05/03/17 09:55 Chloride IVPB 166.667 mls/hr DAILY [facility] Administration Protocol Piperacillin Sod/Tazobactam Sod 2.25 gm in 50 mls @ 50 mls/hr 04/27/17 22:00 05/03/17 09:56 Zosyn 2.25 Gm Iv Premix IVPB 50 mls/hr Q6 [facility] Administration Protocol Azithromycin 500 mg/ Sodium 250 mls @ 250 mls/hr 05/04/17 09:00 Chloride IVPB DAILY [facility] Protocol Insulin Detemir 12 units 05/03/17 09:00 05/03/17 08:51 Levemir SC 12 u DAILY [facility] Administration Insulin Detemir 30 units 05/03/17 22:00 Levemir SC HS ARLET Insulin Human Lispro 0 units 05/03/17 11:30 Humalog SC ACHS [facility] Protocol Insulin Human Lispro 8 units 05/03/17 11:30 Humalog SC AC ARLET Lactulose 20 gm 05/02/17 13:00 05/03/17 08:50 Enulose PO 20 gm QID ARLET Administration Pantoprazole Sodium 40 mg 04/28/17 09:00 05/03/17 08:50 Protonix Inj IVP 40 mg DAILY ARLET Administration - Patient Studies Lab Studies: Microbiology Studies 04/27/17 14:05 Blood Culture - Final Blood-Venous NO GROWTH AFTER 5 DAYS Gram Stain - Final TEST NOT PERFORMED 04/27/17 13:35 Blood Culture - Final Blood-Venous NO GROWTH AFTER 5 DAYS Gram Stain - Final TEST NOT PERFORMED Lab Studies 05/03/17 05/03/17 05/03/17 Range/Units 09:10 05:09 04:36 WBC (4.8-10.8) K/uL RBC (3.80-5.20) Mil/uL Hgb (12.0-16.0) g/dL Hct (34.0-47.0) % MCV (81.0-99.0) fl MCH (27.0-31.0) pg MCHC (33.0-37.0) g/dL RDW (11.5-14.5) % Plt Count (130-400) K/uL MPV (7.2-11.7) fl Neut % (Auto) (50.0-75.0) % Lymph % (Auto) (20.0-40.0) % Harrison % (Auto) (0.0-10.0) % Eos % (Auto) (0.0-4.0) % Baso % (Auto) (0.0-2.0) % Neut # (1.8-7.0) K/uL Lymph # (1.0-4.3) K/uL Harrison # (0.0-0.8) K/uL Eos # (0.0-0.7) K/uL Baso # (0.0-0.2) K/uL PT 43.3 H* (9.8-13.1) Seconds INR 3.7 H (0.9-1.2) APTT (25.6-37.1) Seconds Fibrinogen (200-400) mg/dl [id number] Inhibitor (68-163) % Activity pCO2 29 L (35-45) mm/Hg pO2 119 H (80-100) mm/Hg HCO3 21.7 (21-28) mmol/L ABG pH 7.43 (7.35-7.45) ABG Total CO2 20.1 L (22-28) mmol/L ABG O2 Saturation 100.5 H (95-98) % ABG O2 Content 15.4 (15-23) ML/dL ABG Base Excess -4.1 L (-2.0-3.0) mmol/L ABG Hemoglobin 11.2 L (11.7-17.4) g/dL ABG Carboxyhemoglobin 2.4 H (0.5-1.5) % POC ABG HHb (Measured) -0.5 L (0.0-5.0) % ABG Methemoglobin 1.7 (0.0-3.0) % ABG O2 Capacity 15.3 L (16-24) mL/dL Roman Test Yes A-a O2 Difference 273.0 mm/Hg Hgb O2 Saturation 96.3 (95.0-98.0) % Vent Mode A/c Mechanical Rate 14 FiO2 60.0 % Tidal Volume 450 PEEP 5 Sodium (132-148) mmol/l Potassium (3.6-5.0) MMOL/L Chloride (98-107) mmol/L Carbon Dioxide (22-30) mmol/L Anion Gap (10-20) BUN (7-17) mg/dl Creatinine (0.7-1.2) mg/dl Est GFR ( Amer) Est GFR (Non-Af Amer) POC Glucose (mg/dL) 273 H (65-110) mg/dL Random Glucose (65-105) mg/dL Lactic Acid (0.7-2.1) MMOL/L Calcium (8.4-10.2) mg/dL Phosphorus (2.5-4.5) mg/dl Magnesium (1.6-2.3) MG/DL Total Bilirubin (0.2-1.3) mg/dl Direct Bilirubin (0.0-0.4) mg/ml AST (14-36) U/L ALT (9-52) U/L Alkaline Phosphatase (38-126) U/L Ammonia (11-51) umo/L Total Protein (6.3-8.2) G/DL Albumin (3.5-5.0) g/dL Globulin (2.2-3.9) gm/dL Albumin/Globulin Ratio (1.0-2.1) Carcinoembryonic Ag (0-3.0) ng/mL PTH Related Protein (14-27) pg/mL Vancomycin Trough (5.0-10.0) ug/mL Proteinase 3 (PR3) (<1.0) AI Myeloperoxidase Ab (<1.0) AI Free Eldon Light Chains (3.3-19.4) mg/L Free Lambda Light Chain (5.7-26.3) mg/L Free Eldon/Lambda Ratio (0.26-1.65) 05/03/17 05/03/17 05/03/17 Range/Units 04:20 04:20 04:20 WBC (4.8-10.8) K/uL RBC (3.80-5.20) Mil/uL Hgb (12.0-16.0) g/dL Hct (34.0-47.0) % MCV (81.0-99.0) fl MCH (27.0-31.0) pg MCHC (33.0-37.0) g/dL RDW (11.5-14.5) % Plt Count (130-400) K/uL MPV (7.2-11.7) fl Neut % (Auto) (50.0-75.0) % Lymph % (Auto) (20.0-40.0) % Harrison % (Auto) (0.0-10.0) % Eos % (Auto) (0.0-4.0) % Baso % (Auto) (0.0-2.0) % Neut # (1.8-7.0) K/uL Lymph # (1.0-4.3) K/uL Harrison # (0.0-0.8) K/uL Eos # (0.0-0.7) K/uL Baso # (0.0-0.2) K/uL PT (9.8-13.1) Seconds INR (0.9-1.2) APTT 55.6 H D (25.6-37.1) Seconds Fibrinogen 56 L* (200-400) mg/dl [id number] Inhibitor (68-163) % Activity pCO2 (35-45) mm/Hg pO2 (80-100) mm/Hg HCO3 (21-28) mmol/L ABG pH (7.35-7.45) ABG Total CO2 (22-28) mmol/L ABG O2 Saturation (95-98) % ABG O2 Content (15-23) ML/dL ABG Base Excess (-2.0-3.0) mmol/L ABG Hemoglobin (11.7-17.4) g/dL ABG Carboxyhemoglobin (0.5-1.5) % POC ABG HHb (Measured) (0.0-5.0) % ABG Methemoglobin (0.0-3.0) % ABG O2 Capacity (16-24) mL/dL Roman Test A-a O2 Difference mm/Hg Hgb O2 Saturation (95.0-98.0) % Vent Mode Mechanical Rate FiO2 % Tidal Volume PEEP Sodium (132-148) mmol/l Potassium (3.6-5.0) MMOL/L Chloride (98-107) mmol/L Carbon Dioxide (22-30) mmol/L Anion Gap (10-20) BUN (7-17) mg/dl Creatinine (0.7-1.2) mg/dl Est GFR ( Amer) Est GFR (Non-Af Amer) POC Glucose (mg/dL) (65-110) mg/dL Random Glucose (65-105) mg/dL Lactic Acid 6.6 H* (0.7-2.1) MMOL/L Calcium (8.4-10.2) mg/dL Phosphorus (2.5-4.5) mg/dl Magnesium (1.6-2.3) MG/DL Total Bilirubin (0.2-1.3) mg/dl Direct Bilirubin (0.0-0.4) mg/ml AST (14-36) U/L ALT (9-52) U/L Alkaline Phosphatase (38-126) U/L Ammonia (11-51) umo/L Total Protein (6.3-8.2) G/DL Albumin (3.5-5.0) g/dL Globulin (2.2-3.9) gm/dL Albumin/Globulin Ratio (1.0-2.1) Carcinoembryonic Ag (0-3.0) ng/mL PTH Related Protein (14-27) pg/mL Vancomycin Trough 19.1 H (5.0-10.0) ug/mL Proteinase 3 (PR3) (<1.0) AI Myeloperoxidase Ab (<1.0) AI Free Eldon Light Chains (3.3-19.4) mg/L Free Lambda Light Chain (5.7-26.3) mg/L Free Eldon/Lambda Ratio (0.26-1.65) 05/03/17 05/03/17 05/03/17 Range/Units 04:20 04:20 04:20 WBC 20.9 H (4.8-10.8) K/uL RBC 3.79 L (3.80-5.20) Mil/uL Hgb 11.5 L (12.0-16.0) g/dL Hct 36.6 (34.0-47.0) % MCV 96.7 D (81.0-99.0) fl MCH 30.5 (27.0-31.0) pg MCHC 31.5 L (33.0-37.0) g/dL RDW 22.4 H (11.5-14.5) % Plt Count 37 L (130-400) K/uL MPV 11.1 (7.2-11.7) fl Neut % (Auto) 69.9 (50.0-75.0) % Lymph % (Auto) 25.4 (20.0-40.0) % Harrison % (Auto) 3.8 (0.0-10.0) % Eos % (Auto) 0.2 (0.0-4.0) % Baso % (Auto) 0.7 (0.0-2.0) % Neut # 14.6 H (1.8-7.0) K/uL Lymph # 5.3 H (1.0-4.3) K/uL Harrison # 0.8 (0.0-0.8) K/uL Eos # 0.0 (0.0-0.7) K/uL Baso # 0.1 (0.0-0.2) K/uL PT (9.8-13.1) Seconds INR (0.9-1.2) APTT (25.6-37.1) Seconds Fibrinogen (200-400) mg/dl [id number] Inhibitor (68-163) % Activity pCO2 (35-45) mm/Hg pO2 (80-100) mm/Hg HCO3 (21-28) mmol/L ABG pH (7.35-7.45) ABG Total CO2 (22-28) mmol/L ABG O2 Saturation (95-98) % ABG O2 Content (15-23) ML/dL ABG Base Excess (-2.0-3.0) mmol/L ABG Hemoglobin (11.7-17.4) g/dL ABG Carboxyhemoglobin (0.5-1.5) % POC ABG HHb (Measured) (0.0-5.0) % ABG Methemoglobin (0.0-3.0) % ABG O2 Capacity (16-24) mL/dL Roman Test A-a O2 Difference mm/Hg Hgb O2 Saturation (95.0-98.0) % Vent Mode Mechanical Rate FiO2 % Tidal Volume PEEP Sodium 159 H (132-148) mmol/l Potassium 3.6 (3.6-5.0) MMOL/L Chloride 120 H (98-107) mmol/L Carbon Dioxide 20 L (22-30) mmol/L Anion Gap 23 H (10-20) BUN 109 H* D (7-17) mg/dl Creatinine 2.0 H (0.7-1.2) mg/dl Est GFR ( Amer) 31 Est GFR (Non-Af Amer) 26 POC Glucose (mg/dL) (65-110) mg/dL Random Glucose 306 H (65-105) mg/dL Lactic Acid (0.7-2.1) MMOL/L Calcium 9.5 (8.4-10.2) mg/dL Phosphorus 2.3 L (2.5-4.5) mg/dl Magnesium 2.5 H (1.6-2.3) MG/DL Total Bilirubin 14.6 H (0.2-1.3) mg/dl Direct Bilirubin (0.0-0.4) mg/ml AST 220 H (14-36) U/L ALT 83 H (9-52) U/L Alkaline Phosphatase 107 (38-126) U/L Ammonia 66 H D (11-51) umo/L Total Protein 6.2 L (6.3-8.2) G/DL Albumin 3.1 L (3.5-5.0) g/dL Globulin 3.1 (2.2-3.9) gm/dL Albumin/Globulin Ratio 1.0 (1.0-2.1) Carcinoembryonic Ag (0-3.0) ng/mL PTH Related Protein (14-27) pg/mL Vancomycin Trough (5.0-10.0) ug/mL Proteinase 3 (PR3) (<1.0) AI Myeloperoxidase Ab (<1.0) AI Free Eldon Light Chains (3.3-19.4) mg/L Free Lambda Light Chain (5.7-26.3) mg/L Free Eldon/Lambda Ratio (0.26-1.65) 05/02/17 05/02/17 05/02/17 Range/Units 21:59 16:49 16:31 WBC (4.8-10.8) K/uL RBC (3.80-5.20) Mil/uL Hgb (12.0-16.0) g/dL Hct (34.0-47.0) % MCV (81.0-99.0) fl MCH (27.0-31.0) pg MCHC (33.0-37.0) g/dL RDW (11.5-14.5) % Plt Count (130-400) K/uL MPV (7.2-11.7) fl Neut % (Auto) (50.0-75.0) % Lymph % (Auto) (20.0-40.0) % Harrison % (Auto) (0.0-10.0) % Eos % (Auto) (0.0-4.0) % Baso % (Auto) (0.0-2.0) % Neut # (1.8-7.0) K/uL Lymph # (1.0-4.3) K/uL Harrison # (0.0-0.8) K/uL Eos # (0.0-0.7) K/uL Baso # (0.0-0.2) K/uL PT (9.8-13.1) Seconds INR (0.9-1.2) APTT (25.6-37.1) Seconds Fibrinogen (200-400) mg/dl [id number] Inhibitor (68-163) % Activity pCO2 (35-45) mm/Hg pO2 (80-100) mm/Hg HCO3 (21-28) mmol/L ABG pH (7.35-7.45) ABG Total CO2 (22-28) mmol/L ABG O2 Saturation (95-98) % ABG O2 Content (15-23) ML/dL ABG Base Excess (-2.0-3.0) mmol/L ABG Hemoglobin (11.7-17.4) g/dL ABG Carboxyhemoglobin (0.5-1.5) % POC ABG HHb (Measured) (0.0-5.0) % ABG Methemoglobin (0.0-3.0) % ABG O2 Capacity (16-24) mL/dL Roman Test A-a O2 Difference mm/Hg Hgb O2 Saturation (95.0-98.0) % Vent Mode Mechanical Rate FiO2 % Tidal Volume PEEP Sodium (132-148) mmol/l Potassium (3.6-5.0) MMOL/L Chloride (98-107) mmol/L Carbon Dioxide (22-30) mmol/L Anion Gap (10-20) BUN (7-17) mg/dl Creatinine (0.7-1.2) mg/dl Est GFR ( Amer) Est GFR (Non-Af Amer) POC Glucose (mg/dL) 299 H 246 H (65-110) mg/dL Random Glucose (65-105) mg/dL Lactic Acid (0.7-2.1) MMOL/L Calcium (8.4-10.2) mg/dL Phosphorus (2.5-4.5) mg/dl Magnesium (1.6-2.3) MG/DL Total Bilirubin (0.2-1.3) mg/dl Direct Bilirubin (0.0-0.4) mg/ml AST (14-36) U/L ALT (9-52) U/L Alkaline Phosphatase (38-126) U/L Ammonia (11-51) umo/L Total Protein (6.3-8.2) G/DL Albumin (3.5-5.0) g/dL Globulin (2.2-3.9) gm/dL Albumin/Globulin Ratio (1.0-2.1) Carcinoembryonic Ag 333.0 H (0-3.0) ng/mL PTH Related Protein (14-27) pg/mL Vancomycin Trough (5.0-10.0) ug/mL Proteinase 3 (PR3) (<1.0) AI Myeloperoxidase Ab (<1.0) AI Free Eldon Light Chains (3.3-19.4) mg/L Free Lambda Light Chain (5.7-26.3) mg/L Free Eldon/Lambda Ratio (0.26-1.65) 05/02/17 05/02/17 05/01/17 Range/Units 12:16 11:56 04:20 WBC (4.8-10.8) K/uL RBC (3.80-5.20) Mil/uL Hgb (12.0-16.0) g/dL Hct (34.0-47.0) % MCV (81.0-99.0) fl MCH (27.0-31.0) pg MCHC (33.0-37.0) g/dL RDW (11.5-14.5) % Plt Count (130-400) K/uL MPV (7.2-11.7) fl Neut % (Auto) (50.0-75.0) % Lymph % (Auto) (20.0-40.0) % Harrison % (Auto) (0.0-10.0) % Eos % (Auto) (0.0-4.0) % Baso % (Auto) (0.0-2.0) % Neut # (1.8-7.0) K/uL Lymph # (1.0-4.3) K/uL Harrison # (0.0-0.8) K/uL Eos # (0.0-0.7) K/uL Baso # (0.0-0.2) K/uL PT (9.8-13.1) Seconds INR (0.9-1.2) APTT (25.6-37.1) Seconds Fibrinogen (200-400) mg/dl [id number] Inhibitor (68-163) % Activity pCO2 (35-45) mm/Hg pO2 (80-100) mm/Hg HCO3 (21-28) mmol/L ABG pH (7.35-7.45) ABG Total CO2 (22-28) mmol/L ABG O2 Saturation (95-98) % ABG O2 Content (15-23) ML/dL ABG Base Excess (-2.0-3.0) mmol/L ABG Hemoglobin (11.7-17.4) g/dL ABG Carboxyhemoglobin (0.5-1.5) % POC ABG HHb (Measured) (0.0-5.0) % ABG Methemoglobin (0.0-3.0) % ABG O2 Capacity (16-24) mL/dL Roman Test A-a O2 Difference mm/Hg Hgb O2 Saturation (95.0-98.0) % Vent Mode Mechanical Rate FiO2 % Tidal Volume PEEP Sodium (132-148) mmol/l Potassium (3.6-5.0) MMOL/L Chloride (98-107) mmol/L Carbon Dioxide (22-30) mmol/L Anion Gap (10-20) BUN (7-17) mg/dl Creatinine (0.7-1.2) mg/dl Est GFR ( Amer) Est GFR (Non-Af Amer) POC Glucose (mg/dL) 319 H (65-110) mg/dL Random Glucose (65-105) mg/dL Lactic Acid (0.7-2.1) MMOL/L Calcium (8.4-10.2) mg/dL Phosphorus (2.5-4.5) mg/dl Magnesium (1.6-2.3) MG/DL Total Bilirubin (0.2-1.3) mg/dl Direct Bilirubin 8.5 H (0.0-0.4) mg/ml AST (14-36) U/L ALT (9-52) U/L Alkaline Phosphatase (38-126) U/L Ammonia (11-51) umo/L Total Protein (6.3-8.2) G/DL Albumin (3.5-5.0) g/dL Globulin (2.2-3.9) gm/dL Albumin/Globulin Ratio (1.0-2.1) Carcinoembryonic Ag (0-3.0) ng/mL PTH Related Protein (14-27) pg/mL Vancomycin Trough (5.0-10.0) ug/mL Proteinase 3 (PR3) <1.0 (<1.0) AI Myeloperoxidase Ab <1.0 (<1.0) AI Free Eldon Light Chains (3.3-19.4) mg/L Free Lambda Light Chain (5.7-26.3) mg/L Free Eldon/Lambda Ratio (0.26-1.65) 04/28/17 04/28/17 04/28/17 Range/Units 19:13 05:30 05:30 WBC (4.8-10.8) K/uL RBC (3.80-5.20) Mil/uL Hgb (12.0-16.0) g/dL Hct (34.0-47.0) % MCV (81.0-99.0) fl MCH (27.0-31.0) pg MCHC (33.0-37.0) g/dL RDW (11.5-14.5) % Plt Count (130-400) K/uL MPV (7.2-11.7) fl Neut % (Auto) (50.0-75.0) % Lymph % (Auto) (20.0-40.0) % Harrison % (Auto) (0.0-10.0) % Eos % (Auto) (0.0-4.0) % Baso % (Auto) (0.0-2.0) % Neut # (1.8-7.0) K/uL Lymph # (1.0-4.3) K/uL Harrison # (0.0-0.8) K/uL Eos # (0.0-0.7) K/uL Baso # (0.0-0.2) K/uL PT (9.8-13.1) Seconds INR (0.9-1.2) APTT (25.6-37.1) Seconds Fibrinogen (200-400) mg/dl [id number] Inhibitor >200 H (68-163) % Activity pCO2 (35-45) mm/Hg pO2 (80-100) mm/Hg HCO3 (21-28) mmol/L ABG pH (7.35-7.45) ABG Total CO2 (22-28) mmol/L ABG O2 Saturation (95-98) % ABG O2 Content (15-23) ML/dL ABG Base Excess (-2.0-3.0) mmol/L ABG Hemoglobin (11.7-17.4) g/dL ABG Carboxyhemoglobin (0.5-1.5) % POC ABG HHb (Measured) (0.0-5.0) % ABG Methemoglobin (0.0-3.0) % ABG O2 Capacity (16-24) mL/dL Roman Test A-a O2 Difference mm/Hg Hgb O2 Saturation (95.0-98.0) % Vent Mode Mechanical Rate FiO2 % Tidal Volume PEEP Sodium (132-148) mmol/l Potassium (3.6-5.0) MMOL/L Chloride (98-107) mmol/L Carbon Dioxide (22-30) mmol/L Anion Gap (10-20) BUN (7-17) mg/dl Creatinine (0.7-1.2) mg/dl Est GFR ( Amer) Est GFR (Non-Af Amer) POC Glucose (mg/dL) (65-110) mg/dL Random Glucose (65-105) mg/dL Lactic Acid (0.7-2.1) MMOL/L Calcium (8.4-10.2) mg/dL Phosphorus (2.5-4.5) mg/dl Magnesium (1.6-2.3) MG/DL Total Bilirubin (0.2-1.3) mg/dl Direct Bilirubin (0.0-0.4) mg/ml AST (14-36) U/L ALT (9-52) U/L Alkaline Phosphatase (38-126) U/L Ammonia (11-51) umo/L Total Protein (6.3-8.2) G/DL Albumin (3.5-5.0) g/dL Globulin (2.2-3.9) gm/dL Albumin/Globulin Ratio (1.0-2.1) Carcinoembryonic Ag (0-3.0) ng/mL PTH Related Protein 7 L (14-27) pg/mL Vancomycin Trough (5.0-10.0) ug/mL Proteinase 3 (PR3) (<1.0) AI Myeloperoxidase Ab (<1.0) AI Free [place] Light Chains 117.6 H (3.3-19.4) mg/L Free Lambda Light Chain 54.8 H (5.7-26.3) mg/L Free [place]/Lambda Ratio 2.15 H (0.26-1.65) Laboratory Results - last 24 hr 04/28/17 04/28/17 04/28/17 05:30 05:30 19:13 WBC RBC Hgb Hct MCV MCH MCHC RDW Plt Count MPV Neut % (Auto) Lymph % (Auto) Harrison % (Auto) Eos % (Auto) Baso % (Auto) Neut # Lymph # Harrison # Eos # Baso # PT INR APTT Fibrinogen [id number] Inhibitor >200 H pCO2 pO2 HCO3 ABG pH ABG Total CO2 ABG O2 Saturation ABG O2 Content ABG Base Excess ABG Hemoglobin ABG Carboxyhemoglobin POC ABG HHb (Measured) ABG Methemoglobin ABG O2 Capacity Roman Test A-a O2 Difference Hgb O2 Saturation Vent Mode Mechanical Rate FiO2 Tidal Volume PEEP Sodium Potassium Chloride Carbon Dioxide Anion Gap BUN Creatinine Est GFR ( Amer) Est GFR (Non-Af Amer) POC Glucose (mg/dL) Random Glucose Lactic Acid Calcium Phosphorus Magnesium Total Bilirubin Direct Bilirubin AST ALT Alkaline Phosphatase Ammonia Total Protein Albumin Globulin Albumin/Globulin Ratio Carcinoembryonic Ag PTH Related Protein 7 L Vancomycin Trough Proteinase 3 (PR3) Myeloperoxidase Ab Free [place] Light Chains 117.6 H Free Lambda Light Chain 54.8 H Free [place]/Lambda Ratio 2.15 H 05/01/17 05/02/17 05/02/17 04:20 11:56 12:16 WBC RBC Hgb Hct MCV MCH MCHC RDW Plt Count MPV Neut % (Auto) Lymph % (Auto) Harrison % (Auto) Eos % (Auto) Baso % (Auto) Neut # Lymph # Harrison # Eos # Baso # PT INR APTT Fibrinogen [id number] Inhibitor pCO2 pO2 HCO3 ABG pH ABG Total CO2 ABG O2 Saturation ABG O2 Content ABG Base Excess ABG Hemoglobin ABG Carboxyhemoglobin POC ABG HHb (Measured) ABG Methemoglobin ABG O2 Capacity Roman Test A-a O2 Difference Hgb O2 Saturation Vent Mode Mechanical Rate FiO2 Tidal Volume PEEP Sodium Potassium Chloride Carbon Dioxide Anion Gap BUN Creatinine Est GFR ( Amer) Est GFR (Non-Af Amer) POC Glucose (mg/dL) 319 H Random Glucose Lactic Acid Calcium Phosphorus Magnesium Total Bilirubin Direct Bilirubin 8.5 H AST ALT Alkaline Phosphatase Ammonia Total Protein Albumin Globulin Albumin/Globulin Ratio Carcinoembryonic Ag PTH Related Protein Vancomycin Trough Proteinase 3 (PR3) <1.0 Myeloperoxidase Ab <1.0 Free [place] Light Chains Free Lambda Light Chain Free [place]/Lambda Ratio 05/02/17 05/02/17 05/02/17 16:31 16:49 21:59 WBC RBC Hgb Hct MCV MCH MCHC RDW Plt Count MPV Neut % (Auto) Lymph % (Auto) Harrison % (Auto) Eos % (Auto) Baso % (Auto) Neut # Lymph # Harrison # Eos # Baso # PT INR APTT Fibrinogen [id number] Inhibitor pCO2 pO2 HCO3 ABG pH ABG Total CO2 ABG O2 Saturation ABG O2 Content ABG Base Excess ABG Hemoglobin ABG Carboxyhemoglobin POC ABG HHb (Measured) ABG Methemoglobin ABG O2 Capacity Roman Test A-a O2 Difference Hgb O2 Saturation Vent Mode Mechanical Rate FiO2 Tidal Volume PEEP Sodium Potassium Chloride Carbon Dioxide Anion Gap BUN Creatinine Est GFR ( Amer) Est GFR (Non-Af Amer) POC Glucose (mg/dL) 246 H 299 H Random Glucose Lactic Acid Calcium Phosphorus Magnesium Total Bilirubin Direct Bilirubin AST ALT Alkaline Phosphatase Ammonia Total Protein Albumin Globulin Albumin/Globulin Ratio Carcinoembryonic Ag 333.0 H PTH Related Protein Vancomycin Trough Proteinase 3 (PR3) Myeloperoxidase Ab Free [place] Light Chains Free Lambda Light Chain Free [place]/Lambda Ratio 05/03/17 05/03/17 05/03/17 04:20 04:20 04:20 WBC 20.9 H RBC 3.79 L Hgb 11.5 L Hct 36.6 MCV 96.7 D MCH 30.5 MCHC 31.5 L RDW 22.4 H Plt Count 37 L MPV 11.1 Neut % (Auto) 69.9 Lymph % (Auto) 25.4 Harrison % (Auto) 3.8 Eos % (Auto) 0.2 Baso % (Auto) 0.7 Neut # 14.6 H Lymph # 5.3 H Harrison # 0.8 Eos # 0.0 Baso # 0.1 PT INR APTT Fibrinogen [id number] Inhibitor pCO2 pO2 HCO3 ABG pH ABG Total CO2 ABG O2 Saturation ABG O2 Content ABG Base Excess ABG Hemoglobin ABG Carboxyhemoglobin POC ABG HHb (Measured) ABG Methemoglobin ABG O2 Capacity Roman Test A-a O2 Difference Hgb O2 Saturation Vent Mode Mechanical Rate FiO2 Tidal Volume PEEP Sodium 159 H Potassium 3.6 Chloride 120 H Carbon Dioxide 20 L Anion Gap 23 H BUN 109 H* D Creatinine 2.0 H Est GFR ( Amer) 31 Est GFR (Non-Af Amer) 26 POC Glucose (mg/dL) Random Glucose 306 H Lactic Acid Calcium 9.5 Phosphorus 2.3 L Magnesium 2.5 H Total Bilirubin 14.6 H Direct Bilirubin AST 220 H ALT 83 H Alkaline Phosphatase 107 Ammonia 66 H D Total Protein 6.2 L Albumin 3.1 L Globulin 3.1 Albumin/Globulin Ratio 1.0 Carcinoembryonic Ag PTH Related Protein Vancomycin Trough Proteinase 3 (PR3) Myeloperoxidase Ab Free [place] Light Chains Free Lambda Light Chain Free [place]/Lambda Ratio 05/03/17 05/03/1717 04:20 04:20 04:20 WBC RBC Hgb Hct MCV MCH MCHC RDW Plt Count MPV Neut % (Auto) Lymph % (Auto) Harrison % (Auto) Eos % (Auto) Baso % (Auto) Neut # Lymph # Harrison # Eos # Baso # PT INR APTT 55.6 H D Fibrinogen 56 L* [id number] Inhibitor pCO2 pO2 HCO3 ABG pH ABG Total CO2 ABG O2 Saturation ABG O2 Content ABG Base Excess ABG Hemoglobin ABG Carboxyhemoglobin POC ABG HHb (Measured) ABG Methemoglobin ABG O2 Capacity Roman Test A-a O2 Difference Hgb O2 Saturation Vent Mode Mechanical Rate FiO2 Tidal Volume PEEP Sodium Potassium Chloride Carbon Dioxide Anion Gap BUN Creatinine Est GFR ( Amer) Est GFR (Non-Af Amer) POC Glucose (mg/dL) Random Glucose Lactic Acid 6.6 H* Calcium Phosphorus Magnesium Total Bilirubin Direct Bilirubin AST ALT Alkaline Phosphatase Ammonia Total Protein Albumin Globulin Albumin/Globulin Ratio Carcinoembryonic Ag PTH Related Protein Vancomycin Trough 19.1 H Proteinase 3 (PR3) Myeloperoxidase Ab Free [place] Light Chains Free Lambda Light Chain Free [place]/Lambda Ratio 05/03/17 05/03/17 05/03/17 04:36 05:09 09:10 WBC RBC Hgb Hct MCV MCH MCHC RDW Plt Count MPV Neut % (Auto) Lymph % (Auto) Harrison % (Auto) Eos % (Auto) Baso % (Auto) Neut # Lymph # Harrison # Eos # Baso # PT 43.3 H* INR 3.7 H APTT Fibrinogen [id number] Inhibitor pCO2 29 L pO2 119 H HCO3 21.7 ABG pH 7.43 ABG Total CO2 20.1 L ABG O2 Saturation 100.5 H ABG O2 Content 15.4 ABG Base Excess -4.1 L ABG Hemoglobin 11.2 L ABG Carboxyhemoglobin 2.4 H POC ABG HHb (Measured) -0.5 L ABG Methemoglobin 1.7 ABG O2 Capacity 15.3 L Roman Test Yes A-a O2 Difference 273.0 Hgb O2 Saturation 96.3 Vent Mode A/c Mechanical Rate 14 FiO2 60.0 Tidal Volume 450 PEEP 5 Sodium Potassium Chloride Carbon Dioxide Anion Gap BUN Creatinine Est GFR ( Amer) Est GFR (Non-Af Amer) POC Glucose (mg/dL) 273 H Random Glucose Lactic Acid Calcium Phosphorus Magnesium Total Bilirubin Direct Bilirubin AST ALT Alkaline Phosphatase Ammonia Total Protein Albumin Globulin Albumin/Globulin Ratio Carcinoembryonic Ag PTH Related Protein Vancomycin Trough Proteinase 3 (PR3) Myeloperoxidase Ab Free [place] Light Chains Free [place]ambda Light Chain Free [place]/Lambda Ratio Fingerstick Blood Sugar Results: 329 Review of Systems - Review of Systems Systems not reviewed;Unavailable: Altered Mental Status Critical Care Progress Note - Ventilator Checklist Head of Bed 30 Degrees: Yes Daily Sedation Vacation: Yes Daily Assessment of Readiness to Wean: Yes Daily Spontaneous Breathing Trial: Yes PUD Prophalyxis: Yes DVT Prophylaxis: Yes Oral Care with Chlorhexidine Gluconate {CHG}: Yes - Vent Settings MODE:: ASSIST CONTROL TIDAL VOLUME:: 450 RESP RATE:: 14 FIO2:: 60 PEEP:: 5 - Extremities/Vascular Does the Patient have a Central Venous Catheter?: Yes Insertion Site: Femoral Vein Does the Patient need a Central Venous Catheter?: Yes Does the Patient have a Valadez Catheter?: Yes Does the Patient need a Valadez Catheter?: Yes Catheter Insertion Criteria: Need for accurate measurement of output in critically ill patient - Prophylaxis GI Prophylaxis GI: PPI - Prophylaxis DVT Prophylaxis DVT: Not Indicated - Nutrition Nutrition: Nutrition Category Date Time Status Heart Healthy Diet [DIET] Diets 04/27/17 Dinner Active
[2017-05-03] MEDS ORDERED: Insulin Regular 100 units/ml SC SCH (12:00)
--- NOTE | 2017-05-03 15:00 | US ---
HISTORY: Worsening LFTS, r/o obstruction of biliary COMPARISON: CT scan 04/27/2017 TECHNIQUE: Sonographic evaluation of the right upper quadrant of the abdomen. FINDINGS: LIVER: Measures 17.4 cm in length. Heterogeneous and overall increased echogenicity of the liver parenchyma. There appears to be probable cirrhotic changes of the liver with some mild nodularity also identified. Mild intrahepatic ductal dilatation is seen. No focal liver mass. GALLBLADDER: Removed COMMON BILE DUCT: Measures 10 mm. No common bile duct calculus is identified. Common bile duct tapers distally measuring 7 millimeters. . PANCREAS: Pancreas is heterogeneous in echogenicity in the body and tail region. Pancreas is not well appreciated in the head region although an element of pancreatitis in the head is not excluded given some mild increased shadowing. . RIGHT KIDNEY: Measures 10.7 cm in length. Normal echogenicity. No calculus, mass, or hydronephrosis. AORTA: No aneurysmal dilatation. IVC: Unremarkable. OTHER FINDINGS: None . IMPRESSION: Status post cholecystectomy. There appear to be changes involving the liver consistent with possible cirrhosis. Mild intrahepatic ductal dilatation and common bile duct dilatation is noted without common bile duct calculus. Finding could be related to the prior cholecystectomy. Limited evaluation of the pancreas. Noted in retrospect on the prior CT scan examination is some possible thickening in the region of the duodenum and possible adjacent fluid. An element of duodenitis or pancreatitis in this region is not excluded on the prior CT scan. This area is not well imaged on this ultrasound exam.
[2017-05-03 15:11] LABS: VENOUS BLOOD GAS BASE EXCESS -3.4 mmol/L (0.0-2.0); VENOUS BLOOD GAS PCO2 36 mmHg (40-60); VENOUS BLOOD PH 7.38 (7.32-7.43)
--- NOTE | 2017-05-03 17:06 | PN ---
ENDOCRINOLOGY FOLLOWUP NOTE LOCATION: Room 421, ICU. 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 She is currently on Solu-Cortef at 100 mg every 8 hours as given. Hyperglycemic accelerations subsequent deemed and the latest glucose values have ranged from 273 to 329 mg/dL. The latest chemistry showed a BUN of 109, sodium 159, potassium 3.6, chloride 110, CO2 of 20, glucose 306, and creatinine 2.0. So, at this time, we will modify once again her basal and bolus insulin regimen and actually will be adding Humalog at 8 units subcutaneous t.i.d. before meals to start today. We will continue the modified low dose correction scale using Humalog insulin as given. We will also increase the basal insulin with Levemir to be given as 30 units subcutaneous at bedtime daily as given. We will titrate incrementally as indicated to optimize metabolic control. We will follow. Laure De Santiago MD
--- NOTE | 2017-05-03 21:59 | CP.PCM.PN ---
Subjective - Date & Time of Evaluation Date of Evaluation: 05/03/17 Time of Evaluation: 15:00 - Subjective Subjective: SEEN ON RENAL F/U REMAINS INTUBATED CONTINUES TO HAVE AN ONGOING NON OLIGURIC KIRSTIN S NA IS GOING UP ALL EMR REVIEWED TPE WAS D/C PER DR JIMÉNEZ Objective - Vital Signs/Intake and Output Vital Signs (last 24 hours): Temp Pulse Resp BP Pulse Ox 99.9 F H 102 H 20 144/84 99 05/03/17 20:00 05/03/17 20:00 05/03/17 20:00 05/03/17 20:00 05/03/17 20:00 Intake and Output: 05/03/17 05/04/17 18:59 06:59 Intake Total 2155 240 Output Total 1401 100 Balance 754 140 - Medications Medications: Current Medications Acetaminophen (Tylenol 650 Mg Supp) 650 mg [place] ONCE [facility] Last Admin: 04/28/17 14:30 Dose: 650 mg Albuterol Sulfate (Albuterol 0.083% Inhal Rae (2.5 Mg/3 Ml) Ud) 2.5 mg INH RQ4 PRN PRN Reason: Shortness of Breath Allopurinol (Zyloprim) 200 mg PO DAILY [facility] Last Admin: 05/03/17 08:50 Dose: 200 mg Hydrocortisone Sodium Succinate (Solu-Cortef) 100 mg IV Q8 [facility] Last Admin: 05/03/17 17:20 Dose: 100 mg Hydromorphone HCl (Dilaudid) 0.5 mg IVP Q4 PRN PRN Reason: Pain, moderate (4-7) Last Admin: 04/30/17 01:02 Dose: 0.5 mg Hydromorphone HCl (Dilaudid) 1 mg IVP Q4 PRN PRN Reason: Agitation Last Admin: 05/02/17 11:15 Dose: 1 mg Vancomycin HCl 1 gm/ Sodium (Chloride) 250 mls @ 166.667 mls/hr IVPB DAILY [facility] PRN Reason: Protocol Last Admin: 05/03/17 09:55 Dose: 166.667 mls/hr Piperacillin Sod/Tazobactam Sod (Zosyn 2.25 Gm Iv Premix) 2.25 gm in 50 mls @ 50 mls/hr IVPB Q6 [facility] PRN Reason: Protocol Last Admin: 05/03/17 21:20 Dose: 50 mls/hr Azithromycin 500 mg/ Sodium (Chloride) 250 mls @ 250 mls/hr IVPB DAILY [facility] PRN Reason: Protocol Dextrose (Dextrose 5% In Water 1000 Ml) 1,000 mls @ 100 mls/hr IV .Q10H [facility] Stop: 05/04/17 11:39 Last Admin: 05/03/17 12:35 Dose: 100 mls/hr Insulin Detemir (Levemir) 30 units SC HS [facility] Last Admin: 05/03/17 21:22 Dose: 30 units Insulin Human Lispro (Humalog) 0 units SC ACHS [facility] PRN Reason: Protocol Last Admin: 05/03/17 21:23 Dose: Not Given Insulin Human Lispro (Humalog) 8 units SC AC [facility] Last Admin: 05/03/17 17:02 Dose: 4 unit Lactulose (Enulose) 20 gm PO QID [facility] Last Admin: 05/03/17 21:20 Dose: 20 gm Pantoprazole Sodium (Protonix Inj) 40 mg IVP DAILY [facility] Last Admin: 05/03/17 08:50 Dose: 40 mg - Labs Labs: 05/03/17 04:20 05/03/17 04:20 PT 43.3 Seconds (9.8-13.1) H* 05/03/17 09:10 INR 3.7 (0.9-1.2) H 05/03/17 09:10 APTT 55.6 Seconds (25.6-37.1) H D 05/03/17 04:20 Assessment and Plan - Assessment and Plan (Free Text) Assessment: C/O D5W AT 100 CC/H DISSOLVE ALL IV MEDS IN D5W COMPATIBLE TRY TO REPLACE ZOSYN FOR OTHER AB CHECK LABS IN AM
--- NOTE | 2017-05-03 22:45 | CP.PCM.CON ---
History of Present Illness - History of Present Illness History of Present Illness: Patient examined, chart reviewed, full consult to be dictated. Cont ENEDINA (duoneb) O2, and IV abx. Cont Lactulose. Consider adding Rifaximin. Monitor ammonia levels. ICU monitoring and care. Past Patient History - Infectious Disease Hx of Infectious Diseases: None - Past Medical History & Family History Past Medical History?: No Past Family History: Reviewed and not pertinent - Past Social History Smoking Status: Former Smoker Chewing Tobacco Use: No Cigar Use: No Alcohol: None Drugs: Denies Home Situation {Lives}: With Family Domestic Violence: Negative - CARDIAC Hx Cardiac Disorders: Yes Hx Hypertension: Yes - PULMONARY Hx Asthma: Yes - NEUROLOGICAL Hx Neurological Disorder: Yes Hx Vertigo: Yes - HEENT Hx HEENT Problems: No - RENAL Hx Chronic Kidney Disease: Yes Hx Kidney Stones: Yes (2015) - ENDOCRINE/METABOLIC Hx Endocrine Disorders: Yes Hx Diabetes Mellitus Type 2: Yes - HEMATOLOGICAL/ONCOLOGICAL Hx Blood Disorders: Yes Hx AIDS: No Hx Anemia: No Hx Leukemia: No Hx Sickle Cell Disease: No Hx Unexplained Bleeding: No - INTEGUMENTARY Hx Dermatological Problems: No - MUSCULOSKELETAL/RHEUMATOLOGICAL Hx Musculoskeletal Disorders: Yes Hx Back Pain: Yes Hx Falls: Yes - GASTROINTESTINAL Hx Gastrointestinal Disorders: No Hx Pancreatitis: No HX Swallowing Problems: No Hx Ulcer: No Hx Vomiting: No - GENITOURINARY/GYNECOLOGICAL Hx Genitourinary Disorders: No - PSYCHIATRIC Hx Psychophysiologic Disorder: No Hx Anxiety: No Hx Bipolar Disorder: No Hx Depression: No Hx Emotional Abuse: No Hx Hallucinations: No Hx Substance Use: No - SURGICAL HISTORY Hx Surgeries: Yes Hx Cholecystectomy: Yes - ANESTHESIA Hx Anesthesia: Yes Hx Anesthesia Reactions: No Hx Malignant Hyperthermia: No Has any member of the family had a problem w/ anesthesia?: No Meds Allergies/Adverse Reactions: Allergies Allergy/AdvReac Type Severity Reaction Status Date / Time FISH Allergy RASH Verified 04/27/17 09:31 - Medications Medications: Current Medications Acetaminophen (Tylenol 650 Mg Supp) 650 mg [place] ONCE [facility] Last Admin: 04/28/17 14:30 Dose: 650 mg Albuterol Sulfate (Albuterol 0.083% Inhal Rae (2.5 Mg/3 Ml) Ud) 2.5 mg INH RQ4 PRN PRN Reason: Shortness of Breath Allopurinol (Zyloprim) 200 mg PO DAILY [facility] Last Admin: 05/03/17 08:50 Dose: 200 mg Hydrocortisone Sodium Succinate (Solu-Cortef) 100 mg IV Q8 [facility] Last Admin: 05/03/17 17:20 Dose: 100 mg Hydromorphone HCl (Dilaudid) 0.5 mg IVP Q4 PRN PRN Reason: Pain, moderate (4-7) Last Admin: 04/30/17 01:02 Dose: 0.5 mg Hydromorphone HCl (Dilaudid) 1 mg IVP Q4 PRN PRN Reason: Agitation Last Admin: 05/02/17 11:15 Dose: 1 mg Vancomycin HCl 1 gm/ Sodium (Chloride) 250 mls @ 166.667 mls/hr IVPB DAILY [facility] PRN Reason: Protocol Last Admin: 05/03/17 09:55 Dose: 166.667 mls/hr Piperacillin Sod/Tazobactam Sod (Zosyn 2.25 Gm Iv Premix) 2.25 gm in 50 mls @ 50 mls/hr IVPB Q6 [facility] PRN Reason: Protocol Last Admin: 05/03/17 21:20 Dose: 50 mls/hr Azithromycin 500 mg/ Sodium (Chloride) 250 mls @ 250 mls/hr IVPB DAILY [facility] PRN Reason: Protocol Dextrose (Dextrose 5% In Water 1000 Ml) 1,000 mls @ 100 mls/hr IV .Q10H [facility] Stop: 05/04/17 11:39 Last Admin: 05/03/17 12:35 Dose: 100 mls/hr Insulin Detemir (Levemir) 30 units SC HS [facility] Last Admin: 05/03/17 21:22 Dose: 30 units Insulin Human Lispro (Humalog) 0 units SC ACHS [facility] PRN Reason: Protocol Last Admin: 05/03/17 21:23 Dose: Not Given Insulin Human Lispro (Humalog) 8 units SC AC [facility] Last Admin: 05/03/17 17:02 Dose: 4 unit Lactulose (Enulose) 20 gm PO QID [facility] Last Admin: 05/03/17 21:20 Dose: 20 gm Pantoprazole Sodium (Protonix Inj) 40 mg IVP DAILY [facility] Last Admin: 05/03/17 08:50 Dose: 40 mg Results - Vital Signs Recent Vital Signs: Last Vital Signs Temp 99.9 F H 05/03/17 20:00 Pulse 102 H 05/03/17 20:00 Resp 20 05/03/17 20:00 BP 144/84 05/03/17 20:00 Pulse Ox 99 05/03/17 20:00 - Labs Result Diagrams: 05/03/17 04:20 05/03/17 04:20 Labs: Laboratory Results - last 24 hr 04/28/17 04/28/17 05/03/17 05:30 05:30 04:20 WBC 20.9 H RBC 3.79 L Hgb 11.5 L Hct 36.6 MCV 96.7 D MCH 30.5 MCHC 31.5 L RDW 22.4 H Plt Count 37 L MPV 11.1 Neut % (Auto) 69.9 Lymph % (Auto) 25.4 [place] % (Auto) 3.8 Eos % (Auto) 0.2 Baso % (Auto) 0.7 Neut # 14.6 H Lymph # 5.3 H [place] # 0.8 Eos # 0.0 Baso # 0.1 PT INR APTT Fibrinogen pCO2 pO2 HCO3 ABG pH ABG Total CO2 ABG O2 Saturation ABG O2 Content ABG Base Excess ABG Hemoglobin ABG Carboxyhemoglobin POC ABG HHb (Measured) ABG Methemoglobin ABG O2 Capacity Roman Test VBG pH VBG pCO2 VBG HCO3 VBG Total CO2 VBG O2 Sat (Calc) VBG Base Excess VBG Potassium A-a O2 Difference Hgb O2 Saturation Glucose Lactate Vent Mode Mechanical Rate FiO2 Tidal Volume PEEP Crit Value Called To Crit Value Called By Crit Value Read Back Blood Gas Notified Time Sodium Potassium Chloride Carbon Dioxide Anion Gap BUN Creatinine Est GFR ( Amer) Est GFR (Non-Af Amer) POC Glucose (mg/dL) Random Glucose Lactic Acid Calcium Phosphorus Magnesium Total Bilirubin AST ALT Alkaline Phosphatase Ammonia Total Creatine Kinase Total Protein Albumin Globulin Albumin/Globulin Ratio PTH Related Protein 7 L Venous Blood Potassium Vancomycin Trough Free [place] Light Chains 117.6 H Free Lambda Light Chain 54.8 H Free [place]/Lambda Ratio 2.15 H 05/03/17 05/03/17 05/03/17 04:20 04:20 04:20 WBC RBC Hgb Hct MCV MCH MCHC RDW Plt Count MPV Neut % (Auto) Lymph % (Auto) [place] % (Auto) Eos % (Auto) Baso % (Auto) Neut # Lymph # [place] # Eos # Baso # PT INR APTT 55.6 H D Fibrinogen 56 L* pCO2 pO2 HCO3 ABG pH ABG Total CO2 ABG O2 Saturation ABG O2 Content ABG Base Excess ABG Hemoglobin ABG Carboxyhemoglobin POC ABG HHb (Measured) ABG Methemoglobin ABG O2 Capacity Roman Test VBG pH VBG pCO2 VBG HCO3 VBG Total CO2 VBG O2 Sat (Calc) VBG Base Excess VBG Potassium A-a O2 Difference Hgb O2 Saturation Glucose Lactate Vent Mode Mechanical Rate FiO2 Tidal Volume PEEP Crit Value Called To Crit Value Called By Crit Value Read Back Blood Gas Notified Time Sodium 159 H Potassium 3.6 Chloride 120 H Carbon Dioxide 20 L Anion Gap 23 H BUN 109 H* D Creatinine 2.0 H Est GFR ( Amer) 31 Est GFR (Non-Af Amer) 26 POC Glucose (mg/dL) Random Glucose 306 H Lactic Acid Calcium 9.5 Phosphorus 2.3 L Magnesium 2.5 H Total Bilirubin 14.6 H AST 220 H ALT 83 H Alkaline Phosphatase 107 Ammonia 66 H D Total Creatine Kinase Total Protein 6.2 L Albumin 3.1 L Globulin 3.1 Albumin/Globulin Ratio 1.0 PTH Related Protein Venous Blood Potassium Vancomycin Trough Free [place] Light Chains Free Lambda Light Chain Free [place]/Lambda Ratio 05/03/17 05/03/17 05/03/17 04:20 04:20 04:36 WBC RBC Hgb Hct MCV MCH MCHC RDW Plt Count MPV Neut % (Auto) Lymph % (Auto) [place] % (Auto) Eos % (Auto) Baso % (Auto) Neut # Lymph # [place] # Eos # Baso # PT INR APTT Fibrinogen pCO2 pO2 HCO3 ABG pH ABG Total CO2 ABG O2 Saturation ABG O2 Content ABG Base Excess ABG Hemoglobin ABG Carboxyhemoglobin POC ABG HHb (Measured) ABG Methemoglobin ABG O2 Capacity Roman Test VBG pH VBG pCO2 VBG HCO3 VBG Total CO2 VBG O2 Sat (Calc) VBG Base Excess VBG Potassium A-a O2 Difference Hgb O2 Saturation Glucose Lactate Vent Mode Mechanical Rate FiO2 Tidal Volume PEEP Crit Value Called To Crit Value Called By Crit Value Read Back Blood Gas Notified Time Sodium Potassium Chloride Carbon Dioxide Anion Gap BUN Creatinine Est GFR ( Amer) Est GFR (Non-Af Amer) POC Glucose (mg/dL) 273 H Random Glucose Lactic Acid 6.6 H* Calcium Phosphorus Magnesium Total Bilirubin AST ALT Alkaline Phosphatase Ammonia Total Creatine Kinase Total Protein Albumin Globulin Albumin/Globulin Ratio PTH Related Protein Venous Blood Potassium Vancomycin Trough 19.1 H Free [place] Light Chains Free Lambda Light Chain Free [place]/Lambda Ratio 05/03/17 05/03/17 05/03/17 05:09 09:10 11:28 WBC RBC Hgb Hct MCV MCH MCHC RDW Plt Count MPV Neut % (Auto) Lymph % (Auto) [place] % (Auto) Eos % (Auto) Baso % (Auto) Neut # Lymph # [place] # Eos # Baso # PT 43.3 H* INR 3.7 H APTT Fibrinogen pCO2 29 L pO2 119 H HCO3 21.7 ABG pH 7.43 ABG Total CO2 20.1 L ABG O2 Saturation 100.5 H ABG O2 Content 15.4 ABG Base Excess -4.1 L ABG Hemoglobin 11.2 L ABG Carboxyhemoglobin 2.4 H POC ABG HHb (Measured) -0.5 L ABG Methemoglobin 1.7 ABG O2 Capacity 15.3 L Roman Test Yes VBG pH VBG pCO2 VBG HCO3 VBG Total CO2 VBG O2 Sat (Calc) VBG Base Excess VBG Potassium A-a O2 Difference 273.0 Hgb O2 Saturation 96.3 Glucose Lactate Vent Mode A/c Mechanical Rate 14 FiO2 60.0 Tidal Volume 450 PEEP 5 Crit Value Called To Crit Value Called By Crit Value Read Back Blood Gas Notified Time Sodium Potassium Chloride Carbon Dioxide Anion Gap BUN Creatinine Est GFR ( Amer) Est GFR (Non-Af Amer) POC Glucose (mg/dL) 329 H Random Glucose Lactic Acid Calcium Phosphorus Magnesium Total Bilirubin AST ALT Alkaline Phosphatase Ammonia Total Creatine Kinase Total Protein Albumin Globulin Albumin/Globulin Ratio PTH Related Protein Venous Blood Potassium Vancomycin Trough Free [place] Light Chains Free Lambda Light Chain Free [place]/Lambda Ratio 05/03/17 05/03/17 05/03/17 11:36 12:15 12:15 WBC RBC Hgb Hct MCV MCH MCHC RDW Plt Count MPV Neut % (Auto) Lymph % (Auto) [place] % (Auto) Eos % (Auto) Baso % (Auto) Neut # Lymph # [place] # Eos # Baso # PT INR APTT Fibrinogen pCO2 pO2 35 HCO3 ABG pH ABG Total CO2 ABG O2 Saturation ABG O2 Content ABG Base Excess ABG Hemoglobin ABG Carboxyhemoglobin POC ABG HHb (Measured) ABG Methemoglobin ABG O2 Capacity Roman Test VBG pH 7.38 VBG pCO2 36 L VBG HCO3 21.7 VBG Total CO2 22.4 VBG O2 Sat (Calc) 74.7 H VBG Base Excess -3.4 L VBG Potassium 2.7 L A-a O2 Difference Hgb O2 Saturation Glucose 328 H Lactate 6.7 H* Vent Mode Mechanical Rate FiO2 40.0 Tidal Volume PEEP Crit Value Called To Dav justice Crit Value Called By Osman Crit Value Read Back Y Blood Gas Notified Time 1511 Sodium 155.0 H Potassium Chloride 120.0 H Carbon Dioxide Anion Gap BUN Creatinine Est GFR ( Amer) Est GFR (Non-Af Amer) POC Glucose (mg/dL) Random Glucose Lactic Acid 6.2 H* Calcium Phosphorus Magnesium Total Bilirubin AST ALT Alkaline Phosphatase Ammonia Total Creatine Kinase 70 Total Protein Albumin Globulin Albumin/Globulin Ratio PTH Related Protein Venous Blood Potassium 2.7 L Vancomycin Trough Free [place] Light Chains Free Lambda Light Chain Free [place]/Lambda Ratio 05/03/17 05/03/17 16:50 21:22 WBC RBC Hgb Hct MCV MCH MCHC RDW Plt Count MPV Neut % (Auto) Lymph % (Auto) [place] % (Auto) Eos % (Auto) Baso % (Auto) Neut # Lymph # [place] # Eos # Baso # PT INR APTT Fibrinogen pCO2 pO2 HCO3 ABG pH ABG Total CO2 ABG O2 Saturation ABG O2 Content ABG Base Excess ABG Hemoglobin ABG Carboxyhemoglobin POC ABG HHb (Measured) ABG Methemoglobin ABG O2 Capacity Roman Test VBG pH VBG pCO2 VBG HCO3 VBG Total CO2 VBG O2 Sat (Calc) VBG Base Excess VBG Potassium A-a O2 Difference Hgb O2 Saturation Glucose Lactate Vent Mode Mechanical Rate FiO2 Tidal Volume PEEP Crit Value Called To Crit Value Called By Crit Value Read Back Blood Gas Notified Time Sodium Potassium Chloride Carbon Dioxide Anion Gap BUN Creatinine Est GFR ( Amer) Est GFR (Non-Af Amer) POC Glucose (mg/dL) 338 H 288 H Random Glucose Lactic Acid Calcium Phosphorus Magnesium Total Bilirubin AST ALT Alkaline Phosphatase Ammonia Total Creatine Kinase Total Protein Albumin Globulin Albumin/Globulin Ratio PTH Related Protein Venous Blood Potassium Vancomycin Trough Free [place] Light Chains Free Lambda Light Chain Free [place]/Lambda Ratio
[2017-05-04] MEDS: Piperacill/Tazo 2.25gm in Dex 2.25 GM/50 ML BAG IVPB SCH ×2 (04:20→09:49)
[2017-05-04 05:07] LABS: ABG ALLEN TEST YES; ABG MECHANICAL RATE 14; ARTERIAL BLOOD GAS HCO3 24.5 mmol/L (21-28); ARTERIAL BLOOD GAS MODE A/C; ARTERIAL BLOOD GAS O2 CAPACITY 15.2 mL/dL (16-24); ARTERIAL BLOOD GAS O2 CONTENT 15.2 ML/dL (15-23); ARTERIAL BLOOD GAS PH 7.47 (7.35-7.45); ARTERIAL BLOOD GAS PO2 95 mm/Hg (80-100); ARTERIAL BLOOD HGB O2 SAT 96.4 % (95.0-98.0); ATERIAL BLOOD GAS PEEP 5; CARBOXYHEMOGLOBIN 2.6 % (0.5-1.5); HHB -0.3 % (0.0-5.0); METHEMOGLOBIN 1.3 % (0.0-3.0)
[2017-05-04 05:41] LABS: BASO # 0.1 K/uL (0.0-0.2); BASO % 0.7 % (0.0-2.0); EOS % 0.1 % (0.0-4.0); HEMATOCRIT 36.3 % (34.0-47.0); LYMPH # 4.8 K/uL (1.0-4.3); LYMPH % 28.2 % (20.0-40.0); MEAN CELL VOLUME 95.8 fl (81.0-99.0); MEAN CORPUSCULAR HGB CONC 31.3 g/dL (33.0-37.0); MEAN PLATELET VOLUME 9.4 fl (7.2-11.7); MONO # 0.8 K/uL (0.0-0.8); MONO % 4.9 % (0.0-10.0); NEUT # 11.2 K/uL (1.8-7.0); NEUT % 66.1 % (50.0-75.0); NRBC % 14.2 % (0.0-0.0); RED CELL DISTRIBUTION WIDTH 22.9 % (11.5-14.5); WHITE BLOOD COUNT 16.9 K/uL (4.8-10.8)
[2017-05-04 06:23] LABS: ALB/GLOB RATIO 0.9 (1.0-2.1); BILIRUBIN,TOTAL 16.5 mg/dl (0.2-1.3); CALCIUM 9.5 mg/dL (8.4-10.2); POTASSIUM 2.6 MMOL/L (3.6-5.0); TOTAL PROTEIN 6.3 G/DL (6.3-8.2)
[2017-05-04] MEDS: Insulin Lispro (humaLOG) 100 Units/ml Inj SC SCH ×7 (06:37→21:45)
--- NOTE | 2017-05-04 07:47 | CP.CCUPN ---
CCU Subjective - Physician Review Subjective (Free Text): No overall change nor improvement from yesterday's description of neuromental status: otherwise intermittently awake with eyes open, eyes do not respond to confrontation, and not following commands nor interactive, MV day #4, breathing 22 on AC 14, 450ml, 45% and PEEP5, SPO2 100%. Patient has had no hypotensive nor hypoxemic episodes over the last 24H. Frequent and intermittent jerky movements of RUE persist. No active bleeding noted. Other vitals and I/O's reviewed. Tmax 100.4F peaking now so far. Overall positive fluid balance last 24 hours= 1.8 L. ROS: Intubated and lethargic: No other pertinent negs or positives on 10+ system review. 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 CXR: ETT position Ok above yuly, scattered R sided infiltrates- owing to technique, mostly unchanged from yesterdays film. IMPRESSION / MAJOR PROBLEMS NOW: 1. 57F presented with AMS, with Severe Anemia, thrombocytopenia, coagulopathy , abnormal LFTs: initially felt 2 TTP, w/u for occult malignancy so far inconclusive as to primary CA. 2. Lactate Acidosis, not shock/hypotension related, doubt 2' myoclonus / Seizures, probable Type B acidosis. 3. Azotemia with Hyperkalemia 4. s/p Hypercalcemia on admission PLAN: 1. Follow serial Lactates: slightly improved, CPK normal, mixed venous SvO2 levels acceptable. 2. Further plasmapheresis now placed on hold as per Heme-Onc and Nephro. Saline containing fluids stopped, on Tap water administration via OGT feeds. May need D5W fluids to limit further rise in serum Na levels. Replete K levels, check Mg, Phos. 3. CT Brain negative as to other structural causes of AMS. Ongoing lactulose as per GI recommendations. 4. Empiric Zosyn / Vanco noted. Azithro added to cover for Mycoplasma. 5. Fibrinogen levels also lower, with low platelets. Consider Cryoppt if active bleeding evident. 6. Search for primary malignancy ongoing. CCU Objective - Vital Signs / Intake & Output Vital Signs (Last 4 hours): Vital Signs Temp Pulse Resp BP Pulse Ox 05/04/17 06:00 104 H 21 142/74 100 05/04/17 04:00 100.4 F H 115 H 27 H 146/81 100 Intake and Output (Last 8hrs): Intake & Output 05/03/17 05/04/17 05/04/17 22:59 06:59 14:59 Intake Total 1710 1270 Output Total 1190 600 Balance 520 670 Intake: IV 1050 700 Intake, Piggyback 100 50 Oral 40 Tube Feeding 120 120 Free Water Flush 400 400 Output: Gastric Amount 10 Stomach 10 Urine 380 600 Urethral (Valadez) 380 600 Stool 800 Other: # Bowel Movements 1 1 - Physical Exam Head: Positive for: Atraumatic, Normocephalic Pupils: Positive for: PERRL Extroacular Muscles: Positive for: EOMI Conjunctiva: Positive for: Icteric Mouth: Positive for: Dry Pharnyx: Negative for: ERYTHEMA, EXUDATE Neck: Negative for: Meningeal Signs, JVD, Lymphadenopathy Cardiovascular: Positive for: Regular Rate and Rhythm. Negative for: Murmurs, Rub Abdomen: Positive for: Normal Bowel Sounds, Other (+ splenomegaly). Negative for: Tenderness, Distention Rectal: Negative for: Occult Blood, Melena, Fissures Lower Extremity: Positive for: Edema, NORMAL PULSES. Negative for: CALF TENDERNESS, Cyanosis Neurological: Positive for: CN II-XII Intact (Unable to assest ), Motor Func Grossly Intact, Normal Sensory Function, Norm Deep Tendon Reflexes. Negative for: GCS=15 Skin: Positive for: Warm, Dry, Other (no petechiae). Negative for: Rashes Psychiatric: Positive for: Alert. Negative for: Oriented x 3 (Confused disoriented to person, time and place) - Medications Active Medications: Active Medications Generic Name Dose Route Start Last Admin Trade Name Freq PRN Reason Stop Dose Admin Acetaminophen 650 mg 04/28/17 10:00 04/28/17 14:30 Tylenol 650 Mg Supp MO 650 mg ONCE ARLET Administration Albuterol Sulfate 2.5 mg 04/27/17 19:45 05/03/17 23:29 Albuterol 0.083% Inhal Rae (2.5 Mg/3 Ml) Ud INH 2.5 mg RQ4 PRN Administration Shortness of Breath Allopurinol 200 mg 04/28/17 09:00 05/03/17 08:50 Zyloprim PO 200 mg DAILY ARLET Administration Hydrocortisone Sodium Succinate 100 mg 05/01/17 17:00 05/04/17 00:58 Solu-Cortef IV 100 mg Q8 ARLET Administration Hydromorphone HCl 0.5 mg 04/28/17 23:02 04/30/17 01:02 Dilaudid IVP 0.5 mg Q4 PRN Administration Pain, moderate (4-7) Hydromorphone HCl 1 mg 05/02/17 11:10 05/02/17 11:15 Dilaudid IVP 1 mg Q4 PRN Administration Agitation Vancomycin HCl 1 gm/ Sodium 250 mls @ 166.667 mls/hr 04/28/17 09:00 05/03/17 09:55 Chloride IVPB 166.667 mls/hr DAILY ARLET Administration Protocol Piperacillin Sod/Tazobactam Sod 2.25 gm in 50 mls @ 50 mls/hr 04/27/17 22:00 05/04/17 04:20 Zosyn 2.25 Gm Iv Premix IVPB 50 mls/hr Q6 ARLET Administration Protocol Azithromycin 500 mg/ Sodium 250 mls @ 250 mls/hr 05/04/17 09:00 Chloride IVPB DAILY ARLET Protocol Dextrose 1,000 mls @ 100 mls/hr 05/03/17 11:50 05/03/17 23:00 Dextrose 5% In Water 1000 Ml IV 05/04/17 11:39 100 mls/hr .Q10H ARLET Administration Insulin Detemir 30 units 05/03/17 22:00 05/03/17 21:22 Levemir SC 30 units HS ARLET Administration Insulin Human Lispro 0 units 05/03/17 11:30 05/04/17 06:37 Humalog SC Not Given ACHS ARLET Protocol Insulin Human Lispro 8 units 05/03/17 11:30 05/04/17 06:38 Humalog SC 8 unit AC ARLET Administration Lactulose 20 gm 05/02/17 13:00 05/03/17 21:20 Enulose PO 20 gm QID ARLET Administration Pantoprazole Sodium 40 mg 04/28/17 09:00 05/03/17 08:50 Protonix Inj IVP 40 mg DAILY ARLET Administration - Patient Studies Lab Studies: Microbiology Studies 05/01/17 17:22 Gram Stain - Final Sputum Sputum Culture - Final No growth. Lab Studies 05/04/17 05/04/17 05/04/17 Range/Units 05:10 04:59 04:38 WBC (4.8-10.8) K/uL RBC (3.80-5.20) Mil/uL Hgb (12.0-16.0) g/dL Hct (34.0-47.0) % MCV (81.0-99.0) fl MCH (27.0-31.0) pg MCHC (33.0-37.0) g/dL RDW (11.5-14.5) % Plt Count (130-400) K/uL MPV (7.2-11.7) fl Neut % (Auto) (50.0-75.0) % Lymph % (Auto) (20.0-40.0) % [place] % (Auto) (0.0-10.0) % Eos % (Auto) (0.0-4.0) % Baso % (Auto) (0.0-2.0) % Neut # (1.8-7.0) K/uL Lymph # (1.0-4.3) K/uL [place] # (0.0-0.8) K/uL Eos # (0.0-0.7) K/uL Baso # (0.0-0.2) K/uL PT (9.8-13.1) Seconds INR (0.9-1.2) Fibrinogen (200-400) mg/dl pCO2 31 L (35-45) mm/Hg pO2 95 (30-55) mm/Hg HCO3 24.5 (21-28) mmol/L ABG pH 7.47 H (7.35-7.45) ABG Total CO2 23.6 (22-28) mmol/L ABG O2 Saturation 100.3 H (95-98) % ABG O2 Content 15.2 (15-23) ML/dL ABG Base Excess -0.5 (-2.0-3.0) mmol/L ABG Hemoglobin 11.1 L (11.7-17.4) g/dL ABG Carboxyhemoglobin 2.6 H (0.5-1.5) % POC ABG HHb (Measured) -0.3 L (0.0-5.0) % ABG Methemoglobin 1.3 (0.0-3.0) % ABG O2 Capacity 15.2 L (16-24) mL/dL Roman Test Yes VBG pH (7.32-7.43) VBG pCO2 (40-60) mmHg VBG HCO3 mmol/L VBG Total CO2 (22-28) mmol/L VBG O2 Sat (Calc) (40-65) % VBG Base Excess (0.0-2.0) mmol/L VBG Potassium (3.6-5.2) mmol/L A-a O2 Difference 187.0 mm/Hg Hgb O2 Saturation 96.4 (95.0-98.0) % Sodium (132-148) mmol/L Chloride (98-107) mmol/L Glucose (65-105) mg/dL Lactate (0.7-2.1) mmol/L Vent Mode A/c Mechanical Rate 14 FiO2 45.0 % Tidal Volume 450 PEEP 5 Crit Value Called To Crit Value Called By Crit Value Read Back Blood Gas Notified Time Potassium (3.6-5.0) MMOL/L Carbon Dioxide (22-30) mmol/L Anion Gap (10-20) BUN (7-17) mg/dl Creatinine (0.7-1.2) mg/dl Est GFR ( Amer) Est GFR (Non-Af Amer) POC Glucose (mg/dL) 271 H (65-110) mg/dL Random Glucose (65-105) mg/dL Lactic Acid 4.6 H* (0.7-2.1) MMOL/L Calcium (8.4-10.2) mg/dL Total Bilirubin (0.2-1.3) mg/dl AST (14-36) U/L ALT (9-52) U/L Alkaline Phosphatase (38-126) U/L Total Creatine Kinase (30-135) U/L Total Protein (6.3-8.2) G/DL Albumin (3.5-5.0) g/dL Globulin (2.2-3.9) gm/dL Albumin/Globulin Ratio (1.0-2.1) Venous Blood Potassium (3.6-5.2) mmol/L 05/04/17 05/04/17 05/03/17 Range/Units 04:20 04:20 21:22 WBC 16.9 H (4.8-10.8) K/uL RBC 3.79 L (3.80-5.20) Mil/uL Hgb 11.4 L (12.0-16.0) g/dL Hct 36.3 (34.0-47.0) % MCV 95.8 (81.0-99.0) fl MCH 30.0 (27.0-31.0) pg MCHC 31.3 L (33.0-37.0) g/dL RDW 22.9 H (11.5-14.5) % Plt Count 33 L (130-400) K/uL MPV 9.4 (7.2-11.7) fl Neut % (Auto) 66.1 (50.0-75.0) % Lymph % (Auto) 28.2 (20.0-40.0) % [place] % (Auto) 4.9 (0.0-10.0) % Eos % (Auto) 0.1 (0.0-4.0) % Baso % (Auto) 0.7 (0.0-2.0) % Neut # 11.2 H (1.8-7.0) K/uL Lymph # 4.8 H (1.0-4.3) K/uL [place] # 0.8 (0.0-0.8) K/uL Eos # 0.0 (0.0-0.7) K/uL Baso # 0.1 (0.0-0.2) K/uL PT (9.8-13.1) Seconds INR (0.9-1.2) Fibrinogen (200-400) mg/dl pCO2 (35-45) mm/Hg pO2 (30-55) mm/Hg HCO3 (21-28) mmol/L ABG pH (7.35-7.45) ABG Total CO2 (22-28) mmol/L ABG O2 Saturation (95-98) % ABG O2 Content (15-23) ML/dL ABG Base Excess (-2.0-3.0) mmol/L ABG Hemoglobin (11.7-17.4) g/dL ABG Carboxyhemoglobin (0.5-1.5) % POC ABG HHb (Measured) (0.0-5.0) % ABG Methemoglobin (0.0-3.0) % ABG O2 Capacity (16-24) mL/dL Romna Test VBG pH (7.32-7.43) VBG pCO2 (40-60) mmHg VBG HCO3 mmol/L VBG Total CO2 (22-28) mmol/L VBG O2 Sat (Calc) (40-65) % VBG Base Excess (0.0-2.0) mmol/L VBG Potassium (3.6-5.2) mmol/L A-a O2 Difference mm/Hg Hgb O2 Saturation (95.0-98.0) % Sodium 155 H (132-148) mmol/L Chloride 119 H (98-107) mmol/L Glucose (65-105) mg/dL Lactate (0.7-2.1) mmol/L Vent Mode Mechanical Rate FiO2 % Tidal Volume PEEP Crit Value Called To Crit Value Called By Crit Value Read Back Blood Gas Notified Time Potassium 2.6 L (3.6-5.0) MMOL/L Carbon Dioxide 23 (22-30) mmol/L Anion Gap 16 (10-20) BUN 110 H* (7-17) mg/dl Creatinine 1.6 H (0.7-1.2) mg/dl Est GFR ( Amer) 40 Est GFR (Non-Af Amer) 33 POC Glucose (mg/dL) 288 H (65-110) mg/dL Random Glucose 302 H (65-105) mg/dL Lactic Acid (0.7-2.1) MMOL/L Calcium 9.5 (8.4-10.2) mg/dL Total Bilirubin 16.5 H (0.2-1.3) mg/dl AST 210 H (14-36) U/L ALT 83 H (9-52) U/L Alkaline Phosphatase 142 H D (38-126) U/L Total Creatine Kinase (30-135) U/L Total Protein 6.3 (6.3-8.2) G/DL Albumin 3.0 L (3.5-5.0) g/dL Globulin 3.3 (2.2-3.9) gm/dL Albumin/Globulin Ratio 0.9 L (1.0-2.1) Venous Blood Potassium (3.6-5.2) mmol/L 05/03/17 05/03/17 05/03/17 Range/Units 16:50 12:15 12:15 WBC (4.8-10.8) K/uL RBC (3.80-5.20) Mil/uL Hgb (12.0-16.0) g/dL Hct (34.0-47.0) % MCV (81.0-99.0) fl MCH (27.0-31.0) pg MCHC (33.0-37.0) g/dL RDW (11.5-14.5) % Plt Count (130-400) K/uL MPV (7.2-11.7) fl Neut % (Auto) (50.0-75.0) % Lymph % (Auto) (20.0-40.0) % [place] % (Auto) (0.0-10.0) % Eos % (Auto) (0.0-4.0) % Baso % (Auto) (0.0-2.0) % Neut # (1.8-7.0) K/uL Lymph # (1.0-4.3) K/uL [place] # (0.0-0.8) K/uL Eos # (0.0-0.7) K/uL Baso # (0.0-0.2) K/uL PT (9.8-13.1) Seconds INR (0.9-1.2) Fibrinogen (200-400) mg/dl pCO2 (35-45) mm/Hg pO2 (30-55) mm/Hg HCO3 (21-28) mmol/L ABG pH (7.35-7.45) ABG Total CO2 (22-28) mmol/L ABG O2 Saturation (95-98) % ABG O2 Content (15-23) ML/dL ABG Base Excess (-2.0-3.0) mmol/L ABG Hemoglobin (11.7-17.4) g/dL ABG Carboxyhemoglobin (0.5-1.5) % POC ABG HHb (Measured) (0.0-5.0) % ABG Methemoglobin (0.0-3.0) % ABG O2 Capacity (16-24) mL/dL Roman Test VBG pH (7.32-7.43) VBG pCO2 (40-60) mmHg VBG HCO3 mmol/L VBG Total CO2 (22-28) mmol/L VBG O2 Sat (Calc) (40-65) % VBG Base Excess (0.0-2.0) mmol/L VBG Potassium (3.6-5.2) mmol/L A-a O2 Difference mm/Hg Hgb O2 Saturation (95.0-98.0) % Sodium (132-148) mmol/L Chloride (98-107) mmol/L Glucose (65-105) mg/dL Lactate (0.7-2.1) mmol/L Vent Mode Mechanical Rate FiO2 % Tidal Volume PEEP Crit Value Called To Crit Value Called By Crit Value Read Back Blood Gas Notified Time Potassium (3.6-5.0) MMOL/L Carbon Dioxide (22-30) mmol/L Anion Gap (10-20) BUN (7-17) mg/dl Creatinine (0.7-1.2) mg/dl Est GFR ( Amer) Est GFR (Non-Af Amer) POC Glucose (mg/dL) 338 H (65-110) mg/dL Random Glucose (65-105) mg/dL Lactic Acid 6.2 H* (0.7-2.1) MMOL/L Calcium (8.4-10.2) mg/dL Total Bilirubin (0.2-1.3) mg/dl AST (14-36) U/L ALT (9-52) U/L Alkaline Phosphatase (38-126) U/L Total Creatine Kinase 70 (30-135) U/L Total Protein (6.3-8.2) G/DL Albumin (3.5-5.0) g/dL Globulin (2.2-3.9) gm/dL Albumin/Globulin Ratio (1.0-2.1) Venous Blood Potassium (3.6-5.2) mmol/L 05/03/17 05/03/17 05/03/17 Range/Units 11:36 11:28 09:10 WBC (4.8-10.8) K/uL RBC (3.80-5.20) Mil/uL Hgb (12.0-16.0) g/dL Hct (34.0-47.0) % MCV (81.0-99.0) fl MCH (27.0-31.0) pg MCHC (33.0-37.0) g/dL RDW (11.5-14.5) % Plt Count (130-400) K/uL MPV (7.2-11.7) fl Neut % (Auto) (50.0-75.0) % Lymph % (Auto) (20.0-40.0) % [place] % (Auto) (0.0-10.0) % Eos % (Auto) (0.0-4.0) % Baso % (Auto) (0.0-2.0) % Neut # (1.8-7.0) K/uL Lymph # (1.0-4.3) K/uL [place] # (0.0-0.8) K/uL Eos # (0.0-0.7) K/uL Baso # (0.0-0.2) K/uL PT 43.3 H* (9.8-13.1) Seconds INR 3.7 H (0.9-1.2) Fibrinogen (200-400) mg/dl pCO2 (35-45) mm/Hg pO2 35 (30-55) mm/Hg HCO3 (21-28) mmol/L ABG pH (7.35-7.45) ABG Total CO2 (22-28) mmol/L ABG O2 Saturation (95-98) % ABG O2 Content (15-23) ML/dL ABG Base Excess (-2.0-3.0) mmol/L ABG Hemoglobin (11.7-17.4) g/dL ABG Carboxyhemoglobin (0.5-1.5) % POC ABG HHb (Measured) (0.0-5.0) % ABG Methemoglobin (0.0-3.0) % ABG O2 Capacity (16-24) mL/dL Roman Test VBG pH 7.38 (7.32-7.43) VBG pCO2 36 L (40-60) mmHg VBG HCO3 21.7 mmol/L VBG Total CO2 22.4 (22-28) mmol/L VBG O2 Sat (Calc) 74.7 H (40-65) % VBG Base Excess -3.4 L (0.0-2.0) mmol/L VBG Potassium 2.7 L (3.6-5.2) mmol/L A-a O2 Difference mm/Hg Hgb O2 Saturation (95.0-98.0) % Sodium 155.0 H (132-148) mmol/L Chloride 120.0 H (98-107) mmol/L Glucose 328 H (65-105) mg/dL Lactate 6.7 H* (0.7-2.1) mmol/L Vent Mode Mechanical Rate FiO2 40.0 % Tidal Volume PEEP Crit Value Called To Dav justice Crit Value Called By Osman Crit Value Read Back Y Blood Gas Notified Time 1511 Potassium (3.6-5.0) MMOL/L Carbon Dioxide (22-30) mmol/L Anion Gap (10-20) BUN (7-17) mg/dl Creatinine (0.7-1.2) mg/dl Est GFR ( Amer) Est GFR (Non-Af Amer) POC Glucose (mg/dL) 329 H (65-110) mg/dL Random Glucose (65-105) mg/dL Lactic Acid (0.7-2.1) MMOL/L Calcium (8.4-10.2) mg/dL Total Bilirubin (0.2-1.3) mg/dl AST (14-36) U/L ALT (9-52) U/L Alkaline Phosphatase (38-126) U/L Total Creatine Kinase (30-135) U/L Total Protein (6.3-8.2) G/DL Albumin (3.5-5.0) g/dL Globulin (2.2-3.9) gm/dL Albumin/Globulin Ratio (1.0-2.1) Venous Blood Potassium 2.7 L (3.6-5.2) mmol/L 05/03/17 Range/Units 04:20 WBC (4.8-10.8) K/uL RBC (3.80-5.20) Mil/uL Hgb (12.0-16.0) g/dL Hct (34.0-47.0) % MCV (81.0-99.0) fl MCH (27.0-31.0) pg MCHC (33.0-37.0) g/dL RDW (11.5-14.5) % Plt Count (130-400) K/uL MPV (7.2-11.7) fl Neut % (Auto) (50.0-75.0) % Lymph % (Auto) (20.0-40.0) % [place] % (Auto) (0.0-10.0) % Eos % (Auto) (0.0-4.0) % Baso % (Auto) (0.0-2.0) % Neut # (1.8-7.0) K/uL Lymph # (1.0-4.3) K/uL [place] # (0.0-0.8) K/uL Eos # (0.0-0.7) K/uL Baso # (0.0-0.2) K/uL PT (9.8-13.1) Seconds INR (0.9-1.2) Fibrinogen 56 L* (200-400) mg/dl pCO2 (35-45) mm/Hg pO2 (30-55) mm/Hg HCO3 (21-28) mmol/L ABG pH (7.35-7.45) ABG Total CO2 (22-28) mmol/L ABG O2 Saturation (95-98) % ABG O2 Content (15-23) ML/dL ABG Base Excess (-2.0-3.0) mmol/L ABG Hemoglobin (11.7-17.4) g/dL ABG Carboxyhemoglobin (0.5-1.5) % POC ABG HHb (Measured) (0.0-5.0) % ABG Methemoglobin (0.0-3.0) % ABG O2 Capacity (16-24) mL/dL Roman Test VBG pH (7.32-7.43) VBG pCO2 (40-60) mmHg VBG HCO3 mmol/L VBG Total CO2 (22-28) mmol/L VBG O2 Sat (Calc) (40-65) % VBG Base Excess (0.0-2.0) mmol/L VBG Potassium (3.6-5.2) mmol/L A-a O2 Difference mm/Hg Hgb O2 Saturation (95.0-98.0) % Sodium (132-148) mmol/L Chloride (98-107) mmol/L Glucose (65-105) mg/dL Lactate (0.7-2.1) mmol/L Vent Mode Mechanical Rate FiO2 % Tidal Volume PEEP Crit Value Called To Crit Value Called By Crit Value Read Back Blood Gas Notified Time Potassium (3.6-5.0) MMOL/L Carbon Dioxide (22-30) mmol/L Anion Gap (10-20) BUN (7-17) mg/dl Creatinine (0.7-1.2) mg/dl Est GFR ( Amer) Est GFR (Non-Af Amer) POC Glucose (mg/dL) (65-110) mg/dL Random Glucose (65-105) mg/dL Lactic Acid (0.7-2.1) MMOL/L Calcium (8.4-10.2) mg/dL Total Bilirubin (0.2-1.3) mg/dl AST (14-36) U/L ALT (9-52) U/L Alkaline Phosphatase (38-126) U/L Total Creatine Kinase (30-135) U/L Total Protein (6.3-8.2) G/DL Albumin (3.5-5.0) g/dL Globulin (2.2-3.9) gm/dL Albumin/Globulin Ratio (1.0-2.1) Venous Blood Potassium (3.6-5.2) mmol/L Laboratory Results - last 24 hr 05/03/17 05/03/17 05/03/17 04:20 09:10 11:28 WBC RBC Hgb Hct MCV MCH MCHC RDW Plt Count MPV Neut % (Auto) Lymph % (Auto) [place] % (Auto) Eos % (Auto) Baso % (Auto) Neut # Lymph # [place] # Eos # Baso # PT 43.3 H* INR 3.7 H Fibrinogen 56 L* pCO2 pO2 HCO3 ABG pH ABG Total CO2 ABG O2 Saturation ABG O2 Content ABG Base Excess ABG Hemoglobin ABG Carboxyhemoglobin POC ABG HHb (Measured) ABG Methemoglobin ABG O2 Capacity Roman Test VBG pH VBG pCO2 VBG HCO3 VBG Total CO2 VBG O2 Sat (Calc) VBG Base Excess VBG Potassium A-a O2 Difference Hgb O2 Saturation Sodium Chloride Glucose Lactate Vent Mode Mechanical Rate FiO2 Tidal Volume PEEP Crit Value Called To Crit Value Called By Crit Value Read Back Blood Gas Notified Time Potassium Carbon Dioxide Anion Gap BUN Creatinine Est GFR ( Amer) Est GFR (Non-Af Amer) POC Glucose (mg/dL) 329 H Random Glucose Lactic Acid Calcium Total Bilirubin AST ALT Alkaline Phosphatase Total Creatine Kinase Total Protein Albumin Globulin Albumin/Globulin Ratio Venous Blood Potassium 05/03/17 05/03/17 05/03/17 11:36 12:15 12:15 WBC RBC Hgb Hct MCV MCH MCHC RDW Plt Count MPV Neut % (Auto) Lymph % (Auto) [place] % (Auto) Eos % (Auto) Baso % (Auto) Neut # Lymph # [place] # Eos # Baso # PT INR Fibrinogen pCO2 pO2 35 HCO3 ABG pH ABG Total CO2 ABG O2 Saturation ABG O2 Content ABG Base Excess ABG Hemoglobin ABG Carboxyhemoglobin POC ABG HHb (Measured) ABG Methemoglobin ABG O2 Capacity Roman Test VBG pH 7.38 VBG pCO2 36 L VBG HCO3 21.7 VBG Total CO2 22.4 VBG O2 Sat (Calc) 74.7 H VBG Base Excess -3.4 L VBG Potassium 2.7 L A-a O2 Difference Hgb O2 Saturation Sodium 155.0 H Chloride 120.0 H Glucose 328 H Lactate 6.7 H* Vent Mode Mechanical Rate FiO2 40.0 Tidal Volume PEEP Crit Value Called To Dav justice Crit Value Called By Osman Crit Value Read Back Y Blood Gas Notified Time 1511 Potassium Carbon Dioxide Anion Gap BUN Creatinine Est GFR ( Amer) Est GFR (Non-Af Amer) POC Glucose (mg/dL) Random Glucose Lactic Acid 6.2 H* Calcium Total Bilirubin AST ALT Alkaline Phosphatase Total Creatine Kinase 70 Total Protein Albumin Globulin Albumin/Globulin Ratio Venous Blood Potassium 2.7 L 05/03/17 05/03/17 05/04/17 16:50 21:22 04:20 WBC 16.9 H RBC 3.79 L Hgb 11.4 L Hct 36.3 MCV 95.8 MCH 30.0 MCHC 31.3 L RDW 22.9 H Plt Count 33 L MPV 9.4 Neut % (Auto) 66.1 Lymph % (Auto) 28.2 [place] % (Auto) 4.9 Eos % (Auto) 0.1 Baso % (Auto) 0.7 Neut # 11.2 H Lymph # 4.8 H [place] # 0.8 Eos # 0.0 Baso # 0.1 PT INR Fibrinogen pCO2 pO2 HCO3 ABG pH ABG Total CO2 ABG O2 Saturation ABG O2 Content ABG Base Excess ABG Hemoglobin ABG Carboxyhemoglobin POC ABG HHb (Measured) ABG Methemoglobin ABG O2 Capacity Roman Test VBG pH VBG pCO2 VBG HCO3 VBG Total CO2 VBG O2 Sat (Calc) VBG Base Excess VBG Potassium A-a O2 Difference Hgb O2 Saturation Sodium Chloride Glucose Lactate Vent Mode Mechanical Rate FiO2 Tidal Volume PEEP Crit Value Called To Crit Value Called By Crit Value Read Back Blood Gas Notified Time Potassium Carbon Dioxide Anion Gap BUN Creatinine Est GFR ( Amer) Est GFR (Non-Af Amer) POC Glucose (mg/dL) 338 H 288 H Random Glucose Lactic Acid Calcium Total Bilirubin AST ALT Alkaline Phosphatase Total Creatine Kinase Total Protein Albumin Globulin Albumin/Globulin Ratio Venous Blood Potassium 05/04/17 05/04/17 05/04/17 04:20 04:38 04:59 WBC RBC Hgb Hct MCV MCH MCHC RDW Plt Count MPV Neut % (Auto) Lymph % (Auto) [place] % (Auto) Eos % (Auto) Baso % (Auto) Neut # Lymph # [place] # Eos # Baso # PT INR Fibrinogen pCO2 31 L pO2 95 HCO3 24.5 ABG pH 7.47 H ABG Total CO2 23.6 ABG O2 Saturation 100.3 H ABG O2 Content 15.2 ABG Base Excess -0.5 ABG Hemoglobin 11.1 L ABG Carboxyhemoglobin 2.6 H POC ABG HHb (Measured) -0.3 L ABG Methemoglobin 1.3 ABG O2 Capacity 15.2 L Roman Test Yes VBG pH VBG pCO2 VBG HCO3 VBG Total CO2 VBG O2 Sat (Calc) VBG Base Excess VBG Potassium A-a O2 Difference 187.0 Hgb O2 Saturation 96.4 Sodium 155 H Chloride 119 H Glucose Lactate Vent Mode A/c Mechanical Rate 14 FiO2 45.0 Tidal Volume 450 PEEP 5 Crit Value Called To Crit Value Called By Crit Value Read Back Blood Gas Notified Time Potassium 2.6 L Carbon Dioxide 23 Anion Gap 16 BUN 110 H* Creatinine 1.6 H Est GFR ( Amer) 40 Est GFR (Non-Af Amer) 33 POC Glucose (mg/dL) 271 H Random Glucose 302 H Lactic Acid Calcium 9.5 Total Bilirubin 16.5 H AST 210 H ALT 83 H Alkaline Phosphatase 142 H D Total Creatine Kinase Total Protein 6.3 Albumin 3.0 L Globulin 3.3 Albumin/Globulin Ratio 0.9 L Venous Blood Potassium 05/04/17 05:10 WBC RBC Hgb Hct MCV MCH MCHC RDW Plt Count MPV Neut % (Auto) Lymph % (Auto) [place] % (Auto) Eos % (Auto) Baso % (Auto) Neut # Lymph # [place] # Eos # Baso # PT INR Fibrinogen pCO2 pO2 HCO3 ABG pH ABG Total CO2 ABG O2 Saturation ABG O2 Content ABG Base Excess ABG Hemoglobin ABG Carboxyhemoglobin POC ABG HHb (Measured) ABG Methemoglobin ABG O2 Capacity Roman Test VBG pH VBG pCO2 VBG HCO3 VBG Total CO2 VBG O2 Sat (Calc) VBG Base Excess VBG Potassium A-a O2 Difference Hgb O2 Saturation Sodium Chloride Glucose Lactate Vent Mode Mechanical Rate FiO2 Tidal Volume PEEP Crit Value Called To Crit Value Called By Crit Value Read Back Blood Gas Notified Time Potassium Carbon Dioxide Anion Gap BUN Creatinine Est GFR ( Amer) Est GFR (Non-Af Amer) POC Glucose (mg/dL) Random Glucose Lactic Acid 4.6 H* Calcium Total Bilirubin AST ALT Alkaline Phosphatase Total Creatine Kinase Total Protein Albumin Globulin Albumin/Globulin Ratio Venous Blood Potassium Fingerstick Blood Sugar Results: 271 Review of Systems - Review of Systems Systems not reviewed;Unavailable: Intubated All systems: reviewed and no additional remarkable complaints except Critical Care Progress Note - Ventilator Checklist Head of Bed 30 Degrees: Yes Daily Sedation Vacation: Yes Daily Assessment of Readiness to Wean: Yes Daily Spontaneous Breathing Trial: Yes PUD Prophalyxis: Yes DVT Prophylaxis: Yes Oral Care with Chlorhexidine Gluconate {CHG}: Yes - Vent Settings MODE:: ASSIST CONTROL TIDAL VOLUME:: 450 RESP RATE:: 14 FIO2:: 45 PEEP:: 5 - Extremities/Vascular Does the Patient have a Central Venous Catheter?: Yes Does the Patient need a Central Venous Catheter?: Yes Does the Patient have a Valadez Catheter?: Yes Does the Patient need a Valadez Catheter?: Yes Catheter Insertion Criteria: Need for accurate measurement of output in critically ill patient
[2017-05-04] MEDS ORDERED: Pantoprazole 40 MG in Sodium Chloride 0.9% 100 ML IVPB SCH (08:15)
[2017-05-04] MEDS: Potassium Chloride 20 mEq/15 ml LIQ UD PO SCH ×4 (08:15→21:31)
[2017-05-04] MEDS: Azithromycin 500 MG in Sodium Chloride 0.9% 250 ML IVPB SCH (08:17)
--- NOTE | 2017-05-04 08:21 | CP.PCM.PN ---
<Job Whiting - Last Filed: 05/04/17 08:40> Subjective - Date & Time of Evaluation Date of Evaluation: 05/04/17 Time of Evaluation: 07:00 - Subjective Subjective: PGY4 GI Follow-up Pt seen and examined bedside RN reports 5 BM overnight, clears NPO ROS: 10 point ROS conducted and otherwise neg Objective - Vital Signs/Intake and Output Vital Signs (last 24 hours): Temp Pulse Resp BP Pulse Ox 99.6 F 96 H 18 117/67 100 05/04/17 08:00 05/04/17 08:00 05/04/17 08:00 05/04/17 08:00 05/04/17 08:00 Intake and Output: 05/04/17 05/04/17 06:59 18:59 Intake Total 1950 240 Output Total 810 60 Balance 1140 180 - Medications Medications: Current Medications Acetaminophen (Tylenol 650 Mg Supp) 650 mg [place] ONCE [facility] Last Admin: 04/28/17 14:30 Dose: 650 mg Albuterol Sulfate (Albuterol 0.083% Inhal Rae (2.5 Mg/3 Ml) Ud) 2.5 mg INH RQ4 PRN PRN Reason: Shortness of Breath Last Admin: 05/03/17 23:29 Dose: 2.5 mg Allopurinol (Zyloprim) 200 mg PO DAILY [facility] Last Admin: 05/04/17 08:14 Dose: 200 mg Hydrocortisone Sodium Succinate (Solu-Cortef) 100 mg IV Q8 [facility] Last Admin: 05/04/17 08:13 Dose: 100 mg Hydromorphone HCl (Dilaudid) 0.5 mg IVP Q4 PRN PRN Reason: Pain, moderate (4-7) Last Admin: 04/30/17 01:02 Dose: 0.5 mg Hydromorphone HCl (Dilaudid) 1 mg IVP Q4 PRN PRN Reason: Agitation Last Admin: 05/02/17 11:15 Dose: 1 mg Vancomycin HCl 1 gm/ Sodium (Chloride) 250 mls @ 166.667 mls/hr IVPB DAILY [facility] PRN Reason: Protocol Last Admin: 05/03/17 09:55 Dose: 166.667 mls/hr Piperacillin Sod/Tazobactam Sod (Zosyn 2.25 Gm Iv Premix) 2.25 gm in 50 mls @ 50 mls/hr IVPB Q6 [facility] PRN Reason: Protocol Last Admin: 05/04/17 04:20 Dose: 50 mls/hr Azithromycin 500 mg/ Sodium (Chloride) 250 mls @ 250 mls/hr IVPB DAILY [facility] PRN Reason: Protocol Last Admin: 05/04/17 08:17 Dose: 250 mls/hr Dextrose (Dextrose 5% In Water 1000 Ml) 1,000 mls @ 100 mls/hr IV .Q10H [facility] Stop: 05/04/17 11:39 Last Admin: 05/03/17 23:00 Dose: 100 mls/hr Potassium Chloride 10 meq/ (Sodium Chloride) 55 mls @ 55 mls/hr IV Q1 [facility] Stop: 05/04/17 11:59 Pantoprazole Sodium 40 mg/ (Sodium Chloride) 100 mls @ 20 mls/hr IVPB Q5H [facility] PRN Reason: 8 MG/HR Insulin Detemir (Levemir) 30 units SC HS [facility] Last Admin: 05/03/17 21:22 Dose: 30 units Insulin Human Lispro (Humalog) 0 units SC ACHS [facility] PRN Reason: Protocol Last Admin: 05/04/17 06:37 Dose: Not Given Insulin Human Lispro (Humalog) 8 units SC AC [facility] Last Admin: 05/04/17 06:38 Dose: 8 unit Pantoprazole Sodium (Protonix Inj) 40 mg IVP DAILY [facility] Last Admin: 05/04/17 08:13 Dose: 40 mg Pantoprazole Sodium (Protonix Inj) 40 mg IVP STAT STA Stop: 05/04/17 08:07 Potassium Chloride (Potassium Chloride Oral Soln) 20 meq PO QID [facility] Stop: 05/04/17 22:01 Last Admin: 05/04/17 08:15 Dose: 20 meq - Labs Labs: 05/04/17 04:20 05/04/17 04:20 PT 43.3 Seconds (9.8-13.1) H* 05/03/17 09:10 INR 3.7 (0.9-1.2) H 05/03/17 09:10 APTT 55.6 Seconds (25.6-37.1) H D 05/03/17 04:20 - Constitutional Appears: No Acute Distress - Head Exam Head Exam: ATRAUMATIC, NORMOCEPHALIC - Eye Exam Eye Exam: Scleral icterus - ENT Exam ENT Exam: Mucous Membranes Moist - Respiratory Exam Respiratory Exam: Clear to Ausculation Bilateral, NORMAL BREATHING PATTERN. absent: Rales, Rhonchi, Wheezes, Respiratory Distress - Cardiovascular Exam Cardiovascular Exam: REGULAR RHYTHM, +S1, +S2 - GI/Abdominal Exam GI & Abdominal Exam: Soft, Normal Bowel Sounds. absent: Guarding, Rigid, Tenderness - Extremities Exam Extremities Exam: absent: Joint Swelling, Pedal Edema - Neurological Exam Neurological Exam: Alert, Awake, Oriented x3 - Psychiatric Exam Psychiatric exam: Normal Affect, Normal Mood - Skin Skin Exam: Dry, Intact, Warm Additional comments: errol Assessment and Plan - Assessment and Plan (Free Text) Assessment: Janet Taylor is a 57f w/ hx of cirrhosis, HCV, anemia, hx of polysubstance use who presents to the Er with weakness and confusion. Pt had marked anemia and thrombocytopenia Hemolytic anemia likely 2/2 HCV meds especially ribaviran (resolved) Chronic HCV on tx as oupt Cirrhosis etiology like HCV Thrombocytopenia 2/2 to the above Severe Hepatic Encephalopathy Splenic flexure thickening, r/o lesion Diarrhea, r/o infectous etiology Plan: -discontinue lactulose PO via OG -replace electrolytes -continue to hold Hep C tx for now -no indication for any endoscopy at this time -keep hgb > 7, but restrict PRBC transfusion since she is cirrhotic, today hgb ~ 11 s/p 1 unit PRBC -No other active treatment recommend at this time -will sent for infectous work-up -stool cultures -start on empiric PO vanco 250mg QID -will eventually need a Triple phase to r/o HCC or biliary mass or lesion -will eventually need outpt colonscopy to eval sigmoid/splenic flexure thickening D/W Dr. Yusuf <Joaquin Yusuf - Last Filed: 05/04/17 08:56> Objective - Vital Signs/Intake and Output Vital Signs (last 24 hours): Temp Pulse Resp BP Pulse Ox 99.6 F 96 H 18 117/67 100 05/04/17 08:00 05/04/17 08:00 05/04/17 08:00 05/04/17 08:00 05/04/17 08:00 Intake and Output: 05/04/17 05/04/17 06:59 18:59 Intake Total 1950 240 Output Total 810 60 Balance 1140 180 - Medications Medications: Current Medications Acetaminophen (Tylenol 650 Mg Supp) 650 mg [place] ONCE [facility] Last Admin: 04/28/17 14:30 Dose: 650 mg Albuterol Sulfate (Albuterol 0.083% Inhal Rae (2.5 Mg/3 Ml) Ud) 2.5 mg INH RQ4 PRN PRN Reason: Shortness of Breath Last Admin: 05/03/17 23:29 Dose: 2.5 mg Allopurinol (Zyloprim) 200 mg PO DAILY [facility] Last Admin: 05/04/17 08:14 Dose: 200 mg Hydrocortisone Sodium Succinate (Solu-Cortef) 100 mg IV Q8 [facility] Last Admin: 05/04/17 08:13 Dose: 100 mg Hydromorphone HCl (Dilaudid) 0.5 mg IVP Q4 PRN PRN Reason: Pain, moderate (4-7) Last Admin: 04/30/17 01:02 Dose: 0.5 mg Hydromorphone HCl (Dilaudid) 1 mg IVP Q4 PRN PRN Reason: Agitation Last Admin: 05/02/17 11:15 Dose: 1 mg Vancomycin HCl 1 gm/ Sodium (Chloride) 250 mls @ 166.667 mls/hr IVPB DAILY [facility] PRN Reason: Protocol Last Admin: 05/03/17 09:55 Dose: 166.667 mls/hr Piperacillin Sod/Tazobactam Sod (Zosyn 2.25 Gm Iv Premix) 2.25 gm in 50 mls @ 50 mls/hr IVPB Q6 [facility] PRN Reason: Protocol Last Admin: 05/04/17 04:20 Dose: 50 mls/hr Azithromycin 500 mg/ Sodium (Chloride) 250 mls @ 250 mls/hr IVPB DAILY [facility] PRN Reason: Protocol Last Admin: 05/04/17 08:17 Dose: 250 mls/hr Dextrose (Dextrose 5% In Water 1000 Ml) 1,000 mls @ 100 mls/hr IV .Q10H [facility] Stop: 05/04/17 11:39 Last Admin: 05/03/17 23:00 Dose: 100 mls/hr Potassium Chloride 10 meq/ (Sodium Chloride) 55 mls @ 55 mls/hr IV Q1 [facility] Stop: 05/04/17 11:59 Pantoprazole Sodium 40 mg/ (Sodium Chloride) 100 mls @ 20 mls/hr IVPB Q5H [facility] PRN Reason: 8 MG/HR Insulin Detemir (Levemir) 30 units SC HS [facility] Last Admin: 05/03/17 21:22 Dose: 30 units Insulin Human Lispro (Humalog) 0 units SC ACHS [facility] PRN Reason: Protocol Last Admin: 05/04/17 06:37 Dose: Not Given Insulin Human Lispro (Humalog) 8 units SC AC [facility] Last Admin: 05/04/17 06:38 Dose: 8 unit Pantoprazole Sodium (Protonix Inj) 40 mg IVP DAILY [facility] Last Admin: 05/04/17 08:13 Dose: 40 mg Potassium Chloride (Potassium Chloride Oral Soln) 20 meq PO QID [facility] Stop: 05/04/17 22:01 Last Admin: 05/04/17 08:15 Dose: 20 meq Vancomycin HCl (Vancocin (Oral/Rectal Use)) 250 mg PO Q8 [facility] PRN Reason: Protocol - Labs Labs: 05/04/17 04:20 05/04/17 04:20 PT 43.3 Seconds (9.8-13.1) H* 05/03/17 09:10 INR 3.7 (0.9-1.2) H 05/03/17 09:10 APTT 55.6 Seconds (25.6-37.1) H D 05/03/17 04:20 Attending/Attestation - Attestation I have personally seen and examined this patient.: Yes I have fully participated in the care of the patient.: Yes I have reviewed all pertinent clinical information, including history, physical exam and plan: Yes Notes (Text): 05/04/17 08:48 I have seen and examined patient with GI fellow. Patient remains intubated in critical care unit. Since yesterday she has started to develop profuse watery diarrhea requiring placement of rectal tube. No reported abdominal pain, vomiting. Tolerating tube feeding without difficulty. Review of vitals from today shows tachycardia, low grade temperature. HCV decompensated cirrhosis, progressive liver failure Altered mental status - encephalopathy Sepsis, pneumonia, diarrhea Elevated CEA, questionable underlying malignancy - LFTs, bilirubin continue to rise - patient not candidate for transplant. Monitor INR. - Abdominal US from yesterday was performed without doppler, though did not show significant biliary dilation - Continue with antibiotic therapy as per ID, monitor blood cultures - Obtain stool cultures, would begin empiric therapy with PO Vancomycin given new onset diarrhea - H/H stable, continue to monitor - Overall patient prognosis is quite poor given progressive liver failure. Further potential workup including endoscopic evaluation and dedicated liver imaging pending clinical status. - Would highly recommend palliative care consultation given clinical scenario
--- NOTE | 2017-05-04 10:02 | RAD ---
HISTORY: reevaluate ETT COMPARISON: Chest radiograph dated 05/03/2017. FINDINGS: LUNGS: Prominence of the pulmonary vasculature may be secondary to AP technique and/or pulmonary vascular congestion. Continued improved aeration bilaterally. PLEURA: No significant pleural effusion identified, no pneumothorax apparent. CARDIOVASCULAR: Normal. OSSEOUS STRUCTURES: No significant abnormalities. VISUALIZED UPPER ABDOMEN: Normal. OTHER FINDINGS: Endotracheal and orogastric tubes in satisfactory position. IMPRESSION: Stable tubes lines. Mild continued improved aeration bilaterally. Stable mild prominence of pulmonary vasculature which may be secondary to AP technique and/or pulmonary vascular congestion.
[2017-05-04] MEDS: Vancomycin 500 mg (Oral/Rectal USE) PO SCH ×2 (10:15→16:57)
--- NOTE | 2017-05-04 10:41 | CP.PCM.PN ---
Subjective - Date & Time of Evaluation Date of Evaluation: 05/04/17 Time of Evaluation: 08:45 - Subjective Subjective: Pt is lethargic Intubated on Vent - 45% FiO2 Febrile had 7 BM total (was on Lactulose) No signs of bleeding tolerating tube diet Objective - Vital Signs/Intake and Output Vital Signs (last 24 hours): Temp Pulse Resp BP Pulse Ox 99.6 F 96 H 18 117/67 100 05/04/17 08:00 05/04/17 08:00 05/04/17 08:00 05/04/17 08:00 05/04/17 08:00 Intake and Output: 05/04/17 05/04/17 06:59 18:59 Intake Total 1950 240 Output Total 810 60 Balance 1140 180 - Medications Medications: Current Medications Acetaminophen (Tylenol 650 Mg Supp) 650 mg OR ONCE [facility] Last Admin: 04/28/17 14:30 Dose: 650 mg Albuterol Sulfate (Albuterol 0.083% Inhal Rae (2.5 Mg/3 Ml) Ud) 2.5 mg INH RQ4 PRN PRN Reason: Shortness of Breath Last Admin: 05/03/17 23:29 Dose: 2.5 mg Allopurinol (Zyloprim) 200 mg PO DAILY [facility] Last Admin: 05/04/17 08:14 Dose: 200 mg Hydrocortisone Sodium Succinate (Solu-Cortef) 100 mg IV Q8 [facility] Last Admin: 05/04/17 08:13 Dose: 100 mg Hydromorphone HCl (Dilaudid) 0.5 mg IVP Q4 PRN PRN Reason: Pain, moderate (4-7) Last Admin: 04/30/17 01:02 Dose: 0.5 mg Hydromorphone HCl (Dilaudid) 1 mg IVP Q4 PRN PRN Reason: Agitation Last Admin: 05/02/17 11:15 Dose: 1 mg Vancomycin HCl 1 gm/ Sodium (Chloride) 250 mls @ 166.667 mls/hr IVPB DAILY [facility] PRN Reason: Protocol Last Admin: 05/04/17 09:49 Dose: 166.667 mls/hr Piperacillin Sod/Tazobactam Sod (Zosyn 2.25 Gm Iv Premix) 2.25 gm in 50 mls @ 50 mls/hr IVPB Q6 [facility] PRN Reason: Protocol Last Admin: 05/04/17 09:49 Dose: 50 mls/hr Azithromycin 500 mg/ Sodium (Chloride) 250 mls @ 250 mls/hr IVPB DAILY [facility] PRN Reason: Protocol Last Admin: 05/04/17 08:17 Dose: 250 mls/hr Dextrose (Dextrose 5% In Water 1000 Ml) 1,000 mls @ 100 mls/hr IV .Q10H [facility] Stop: 05/04/17 11:39 Last Admin: 05/04/17 10:14 Dose: 100 mls/hr Potassium Chloride 10 meq/ (Sodium Chloride) 55 mls @ 55 mls/hr IV Q1 [facility] Stop: 05/04/17 11:59 Last Admin: 05/04/17 10:19 Dose: 55 mls/hr Insulin Detemir (Levemir) 30 units SC HS [facility] Last Admin: 05/03/17 21:22 Dose: 30 units Insulin Human Lispro (Humalog) 0 units SC ACHS [facility] PRN Reason: Protocol Last Admin: 05/04/17 06:37 Dose: Not Given Insulin Human Lispro (Humalog) 8 units SC AC [facility] Last Admin: 05/04/17 06:38 Dose: 8 unit Pantoprazole Sodium (Protonix Inj) 40 mg IVP DAILY [facility] Last Admin: 05/04/17 08:13 Dose: 40 mg Potassium Chloride (Potassium Chloride Oral Soln) 20 meq PO QID [facility] Stop: 05/04/17 22:01 Last Admin: 05/04/17 08:15 Dose: 20 meq Vancomycin HCl (Vancocin (Oral/Rectal Use)) 250 mg PO Q8 [facility] PRN Reason: Protocol Last Admin: 05/04/17 10:15 Dose: 250 mg - Labs Labs: 05/04/17 04:20 05/04/17 04:20 PT 43.3 Seconds (9.8-13.1) H* 05/03/17 09:10 INR 3.7 (0.9-1.2) H 05/03/17 09:10 APTT 55.6 Seconds (25.6-37.1) H D 05/03/17 04:20 - Constitutional Appears: lethargic , Chronically Ill Intubated on Vent - Head Exam Head Exam: ATRAUMATIC, NORMOCEPHALIC Additional comments: jaundiced - Eye Exam Eye Exam: PERRL - ENT Exam ENT Exam: Mucous Membranes Dry - Neck Exam Neck Exam: Normal Inspection - Respiratory Exam Respiratory Exam: Accessory Muscle Use, + Rales, + rhonchi, no wheeze Intubated on Vent - Cardiovascular Exam Cardiovascular Exam: Tachycardia, +S1, +S2. absent: JVD - GI/Abdominal Exam GI & Abdominal Exam: Soft, Normal Bowel Sounds. Distended, No Guarding, Tenderness, Rebound OGT in place - Rectal Exam Rectal Exam: Deferred - Extremities Exam Extremities Exam: absent: Calf Tenderness, Pedal Edema - Neurological Exam Additional comments: lethargic - Skin Skin Exam: Dry, Warm Additional comments: jaundiced Assessment and Plan - Assessment and Plan (Free Text) Assessment: 57 y/o female with PMH IDDM , HTN, dyslipidemia , Cirrhosis sec to Hep C was brought to ER bec of AMS. For the past 3 days patient has not been herself, she was very weak, unable to get out of bed, confused , talking to herself, disoriented. Patient also appears jaundiced. As per family she has been complaining of lower back pain and has been seeing and physician who gave her an injection 1 month ago. Family denies any upper respiratory illness, nausea , vomiting , diarrhea, abdominal pain , recent illness or blood transfusion. In ER patient found to confused , jaundiced with Hgb 5.7, plt 39 K tea 6.7 , elevated LDH WBC 17 k lactic acid 5 cr 1.2 total protein 9 Ca 14 Peripheral Smear showed schistocytes , nucleated RBC-s Pt/Inr elevated Patient is critically ill. Admitted to ICU for sepsis , Altered mental status, metabolic derangement with hypercalcemia, hyperkalemia ,hemolytic anemia and possible malignancy. CT of the abd and pelvis: 1. 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 The differential considerations include metastasis and lymphoma. 2. Mild hepatomegaly and moderate splenomegaly. 3. Evaluation of the colon is limited in the absence of oral contrast. Allowing for this, apparent diffuse small bowel wall thickening is nonspecific and could be related to underdistention or nonspecific enteritis. Also noted is segmental mural thickening in the splenic flexure of colon, again could be related to underdistention however underlying mass cannot be excluded. Please correlate with colonoscopy. 3. Left lower lobe pneumonia. 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 ( Ribavirin can cause Hemolytic Anemia). Attempted to contct PMD to get more info however she has not called back - [facility] Gomez [facility] - [phone]. 1. Acute hypoxemic respiratory failure ( intubated ) multifactorial -- secondary to pulmonary edema, pneumonia and metabolic encephalopathy patient was in respiratory distress with RR 40 while on high flow with FIo2 80 % , ABG with PO2 54 PCO2 22 HCO3 19 CXR showed stable pulmonary edema intubated and placed on MV Continue IV antibiotics Pulmonary eval : DR Guaman patient has guarded prognosis 2. Sepsis sec to Pneumonia lactic acid elevated + leukocytosis, low grade fever Ct chest showed LLL pneumonia blood c/s : neg so far Mycoplasm IgM + continue vancomycin 1 g IV and Zosyn , added Azithro IV ID consulted- discussed case with Dr Topete , agree with the abx 3. Altered mental status likely sec to Metabolic Encephalopathy r/o Hepatic Encephalopathy vs sec to TTP most likely related to metabolic derangement CT head showed no acute pathology hematology consult appreciated and case discussed Peripheral smear showed nucleated RBC-s and schisctocytes -- most likely hemolytic anemia . PT/INR elevated and fibrinogen low CT abdomen and pelvis showed diffuse ostelytic lesions of the skeleton -- r/o Malignancy) continue IVF, IV antibiotics Started Zometa for hypercalcemia Continue Solucortef for hemolytic anemia transfused 3 unit PRBC Received plasmaphresis as rec by hematology (Plasma changed to Albumin when pt developed Pulm Edema) Lactulose started as per GI to improve mental status - now d/c as pt having Diarrhea 4. Hemolytic anemia ? TTP/DIC prob related to Ribavirin Hgb 5.7 LDH elevated , bili 6.7 peripheral smear showed nucleated RBC-s and schistocytes s/p 3 unit PRBc transfusin with Hgb 9.4 hematology consult appreciated Retic ct elevated Low Fibrinogen haptoglobin, Leonardo test ,Hepatis profile , FROYLAN,RF, mycoplasma-- pending patient has hepatitis C + continue Solucortef management as per hematology Plan for BM biopsy on Sunday 5. Thrombocytopenia/ coagulopathy prob sec to Cirrhosis suspected TTP and was started on Plasmapharesis PT/INR elevated , no proteinuria,Fibrinogen low - suggest possible DIC retic count: elevated to 6 ,haptoglobin pending, blood cx, urine cx : negative so far Hematology on board Hold off any Platelet transfusion as per hematology continue plasmaphresis 6.Diffuse Osteolytic lesions of the spine need to r/o MALIGNANCY Flow cytometry : negative protein electrophoresis: polyclonal spikes follow up with oncology recommendations elevated CRV=[id number] GI consulted - rec Triple phase CT once renal fxn better and outpt Colonoscopy Palpated right breast mass - will send pt for Sonogram 7.Hypercalcemia prob sec to malignancy IVF on Zometa Endo consulted 8. 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 once kidney fxn is stable will order triple phase liver CT 9.DM npo for now endo consulted - started Levemir insulin coverage and ACHS on tube feeding 10.KIRSTIN / Azotemia/ hyperkalemia continue IVF monitor renal fxn BUN/Cr 69/1.7 11. Pulmonary Edema happened 2 hrs after Plasmapharesis minimal response to diuretics ? sec to Transfusion rx ??? vs Volume overload plasmaphresis was changed to albumin instead of plasma continue lasix PRN if BP allows DVT/ GI prophylaxis SCD Protonix IV no anticoag sec to thrombocytopenia
--- NOTE | 2017-05-04 12:20 | CP.PCM.PN ---
Subjective - Date & Time of Evaluation Date of Evaluation: 05/04/17 Time of Evaluation: 12:15 - Subjective Subjective: pt is still intubated , and does not respond to verbal stimuli. Her CBC has been stable except for the Platalets which are 31 but have not changed over the last week. SPE shows polyclonal gammopathy, and it is felt that this may be due to liver disease or inflammation. will still do a bone marrow on sunday. Prognosis poor. Objective - Vital Signs/Intake and Output Vital Signs (last 24 hours): Temp Pulse Resp BP Pulse Ox 99.6 F 116 H 27 H 129/77 100 05/04/17 08:00 05/04/17 10:00 05/04/17 10:00 05/04/17 10:00 05/04/17 10:00 Intake and Output: 05/04/17 05/04/17 06:59 18:59 Intake Total 1950 1280 Output Total 810 420 Balance 1140 860 - Medications Medications: Current Medications Acetaminophen (Tylenol 650 Mg Supp) 650 mg [place] ONCE [facility] Last Admin: 04/28/17 14:30 Dose: 650 mg Albuterol Sulfate (Albuterol 0.083% Inhal Rae (2.5 Mg/3 Ml) Ud) 2.5 mg INH RQ4 PRN PRN Reason: Shortness of Breath Last Admin: 05/03/17 23:29 Dose: 2.5 mg Allopurinol (Zyloprim) 200 mg PO DAILY [facility] Last Admin: 05/04/17 08:14 Dose: 200 mg Hydrocortisone Sodium Succinate (Solu-Cortef) 100 mg IV Q8 [facility] Last Admin: 05/04/17 08:13 Dose: 100 mg Hydromorphone HCl (Dilaudid) 0.5 mg IVP Q4 PRN PRN Reason: Pain, moderate (4-7) Last Admin: 04/30/17 01:02 Dose: 0.5 mg Hydromorphone HCl (Dilaudid) 1 mg IVP Q4 PRN PRN Reason: Agitation Last Admin: 05/02/17 11:15 Dose: 1 mg Vancomycin HCl 1 gm/ Sodium (Chloride) 250 mls @ 166.667 mls/hr IVPB DAILY [facility] PRN Reason: Protocol Last Admin: 05/04/17 09:49 Dose: 166.667 mls/hr Azithromycin 500 mg/ Sodium (Chloride) 250 mls @ 250 mls/hr IVPB DAILY [facility] PRN Reason: Protocol Last Admin: 05/04/17 08:17 Dose: 250 mls/hr Piperacillin Sod/Tazobactam (Sod 2.25 gm/ Sodium Chloride) 100 mls @ 100 mls/ hr IVPB Q6 [facility] PRN Reason: Protocol Insulin Detemir (Levemir) 40 units SC HS [facility] Insulin Human Lispro (Humalog) 0 units SC ACHS [facility] PRN Reason: Protocol Last Admin: 05/04/17 11:56 Dose: 4 unit Insulin Human Lispro (Humalog) 12 units SC AC [facility] Last Admin: 05/04/17 11:57 Dose: 12 u Pantoprazole Sodium (Protonix Inj) 40 mg IVP DAILY [facility] Last Admin: 05/04/17 08:13 Dose: 40 mg Potassium Chloride (Potassium Chloride Oral Soln) 20 meq PO QID [facility] Stop: 05/04/17 22:01 Last Admin: 05/04/17 08:15 Dose: 20 meq Vancomycin HCl (Vancocin (Oral/Rectal Use)) 250 mg PO Q8 [facility] PRN Reason: Protocol Last Admin: 05/04/17 10:15 Dose: 250 mg - Labs Labs: 05/04/17 04:20 05/04/17 04:20 PT 43.3 Seconds (9.8-13.1) H* 05/03/17 09:10 INR 3.7 (0.9-1.2) H 05/03/17 09:10 APTT 55.6 Seconds (25.6-37.1) H D 05/03/17 04:20
--- NOTE | 2017-05-04 14:31 | PN ---
DATE: ENDOCRINOLOGY FOLLOWUP NOTE LOCATION: In ICU room 421. SUBJECTIVE: This is a 57-year-old female with recent uncontrolled type 2 insulin-requiring diabetes, precipitated by the intercurrent IV steroid therapy, with supervening transient hyperglycemic accelerations as expected thereof. Her glucose values today have ranged from 271 to 288 mg per dL. The latest chemistry showed a BUN of sodium 155, potassium 2.6, chloride 119, CO2 of 23, glucose 302, and creatinine 1.6. She also presented here with malignant hypercalcemia and calcium level is down to 9.5 mg per dL. However, there is supervening marked hyperbilirubinemia, with a total bilirubin of 16.5, with underlying elevated liver transaminases as noted. ASSESSMENT AND PLAN: We will modify her basal and bolus insulin regimen, and increase the Levemir to 40 units subcu at bedtime daily to start tonight. We will also increase the Humalog to 14 units subcu t.i.d. before meals to start at lunchtime today as ordered. We will continue the low-dose correction scale using Humalog insulin as given. We will titrate incrementally as indicated to optimize metabolic control. We will follow. Laure De Santiago MD
--- NOTE | 2017-05-04 21:25 | CP.PCM.PN ---
Subjective - Subjective Subjective: Acute Resp Fail. Aspiration Pna / Sepsis Hep C Hepatic Encephalopathy. Chronic Medical Conditions S/ Remains intubated and severly encephalopathic. O: Afebrile, VSS Head: Neg Adeno, Pos RAS, Neg JVD Heart: RRR, ns1s2 Lungs: Scattered Rhonchi. Abdo, Soft, NT Pos BS. Ext: No C,C,E, Neuro: Unable to assess. Patient does not follow commands, nor is alert. Cont MV, maintain O2 Sat > 90% Cont IV Abx, monitor WBC#, temp curve and cultures. Cont Nebulized treatments. Cont Lactulose. Would not put on any SBT's until encephalopathy clears. PUD and DVT px. Signing out of case; please reconsult prn. Labs: as below. Objective - Vital Signs/Intake and Output Vital Signs (last 24 hours): Temp Pulse Resp BP Pulse Ox 99.2 F 115 H 14 136/79 100 05/04/17 16:00 05/04/17 18:00 05/04/17 18:00 05/04/17 18:00 05/04/17 18:00 Intake and Output: 05/04/17 05/05/17 18:59 06:59 Intake Total 2840 Output Total 950 Balance 1890 - Medications Medications: Current Medications Acetaminophen (Tylenol 650 Mg Supp) 650 mg MA ONCE ARLET Last Admin: 04/28/17 14:30 Dose: 650 mg Albuterol Sulfate (Albuterol 0.083% Inhal Rae (2.5 Mg/3 Ml) Ud) 2.5 mg INH RQ4 PRN PRN Reason: Shortness of Breath Last Admin: 05/03/17 23:29 Dose: 2.5 mg Allopurinol (Zyloprim) 200 mg PO DAILY ARLET Last Admin: 05/04/17 08:14 Dose: 200 mg Hydrocortisone Sodium Succinate (Solu-Cortef) 100 mg IV Q8 ARLET Last Admin: 05/04/17 16:56 Dose: 100 mg Hydromorphone HCl (Dilaudid) 0.5 mg IVP Q4 PRN PRN Reason: Pain, moderate (4-7) Last Admin: 04/30/17 01:02 Dose: 0.5 mg Hydromorphone HCl (Dilaudid) 1 mg IVP Q4 PRN PRN Reason: Agitation Last Admin: 05/02/17 11:15 Dose: 1 mg Vancomycin HCl 1 gm/ Sodium (Chloride) 250 mls @ 166.667 mls/hr IVPB DAILY ARLET PRN Reason: Protocol Last Admin: 05/04/17 09:49 Dose: 166.667 mls/hr Azithromycin 500 mg/ Sodium (Chloride) 250 mls @ 250 mls/hr IVPB DAILY ARLET PRN Reason: Protocol Last Admin: 05/04/17 08:17 Dose: 250 mls/hr Piperacillin Sod/Tazobactam (Sod 2.25 gm/ Sodium Chloride) 100 mls @ 100 mls/ hr IVPB Q6 ARLET PRN Reason: Protocol Last Admin: 05/04/17 16:58 Dose: 100 mls/hr Insulin Detemir (Levemir) 40 units SC HS ARLET Insulin Human Lispro (Humalog) 0 units SC ACHS ARLET PRN Reason: Protocol Last Admin: 05/04/17 16:54 Dose: Not Given Insulin Human Lispro (Humalog) 12 units SC AC [facility] Last Admin: 05/04/17 16:55 Dose: 12 u Pantoprazole Sodium (Protonix Inj) 40 mg IVP DAILY [facility] Last Admin: 05/04/17 08:13 Dose: 40 mg Potassium Chloride (Potassium Chloride Oral Soln) 20 meq PO QID [facility] Stop: 05/04/17 22:01 Last Admin: 05/04/17 16:56 Dose: 20 meq Vancomycin HCl (Vancocin (Oral/Rectal Use)) 250 mg PO Q8 ARLET PRN Reason: Protocol Last Admin: 05/04/17 16:57 Dose: 250 mg - Labs Labs: 05/04/17 04:20 05/04/17 04:20 PT 35.6 Seconds (9.8-13.1) H D 05/04/17 13:57 INR 3.1 (0.9-1.2) H 05/04/17 13:57 APTT 55.6 Seconds (25.6-37.1) H D 05/03/17 04:20
[2017-05-04] MEDS ORDERED: Insulin Detemir 100 Units/ml Inj SC SCH (22:00)
[2017-05-04] MEDS: Potassium Chl 20mEq & D5W 1,000 ML IV SCH (22:53)
[2017-05-05] MEDS: Vancomycin 500 mg (Oral/Rectal USE) PO SCH ×3 (00:32→16:57)
--- NOTE | 2017-05-05 00:32 | CP.PCM.PN ---
Subjective - Date & Time of Evaluation Date of Evaluation: 05/04/17 Time of Evaluation: 16:00 - Subjective Subjective: SEEN ON RENAL F/U IN ICU REMANS INTUBATED AND UNRESPONSIVE CREAT BETTER 2.0 -> 1.6 NA IS BETTER 159 -> 156 K WENT DOWN .. WAS SUPPLIED Objective - Vital Signs/Intake and Output Vital Signs (last 24 hours): Temp Pulse Resp BP Pulse Ox 98.3 F 114 H 14 117/75 100 05/04/17 20:00 05/04/17 22:00 05/04/17 22:00 05/04/17 22:00 05/04/17 22:00 Intake and Output: 05/04/17 05/05/17 18:59 06:59 Intake Total 2840 690 Output Total 950 Balance 1890 690 - Medications Medications: Current Medications Acetaminophen (Tylenol 650 Mg Supp) 650 mg IA ONCE ARLET Last Admin: 04/28/17 14:30 Dose: 650 mg Albuterol Sulfate (Albuterol 0.083% Inhal Rae (2.5 Mg/3 Ml) Ud) 2.5 mg INH RQ4 PRN PRN Reason: Shortness of Breath Last Admin: 05/03/17 23:29 Dose: 2.5 mg Allopurinol (Zyloprim) 200 mg PO DAILY [facility] Last Admin: 05/04/17 08:14 Dose: 200 mg Hydrocortisone Sodium Succinate (Solu-Cortef) 100 mg IV Q8 ARLET Last Admin: 05/04/17 16:56 Dose: 100 mg Hydromorphone HCl (Dilaudid) 0.5 mg IVP Q4 PRN PRN Reason: Pain, moderate (4-7) Last Admin: 04/30/17 01:02 Dose: 0.5 mg Hydromorphone HCl (Dilaudid) 1 mg IVP Q4 PRN PRN Reason: Agitation Last Admin: 05/02/17 11:15 Dose: 1 mg Vancomycin HCl 1 gm/ Sodium (Chloride) 250 mls @ 166.667 mls/hr IVPB DAILY ARLET PRN Reason: Protocol Last Admin: 05/04/17 09:49 Dose: 166.667 mls/hr Azithromycin 500 mg/ Sodium (Chloride) 250 mls @ 250 mls/hr IVPB DAILY ARLET PRN Reason: Protocol Last Admin: 05/04/17 08:17 Dose: 250 mls/hr Piperacillin Sod/Tazobactam (Sod 2.25 gm/ Sodium Chloride) 100 mls @ 100 mls/ hr IVPB Q6 ARLET PRN Reason: Protocol Last Admin: 05/04/17 21:32 Dose: 100 mls/hr Potassium Chloride/Dextrose (Potassium Chl 20 Meq In D5w) 1,000 mls @ 100 mls/ hr IV .Q10H RALET Stop: 05/05/17 22:11 Last Admin: 05/04/17 22:53 Dose: 100 mls/hr Insulin Detemir (Levemir) 40 units SC HS ARLET Last Admin: 05/04/17 21:28 Dose: 40 units Insulin Human Lispro (Humalog) 0 units SC ACHS ARLET PRN Reason: Protocol Last Admin: 05/04/17 21:45 Dose: Not Given Insulin Human Lispro (Humalog) 12 units SC AC [facility] Last Admin: 05/04/17 16:55 Dose: 12 u Pantoprazole Sodium (Protonix Inj) 40 mg IVP DAILY [facility] Last Admin: 05/04/17 08:13 Dose: 40 mg Vancomycin HCl (Vancocin (Oral/Rectal Use)) 250 mg PO Q8 ARLET PRN Reason: Protocol Last Admin: 05/04/17 16:57 Dose: 250 mg - Labs Labs: 05/04/17 04:20 05/04/17 04:20 PT 35.6 Seconds (9.8-13.1) H D 05/04/17 13:57 INR 3.1 (0.9-1.2) H 05/04/17 13:57 APTT 55.6 Seconds (25.6-37.1) H D 05/03/17 04:20 Assessment and Plan - Assessment and Plan (Free Text) Assessment: C/O CURRENT CARE C/O PRESENT MANAGEMENT C/O PRESENT FLUID AND ELECTROLYTES MANAGEMNT
[2017-05-05 06:01] LABS: ABG ALLEN TEST YES; ABG MECHANICAL RATE 14; ARTERIAL BLOOD GAS HCO3 22.1 mmol/L (21-28); ARTERIAL BLOOD GAS MODE A/C; ARTERIAL BLOOD GAS O2 CAPACITY 14.4 mL/dL (16-24); ARTERIAL BLOOD GAS O2 CONTENT 14.5 ML/dL (15-23); ARTERIAL BLOOD GAS PH 7.46 (7.35-7.45); ARTERIAL BLOOD GAS PO2 90 mm/Hg (80-100); ARTERIAL BLOOD HGB O2 SAT 96.3 % (95.0-98.0); ATERIAL BLOOD GAS PEEP 5; CARBOXYHEMOGLOBIN 2.7 % (0.5-1.5); HHB -0.5 % (0.0-5.0); METHEMOGLOBIN 1.5 % (0.0-3.0)
[2017-05-05 06:32] VITALS: O2SAT 100
[2017-05-05] MEDS: Insulin Lispro (humaLOG) 100 Units/ml Inj SC SCH ×7 (06:50→22:47)
[2017-05-05 07:00] LABS: ALB/GLOB RATIO 0.8 (1.0-2.1); BILIRUBIN,TOTAL 17.9 mg/dl (0.2-1.3); CALCIUM 8.9 mg/dL (8.4-10.2); POTASSIUM 4.4 MMOL/L (3.6-5.0); TOTAL PROTEIN 6.1 G/DL (6.3-8.2)
[2017-05-05 07:16] LABS: BASO # 0.1 K/uL (0.0-0.2); BASO % 0.5 % (0.0-2.0); EOS % 0.1 % (0.0-4.0); HEMATOCRIT 34.7 % (34.0-47.0); LYMPH % 27.7 % (20.0-40.0); MEAN CELL VOLUME 95.4 fl (81.0-99.0); MEAN CORPUSCULAR HEMOGLOBIN 30.4 pg (27.0-31.0); MEAN CORPUSCULAR HGB CONC 31.8 g/dL (33.0-37.0); MEAN PLATELET VOLUME 9.7 fl (7.2-11.7); MONO # 0.9 K/uL (0.0-0.8); MONO % 4.8 % (0.0-10.0); NEUT # 12.1 K/uL (1.8-7.0); NEUT % 66.9 % (50.0-75.0); NRBC % 38.7 % (0.0-0.0); RED CELL DISTRIBUTION WIDTH 23.3 % (11.5-14.5); WHITE BLOOD COUNT 18.2 K/uL (4.8-10.8)
[2017-05-05] MEDS: Potassium Chl 20mEq & D5W 1,000 ML IV SCH (08:01)
[2017-05-05] MEDS: Azithromycin 500 MG in Sodium Chloride 0.9% 250 ML IVPB SCH (08:31)
--- NOTE | 2017-05-05 08:55 | RAD ---
HISTORY: ETT placement COMPARISON: 05/04/2017 FINDINGS: LUNGS: No active pulmonary disease. PLEURA: No significant pleural effusion identified, no pneumothorax apparent. CARDIOVASCULAR: Normal. OSSEOUS STRUCTURES: No significant abnormalities. VISUALIZED UPPER ABDOMEN: Normal. OTHER FINDINGS: ETT is above the yuly. NG tube is at the GE junction. IMPRESSION: As above.
--- NOTE | 2017-05-05 09:03 | CP.CCUPN ---
CCU Subjective - Physician Review Events Since Last Encounter (Free Text): 05/05/17 09:01 Patient on ventilator on PRVC TV 450, RR 14, FIO2 45%, awake, opens eyes to verbal stimuli, no pressors, events reviewed CCU Objective - Vital Signs / Intake & Output Vital Signs (Last 4 hours): Vital Signs Temp Pulse Resp BP Pulse Ox 05/05/17 08:00 98.9 F 117 H 34 H 131/78 100 05/05/17 06:00 112 H 30 H 130/70 100 Intake and Output (Last 8hrs): Intake & Output 05/04/17 05/05/17 05/05/17 22:59 06:59 14:59 Intake Total 1660 1660 Output Total 270 450 Balance 1390 1210 Intake: IV 800 800 Intake, Piggyback 100 100 Tube Feeding 360 360 Free Water Flush 400 400 Output: Urine 270 450 Urethral (Valadez) 270 450 - Physical Exam Head: Positive for: Atraumatic, Normocephalic Pupils: Positive for: PERRL Conjunctiva: Positive for: Icteric Mouth: Positive for: Dry Pharnyx: Negative for: ERYTHEMA, EXUDATE Neck: Negative for: Meningeal Signs, JVD, Lymphadenopathy Cardiovascular: Positive for: Regular Rate and Rhythm. Negative for: Murmurs, Rub Abdomen: Positive for: Normal Bowel Sounds, Other (+ splenomegaly). Negative for: Tenderness, Distention Lower Extremity: Positive for: Edema, NORMAL PULSES. Negative for: CALF TENDERNESS, Cyanosis Neurological: Positive for: GCS=15, Other (on ventilator) Skin: Positive for: Warm, Dry, Other (no petechiae). Negative for: Rashes Psychiatric: Positive for: Alert - Medications Active Medications: Active Medications Generic Name Dose Route Start Last Admin Trade Name Freq PRN Reason Stop Dose Admin Acetaminophen 650 mg 04/28/17 10:00 04/28/17 14:30 Tylenol 650 Mg Supp DC 650 mg ONCE ARLET Administration Albuterol Sulfate 2.5 mg 04/27/17 19:45 05/03/17 23:29 Albuterol 0.083% Inhal Rae (2.5 Mg/3 Ml) Ud INH 2.5 mg RQ4 PRN Administration Shortness of Breath Allopurinol 200 mg 04/28/17 09:00 05/05/17 08:31 Zyloprim PO 200 mg DAILY ARLET Administration Hydrocortisone Sodium Succinate 100 mg 05/01/17 17:00 05/05/17 08:30 Solu-Cortef IV 100 mg Q8 ARLET Administration Hydromorphone HCl 0.5 mg 04/28/17 23:02 04/30/17 01:02 Dilaudid IVP 0.5 mg Q4 PRN Administration Pain, moderate (4-7) Hydromorphone HCl 1 mg 05/02/17 11:10 05/02/17 11:15 Dilaudid IVP 1 mg Q4 PRN Administration Agitation Vancomycin HCl 1 gm/ Sodium 250 mls @ 166.667 mls/hr 04/28/17 09:00 05/05/17 08:30 Chloride IVPB 166.667 mls/hr DAILY ARLET Administration Protocol Azithromycin 500 mg/ Sodium 250 mls @ 250 mls/hr 05/04/17 09:00 05/05/17 08: 31 Chloride IVPB 250 mls/hr DAILY ARLET Administration Protocol Piperacillin Sod/Tazobactam 100 mls @ 100 mls/hr 05/04/17 16:00 05/05/17 03: 26 Sod 2.25 gm/ Sodium Chloride IVPB 100 mls/hr Q6 ARLET Administration Protocol Potassium Chloride/Dextrose 1,000 mls @ 100 mls/hr 05/04/17 22:15 05/05/17 08 :01 Potassium Chl 20 Meq In D5w IV 05/05/17 22:11 100 mls/hr .Q10H ARLET Administration Insulin Detemir 40 units 05/04/17 22:00 05/04/17 21:28 Levemir SC 40 units HS ARLET Administration Insulin Human Lispro 0 units 05/03/17 11:30 05/05/17 06:50 Humalog SC 4 unit ACHS ARLET Administration Protocol Insulin Human Lispro 12 units 05/04/17 11:30 05/05/17 06:51 Humalog SC 12 u AC ARLET Administration Pantoprazole Sodium 40 mg 04/28/17 09:00 05/05/17 08:29 Protonix Inj IVP 40 mg DAILY ARLET Administration Vancomycin HCl 250 mg 05/04/17 09:00 05/05/17 08:30 Vancocin (Oral/Rectal Use) PO 250 mg Q8 ARLET Administration Protocol - Patient Studies Lab Studies: Lab Studies 05/05/17 05/05/1705/05/17 Range/Units 06:00 05:48 05:30 WBC (4.8-10.8) K/uL RBC (3.80-5.20) Mil/uL Hgb (12.0-16.0) g/dL Hct (34.0-47.0) % MCV (81.0-99.0) fl MCH (27.0-31.0) pg MCHC (33.0-37.0) g/dL RDW (11.5-14.5) % Plt Count (130-400) K/uL MPV (7.2-11.7) fl Neut % (Auto) (50.0-75.0) % Lymph % (Auto) (20.0-40.0) % [place] % (Auto) (0.0-10.0) % Eos % (Auto) (0.0-4.0) % Baso % (Auto) (0.0-2.0) % Neut # (1.8-7.0) K/uL Lymph # (1.0-4.3) K/uL [place] # (0.0-0.8) K/uL Eos # (0.0-0.7) K/uL Baso # (0.0-0.2) K/uL PT (9.8-13.1) Seconds INR (0.9-1.2) pCO2 27 L (35-45) mm/Hg pO2 90 (80-100) mm/Hg HCO3 22.1 (21-28) mmol/L ABG pH 7.46 H (7.35-7.45) ABG Total CO2 20.0 L (22-28) mmol/L ABG O2 Saturation 100.5 H (95-98) % ABG O2 Content 14.5 L (15-23) ML/dL ABG Base Excess -3.6 L (-2.0-3.0) mmol/L ABG Hemoglobin 10.6 L (11.7-17.4) g/dL ABG Carboxyhemoglobin 2.7 H (0.5-1.5) % POC ABG HHb (Measured) -0.5 L (0.0-5.0) % ABG Methemoglobin 1.5 (0.0-3.0) % ABG O2 Capacity 14.4 L (16-24) mL/dL Roman Test Yes A-a O2 Difference 197.0 mm/Hg Hgb O2 Saturation 96.3 (95.0-98.0) % Vent Mode A/c Mechanical Rate 14 FiO2 45.0 % Tidal Volume 450 PEEP 5 Crit Value Called To Dr brendan cardenas Crit Value Called By Osman Crit Value Read Back Y Blood Gas Notified Time 600 Sodium 145 (132-148) mmol/l Potassium 4.4 (3.6-5.0) MMOL/L Chloride 116 H (98-107) mmol/L Carbon Dioxide 22 (22-30) mmol/L Anion Gap 11 (10-20) BUN 100 H* (7-17) mg/dl Creatinine 1.5 H (0.7-1.2) mg/dl Est GFR ( Amer) 44 Est GFR (Non-Af Amer) 36 POC Glucose (mg/dL) 333 H (65-110) mg/dL Random Glucose 374 H (65-105) mg/dL Calcium 8.9 (8.4-10.2) mg/dL Total Bilirubin 17.9 H (0.2-1.3) mg/dl AST 255 H D (14-36) U/L ALT 75 H (9-52) U/L Alkaline Phosphatase 190 H D (38-126) U/L Ammonia (11-51) umo/L Total Protein 6.1 L (6.3-8.2) G/DL Albumin 2.7 L (3.5-5.0) g/dL Globulin 3.4 (2.2-3.9) gm/dL Albumin/Globulin Ratio 0.8 L (1.0-2.1) 05/05/17 05/04/17 05/04/17 Range/Units 05:30 21:15 16:42 WBC 18.2 H (4.8-10.8) K/uL RBC 3.63 L (3.80-5.20) Mil/uL Hgb 11.0 L (12.0-16.0) g/dL Hct 34.7 (34.0-47.0) % MCV 95.4 (81.0-99.0) fl MCH 30.4 (27.0-31.0) pg MCHC 31.8 L (33.0-37.0) g/dL RDW 23.3 H (11.5-14.5) % Plt Count 27 L* (130-400) K/uL MPV 9.7 (7.2-11.7) fl Neut % (Auto) 66.9 (50.0-75.0) % Lymph % (Auto) 27.7 (20.0-40.0) % [place] % (Auto) 4.8 (0.0-10.0) % Eos % (Auto) 0.1 (0.0-4.0) % Baso % (Auto) 0.5 (0.0-2.0) % Neut # 12.1 H (1.8-7.0) K/uL Lymph # 5.0 H (1.0-4.3) K/uL [place] # 0.9 H (0.0-0.8) K/uL Eos # 0.0 (0.0-0.7) K/uL Baso # 0.1 (0.0-0.2) K/uL PT (9.8-13.1) Seconds INR (0.9-1.2) pCO2 (35-45) mm/Hg pO2 (80-100) mm/Hg HCO3 (21-28) mmol/L ABG pH (7.35-7.45) ABG Total CO2 (22-28) mmol/L ABG O2 Saturation (95-98) % ABG O2 Content (15-23) ML/dL ABG Base Excess (-2.0-3.0) mmol/L ABG Hemoglobin (11.7-17.4) g/dL ABG Carboxyhemoglobin (0.5-1.5) % POC ABG HHb (Measured) (0.0-5.0) % ABG Methemoglobin (0.0-3.0) % ABG O2 Capacity (16-24) mL/dL Roman Test A-a O2 Difference mm/Hg Hgb O2 Saturation (95.0-98.0) % Vent Mode Mechanical Rate FiO2 % Tidal Volume PEEP Crit Value Called To Crit Value Called By Crit Value Read Back Blood Gas Notified Time Sodium (132-148) mmol/l Potassium (3.6-5.0) MMOL/L Chloride (98-107) mmol/L Carbon Dioxide (22-30) mmol/L Anion Gap (10-20) BUN (7-17) mg/dl Creatinine (0.7-1.2) mg/dl Est GFR ( Amer) Est GFR (Non-Af Amer) POC Glucose (mg/dL) 254 H 259 H (65-110) mg/dL Random Glucose (65-105) mg/dL Calcium (8.4-10.2) mg/dL Total Bilirubin (0.2-1.3) mg/dl AST (14-36) U/L ALT (9-52) U/L Alkaline Phosphatase (38-126) U/L Ammonia (11-51) umo/L Total Protein (6.3-8.2) G/DL Albumin (3.5-5.0) g/dL Globulin (2.2-3.9) gm/dL Albumin/Globulin Ratio (1.0-2.1) 05/04/17 05/04/17 05/04/17 Range/Units 14:33 13:57 11:50 WBC (4.8-10.8) K/uL RBC (3.80-5.20) Mil/uL Hgb (12.0-16.0) g/dL Hct (34.0-47.0) % MCV (81.0-99.0) fl MCH (27.0-31.0) pg MCHC (33.0-37.0) g/dL RDW (11.5-14.5) % Plt Count (130-400) K/uL MPV (7.2-11.7) fl Neut % (Auto) (50.0-75.0) % Lymph % (Auto) (20.0-40.0) % [place] % (Auto) (0.0-10.0) % Eos % (Auto) (0.0-4.0) % Baso % (Auto) (0.0-2.0) % Neut # (1.8-7.0) K/uL Lymph # (1.0-4.3) K/uL [place] # (0.0-0.8) K/uL Eos # (0.0-0.7) K/uL Baso # (0.0-0.2) K/uL PT 35.6 H D (9.8-13.1) Seconds INR 3.1 H (0.9-1.2) pCO2 (35-45) mm/Hg pO2 (80-100) mm/Hg HCO3 (21-28) mmol/L ABG pH (7.35-7.45) ABG Total CO2 (22-28) mmol/L ABG O2 Saturation (95-98) % ABG O2 Content (15-23) ML/dL ABG Base Excess (-2.0-3.0) mmol/L ABG Hemoglobin (11.7-17.4) g/dL ABG Carboxyhemoglobin (0.5-1.5) % POC ABG HHb (Measured) (0.0-5.0) % ABG Methemoglobin (0.0-3.0) % ABG O2 Capacity (16-24) mL/dL Roman Test A-a O2 Difference mm/Hg Hgb O2 Saturation (95.0-98.0) % Vent Mode Mechanical Rate FiO2 % Tidal Volume PEEP Crit Value Called To Crit Value Called By Crit Value Read Back Blood Gas Notified Time Sodium (132-148) mmol/l Potassium (3.6-5.0) MMOL/L Chloride (98-107) mmol/L Carbon Dioxide (22-30) mmol/L Anion Gap (10-20) BUN (7-17) mg/dl Creatinine (0.7-1.2) mg/dl Est GFR ( Amer) Est GFR (Non-Af Amer) POC Glucose (mg/dL) 330 H (65-110) mg/dL Random Glucose (65-105) mg/dL Calcium (8.4-10.2) mg/dL Total Bilirubin (0.2-1.3) mg/dl AST (14-36) U/L ALT (9-52) U/L Alkaline Phosphatase (38-126) U/L Ammonia 13 D (11-51) umo/L Total Protein (6.3-8.2) G/DL Albumin (3.5-5.0) g/dL Globulin (2.2-3.9) gm/dL Albumin/Globulin Ratio (1.0-2.1) Laboratory Results - last 24 hr 11/05/04/17 05/04/17 11:50 13:57 14:33 WBC RBC Hgb Hct MCV MCH MCHC RDW Plt Count MPV Neut % (Auto) Lymph % (Auto) [place] % (Auto) Eos % (Auto) Baso % (Auto) Neut # Lymph # [place] # Eos # Baso # PT 35.6 H D INR 3.1 H pCO2 pO2 HCO3 ABG pH ABG Total CO2 ABG O2 Saturation ABG O2 Content ABG Base Excess ABG Hemoglobin ABG Carboxyhemoglobin POC ABG HHb (Measured) ABG Methemoglobin ABG O2 Capacity Roman Test A-a O2 Difference Hgb O2 Saturation Vent Mode Mechanical Rate FiO2 Tidal Volume PEEP Crit Value Called To Crit Value Called By Crit Value Read Back Blood Gas Notified Time Sodium Potassium Chloride Carbon Dioxide Anion Gap BUN Creatinine Est GFR ( Amer) Est GFR (Non-Af Amer) POC Glucose (mg/dL) 330 H Random Glucose Calcium Total Bilirubin AST ALT Alkaline Phosphatase Ammonia 13 D Total Protein Albumin Globulin Albumin/Globulin Ratio 05/04/17 05/04/17 05/05/17 16:42 21:15 05:30 WBC 18.2 H RBC 3.63 L Hgb 11.0 L Hct 34.7 MCV 95.4 MCH 30.4 MCHC 31.8 L RDW 23.3 H Plt Count 27 L* MPV 9.7 Neut % (Auto) 66.9 Lymph % (Auto) 27.7 [place] % (Auto) 4.8 Eos % (Auto) 0.1 Baso % (Auto) 0.5 Neut # 12.1 H Lymph # 5.0 H [place] # 0.9 H Eos # 0.0 Baso # 0.1 PT INR pCO2 pO2 HCO3 ABG pH ABG Total CO2 ABG O2 Saturation ABG O2 Content ABG Base Excess ABG Hemoglobin ABG Carboxyhemoglobin POC ABG HHb (Measured) ABG Methemoglobin ABG O2 Capacity Roman Test A-a O2 Difference Hgb O2 Saturation Vent Mode Mechanical Rate FiO2 Tidal Volume PEEP Crit Value Called To Crit Value Called By Crit Value Read Back Blood Gas Notified Time Sodium Potassium Chloride Carbon Dioxide Anion Gap BUN Creatinine Est GFR ( Amer) Est GFR (Non-Af Amer) POC Glucose (mg/dL) 259 H 254 H Random Glucose Calcium Total Bilirubin AST ALT Alkaline Phosphatase Ammonia Total Protein Albumin Globulin Albumin/Globulin Ratio 05/05/17 05/05/17 05/05/17 05:30 05:48 06:00 WBC RBC Hgb Hct MCV MCH MCHC RDW Plt Count MPV Neut % (Auto) Lymph % (Auto) [place] % (Auto) Eos % (Auto) Baso % (Auto) Neut # Lymph # [place] # Eos # Baso # PT INR pCO2 27 L pO2 90 HCO3 22.1 ABG pH 7.46 H ABG Total CO2 20.0 L ABG O2 Saturation 100.5 H ABG O2 Content 14.5 L ABG Base Excess -3.6 L ABG Hemoglobin 10.6 L ABG Carboxyhemoglobin 2.7 H POC ABG HHb (Measured) -0.5 L ABG Methemoglobin 1.5 ABG O2 Capacity 14.4 L Roman Test Yes A-a O2 Difference 197.0 Hgb O2 Saturation 96.3 Vent Mode A/c Mechanical Rate 14 FiO2 45.0 Tidal Volume 450 PEEP 5 Crit Value Called To Dr brendan cardenas Crit Value Called By Crit Value Read Back Y Blood Gas Notified Time 600 Sodium 145 Potassium 4.4 Chloride 116 H Carbon Dioxide 22 Anion Gap 11 BUN 100 H* Creatinine 1.5 H Est GFR ( Amer) 44 Est GFR (Non-Af Amer) 36 POC Glucose (mg/dL) 333 H Random Glucose 374 H Calcium 8.9 Total Bilirubin 17.9 H AST 255 H D ALT 75 H Alkaline Phosphatase 190 H D Ammonia Total Protein 6.1 L Albumin 2.7 L Globulin 3.4 Albumin/Globulin Ratio 0.8 L Fingerstick Blood Sugar Results: 333 Assessment/Plan - Assessment and Plan (Free Text) Assessment: A/P Respiratory failure, liver cirhosis, hepatitis c, ?sepsis, lactic acidosis, anemia, thrombocytopenia, ?TTP, DM, renal insufficiency - Ventilatory support - Pulmonary toilets - Weaning as tolerated - Continue meds - hematology follow up - GI follow up - Poor prognosis critical care 40 min
--- NOTE | 2017-05-05 10:01 | CP.PCM.PN ---
<Job Whiting - Last Filed: 05/05/17 10:05> Subjective - Date & Time of Evaluation Date of Evaluation: 05/05/17 Time of Evaluation: 08:00 - Subjective Subjective: PGY4 GI Follow Up Pt seen and examined bedside opens eyes, does not follow commands Pt still has significant oupt from rectal tube No acute events overnight ROS: 10 point ROS conducted, neg other than above Objective - Vital Signs/Intake and Output Vital Signs (last 24 hours): Temp Pulse Resp BP Pulse Ox 98.9 F 117 H 34 H 131/78 100 05/05/17 08:00 05/05/17 08:00 05/05/17 08:00 05/05/17 08:00 05/05/17 08:00 Intake and Output: 05/05/17 05/05/17 06:59 18:59 Intake Total 2440 Output Total 450 Balance 1989 - Medications Medications: Current Medications Acetaminophen (Tylenol 650 Mg Supp) 650 mg [place] ONCE ARLET Last Admin: 04/28/17 14:30 Dose: 650 mg Albuterol Sulfate (Albuterol 0.083% Inhal Rae (2.5 Mg/3 Ml) Ud) 2.5 mg INH RQ4 PRN PRN Reason: Shortness of Breath Last Admin: 05/03/17 23:29 Dose: 2.5 mg Allopurinol (Zyloprim) 200 mg PO DAILY [facility] Last Admin: 05/05/17 08:31 Dose: 200 mg Hydrocortisone Sodium Succinate (Solu-Cortef) 100 mg IV Q8 [facility] Last Admin: 05/05/17 08:30 Dose: 100 mg Hydromorphone HCl (Dilaudid) 0.5 mg IVP Q4 PRN PRN Reason: Pain, moderate (4-7) Last Admin: 04/30/17 01:02 Dose: 0.5 mg Hydromorphone HCl (Dilaudid) 1 mg IVP Q4 PRN PRN Reason: Agitation Last Admin: 05/02/17 11:15 Dose: 1 mg Vancomycin HCl 1 gm/ Sodium (Chloride) 250 mls @ 166.667 mls/hr IVPB DAILY [facility] PRN Reason: Protocol Last Admin: 05/05/17 08:30 Dose: 166.667 mls/hr Azithromycin 500 mg/ Sodium (Chloride) 250 mls @ 250 mls/hr IVPB DAILY [facility] PRN Reason: Protocol Last Admin: 05/05/17 08:31 Dose: 250 mls/hr Piperacillin Sod/Tazobactam (Sod 2.25 gm/ Sodium Chloride) 100 mls @ 100 mls/ hr IVPB Q6 [facility] PRN Reason: Protocol Last Admin: 05/05/17 09:03 Dose: 100 mls/hr Potassium Chloride/Dextrose (Potassium Chl 20 Meq In D5w) 1,000 mls @ 100 mls/ hr IV .Q10H [facility] Stop: 05/05/17 22:11 Last Admin: 05/05/17 08:01 Dose: 100 mls/hr Insulin Detemir (Levemir) 50 units SC HS [facility] Insulin Human Lispro (Humalog) 0 units SC ACHS [facility] PRN Reason: Protocol Last Admin: 05/05/17 06:50 Dose: 4 unit Insulin Human Lispro (Humalog) 16 units SC AC [facility]LET Pantoprazole Sodium (Protonix Inj) 40 mg IVP DAILY [facility] Last Admin: 05/05/17 08:29 Dose: 40 mg Vancomycin HCl (Vancocin (Oral/Rectal Use)) 250 mg PO Q8 [facility] PRN Reason: Protocol Last Admin: 05/05/17 08:30 Dose: 250 mg - Labs Labs: 05/05/17 05:30 05/05/17 05:30 PT 36.0 Seconds (9.8-13.1) H 05/05/17 08:00 INR 3.1 (0.9-1.2) H 05/05/17 08:00 APTT 55.6 Seconds (25.6-37.1) H D 05/03/17 04:20 - Constitutional Appears: No Acute Distress - Head Exam Head Exam: ATRAUMATIC, NORMOCEPHALIC - Eye Exam Eye Exam: Scleral icterus - ENT Exam ENT Exam: Mucous Membranes Moist - Respiratory Exam Respiratory Exam: Clear to Ausculation Bilateral, NORMAL BREATHING PATTERN. absent: Rales, Rhonchi, Wheezes, Respiratory Distress - Cardiovascular Exam Cardiovascular Exam: REGULAR RHYTHM, +S1, +S2 - GI/Abdominal Exam GI & Abdominal Exam: Distended, Soft, Normal Bowel Sounds. absent: Tenderness, Organomegaly - Extremities Exam Extremities Exam: absent: Joint Swelling, Pedal Edema - Neurological Exam Neurological Exam: Awake. absent: Oriented x3 - Psychiatric Exam Additional comments: could not assess - Skin Skin Exam: Dry, Intact, Warm Additional comments: errol Assessment and Plan - Assessment and Plan (Free Text) Assessment: Janet Taylor is a 57f w/ hx of cirrhosis, HCV, anemia, hx of polysubstance use who presents to the Er with weakness and confusion. Pt had marked anemia and thrombocytopenia Hemolytic anemia likely 2/2 HCV meds especially ribaviran (resolved) Chronic HCV on tx as oupt Cirrhosis etiology like HCV Thrombocytopenia 2/2 to the above Severe Hepatic Encephalopathy Splenic flexure thickening, r/o lesion Diarrhea, r/o infectous etiology Plan: -continue to hold lactulose -continue to hold Hep C tx for now -no indication for any endoscopy at this time -keep hgb > 7, but restrict PRBC transfusion since she is cirrhotic -No other active treatment recommend at this time -stool cultures pending, waiting on c. diff toxin PCR -continue empiric PO vanco 250mg QID -will eventually need a Triple phase to r/o HCC or biliary mass or lesion -will eventually need outpt colonscopy to eval sigmoid/splenic flexure thickening -grave prognosis, recommend palliative/hospice consult MELD 05/05/17: 34 D/W Dr. Yusuf <Joaquin Yusuf - Last Filed: 05/05/17 10:19> Objective - Vital Signs/Intake and Output Vital Signs (last 24 hours): Temp Pulse Resp BP Pulse Ox 98.9 F 112 H 30 H 120/78 100 05/05/17 08:00 05/05/17 10:00 05/05/17 10:00 05/05/17 10:00 05/05/17 10:00 Intake and Output: 05/05/17 05/05/17 06:59 18:59 Intake Total 2440 145 Output Total 450 60 Balance 1989 - Medications Medications: Current Medications Acetaminophen (Tylenol 650 Mg Supp) 650 mg [place] ONCE ARLET Last Admin: 04/28/17 14:30 Dose: 650 mg Albuterol Sulfate (Albuterol 0.083% Inhal Rae (2.5 Mg/3 Ml) Ud) 2.5 mg INH RQ4 PRN PRN Reason: Shortness of Breath Last Admin: 05/03/17 23:29 Dose: 2.5 mg Allopurinol (Zyloprim) 200 mg PO DAILY [facility] Last Admin: 05/05/17 08:31 Dose: 200 mg Hydrocortisone Sodium Succinate (Solu-Cortef) 100 mg IV Q8 [facility] Last Admin: 05/05/17 08:30 Dose: 100 mg Hydromorphone HCl (Dilaudid) 0.5 mg IVP Q4 PRN PRN Reason: Pain, moderate (4-7) Last Admin: 04/30/17 01:02 Dose: 0.5 mg Hydromorphone HCl (Dilaudid) 1 mg IVP Q4 PRN PRN Reason: Agitation Last Admin: 05/02/17 11:15 Dose: 1 mg Vancomycin HCl 1 gm/ Sodium (Chloride) 250 mls @ 166.667 mls/hr IVPB DAILY [facility] PRN Reason: Protocol Last Admin: 05/05/17 08:30 Dose: 166.667 mls/hr Azithromycin 500 mg/ Sodium (Chloride) 250 mls @ 250 mls/hr IVPB DAILY [facility] PRN Reason: Protocol Last Admin: 05/05/17 08:31 Dose: 250 mls/hr Piperacillin Sod/Tazobactam (Sod 2.25 gm/ Sodium Chloride) 100 mls @ 100 mls/ hr IVPB Q6 [facility] PRN Reason: Protocol Last Admin: 05/05/17 09:03 Dose: 100 mls/hr Potassium Chloride/Dextrose (Potassium Chl 20 Meq In D5w) 1,000 mls @ 100 mls/ hr IV .Q10H [facility] Stop: 05/05/17 22:11 Last Admin: 05/05/17 08:01 Dose: 100 mls/hr Insulin Detemir (Levemir) 50 units SC HS [facility] Insulin Human Lispro (Humalog) 0 units SC ACHS [facility] PRN Reason: Protocol Last Admin: 05/05/17 06:50 Dose: 4 unit Insulin Human Lispro (Humalog) 16 units SC AC [facility] Pantoprazole Sodium (Protonix Inj) 40 mg IVP DAILY [facility] Last Admin: 05/05/17 08:29 Dose: 40 mg Vancomycin HCl (Vancocin (Oral/Rectal Use)) 250 mg PO Q8 [facility] PRN Reason: Protocol Last Admin: 05/05/17 08:30 Dose: 250 mg - Labs Labs: 05/05/17 05:30 05/05/17 05:30 PT 36.0 Seconds (9.8-13.1) H 05/05/17 08:00 INR 3.1 (0.9-1.2) H 05/05/17 08:00 APTT 55.6 Seconds (25.6-37.1) H D 05/03/17 04:20 Attending/Attestation - Attestation I have personally seen and examined this patient.: Yes I have fully participated in the care of the patient.: Yes I have reviewed all pertinent clinical information, including history, physical exam and plan: Yes Notes (Text): 05/05/17 10:13 I have seen and examined patient with GI fellow. No acute events overnight, she remains intubated in critical care unit. She appears slightly more responsive today and is able to move hands on command. There is no reported abdominal pain, vomiting, fever/chills. Review of vitals from today shows tachycardia. HCV decompensated cirrhosis Progressive liver failure Sepsis - pneumonia, diarrhea Likely underlying malignancy of unclear source - Continue with tube feeding as tolerated, monitor for residuals - Continue with antibiotic therapy as per medical team - Ventilator management as per critical care team - Awaiting results of stool studies, continue with empiric PO vancomycin for time being - LFTs/INR stable, continue to monitor - Overall prognosis is quite poor, again suggest palliative care/hospice evaluation in this clinical scenario. This was discussed with hospitalist team.
--- NOTE | 2017-05-05 13:07 | CP.PCM.PN ---
Subjective - Date & Time of Evaluation Date of Evaluation: 05/05/17 Time of Evaluation: 12:30 - Subjective Subjective: Patient seen and examined bedside. Intubated on MV PRVC AC mode 450/14/45 % /5 , not sedated . Responds to verbal command, opens her eyes and follows simple command. BP 122/69 HR 112 ABG 27/90/22/7.46 I/O 5280/1400 wbc 11.8 hGB 11 PLT MANUAL 40 k M inr 3.1 bun/cR 100/1.5 No acute issues overnight Valadez in place with good output OGT with suplena @ 40 cc/hr rectal tube in place with watery diarrhea Objective - Vital Signs/Intake and Output Vital Signs (last 24 hours): Temp Pulse Resp BP Pulse Ox 99.9 F H 108 H 14 122/69 100 05/05/17 12:00 05/05/17 12:00 05/05/17 12:00 05/05/17 12:00 05/05/17 12:00 Intake and Output: 05/05/17 05/05/17 06:59 18:59 Intake Total 2440 1725 Output Total 450 400 Balance 1989 1325 - Medications Medications: Current Medications Acetaminophen (Tylenol 650 Mg Supp) 650 mg [place] ONCE ARLET Last Admin: 04/28/17 14:30 Dose: 650 mg Albuterol Sulfate (Albuterol 0.083% Inhal Rae (2.5 Mg/3 Ml) Ud) 2.5 mg INH RQ4 PRN PRN Reason: Shortness of Breath Last Admin: 05/03/17 23:29 Dose: 2.5 mg Allopurinol (Zyloprim) 200 mg PO DAILY [facility] Last Admin: 05/05/17 08:31 Dose: 200 mg Hydrocortisone Sodium Succinate (Solu-Cortef) 100 mg IV Q8 [facility] Last Admin: 05/05/17 08:30 Dose: 100 mg Hydromorphone HCl (Dilaudid) 0.5 mg IVP Q4 PRN PRN Reason: Pain, moderate (4-7) Last Admin: 04/30/17 01:02 Dose: 0.5 mg Hydromorphone HCl (Dilaudid) 1 mg IVP Q4 PRN PRN Reason: Agitation Last Admin: 05/02/17 11:15 Dose: 1 mg Vancomycin HCl 1 gm/ Sodium (Chloride) 250 mls @ 166.667 mls/hr IVPB DAILY [facility] PRN Reason: Protocol Last Admin: 05/05/17 08:30 Dose: 166.667 mls/hr Azithromycin 500 mg/ Sodium (Chloride) 250 mls @ 250 mls/hr IVPB DAILY [facility] PRN Reason: Protocol Last Admin: 05/05/17 08:31 Dose: 250 mls/hr Piperacillin Sod/Tazobactam (Sod 2.25 gm/ Sodium Chloride) 100 mls @ 100 mls/ hr IVPB Q6 [facility] PRN Reason: Protocol Last Admin: 05/05/17 09:03 Dose: 100 mls/hr Potassium Chloride/Dextrose (Potassium Chl 20 Meq In D5w) 1,000 mls @ 100 mls/ hr IV .Q10H [facility] Stop: 05/05/17 22:11 Last Admin: 05/05/17 08:01 Dose: 100 mls/hr Insulin Detemir (Levemir) 50 units SC HS [facility] Insulin Human Lispro (Humalog) 0 units SC ACHS [facility] PRN Reason: Protocol Last Admin: 05/05/17 12:02 Dose: 4 unit Insulin Human Lispro (Humalog) 16 units SC AC [facility] Last Admin: 05/05/17 12:03 Dose: 16 units Pantoprazole Sodium (Protonix Inj) 40 mg IVP DAILY [facility] Last Admin: 05/05/17 08:29 Dose: 40 mg Vancomycin HCl (Vancocin (Oral/Rectal Use)) 250 mg PO Q8 [facility] PRN Reason: Protocol Last Admin: 05/05/17 08:30 Dose: 250 mg - Labs Labs: 05/05/17 05:30 05/05/17 05:30 PT 36.0 Seconds (9.8-13.1) H 05/05/17 08:00 INR 3.1 (0.9-1.2) H 05/05/17 08:00 APTT 55.6 Seconds (25.6-37.1) H D 05/03/17 04:20 - Constitutional Appears: Other (intubated on MV , not sedated ) - Head Exam Head Exam: ATRAUMATIC, NORMOCEPHALIC Additional comments: jaundiced - Eye Exam Eye Exam: PERRL - ENT Exam ENT Exam: Mucous Membranes Dry - Neck Exam Neck Exam: Normal Inspection - Respiratory Exam Respiratory Exam: Clear to Ausculation Bilateral, NORMAL BREATHING PATTERN. absent: Rales, Rhonchi, Wheezes - Cardiovascular Exam Cardiovascular Exam: Tachycardia, RRR, +S1, +S2. absent: JVD - GI/Abdominal Exam GI & Abdominal Exam: Soft, Normal Bowel Sounds. absent: Distended, Guarding, Tenderness, Rebound - Rectal Exam Rectal Exam: Deferred - Extremities Exam Extremities Exam: Normal Inspection. absent: Pedal Edema - Neurological Exam Additional comments: Responds to verbal command , opens her eys and follow simple command - Skin Skin Exam: Dry, Pallor, Warm Additional comments: jaundiced Assessment and Plan - Assessment and Plan (Free Text) Assessment: 57 y/o female with PMH IDDM , HTN, dyslipidemia , Cirrhosis sec to Hep C was brought to ER bec of AMS. For the past 3 days patient had not been herself, she was very weak, unable to get out of bed, confused , talking to herself, disoriented. Patient also appeared jaundiced. As per family she had been complaining of lower back pain and was seen by a physician who gave her an injection 1 month ago. Family denies any upper respiratory illness, nausea, vomiting , diarrhea, abdominal pain , recent illness or blood transfusion. In ER patient found to confused , jaundiced with Hgb 5.7, plt 39 K tea 6.7 , elevated LDH WBC 17 k lactic acid 5 cr 1.2 total protein 9 Ca 14 Peripheral Smear showed schistocytes , nucleated RBC-s Pt/INR elevated Patient is critically ill. Admitted to ICU for sepsis , Altered mental status, metabolic derangement with hypercalcemia, hyperkalemia ,hemolytic anemia and possible malignancy. Patient has very poor prognosis CT of the abd and pelvis: 1. 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 The differential considerations include metastasis and lymphoma. 2. Mild hepatomegaly and moderate splenomegaly. 3. Evaluation of the colon is limited in the absence of oral contrast. Allowing for this, apparent diffuse small bowel wall thickening is nonspecific and could be related to underdistention or nonspecific enteritis. Also noted is segmental mural thickening in the splenic flexure of colon, again could be related to underdistention however underlying mass cannot be excluded. Please correlate with colonoscopy. 3. Left lower lobe pneumonia. 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 ( Ribavirin can cause Hemolytic Anemia). Attempted to contct PMD to get more info however she has not called back - Ida Gomez [facility] - [phone]. 1. Acute hypoxemic respiratory failure ( intubated ) multifactorial -- secondary to pulmonary edema, pneumonia and metabolic encephalopathy patient was in respiratory distress with RR 40 while on high flow with FIO2 80 % , ABG with PO2 54 PCO2 22 HCO3 19 CXR showed stable pulmonary edema intubated and placed on MV At present still intubated on MV PRVC AC mode 14/450/5/45 % doing well ABG 27/90 /7.46/22 CXR today showed no active disease . Will try to wean off vent if possible Continue IV antibiotics Pulmonary eval with Dr Guaman appreciated patient has guarded prognosis 2. Sepsis sec to Pneumonia lactic acid elevated + leukocytosis, low grade fever Ct chest showed LLL pneumonia blood c/s : neg so far Mycoplasm IgM + continue vancomycin 1 g IV and Zosyn , added Azithro IV ID consulted- discussed case with Dr Topete , agree with the abx 3. Altered mental status likely sec to Metabolic Encephalopathy r/o Hepatic Encephalopathy vs sec to TTP most likely related to metabolic derangement CT head showed no acute pathology hematology consult appreciated and case discussed Peripheral smear showed nucleated RBC-s and schisctocytes -- most likely hemolytic anemia . PT/INR elevated and fibrinogen low CT abdomen and pelvis showed diffuse ostelytic lesions of the skeleton -- r/o Malignancy) continue IVF, IV antibiotics given Zometa for hypercalcemia Continue Solucortef for hemolytic anemia transfused 3 unit PRBC Received plasmaphresis as rec by hematology (Plasma changed to Albumin when pt developed Pulm Edema) Lactulose started as per GI to improve mental status - now d/c as pt having Diarrhea Patient's mental status today showing slight improvement. Patient has poor prognosis Discussed with arnulfo about comfort / Hospice care 4. Hemolytic anemia -- unclear etiology at this point could be due to TTP/DIC, ribavirin, or Mycoplasma Pneumonia or Hep C Hgb 5.7 LDH elevated , bili 6.7 peripheral smear showed nucleated RBC-s and schistocytes s/p 3 unit PRBc transfusin with Hgb 9.4 hematology consult appreciated Retic ct elevated Low Fibrinogen haptoglobin, Leonardo test ,Hepatis profile , FROYLAN,RF, mycoplasma-- pending patient has hepatitis C + continue Solucortef management as per hematology Plan for BM biopsy on Sunday 5. Thrombocytopenia/ coagulopathy prob sec to Cirrhosis suspected TTP and was started on Plasmapharesis PT/INR elevated , no proteinuria,Fibrinogen low - suggest possible DIC retic count: elevated to 6 ,haptoglobin pending, blood cx, urine cx : negative so far Hematology on board Hold off any Platelet transfusion as per hematology Plt count 40 today ( manual ) , INR 3.1 stopped plasmaphresis 6.Diffuse Osteolytic lesions of the spine need to r/o MALIGNANCY Flow cytometry : negative protein electrophoresis: polyclonal spikes follow up with oncology recommendations elevated XEP=[id number] GI consulted - rec Triple phase CT once renal fxn better and outpt Colonoscopy Palpated right breast mass - will send pt for Sonogram bone marrow biopsy on Sunday Poor prognosis 7.Hypercalcemia prob sec to malignancy IVF on Zometa Endo consulted 8. 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 once kidney fxn is stable will order triple phase liver CT colonoscopy when stable Patient has poor prognosis and palliative / comfort care would be appropriate 9.DM on Suplena via OGT endo consulted Continue Levemir 50 units Sq HS and Lispro 16 units SQ AC 10.KIRSTIN / Azotemia/ hyperkalemia continue IVF monitor renal fxn BUN/Cr 100//1.5 Nephro on consult 11. Pulmonary Edema happened 2 hrs after Plasmapharesis minimal response to diuretics ? sec to Transfusion rx ??? vs Volume overload plasmaphresis was changed to albumin instead of plasma continue lasix PRN if BP allows 12. Diarrhea Possible related to lactulose use Check C.diff Will send for occult blood due to disproportionate elevation of BUN ( 100) in relation to Cr d/c lactulose 13.DVT/ GI prophylaxis SCD Protonix IV no anticoag sec to thrombocytopenia
--- NOTE | 2017-05-05 13:53 | PN ---
DATE: ENDOCRINOLOGY FOLLOWUP NOTE LOCATION: In ICU, room 421. SUBJECTIVE: This is a 57-year-old female with recent marked anemia, underlying thrombocytopenic purpura and currently IV steroid therapy with supervening hyperglycemic accelerations as expected thereof. Her glucose values have ranged from 254 to 333 mg/dL. Her latest chemistry showed a BUN of 100, sodium 145, potassium 4.4, chloride 116, CO2 of 22, glucose 374, and creatinine 1.5. She also has malignant hypercalcemia, which has since then resolved at this time and the latest calcium level is 8.9 as noted. ASSESSMENT AND PLAN: So at this time, we will modify once again her basal and bolus insulin regimen and increased her Levemir to 50 units subcutaneous at bedtime daily to start tonight. We will also increase the Humalog to 67 units subcutaneous t.i.d. before meals to start at the lunch time today as ordered. We will obtain serial chemistries and supplement accordingly as needed. We will follow. Laure De Santiago MD
--- NOTE | 2017-05-05 16:31 | CP.PCM.PN ---
Subjective - Date & Time of Evaluation Date of Evaluation: 05/05/17 Time of Evaluation: 16:31 - Subjective Subjective: SEEN ON RENAL F/U IN ICU REMANS INTUBATED AND UNRESPONSIVE CREAT BETTER 2.0 -> 1.6 ....>1.5 slowly improving NA IS BETTER 159 -> 156..>145 K WENT DOWN ..4.5 dicussed w family at bedside and icu staff Objective - Vital Signs/Intake and Output Vital Signs (last 24 hours): Temp Pulse Resp BP Pulse Ox 99.9 F H 111 H 25 H 115/70 100 05/05/17 12:00 05/05/17 14:00 05/05/17 14:00 05/05/17 14:00 05/05/17 14:00 Intake and Output: 05/05/17 05/05/17 06:59 18:59 Intake Total 2440 2014 Output Total 450 450 Balance 1989 1564 - Medications Medications: Current Medications Acetaminophen (Tylenol 650 Mg Supp) 650 mg [place] ONCE ARLET Last Admin: 04/28/17 14:30 Dose: 650 mg Albuterol Sulfate (Albuterol 0.083% Inhal Rae (2.5 Mg/3 Ml) Ud) 2.5 mg INH RQ4 PRN PRN Reason: Shortness of Breath Last Admin: 05/03/17 23:29 Dose: 2.5 mg Allopurinol (Zyloprim) 200 mg PO DAILY [facility] Last Admin: 05/05/17 08:31 Dose: 200 mg Hydrocortisone Sodium Succinate (Solu-Cortef) 100 mg IV Q8 [facility] Last Admin: 05/05/17 08:30 Dose: 100 mg Hydromorphone HCl (Dilaudid) 0.5 mg IVP Q4 PRN PRN Reason: Pain, moderate (4-7) Last Admin: 04/30/17 01:02 Dose: 0.5 mg Hydromorphone HCl (Dilaudid) 1 mg IVP Q4 PRN PRN Reason: Agitation Last Admin: 05/02/17 11:15 Dose: 1 mg Vancomycin HCl 1 gm/ Sodium (Chloride) 250 mls @ 166.667 mls/hr IVPB DAILY [facility] PRN Reason: Protocol Last Admin: 05/05/17 08:30 Dose: 166.667 mls/hr Azithromycin 500 mg/ Sodium (Chloride) 250 mls @ 250 mls/hr IVPB DAILY [facility] PRN Reason: Protocol Last Admin: 05/05/17 08:31 Dose: 250 mls/hr Piperacillin Sod/Tazobactam (Sod 2.25 gm/ Sodium Chloride) 100 mls @ 100 mls/ hr IVPB Q6 [facility] PRN Reason: Protocol Last Admin: 05/05/17 09:03 Dose: 100 mls/hr Potassium Chloride/Dextrose (Potassium Chl 20 Meq In D5w) 1,000 mls @ 100 mls/ hr IV .Q10H [facility] Stop: 05/05/17 22:11 Last Admin: 05/05/17 08:01 Dose: 100 mls/hr Insulin Detemir (Levemir) 50 units SC HS [facility] Insulin Human Lispro (Humalog) 0 units SC ACHS [facility] PRN Reason: Protocol Last Admin: 05/05/17 12:02 Dose: 4 unit Insulin Human Lispro (Humalog) 16 units SC AC [facility] Last Admin: 05/05/17 12:03 Dose: 16 units Pantoprazole Sodium (Protonix Inj) 40 mg IVP DAILY [facility] Last Admin: 05/05/17 08:29 Dose: 40 mg Vancomycin HCl (Vancocin (Oral/Rectal Use)) 250 mg PO Q8 [facility] PRN Reason: Protocol Last Admin: 05/05/17 08:30 Dose: 250 mg - Labs Labs: 05/05/17 05:30 05/05/17 05:30 PT 36.0 Seconds (9.8-13.1) H 05/05/17 08:00 INR 3.1 (0.9-1.2) H 05/05/17 08:00 APTT 55.6 Seconds (25.6-37.1) H D 05/03/17 04:20 - Head Exam Head Exam: ATRAUMATIC, NORMAL INSPECTION - ENT Exam ENT Exam: Mucous Membranes Moist - Respiratory Exam Respiratory Exam: NORMAL BREATHING PATTERN - Cardiovascular Exam Cardiovascular Exam: REGULAR RHYTHM - GI/Abdominal Exam GI & Abdominal Exam: Soft - Extremities Exam Extremities Exam: Normal Inspection - Neurological Exam Neurological Exam: Altered - Skin Skin Exam: Dry, Warm
[2017-05-05] MEDS ORDERED: Insulin Detemir 100 Units/ml Inj SC SCH (22:00)
[2017-05-06] MEDS: Vancomycin 500 mg (Oral/Rectal USE) PO SCH ×3 (00:11→16:15)
[2017-05-06] MEDS ORDERED: Potassium Chl 40mEq & D5W 1,000 ML IV SCH (03:30)
[2017-05-06] MEDS ORDERED: Potassium Chl 20mEq & D5W 1,000 ML IV SCH (03:45)
[2017-05-06 04:35] LABS: ABG ALLEN TEST YES; ABG MECHANICAL RATE 14; ARTERIAL BLOOD GAS HCO3 17.1 mmol/L (21-28); ARTERIAL BLOOD GAS MODE A/C; ARTERIAL BLOOD GAS O2 CAPACITY 13.9 mL/dL (16-24); ARTERIAL BLOOD GAS PH 7.38 (7.35-7.45); ARTERIAL BLOOD GAS PO2 112 mm/Hg (80-100); ARTERIAL BLOOD HGB O2 SAT 96.3 % (95.0-98.0); ATERIAL BLOOD GAS PEEP 5; CARBOXYHEMOGLOBIN 2.5 % (0.5-1.5); HHB -0.9 % (0.0-5.0)
[2017-05-06 06:15] LABS: HEMATOCRIT 33.5 % (34.0-47.0); MEAN CELL VOLUME 97.3 fl (81.0-99.0); MEAN CORPUSCULAR HGB CONC 30.9 g/dL (33.0-37.0); RED CELL DISTRIBUTION WIDTH 24.1 % (11.5-14.5)
[2017-05-06] MEDS: Insulin Lispro (humaLOG) 100 Units/ml Inj SC SCH ×6 (06:33→21:56)
[2017-05-06 06:34] LABS: ALB/GLOB RATIO 0.8 (1.0-2.1); BILIRUBIN,TOTAL 18.6 mg/dl (0.2-1.3); CALCIUM 8.4 mg/dL (8.4-10.2); POTASSIUM 5.5 MMOL/L (3.6-5.0); TOTAL PROTEIN 5.8 G/DL (6.3-8.2)
[2017-05-06] MEDS ORDERED: Dextrose 5%/0.45% NS 1,000 ML IV SCH (06:45)
[2017-05-06 06:50] LABS: WHITE BLOOD COUNT 22.2 K/uL (4.8-10.8)
--- NOTE | 2017-05-06 07:49 | CP.CCUPN ---
CCU Subjective - Physician Review Events Since Last Encounter (Free Text): 05/06/17 07:48 Patient on ventilator on PRVC TV 450, RR 14, FIO2 45%, awake, opens eyes to verbal stimuli, no pressors, events reviewed CCU Objective - Vital Signs / Intake & Output Vital Signs (Last 4 hours): Vital Signs Temp Pulse Resp BP Pulse Ox 05/06/17 06:00 103 H 34 H 108/64 100 05/06/17 04:00 98.1 F 98 H 27 H 91/60 L 100 Intake and Output (Last 8hrs): Intake & Output 05/05/17 05/06/17 05/06/17 22:59 06:59 14:59 Intake Total 1660 1560 Output Total 40 100 Balance 1620 1460 Intake: IV 700 800 Intake, Piggyback 200 Tube Feeding 360 360 Free Water Flush 400 400 Output: Urine 40 100 Urethral (Valadez) 40 100 - Physical Exam Head: Positive for: Atraumatic, Normocephalic Pupils: Positive for: PERRL Extroacular Muscles: Positive for: EOMI Conjunctiva: Positive for: Icteric Mouth: Positive for: Dry Pharnyx: Negative for: ERYTHEMA, EXUDATE Neck: Negative for: Meningeal Signs, JVD, Lymphadenopathy Cardiovascular: Positive for: Regular Rate and Rhythm. Negative for: Murmurs, Rub Abdomen: Positive for: Normal Bowel Sounds, Other (+ splenomegaly). Negative for: Tenderness, Distention Rectal: Negative for: Occult Blood, Melena, Fissures Lower Extremity: Positive for: Edema, NORMAL PULSES. Negative for: CALF TENDERNESS, Cyanosis Neurological: Positive for: GCS=15, Other (on ventilator) Skin: Positive for: Warm, Dry, Other (no petechiae). Negative for: Rashes Psychiatric: Positive for: Alert - Medications Active Medications: Active Medications Generic Name Dose Route Start Last Admin Trade Name Freq PRN Reason Stop Dose Admin Acetaminophen 650 mg 04/28/17 10:00 04/28/17 14:30 Tylenol 650 Mg Supp MT 650 mg ONCE ARLET Administration Albuterol Sulfate 2.5 mg 04/27/17 19:45 05/03/17 23:29 Albuterol 0.083% Inhal Rae (2.5 Mg/3 Ml) Ud INH 2.5 mg RQ4 PRN Administration Shortness of Breath Allopurinol 200 mg 04/28/17 09:00 05/05/17 08:31 Zyloprim PO 200 mg DAILY ARLET Administration Hydrocortisone Sodium Succinate 100 mg 05/01/17 17:00 05/06/17 00:12 Solu-Cortef IV 100 mg Q8 ARLET Administration Hydromorphone HCl 0.5 mg 04/28/17 23:02 04/30/17 01:02 Dilaudid IVP 0.5 mg Q4 PRN Administration Pain, moderate (4-7) Hydromorphone HCl 1 mg 05/02/17 11:10 05/02/17 11:15 Dilaudid IVP 1 mg Q4 PRN Administration Agitation Vancomycin HCl 1 gm/ Sodium 250 mls @ 166.667 mls/hr 04/28/17 09:00 05/05/17 08:30 Chloride IVPB 166.667 mls/hr DAILY ARLET Administration Protocol Azithromycin 500 mg/ Sodium 250 mls @ 250 mls/hr 05/04/17 09:00 05/05/17 08: 31 Chloride IVPB 250 mls/hr DAILY ARLET Administration Protocol Piperacillin Sod/Tazobactam 100 mls @ 100 mls/hr 05/04/17 16:00 05/06/17 03: 22 Sod 2.25 gm/ Sodium Chloride IVPB 100 mls/hr Q6 ARLET Administration Protocol Dextrose/Sodium Chloride 1,000 mls @ 100 mls/hr 05/06/17 06:45 Dextrose 5%/0.45% Ns 1000 Ml IV 05/06/17 16:44 .Q10H ARLET Insulin Detemir 50 units 05/05/17 22:00 05/05/17 22:46 Levemir SC 50 units HS ARLET Administration Insulin Human Lispro 0 units 05/03/17 11:30 05/06/17 06:33 Humalog SC 4 unit ACHS ARLET Administration Protocol Insulin Human Lispro 16 units 05/05/17 11:30 05/06/17 06:35 Humalog SC 16 units AC ARLET Administration Pantoprazole Sodium 40 mg 04/28/17 09:00 05/05/17 08:29 Protonix Inj IVP 40 mg DAILY ARLET Administration Vancomycin HCl 250 mg 05/04/17 09:00 05/06/17 00:11 Vancocin (Oral/Rectal Use) PO 250 mg Q8 ARLET Administration Protocol - Patient Studies Lab Studies: Lab Studies 05/06/17 05/06/17 05/06/17 Range/Units 06:20 05:30 05:30 WBC (4.8-10.8) K/uL RBC (3.80-5.20) Mil/uL Hgb (12.0-16.0) g/dL Hct (34.0-47.0) % MCV (81.0-99.0) fl MCH (27.0-31.0) pg MCHC (33.0-37.0) g/dL RDW (11.5-14.5) % Plt Count (130-400) K/uL Manual Plt Count (130-400) K/uL MPV (7.2-11.7) fl Neut % (Auto) (50.0-75.0) % Lymph % (Auto) (20.0-40.0) % [place] % (Auto) (0.0-10.0) % Eos % (Auto) (0.0-4.0) % Baso % (Auto) (0.0-2.0) % Neut # (1.8-7.0) K/uL Lymph # (1.0-4.3) K/uL [place] # (0.0-0.8) K/uL Eos # (0.0-0.7) K/uL Baso # (0.0-0.2) K/uL PT 44.1 H* (9.8-13.1) Seconds INR 3.8 H (0.9-1.2) pCO2 (35-45) mm/Hg pO2 (80-100) mm/Hg HCO3 (21-28) mmol/L ABG pH (7.35-7.45) ABG Total CO2 (22-28) mmol/L ABG O2 Saturation (95-98) % ABG O2 Content (15-23) ML/dL ABG Base Excess (-2.0-3.0) mmol/L ABG Hemoglobin (11.7-17.4) g/dL ABG Carboxyhemoglobin (0.5-1.5) % POC ABG HHb (Measured) (0.0-5.0) % ABG Methemoglobin (0.0-3.0) % ABG O2 Capacity (16-24) mL/dL Roman Test A-a O2 Difference mm/Hg Hgb O2 Saturation (95.0-98.0) % Vent Mode Mechanical Rate FiO2 % Tidal Volume PEEP Sodium 142 (132-148) mmol/l Potassium 5.5 H (3.6-5.0) MMOL/L Chloride 111 H (98-107) mmol/L Carbon Dioxide 17 L (22-30) mmol/L Anion Gap 20 (10-20) BUN 104 H* (7-17) mg/dl Creatinine 1.9 H (0.7-1.2) mg/dl Est GFR ( Amer) 33 Est GFR (Non-Af Amer) 27 POC Glucose (mg/dL) 346 H (65-110) mg/dL Random Glucose 394 H (65-105) mg/dL Calcium 8.4 (8.4-10.2) mg/dL Total Bilirubin 18.6 H (0.2-1.3) mg/dl AST 580 H D (14-36) U/L ALT 79 H (9-52) U/L Alkaline Phosphatase 434 H D (38-126) U/L Total Protein 5.8 L (6.3-8.2) G/DL Albumin 2.5 L (3.5-5.0) g/dL Globulin 3.3 (2.2-3.9) gm/dL Albumin/Globulin Ratio 0.8 L (1.0-2.1) ANCA Screen (NEGATIVE) c-ANCA Titer p-ANCA Titer Atypical p-ANCA Titer C. difficile Ag & Toxin (NEGATIVE) 05/06/17 05/06/17 05/05/17 Range/Units 05:30 04:26 21:48 WBC 22.2 H (4.8-10.8) K/uL RBC 3.44 L (3.80-5.20) Mil/uL Hgb 10.3 L (12.0-16.0) g/dL Hct 33.5 L (34.0-47.0) % MCV 97.3 (81.0-99.0) fl MCH 30.0 (27.0-31.0) pg MCHC 30.9 L (33.0-37.0) g/dL RDW 24.1 H (11.5-14.5) % Plt Count 24 L* (130-400) K/uL Manual Plt Count (130-400) K/uL MPV (7.2-11.7) fl Neut % (Auto) (50.0-75.0) % Lymph % (Auto) (20.0-40.0) % [place] % (Auto) (0.0-10.0) % Eos % (Auto) (0.0-4.0) % Baso % (Auto) (0.0-2.0) % Neut # (1.8-7.0) K/uL Lymph # (1.0-4.3) K/uL [place] # (0.0-0.8) K/uL Eos # (0.0-0.7) K/uL Baso # (0.0-0.2) K/uL PT (9.8-13.1) Seconds INR (0.9-1.2) pCO2 23 L (35-45) mm/Hg pO2 112 H (80-100) mm/Hg HCO3 17.1 L (21-28) mmol/L ABG pH 7.38 (7.35-7.45) ABG Total CO2 14.3 L (22-28) mmol/L ABG O2 Saturation 100.9 H (95-98) % ABG O2 Content 14.0 L (15-23) ML/dL ABG Base Excess -10.0 L (-2.0-3.0) mmol/L ABG Hemoglobin 10.2 L (11.7-17.4) g/dL ABG Carboxyhemoglobin 2.5 H (0.5-1.5) % POC ABG HHb (Measured) -0.9 L (0.0-5.0) % ABG Methemoglobin 2.0 (0.0-3.0) % ABG O2 Capacity 13.9 L (16-24) mL/dL Roman Test Yes A-a O2 Difference 180.0 mm/Hg Hgb O2 Saturation 96.3 (95.0-98.0) % Vent Mode A/c Mechanical Rate 14 FiO2 45.0 % Tidal Volume 450 PEEP 5 Sodium (132-148) mmol/l Potassium (3.6-5.0) MMOL/L Chloride (98-107) mmol/L Carbon Dioxide (22-30) mmol/L Anion Gap (10-20) BUN (7-17) mg/dl Creatinine (0.7-1.2) mg/dl Est GFR ( Amer) Est GFR (Non-Af Amer) POC Glucose (mg/dL) 408 H* (65-110) mg/dL Random Glucose (65-105) mg/dL Calcium (8.4-10.2) mg/dL Total Bilirubin (0.2-1.3) mg/dl AST (14-36) U/L ALT (9-52) U/L Alkaline Phosphatase (38-126) U/L Total Protein (6.3-8.2) G/DL Albumin (3.5-5.0) g/dL Globulin (2.2-3.9) gm/dL Albumin/Globulin Ratio (1.0-2.1) ANCA Screen (NEGATIVE) c-ANCA Titer p-ANCA Titer Atypical p-ANCA Titer C. difficile Ag & Toxin (NEGATIVE) 05/05/17 05/05/17 05/05/17 Range/Units 11:16 08:00 05:30 WBC 18.2 H (4.8-10.8) K/uL RBC 3.63 L (3.80-5.20) Mil/uL Hgb 11.0 L (12.0-16.0) g/dL Hct 34.7 (34.0-47.0) % MCV 95.4 (81.0-99.0) fl MCH 30.4 (27.0-31.0) pg MCHC 31.8 L (33.0-37.0) g/dL RDW 23.3 H (11.5-14.5) % Plt Count 27 L* (130-400) K/uL Manual Plt Count 40 L* (130-400) K/uL MPV 9.7 (7.2-11.7) fl Neut % (Auto) 66.9 (50.0-75.0) % Lymph % (Auto) 27.7 (20.0-40.0) % [place] % (Auto) 4.8 (0.0-10.0) % Eos % (Auto) 0.1 (0.0-4.0) % Baso % (Auto) 0.5 (0.0-2.0) % Neut # 12.1 H (1.8-7.0) K/uL Lymph # 5.0 H (1.0-4.3) K/uL [place] # 0.9 H (0.0-0.8) K/uL Eos # 0.0 (0.0-0.7) K/uL Baso # 0.1 (0.0-0.2) K/uL PT 36.0 H (9.8-13.1) Seconds INR 3.1 H (0.9-1.2) pCO2 (35-45) mm/Hg pO2 (80-100) mm/Hg HCO3 (21-28) mmol/L ABG pH (7.35-7.45) ABG Total CO2 (22-28) mmol/L ABG O2 Saturation (95-98) % ABG O2 Content (15-23) ML/dL ABG Base Excess (-2.0-3.0) mmol/L ABG Hemoglobin (11.7-17.4) g/dL ABG Carboxyhemoglobin (0.5-1.5) % POC ABG HHb (Measured) (0.0-5.0) % ABG Methemoglobin (0.0-3.0) % ABG O2 Capacity (16-24) mL/dL Roman Test A-a O2 Difference mm/Hg Hgb O2 Saturation (95.0-98.0) % Vent Mode Mechanical Rate FiO2 % Tidal Volume PEEP Sodium (132-148) mmol/l Potassium (3.6-5.0) MMOL/L Chloride (98-107) mmol/L Carbon Dioxide (22-30) mmol/L Anion Gap (10-20) BUN (7-17) mg/dl Creatinine (0.7-1.2) mg/dl Est GFR ( Amer) Est GFR (Non-Af Amer) POC Glucose (mg/dL) 330 H (65-110) mg/dL Random Glucose (65-105) mg/dL Calcium (8.4-10.2) mg/dL Total Bilirubin (0.2-1.3) mg/dl AST (14-36) U/L ALT (9-52) U/L Alkaline Phosphatase (38-126) U/L Total Protein (6.3-8.2) G/DL Albumin (3.5-5.0) g/dL Globulin (2.2-3.9) gm/dL Albumin/Globulin Ratio (1.0-2.1) ANCA Screen (NEGATIVE) c-ANCA Titer p-ANCA Titer Atypical p-ANCA Titer C. difficile Ag & Toxin (NEGATIVE) 05/04/17 05/01/17 Range/Units 17:21 04:20 WBC (4.8-10.8) K/uL RBC (3.80-5.20) Mil/uL Hgb (12.0-16.0) g/dL Hct (34.0-47.0) % MCV (81.0-99.0) fl MCH (27.0-31.0) pg MCHC (33.0-37.0) g/dL RDW (11.5-14.5) % Plt Count (130-400) K/uL Manual Plt Count (130-400) K/uL MPV (7.2-11.7) fl Neut % (Auto) (50.0-75.0) % Lymph % (Auto) (20.0-40.0) % [place] % (Auto) (0.0-10.0) % Eos % (Auto) (0.0-4.0) % Baso % (Auto) (0.0-2.0) % Neut # (1.8-7.0) K/uL Lymph # (1.0-4.3) K/uL [place] # (0.0-0.8) K/uL Eos # (0.0-0.7) K/uL Baso # (0.0-0.2) K/uL PT (9.8-13.1) Seconds INR (0.9-1.2) pCO2 (35-45) mm/Hg pO2 (80-100) mm/Hg HCO3 (21-28) mmol/L ABG pH (7.35-7.45) ABG Total CO2 (22-28) mmol/L ABG O2 Saturation (95-98) % ABG O2 Content (15-23) ML/dL ABG Base Excess (-2.0-3.0) mmol/L ABG Hemoglobin (11.7-17.4) g/dL ABG Carboxyhemoglobin (0.5-1.5) % POC ABG HHb (Measured) (0.0-5.0) % ABG Methemoglobin (0.0-3.0) % ABG O2 Capacity (16-24) mL/dL Roman Test A-a O2 Difference mm/Hg Hgb O2 Saturation (95.0-98.0) % Vent Mode Mechanical Rate FiO2 % Tidal Volume PEEP Sodium (132-148) mmol/l Potassium (3.6-5.0) MMOL/L Chloride (98-107) mmol/L Carbon Dioxide (22-30) mmol/L Anion Gap (10-20) BUN (7-17) mg/dl Creatinine (0.7-1.2) mg/dl Est GFR ( Amer) Est GFR (Non-Af Amer) POC Glucose (mg/dL) (65-110) mg/dL Random Glucose (65-105) mg/dL Calcium (8.4-10.2) mg/dL Total Bilirubin (0.2-1.3) mg/dl AST (14-36) U/L ALT (9-52) U/L Alkaline Phosphatase (38-126) U/L Total Protein (6.3-8.2) G/DL Albumin (3.5-5.0) g/dL Globulin (2.2-3.9) gm/dL Albumin/Globulin Ratio (1.0-2.1) ANCA Screen Negative (NEGATIVE) c-ANCA Titer TNP p-ANCA Titer TNP Atypical p-ANCA Titer TNP C. difficile Ag & Toxin Negative (NEGATIVE) Laboratory Results - last 24 hr 05/01/17 05/04/17 05/05/17 04:20 17:21 05:30 WBC 18.2 H RBC 3.63 L Hgb 11.0 L Hct 34.7 MCV 95.4 MCH 30.4 MCHC 31.8 L RDW 23.3 H Plt Count 27 L* Manual Plt Count 40 L* MPV 9.7 Neut % (Auto) 66.9 Lymph % (Auto) 27.7 [place] % (Auto) 4.8 Eos % (Auto) 0.1 Baso % (Auto) 0.5 Neut # 12.1 H Lymph # 5.0 H [place] # 0.9 H Eos # 0.0 Baso # 0.1 PT INR pCO2 pO2 HCO3 ABG pH ABG Total CO2 ABG O2 Saturation ABG O2 Content ABG Base Excess ABG Hemoglobin ABG Carboxyhemoglobin POC ABG HHb (Measured) ABG Methemoglobin ABG O2 Capacity Roman Test A-a O2 Difference Hgb O2 Saturation Vent Mode Mechanical Rate FiO2 Tidal Volume PEEP Sodium Potassium Chloride Carbon Dioxide Anion Gap BUN Creatinine Est GFR ( Amer) Est GFR (Non-Af Amer) POC Glucose (mg/dL) Random Glucose Calcium Total Bilirubin AST ALT Alkaline Phosphatase Total Protein Albumin Globulin Albumin/Globulin Ratio ANCA Screen Negative c-ANCA Titer TNP p-ANCA Titer TNP Atypical p-ANCA Titer TNP C. difficile Ag & Toxin Negative 05/05/17 05/05/17 05/05/17 08:00 11:16 21:48 WBC RBC Hgb Hct MCV MCH MCHC RDW Plt Count Manual Plt Count MPV Neut % (Auto) Lymph % (Auto) [place] % (Auto) Eos % (Auto) Baso % (Auto) Neut # Lymph # [place] # Eos # Baso # PT 36.0 H INR 3.1 H pCO2 pO2 HCO3 ABG pH ABG Total CO2 ABG O2 Saturation ABG O2 Content ABG Base Excess ABG Hemoglobin ABG Carboxyhemoglobin POC ABG HHb (Measured) ABG Methemoglobin ABG O2 Capacity Roman Test A-a O2 Difference Hgb O2 Saturation Vent Mode Mechanical Rate FiO2 Tidal Volume PEEP Sodium Potassium Chloride Carbon Dioxide Anion Gap BUN Creatinine Est GFR ( Amer) Est GFR (Non-Af Amer) POC Glucose (mg/dL) 330 H 408 H* Random Glucose Calcium Total Bilirubin AST ALT Alkaline Phosphatase Total Protein Albumin Globulin Albumin/Globulin Ratio ANCA Screen c-ANCA Titer p-ANCA Titer Atypical p-ANCA Titer C. difficile Ag & Toxin 05/06/17 05/06/17 05/06/17 04:26 05:30 05:30 WBC 22.2 H RBC 3.44 L Hgb 10.3 L Hct 33.5 L MCV 97.3 MCH 30.0 MCHC 30.9 L RDW 24.1 H Plt Count 24 L* Manual Plt Count MPV Neut % (Auto) Lymph % (Auto) [place] % (Auto) Eos % (Auto) Baso % (Auto) Neut # Lymph # [place] # Eos # Baso # PT 44.1 H* INR 3.8 H pCO2 23 L pO2 112 H HCO3 17.1 L ABG pH 7.38 ABG Total CO2 14.3 L ABG O2 Saturation 100.9 H ABG O2 Content 14.0 L ABG Base Excess -10.0 L ABG Hemoglobin 10.2 L ABG Carboxyhemoglobin 2.5 H POC ABG HHb (Measured) -0.9 L ABG Methemoglobin 2.0 ABG O2 Capacity 13.9 L Roman Test Yes A-a O2 Difference 180.0 Hgb O2 Saturation 96.3 Vent Mode A/c Mechanical Rate 14 FiO2 45.0 Tidal Volume 450 PEEP 5 Sodium Potassium Chloride Carbon Dioxide Anion Gap BUN Creatinine Est GFR ( Amer) Est GFR (Non-Af Amer) POC Glucose (mg/dL) Random Glucose Calcium Total Bilirubin AST ALT Alkaline Phosphatase Total Protein Albumin Globulin Albumin/Globulin Ratio ANCA Screen c-ANCA Titer p-ANCA Titer Atypical p-ANCA Titer C. difficile Ag & Toxin 05/06/17 05/06/17 05:30 06:20 WBC RBC Hgb Hct MCV MCH MCHC RDW Plt Count Manual Plt Count MPV Neut % (Auto) Lymph % (Auto) [place] % (Auto) Eos % (Auto) Baso % (Auto) Neut # Lymph # [place] # Eos # Baso # PT INR pCO2 pO2 HCO3 ABG pH ABG Total CO2 ABG O2 Saturation ABG O2 Content ABG Base Excess ABG Hemoglobin ABG Carboxyhemoglobin POC ABG HHb (Measured) ABG Methemoglobin ABG O2 Capacity Roman Test A-a O2 Difference Hgb O2 Saturation Vent Mode Mechanical Rate FiO2 Tidal Volume PEEP Sodium 142 Potassium 5.5 H Chloride 111 H Carbon Dioxide 17 L Anion Gap 20 BUN 104 H* Creatinine 1.9 H Est GFR ( Amer) 33 Est GFR (Non-Af Amer) 27 POC Glucose (mg/dL) 346 H Random Glucose 394 H Calcium 8.4 Total Bilirubin 18.6 H AST 580 H D ALT 79 H Alkaline Phosphatase 434 H D Total Protein 5.8 L Albumin 2.5 L Globulin 3.3 Albumin/Globulin Ratio 0.8 L ANCA Screen c-ANCA Titer p-ANCA Titer Atypical p-ANCA Titer C. difficile Ag & Toxin Fingerstick Blood Sugar Results: 346 Assessment/Plan - Assessment and Plan (Free Text) Assessment: A/P Respiratory failure, liver cirhosis, hepatitis c, ?sepsis, lactic acidosis, anemia, thrombocytopenia, ?TTP, DM, renal insufficiency - Ventilatory support - Pulmonary toilets - Weaning as tolerated - Continue meds - hematology follow up - GI follow up - Poor prognosis critical care 40 min
--- NOTE | 2017-05-06 08:03 | CP.PCM.PN ---
Subjective - Date & Time of Evaluation Date of Evaluation: 05/06/17 Time of Evaluation: 08:30 - Subjective Subjective: Patient seen and examined bedside. Intubated on MV PRVC AC mode 450/14/45 % /5 , not sedated . Opens her eyes to name calling but does not follow any commands. Appears more confused today and tachypneic Rectal tube inn place but no more diarrhea noted last 24 hours and abdomen appears more distended BP 114/47 tachycardic , afebrile urine output decreasing I/O 5280/590 WBC trending up from 18 K -- 22 k Hgb 10 plt 24 INR 3.8 Na 142 K 5.5 renal function worsening 1BUN/Cr 104 /1.9 No acute issues overnight Valadez in place with decreased output OGT with suplena @ 40 cc/hr Objective - Vital Signs/Intake and Output Vital Signs (last 24 hours): Temp Pulse Resp BP Pulse Ox 98.1 F 103 H 34 H 108/64 100 05/06/17 04:00 05/06/17 06:00 05/06/17 06:00 05/06/17 06:00 05/06/17 06:00 Intake and Output: 05/06/17 05/06/17 06:59 18:59 Intake Total 2340 Output Total 100 Balance 2240 - Medications Medications: Current Medications Acetaminophen (Tylenol 650 Mg Supp) 650 mg DC ONCE ARLET Last Admin: 04/28/17 14:30 Dose: 650 mg Albuterol Sulfate (Albuterol 0.083% Inhal Rae (2.5 Mg/3 Ml) Ud) 2.5 mg INH RQ4 PRN PRN Reason: Shortness of Breath Last Admin: 05/03/17 23:29 Dose: 2.5 mg Allopurinol (Zyloprim) 200 mg PO DAILY [facility] Last Admin: 05/05/17 08:31 Dose: 200 mg Hydrocortisone Sodium Succinate (Solu-Cortef) 100 mg IV Q8 [facility] Last Admin: 05/06/17 00:12 Dose: 100 mg Hydromorphone HCl (Dilaudid) 0.5 mg IVP Q4 PRN PRN Reason: Pain, moderate (4-7) Last Admin: 04/30/17 01:02 Dose: 0.5 mg Hydromorphone HCl (Dilaudid) 1 mg IVP Q4 PRN PRN Reason: Agitation Last Admin: 05/02/17 11:15 Dose: 1 mg Vancomycin HCl 1 gm/ Sodium (Chloride) 250 mls @ 166.667 mls/hr IVPB DAILY [facility] PRN Reason: Protocol Last Admin: 05/05/17 08:30 Dose: 166.667 mls/hr Azithromycin 500 mg/ Sodium (Chloride) 250 mls @ 250 mls/hr IVPB DAILY [facility] PRN Reason: Protocol Last Admin: 05/05/17 08:31 Dose: 250 mls/hr Piperacillin Sod/Tazobactam (Sod 2.25 gm/ Sodium Chloride) 100 mls @ 100 mls/ hr IVPB Q6 [facility] PRN Reason: Protocol Last Admin: 05/06/17 03:22 Dose: 100 mls/hr Dextrose/Sodium Chloride (Dextrose 5%/0.45% Ns 1000 Ml) 1,000 mls @ 100 mls/hr IV .Q10H [facility] Stop: 05/06/17 16:44 Insulin Detemir (Levemir) 50 units SC HS [facility] Last Admin: 05/05/17 22:46 Dose: 50 units Insulin Human Lispro (Humalog) 0 units SC ACHS [facility] PRN Reason: Protocol Last Admin: 05/06/17 06:33 Dose: 4 unit Insulin Human Lispro (Humalog) 16 units SC AC [facility] Last Admin: 05/06/17 06:35 Dose: 16 units Pantoprazole Sodium (Protonix Inj) 40 mg IVP DAILY [facility] Last Admin: 05/05/17 08:29 Dose: 40 mg Vancomycin HCl (Vancocin (Oral/Rectal Use)) 250 mg PO Q8 [facility] PRN Reason: Protocol Last Admin: 05/06/17 00:11 Dose: 250 mg - Labs Labs: 05/06/17 05:30 05/06/17 05:30 PT 44.1 Seconds (9.8-13.1) H* 05/06/17 05:30 INR 3.8 (0.9-1.2) H 05/06/17 05:30 APTT 55.6 Seconds (25.6-37.1) H D 05/03/17 04:20 - Constitutional Appears: Toxic, Chronically Ill, Other (opens eyes to name calling but does not follow any commands, ) - Head Exam Head Exam: ATRAUMATIC, NORMOCEPHALIC - Eye Exam Eye Exam: EOMI, PERRL - ENT Exam ENT Exam: Mucous Membranes Dry, Normal Exam - Neck Exam Neck Exam: Normal Inspection - Respiratory Exam Respiratory Exam: Accessory Muscle Use, Decreased Breath Sounds (bibasilar), Prolonged Expiratory Phase, Respiratory Distress. absent: Rhonchi, Wheezes - Cardiovascular Exam Cardiovascular Exam: REGULAR RHYTHM, RRR, +S1, +S2. absent: JVD - GI/Abdominal Exam GI & Abdominal Exam: Distended, Soft, Hypoactive Bowel Sounds. 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 For the past 3 days patient had not been herself, she was very weak, unable to get out of bed, confused , talking to herself, disoriented. Patient also appeared jaundiced. As per family she had been complaining of lower back pain and was seen by a physician who gave her an injection 1 month ago. Family denies any upper respiratory illness, nausea, vomiting , diarrhea, abdominal pain , recent illness or blood transfusion. In ER patient found to confused , jaundiced with Hgb 5.7, plt 39 K tea 6.7 , elevated LDH WBC 17 k lactic acid 5 cr 1.2 total protein 9 Ca 14 Peripheral Smear showed schistocytes , nucleated RBC-s Pt/INR elevated Patient is critically ill. Admitted to ICU for sepsis , Altered mental status, metabolic derangement with hypercalcemia, hyperkalemia ,hemolytic anemia and possible malignancy. Patient has very poor prognosis CT of the abd and pelvis: 1. 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 The differential considerations include metastasis and lymphoma. 2. Mild hepatomegaly and moderate splenomegaly. 3. Evaluation of the colon is limited in the absence of oral contrast. Allowing for this, apparent diffuse small bowel wall thickening is nonspecific and could be related to underdistention or nonspecific enteritis. Also noted is segmental mural thickening in the splenic flexure of colon, again could be related to underdistention however underlying mass cannot be excluded. Please correlate with colonoscopy. 3. Left lower lobe pneumonia. 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 ( Ribavirin can cause Hemolytic Anemia). Attempted to contct PMD to get more info however she has not called back - Ida Gomez [facility] - [phone]. 1. Acute hypoxemic respiratory failure ( intubated ) multifactorial -- secondary to pulmonary edema, pneumonia and metabolic encephalopathy patient was in respiratory distress with RR 40 while on high flow with FIO2 80 % , ABG with PO2 54 PCO2 22 HCO3 19 CXR showed pulmonary edema intubated and placed on MV, not sedated At present still intubated on MV PRVC AC mode 14/450/5/45 % , tachypneic ABG 22/ 112/17/7.38 CXR today still pending . Continue IV antibiotics and pain management PRN Pulmonary eval with Dr Guaman appreciated patient has guarded prognosis 2. Sepsis sec to Pneumonia lactic acid elevated + leukocytosis, low grade fever Ct chest showed LLL pneumonia blood c/s : neg so far Mycoplasm IgM + continue Zosyn and Azithro IV Will hold vancomycin IV since levels are 19 and kidney function is worsening Cr 1.9 ID consulted- discussed case with Dr Topete , agree with the abx 3. Altered mental status likely sec to Metabolic Encephalopathy r/o Hepatic Encephalopathy vs sec to TTP most likely related to metabolic derangement CT head showed no acute pathology hematology consult appreciated and case discussed Peripheral smear showed nucleated RBC-s and schisctocytes -- most likely hemolytic anemia . PT/INR elevated and fibrinogen low CT abdomen and pelvis showed diffuse ostelytic lesions of the skeleton -- r/o Malignancy) continue IVF, IV antibiotics given Zometa for hypercalcemia Continue Solucortef for hemolytic anemia transfused 3 unit PRBC Received plasmaphresis as rec by hematology (Plasma changed to Albumin when pt developed Pulm Edema) Lactulose started as per GI to improve mental status but discontinued due to diarrhea . No more diarrhea last 24 hours and abdomen appears distended and patient more lethargic. will check ammonia, Flat abdomen X-ray . Patient has poor prognosis Discussed with arnulfo about comfort / Hospice care 4. Hemolytic anemia -- unclear etiology at this point could be due to TTP/DIC, ribavirin, or Mycoplasma Pneumonia or Hep C Hgb 5.7 LDH elevated , bili 6.7 peripheral smear showed nucleated RBC-s and schistocytes s/p 3 unit PRBc transfusin with Hgb 10 today hematology consult appreciated Retic ct elevated Low Fibrinogen haptoglobin, Leonardo test ,Hepatis profile , FROYLAN,RF, mycoplasma-- pending patient has hepatitis C + continue Solucortef management as per hematology Plan for BM biopsy on Sunday 5. Thrombocytopenia/ coagulopathy prob sec to Cirrhosis suspected TTP and was started on Plasmapharesis PT/INR elevated , no proteinuria,Fibrinogen low - suggest possible DIC retic count: elevated to 6 ,haptoglobin pending, blood cx, urine cx : negative so far Hematology on board Platelet count 24 k today. will transfuse 1unit platelet as per hematology INR trending up 3.8 plasmaphresis has been discontinued 6.Diffuse Osteolytic lesions of the spine need to r/o MALIGNANCY Flow cytometry : negative protein electrophoresis: polyclonal spikes follow up with oncology recommendations elevated DGS=915 GI consulted - rec Triple phase CT once renal fxn better and outpt Colonoscopy Palpated right breast mass - will send pt for Sonogram bone marrow biopsy on Sunday Poor prognosis 7.Hypercalcemia prob sec to malignancy IVF on Zometa Endo consulted 8. 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 once kidney fxn is stable will order triple phase liver CT colonoscopy when stable liver fxn worsening AST/ALt 580/79 Alk phosp 434 INR 3.8 Tea total 18.6 Patient has poor prognosis and palliative / comfort care would be appropriate 9.DM uncontrolled on Suplena via OGT endo consulted Continue Levemir 50 units Sq HS and Lispro 16 units SQ AC 10.KIRSTIN / Azotemia/ hyperkalemia continue IVF monitor renal fxn BUN/Cr 100//1.9 Nephro on consult Hyperkalemia 5.5 -- will give calcium glucontae, Insulin D50 , Duoneb , kayaxalate 11. Pulmonary Edema happened 2 hrs after Plasmapharesis minimal response to diuretics ? sec to Transfusion rx ??? vs Volume overload plasmaphresis was changed to albumin instead of plasma continue lasix PRN if BP allows 12. Diarrhea-- resolved Possible related to lactulose use C.diff - negative occult blood - negative (Sent due to disproportionate elevation of BUN ( 100)) d/c lactulose Abdomen Xray will resume lactulose 13.DVT/ GI prophylaxis SCD Protonix IV no anticoag sec to thrombocytopenia
--- NOTE | 2017-05-06 08:33 | CP.PCM.PN ---
<Job Whiting - Last Filed: 05/06/17 10:39> Subjective - Date & Time of Evaluation Date of Evaluation: 05/06/17 Time of Evaluation: 08:30 - Subjective Subjective: PGY 4 GI Follow-up Pt seen and examined bedside RN reported some oozing from femoral site tracking eye movement noted still has sig rectal ouput +fever ROS: could not be conducted Objective - Vital Signs/Intake and Output Vital Signs (last 24 hours): Temp Pulse Resp BP Pulse Ox 98.1 F 103 H 34 H 108/64 100 05/06/17 04:00 05/06/17 06:00 05/06/17 06:00 05/06/17 06:00 05/06/17 06:00 Intake and Output: 05/06/17 05/06/17 06:59 18:59 Intake Total 2340 Output Total 100 Balance 2240 - Medications Medications: Current Medications Acetaminophen (Tylenol 650 Mg Supp) 650 mg MA ONCE ARLET Last Admin: 04/28/17 14:30 Dose: 650 mg Albuterol Sulfate (Albuterol 0.083% Inhal Rae (2.5 Mg/3 Ml) Ud) 2.5 mg INH RQ4 PRN PRN Reason: Shortness of Breath Last Admin: 05/03/17 23:29 Dose: 2.5 mg Allopurinol (Zyloprim) 200 mg PO DAILY [facility] Last Admin: 05/05/17 08:31 Dose: 200 mg Hydrocortisone Sodium Succinate (Solu-Cortef) 100 mg IV Q8 [facility] Last Admin: 05/06/17 00:12 Dose: 100 mg Hydromorphone HCl (Dilaudid) 0.5 mg IVP Q4 PRN PRN Reason: Pain, moderate (4-7) Last Admin: 04/30/17 01:02 Dose: 0.5 mg Hydromorphone HCl (Dilaudid) 1 mg IVP Q4 PRN PRN Reason: Agitation Last Admin: 05/02/17 11:15 Dose: 1 mg Vancomycin HCl 1 gm/ Sodium (Chloride) 250 mls @ 166.667 mls/hr IVPB DAILY [facility] PRN Reason: Protocol Last Admin: 05/05/17 08:30 Dose: 166.667 mls/hr Azithromycin 500 mg/ Sodium (Chloride) 250 mls @ 250 mls/hr IVPB DAILY [facility] PRN Reason: Protocol Last Admin: 05/05/17 08:31 Dose: 250 mls/hr Piperacillin Sod/Tazobactam (Sod 2.25 gm/ Sodium Chloride) 100 mls @ 100 mls/ hr IVPB Q6 [facility] PRN Reason: Protocol Last Admin: 05/06/17 03:22 Dose: 100 mls/hr Dextrose/Sodium Chloride (Dextrose 5%/0.45% Ns 1000 Ml) 1,000 mls @ 100 mls/hr IV .Q10H [facility] Stop: 05/06/17 16:44 Insulin Detemir (Levemir) 50 units SC HS [facility] Last Admin: 05/05/17 22:46 Dose: 50 units Insulin Human Lispro (Humalog) 0 units SC ACHS [facility] PRN Reason: Protocol Last Admin: 05/06/17 06:33 Dose: 4 unit Insulin Human Lispro (Humalog) 16 units SC AC [facility] Last Admin: 05/06/17 06:35 Dose: 16 units Pantoprazole Sodium (Protonix Inj) 40 mg IVP DAILY [facility] Last Admin: 05/05/17 08:29 Dose: 40 mg Vancomycin HCl (Vancocin (Oral/Rectal Use)) 250 mg PO Q8 [facility] PRN Reason: Protocol Last Admin: 05/06/17 00:11 Dose: 250 mg - Labs Labs: 05/06/17 05:30 05/06/17 05:30 PT 44.1 Seconds (9.8-13.1) H* 05/06/17 05:30 INR 3.8 (0.9-1.2) H 05/06/17 05:30 APTT 55.6 Seconds (25.6-37.1) H D 05/03/17 04:20 - Constitutional Appears: No Acute Distress, Chronically Ill - Head Exam Head Exam: ATRAUMATIC, NORMOCEPHALIC - Eye Exam Eye Exam: Scleral icterus - ENT Exam ENT Exam: Mucous Membranes Moist - Respiratory Exam Respiratory Exam: Clear to Ausculation Bilateral, NORMAL BREATHING PATTERN. absent: Rales, Rhonchi, Wheezes, Respiratory Distress - Cardiovascular Exam Cardiovascular Exam: REGULAR RHYTHM, +S1, +S2 - GI/Abdominal Exam GI & Abdominal Exam: Soft, Hyperactive Bowel Sounds. absent: Firm, Guarding, Rigid - Extremities Exam Extremities Exam: absent: Joint Swelling, Pedal Edema - Neurological Exam Additional comments: can noted be conducted - Psychiatric Exam Additional comments: could not be conducted - Skin Skin Exam: Dry, Intact, Warm Additional comments: errol Assessment and Plan - Assessment and Plan (Free Text) Assessment: Janet Taylor is a 57f w/ hx of cirrhosis, HCV, anemia, hx of polysubstance use who presents to the Er with weakness and confusion. Pt had marked anemia and thrombocytopenia Hemolytic anemia likely 2/2 HCV meds especially ribaviran (resolved) Chronic HCV on tx as oupt Cirrhosis etiology like HCV Thrombocytopenia 2/2 to the above Severe Hepatic Encephalopathy Splenic flexure thickening, r/o lesion Diarrhea, r/o infectous etiology Plan: -continue to hold lactulose -continue to hold Hep C tx for now -no indication for any endoscopy at this time -keep hgb > 7, but restrict PRBC transfusion since she is cirrhotic -No other active treatment recommend at this time -stool cultures pending -c.diff toxin neg, but would continue empiric tx -continue empiric PO vanco 250mg QID -will eventually need outpt colonscopy to eval sigmoid/splenic flexure thickening -grave prognosis, recommend palliative/hospice consult; spoke to primary medical team in this regard -family meeting tomorrow MELD 05/06/17: 39 D/W Dr. Yusuf <Joaquin Yusuf - Last Filed: 05/06/17 11:08> Objective - Vital Signs/Intake and Output Vital Signs (last 24 hours): Temp Pulse Resp BP Pulse Ox 98.2 F 114 H 14 114/47 L 100 05/06/17 08:00 05/06/17 08:00 05/06/17 08:00 05/06/17 08:00 05/06/17 08:00 Intake and Output: 05/06/17 05/06/17 06:59 18:59 Intake Total 2340 Output Total 100 Balance 2240 - Medications Medications: Current Medications Acetaminophen (Tylenol 650 Mg Supp) 650 mg MA ONCE ARLET Last Admin: 04/28/17 14:30 Dose: 650 mg Albuterol Sulfate (Albuterol 0.083% Inhal Rae (2.5 Mg/3 Ml) Ud) 2.5 mg INH RQ4 PRN PRN Reason: Shortness of Breath Last Admin: 05/03/17 23:29 Dose: 2.5 mg Allopurinol (Zyloprim) 200 mg PO DAILY [facility] Last Admin: 05/06/17 09:01 Dose: 200 mg Hydrocortisone Sodium Succinate (Solu-Cortef) 100 mg IV Q8 [facility] Last Admin: 05/06/17 08:59 Dose: 100 mg Hydromorphone HCl (Dilaudid) 0.5 mg IVP Q4 PRN PRN Reason: Pain, moderate (4-7) Last Admin: 04/30/17 01:02 Dose: 0.5 mg Hydromorphone HCl (Dilaudid) 1 mg IVP Q4 PRN PRN Reason: Agitation Last Admin: 05/06/17 09:04 Dose: 1 mg Vancomycin HCl 1 gm/ Sodium (Chloride) 250 mls @ 166.667 mls/hr IVPB DAILY [facility] PRN Reason: Protocol Last Admin: 05/05/17 08:30 Dose: 166.667 mls/hr Azithromycin 500 mg/ Sodium (Chloride) 250 mls @ 250 mls/hr IVPB DAILY [facility] PRN Reason: Protocol Last Admin: 05/06/17 09:01 Dose: 250 mls/hr Piperacillin Sod/Tazobactam (Sod 2.25 gm/ Sodium Chloride) 100 mls @ 100 mls/ hr IVPB Q6 [facility] PRN Reason: Protocol Last Admin: 05/06/17 09:00 Dose: 100 mls/hr Dextrose/Sodium Chloride (Dextrose 5%/0.45% Ns 1000 Ml) 1,000 mls @ 100 mls/hr IV .Q10H [facility] Stop: 05/06/17 16:44 Last Admin: 05/06/17 08:57 Dose: 100 mls/hr Insulin Detemir (Levemir) 50 units SC HS [facility] Last Admin: 05/05/17 22:46 Dose: 50 units Insulin Human Lispro (Humalog) 0 units SC ACHS [facility] PRN Reason: Protocol Last Admin: 05/06/17 06:33 Dose: 4 unit Insulin Human Lispro (Humalog) 16 units SC AC [facility] Last Admin: 05/06/17 06:35 Dose: 16 units Pantoprazole Sodium (Protonix Inj) 40 mg IVP DAILY [facility] Last Admin: 05/06/17 08:58 Dose: 40 mg Vancomycin HCl (Vancocin (Oral/Rectal Use)) 250 mg PO Q8 [facility] PRN Reason: Protocol Last Admin: 05/06/17 08:59 Dose: 250 mg - Labs Labs: 05/06/17 05:30 05/06/17 05:30 PT 44.1 Seconds (9.8-13.1) H* 05/06/17 05:30 INR 3.8 (0.9-1.2) H 05/06/17 05:30 APTT 55.6 Seconds (25.6-37.1) H D 05/03/17 04:20 Attending/Attestation - Attestation I have personally seen and examined this patient.: Yes I have fully participated in the care of the patient.: Yes I have reviewed all pertinent clinical information, including history, physical exam and plan: Yes Notes (Text): 05/06/17 11:00 I have seen and examined patient with GI fellow. She remains intubated in critical care unit. She is minimally responsive, though able to open eyes on command. Abdomen appears more distended with decrease in rectal tube output. She has been tolerating tube feeding without residuals as per nursing staff. Review of vitals from today shows tachycardia. HCV decompensated cirrhosis Progressive liver failure with encephalopathy Sepsis, pneumonia Abdominal distention - abdominal XR reviewed with hospitalist team suggestive of ileus Anemia, thrombocytopenia Acute renal insufficiency Likely underlying malignancy, elevated CEA, thickening of sigmoid colon on CT imaging - Would hold tube feeding for now given progressive abdominal distention with decreased fecal output - Resume lactulose therapy - Bilrubin/INR continue to rise consistent with progressive liver failure - patient is not transplant candidate - Continue with antibiotic therapy as per medical team - Continue with empiric Vancomycin therapy - Ideally patient would require dedicated liver imaging along with endoscopy for further evaluation, but clinical situation prevents this for now - Overall, patient with ongoing clinical deterioration with multiorgan system dysfunction and significantly poor prognosis. Hospice care has been requested, there is a planned family meeting tomorrow to discuss further goals of care. Will continue to monitor patient clinical course.
[2017-05-06] MEDS: Azithromycin 500 MG in Sodium Chloride 0.9% 250 ML IVPB SCH (09:01)
[2017-05-06] MEDS ORDERED: Calcium Gluconate 4.65 mEq/10 ml Inj IVP ONE (09:08)
[2017-05-06] MEDS ORDERED: Albuterol-Ipratrop 3 mg / 0.5 (3 ml) UD INH STA (09:08)
[2017-05-06] MEDS ORDERED: Sod Polystyrene Sulf 15 gm/60 ml Susp PO ONE (09:08)
[2017-05-06] MEDS ORDERED: Dextrose 50% SYRINGE Inj (50 ml) IVP ONE (09:08)
[2017-05-06] MEDS ORDERED: Insulin Regular 100 units/ml IV ONE (09:10)
--- NOTE | 2017-05-06 10:00 | RAD ---
PROCEDURE: CHEST RADIOGRAPH, 1 VIEW HISTORY: intubated COMPARISON: None available. FINDINGS: LUNGS: Clear. PLEURA: No pneumothorax or pleural fluid seen. CARDIOVASCULAR: Normal. OSSEOUS STRUCTURES: No significant abnormalities. VISUALIZED UPPER ABDOMEN: Normal. OTHER FINDINGS: NG tube tip below the diaphragm. . IMPRESSION: No active disease.
--- NOTE | 2017-05-06 12:09 | RAD ---
HISTORY: abdominal distention COMPARISON: No prior. FINDINGS: BOWEL: Normal. No obstruction. No free air. BONES: Normal. OTHER FINDINGS: None. IMPRESSION: No active disease.
--- NOTE | 2017-05-06 13:10 | CP.PCM.PN ---
Subjective - Date & Time of Evaluation Date of Evaluation: 05/06/17 Time of Evaluation: 13:03 - Subjective Subjective: Pt is intubared and responds to stimuli by opening her eyes, but does not try to comunicate any other way. WBC is elevated 22.2, hgb 10.3gms, platelets were 26K and she had a little oozing from the quintonm catheher lft are elevated even more. Objective - Vital Signs/Intake and Output Vital Signs (last 24 hours): Temp Pulse Resp BP Pulse Ox 97.1 F L 114 H 10 L 93/65 L 100 05/06/17 12:00 05/06/17 12:00 05/06/17 12:00 05/06/17 12:00 05/06/17 12:00 Intake and Output: 05/06/17 05/06/17 06:59 18:59 Intake Total 2340 1185 Output Total 100 90 Balance 2240 1095 - Medications Medications: Current Medications Acetaminophen (Tylenol 650 Mg Supp) 650 mg MS ONCE ARLET Last Admin: 04/28/17 14:30 Dose: 650 mg Albuterol Sulfate (Albuterol 0.083% Inhal Rae (2.5 Mg/3 Ml) Ud) 2.5 mg INH RQ4 PRN PRN Reason: Shortness of Breath Last Admin: 05/03/17 23:29 Dose: 2.5 mg Allopurinol (Zyloprim) 200 mg PO DAILY [facility] Last Admin: 05/06/17 09:01 Dose: 200 mg Hydrocortisone Sodium Succinate (Solu-Cortef) 100 mg IV Q8 [facility] Last Admin: 05/06/17 08:59 Dose: 100 mg Hydromorphone HCl (Dilaudid) 0.5 mg IVP Q4 PRN PRN Reason: Pain, moderate (4-7) Last Admin: 04/30/17 01:02 Dose: 0.5 mg Hydromorphone HCl (Dilaudid) 1 mg IVP Q4 PRN PRN Reason: Agitation Last Admin: 05/06/17 09:04 Dose: 1 mg Vancomycin HCl 1 gm/ Sodium (Chloride) 250 mls @ 166.667 mls/hr IVPB DAILY [facility] PRN Reason: Protocol Last Admin: 05/05/17 08:30 Dose: 166.667 mls/hr Azithromycin 500 mg/ Sodium (Chloride) 250 mls @ 250 mls/hr IVPB DAILY [facility] PRN Reason: Protocol Last Admin: 05/06/17 09:01 Dose: 250 mls/hr Piperacillin Sod/Tazobactam (Sod 2.25 gm/ Sodium Chloride) 100 mls @ 100 mls/ hr IVPB Q6 [facility] PRN Reason: Protocol Last Admin: 05/06/17 09:00 Dose: 100 mls/hr Dextrose/Sodium Chloride (Dextrose 5%/0.45% Ns 1000 Ml) 1,000 mls @ 100 mls/hr IV .Q10H [facility] Stop: 05/06/17 16:44 Last Admin: 05/06/17 08:57 Dose: 100 mls/hr Insulin Detemir (Levemir) 60 units SC HS [facility] Insulin Human Lispro (Humalog) 0 units SC ACHS [facility] PRN Reason: Protocol Last Admin: 05/06/17 11:49 Dose: 5 unit Insulin Human Lispro (Humalog) 24 units SC AC [facility] Lactulose (Enulose) 20 gm PO DAILY PRN PRN Reason: Constipation Last Admin: 05/06/17 12:29 Dose: 20 gm Pantoprazole Sodium (Protonix Inj) 40 mg IVP DAILY [facility] Last Admin: 05/06/17 08:58 Dose: 40 mg Vancomycin HCl (Vancocin (Oral/Rectal Use)) 250 mg PO Q8 [facility] PRN Reason: Protocol Last Admin: 05/06/17 08:59 Dose: 250 mg - Labs Labs: 05/06/17 05:30 05/06/17 05:30 PT 44.1 Seconds (9.8-13.1) H* 05/06/17 05:30 INR 3.8 (0.9-1.2) H 05/06/17 05:30 APTT 55.6 Seconds (25.6-37.1) H D 05/03/17 04:20 Assessment and Plan - Assessment and Plan (Free Text) Plan: Plan; transfuse 1 unit of p;atelets prognosis poor.
--- NOTE | 2017-05-06 14:47 | PN ---
DATE: ENDOCRINOLOGY FOLLOWUP NOTE LOCATION: Room 421. SUBJECTIVE: This is a 57-year-old female with recent marked anemia and thrombocytopenia and currently with ongoing IV steroid therapy and supervening hyperglycemic accelerations as expected thereof. Her glucose values today have ranged from 346-384 mg/dL and it was 408 at bedtime last night. The latest chemistry showed a BUN of 104, sodium 142, potassium 5.5, chloride 111, CO2 of 17, glucose 394, and creatinine 1.9. She also has elevated liver transaminases as noted. The latest calcium level is 8.4. So, at this time, we will modify once again her basal and bolus insulin regimen to optimize metabolic control. We will increase the Humalog to 24 units subcu t.i.d. before meals to start at dinnertime today as ordered. We will increase the Levemir to 60 units subcu at bedtime daily to start tonight. We will continue the low-dose correction scale using Humalog insulin as ordered. We will titrate incrementally as indicated to optimize metabolic control. We will also obtain serial chemistries and supplement accordingly as needed. Her calcium levels have normalized and the workup for malignant hypercalcemia has yet to be determined. Her parathyroid hormone levels were actually reported as normal, excluding the possibility of the so-called primary hyperparathyroidism as noted. The possibility of a so-called humoral hypercalcemia of malignancy versus osteolytic etiology is being worked up at this time as noted. We will follow and advise accordingly. Laure De Santiago MD
[2017-05-06] MEDS ORDERED: Insulin Lispro (humaLOG) 100 Units/ml Inj SC SCH (16:30)
[2017-05-06] MEDS ORDERED: Insulin Detemir 100 Units/ml Inj SC SCH (22:00)
[2017-05-07] MEDS: Vancomycin 500 mg (Oral/Rectal USE) PO SCH (01:34)
[2017-05-07 05:25] LABS: HEMATOCRIT 20.9 % (34.0-47.0); MEAN CELL VOLUME 109.6 fl (81.0-99.0); MEAN CORPUSCULAR HEMOGLOBIN 31.2 pg (27.0-31.0); MEAN CORPUSCULAR HGB CONC 28.4 g/dL (33.0-37.0); WHITE BLOOD COUNT 14.7 K/uL (4.8-10.8)
[2017-05-07 05:44] LABS: ALB/GLOB RATIO 0.8 (1.0-2.1); ALKALINE PHOSPHATASE 809 U/L (38-126); BILIRUBIN,TOTAL 11.4 mg/dl (0.2-1.3); BLOOD UREA NITROGEN 94 mg/dl (7-17); CALCIUM 8.4 mg/dL (8.4-10.2); CARBON DIOXIDE 10 mmol/L (22-30); CHLORIDE 111 mmol/L (98-107); GFR AFRICAN-AMERICAN 18; GLUCOSE,RANDOM 169 mg/dL (65-105); SODIUM 138 mmol/l (132-148); TOTAL PROTEIN 4.5 G/DL (6.3-8.2)
--- NOTE | 2017-05-07 05:56 | CP.PCM.PN ---
Subjective - Date & Time of Evaluation Date of Evaluation: 05/07/17 Time of Evaluation: 07:00 - Subjective Subjective: PGY 4 GI Follow-up Pt seen and examined bedside RN reported some oozing from femoral site tracking eye movement noted +fever ROS: could not be conducted Objective - Vital Signs/Intake and Output Vital Signs (last 24 hours): Temp Pulse Resp BP Pulse Ox 98.9 F 93 H 22 155/62 H 100 05/07/17 00:00 05/07/17 03:00 05/07/17 03:00 05/07/17 03:00 05/07/17 03:00 Intake and Output: 05/06/17 05/07/17 18:59 06:59 Intake Total 2210 813 Output Total 205 Balance 2004 813 - Medications Medications: Current Medications Acetaminophen (Tylenol 650 Mg Supp) 650 mg KS ONCE ARLET Last Admin: 04/28/17 14:30 Dose: 650 mg Albuterol Sulfate (Albuterol 0.083% Inhal Rae (2.5 Mg/3 Ml) Ud) 2.5 mg INH RQ4 PRN PRN Reason: Shortness of Breath Last Admin: 05/03/17 23:29 Dose: 2.5 mg Allopurinol (Zyloprim) 200 mg PO DAILY [facility] Last Admin: 05/06/17 09:01 Dose: 200 mg Hydrocortisone Sodium Succinate (Solu-Cortef) 100 mg IV Q8 ARLET Last Admin: 05/07/17 01:38 Dose: 100 mg Hydromorphone HCl (Dilaudid) 0.5 mg IVP Q4 PRN PRN Reason: Pain, moderate (4-7) Last Admin: 04/30/17 01:02 Dose: 0.5 mg Hydromorphone HCl (Dilaudid) 1 mg IVP Q4 PRN PRN Reason: Agitation Last Admin: 05/06/17 09:04 Dose: 1 mg Vancomycin HCl 1 gm/ Sodium (Chloride) 250 mls @ 166.667 mls/hr IVPB DAILY ARLET PRN Reason: Protocol Last Admin: 05/05/17 08:30 Dose: 166.667 mls/hr Azithromycin 500 mg/ Sodium (Chloride) 250 mls @ 250 mls/hr IVPB DAILY ARLET PRN Reason: Protocol Last Admin: 05/06/17 09:01 Dose: 250 mls/hr Piperacillin Sod/Tazobactam (Sod 2.25 gm/ Sodium Chloride) 100 mls @ 100 mls/ hr IVPB Q6 ARLET PRN Reason: Protocol Last Admin: 05/07/17 03:47 Dose: 100 mls/hr Norepinephrine Bitartrate 8 mg (/ Dextrose) 258 mls @ 4.83 mls/hr IV .Q24H ONE ; 2.5 MCG/MIN PRN Reason: Protocol Stop: 05/07/17 18:23 Last Titration: 05/07/17 00:25 Dose: 5 mcg/min, 9.67 mls/hr Insulin Detemir (Levemir) 60 units SC HS [facility] Last Admin: 05/06/17 21:56 Dose: 60 units Insulin Human Lispro (Humalog) 0 units SC ACHS [facility] PRN Reason: Protocol Last Admin: 05/06/17 21:56 Dose: Not Given Insulin Human Lispro (Humalog) 24 units SC AC [facility] Last Admin: 05/06/17 16:53 Dose: 24 units Lactulose (Enulose) 20 gm PO DAILY PRN PRN Reason: Constipation Last Admin: 05/06/17 12:29 Dose: 20 gm Pantoprazole Sodium (Protonix Inj) 40 mg IVP DAILY [facility] Last Admin: 05/06/17 08:58 Dose: 40 mg Vancomycin HCl (Vancocin (Oral/Rectal Use)) 250 mg PO Q8 ARLET PRN Reason: Protocol Last Admin: 05/07/17 01:34 Dose: Not Given - Labs Labs: 05/06/17 05:30 05/07/17 04:20 PT 44.1 Seconds (9.8-13.1) H* 05/06/17 05:30 INR 3.8 (0.9-1.2) H 05/06/17 05:30 APTT 55.6 Seconds (25.6-37.1) H D 05/03/17 04:20 - Constitutional Appears: No Acute Distress, Chronically Ill - Head Exam Head Exam: ATRAUMATIC, NORMOCEPHALIC - Eye Exam Eye Exam: Scleral icterus - Respiratory Exam Respiratory Exam: Clear to Ausculation Bilateral, NORMAL BREATHING PATTERN. absent: Rales, Rhonchi, Wheezes, Respiratory Distress - Cardiovascular Exam Cardiovascular Exam: REGULAR RHYTHM, +S1, +S2 - GI/Abdominal Exam GI & Abdominal Exam: Distended, Normal Bowel Sounds. absent: Guarding, Rigid, Tenderness - Extremities Exam Extremities Exam: Pedal Edema. absent: Joint Swelling - Neurological Exam Neurological Exam: Altered - Psychiatric Exam Additional comments: cannot assess - Skin Skin Exam: Dry, Intact, Warm Additional comments: juandiced Assessment and Plan - Assessment and Plan (Free Text) Assessment: Hemolytic anemia likely 2/2 HCV meds especially ribaviran (resolved) Chronic HCV on tx as oupt Cirrhosis etiology like HCV Thrombocytopenia 2/2 to the above Severe Hepatic Encephalopathy Splenic flexure thickening, r/o lesion Diarrhea, on empiric abx tx KIRSTIN Plan: -continue to hold lactulose -keep hgb > 7, but restrict PRBC transfusion since she is cirrhotic -No other active treatment recommended at this time -stool cultures pending -c.diff toxin neg, -continue empiric PO vanco 250mg QID -grave prognosis, recommend palliative/hospice consult; spoke to primary medical team in this regard -family meeting today, poor outcome expected due to multiorgan failure MELD 05/06/17: 39
--- NOTE | 2017-05-07 06:09 | CP.PCM.PRO ---
Pronouncement of Note - Clinical Findings Physical Exam: No Response Verbal/Painful Stimuli, Absent Peripheral Pulses{ Carotid & Femoral}, Absent Heart & Breath Sounds, No Pupillary Light Reflex, Absence of Vital Signs - Pronouncement Time Time of Pronouncement of : 05:31 Additional Comments: Patient this AM at 531. Family was at bedside. I had personally had a discussion yesterday evening with the daughter and the sister about resuscitation status. They had not made the decision at the time, but this AM when patient was acutely declining, they made the decision to not attempt further resuscitative measures. - Notifications Pronouncement Notifications: Family Notified, Atending Notified Acquisition Manager Notified: No - Autopsy Autopsy Requested: No - [place] [id number]
[2017-05-07 06:47] VITALS: TEMP 98.4
[2017-05-07 06:48] VITALS: BP 64/40; PULSE 78; RESP 14
--- NOTE | 2017-05-07 07:48 | CP.PCM.DIS ---
Provider - Provider Date of Admission: 04/27/17 13:15 Attending physician: Josse Limon MD Consults: Hem/on consult GI consult nephrology Id consult Endo consult pulmonary Time Spent in preparation of Discharge (in minutes): 10 Hospital Course - Lab Results Lab Results: Micro Results 05/04/17 12:16 Stool Stool Culture - Final NO SALMONELLA, SHIGELLA OR CAMPYLOBACTER ISOLATED. 05/01/17 17:22 Sputum Gram Stain - Final 05/01/17 17:22 Sputum Sputum Culture - Final No growth. 04/27/17 14:05 Blood-Venous Blood Culture - Final NO GROWTH AFTER 5 DAYS 04/27/17 14:05 Blood-Venous Gram Stain - Final TEST NOT PERFORMED 04/27/17 13:35 Blood-Venous Blood Culture - Final NO GROWTH AFTER 5 DAYS 04/27/17 13:35 Blood-Venous Gram Stain - Final TEST NOT PERFORMED 04/27/17 20:22 Nose MRSA Culture (Admit) - Final MRSA NOT DETECTED 04/27/17 12:49 Urine Urine Culture - Final No Growth (<1,000 CFU/ML) Most Recent Lab Values WBC 14.7 K/uL (4.8-10.8) H 05/07/17 04:20 RBC 1.91 Mil/uL (3.80-5.20) L 05/07/17 04:20 Hgb 6.0 g/dL (12.0-16.0) L* D 05/07/17 04:20 Hct 20.9 % (34.0-47.0) L 05/07/17 04:20 MCV 109.6 fl (81.0-99.0) H D 05/07/17 04:20 MCH 31.2 pg (27.0-31.0) H 05/07/17 04:20 MCHC 28.4 g/dL (33.0-37.0) L 05/07/17 04:20 RDW 26.0 % (11.5-14.5) H 05/07/17 04:20 Plt Count 37 K/uL (130-400) L 05/07/17 04:20 Manual Plt Count 40 K/uL (130-400) L* 05/05/17 05:30 MPV 9.7 fl (7.2-11.7) 05/05/17 05:30 Neut % (Auto) 66.9 % (50.0-75.0) 05/05/17 05:30 Lymph % (Auto) 27.7 % (20.0-40.0) 05/05/17 05:30 [place] % (Auto) 4.8 % (0.0-10.0) 05/05/17 05:30 Eos % (Auto) 0.1 % (0.0-4.0) 05/05/17 05:30 Baso % (Auto) 0.5 % (0.0-2.0) 05/05/17 05:30 Neut # 12.1 K/uL (1.8-7.0) H 05/05/17 05:30 Lymph # 5.0 K/uL (1.0-4.3) H 05/05/17 05:30 [place] # 0.9 K/uL (0.0-0.8) H 05/05/17 05:30 Eos # 0.0 K/uL (0.0-0.7) 05/05/17 05:30 Baso # 0.1 K/uL (0.0-0.2) 05/05/17 05:30 Neutrophils % (Manual) 39 % (42-75) L 04/27/17 10:34 Band Neutrophils % 1 % (0-2) 04/27/17 10:34 Lymphocytes % (Manual) 41 % (20-50) 04/27/17 10:34 Monocytes % (Manual) 16 % (0-10) H 04/27/17 10:34 Metamyelocytes % 2 % (0-0) H 04/27/17 10:34 Myelocytes % 1 % (0-0) H 04/27/17 10:34 Nucleated RBC % 18 % (0-0) H 04/27/17 10:34 Smudge Cells Present 04/27/17 10:34 Platelet Estimate Decreased (NORMAL) L 04/27/17 10:34 Large Platelets Present 04/27/17 10:34 Hypochromasia (manual) Slight 04/27/17 10:34 Poikilocytosis (manual Slight 04/27/17 10:34 Anisocytosis (manual) Moderate 04/27/17 10:34 Microcytosis (manual) Slight 04/27/17 10:34 Macrocytosis (manual) Slight 04/27/17 10:34 Spherocytes Slight 04/27/17 10:34 Target Cells Slight 04/27/17 10:34 Ovalocytes Slight 04/27/17 10:34 ESR 66 mm/hr (0-30) H 05/01/17 04:20 Retic Count 6.3 % (0.5-1.5) H 04/28/17 17:42 Haptoglobin <15 mg/dL (43-212) L 04/28/17 05:30 G6PD RBC Count 16.8 U/g HGB (4.6-13.5) H 04/29/17 17:01 PT 44.1 Seconds (9.8-13.1) H* 05/06/17 05:30 INR 3.8 (0.9-1.2) H 05/06/17 05:30 APTT 55.6 Seconds (25.6-37.1) H D 05/03/17 04:20 Fibrinogen 56 mg/dl (200-400) L* 05/03/17 04:20 [id number] Inhibitor >200 % Activity (68-163) H 04/28/17 19:13 pCO2 23 mm/Hg (35-45) L 05/06/17 04:26 pO2 112 mm/Hg (80-100) H 05/06/17 04:26 HCO3 17.1 mmol/L (21-28) L 05/06/17 04:26 ABG pH 7.38 (7.35-7.45) 05/06/17 04:26 ABG Total CO2 14.3 mmol/L (22-28) L 05/06/17 04:26 ABG O2 Saturation 100.9 % (95-98) H 05/06/17 04:26 ABG O2 Content 14.0 ML/dL (15-23) L 05/06/17 04:26 ABG Base Excess -10.0 mmol/L (-2.0-3.0) L 05/06/17 04:26 ABG Hemoglobin 10.2 g/dL (11.7-17.4) L 05/06/17 04:26 ABG Carboxyhemoglobin 2.5 % (0.5-1.5) H 05/06/17 04:26 POC ABG HHb (Measured) -0.9 % (0.0-5.0) L 05/06/17 04:26 ABG Methemoglobin 2.0 % (0.0-3.0) 05/06/17 04:26 ABG O2 Capacity 13.9 mL/dL (16-24) L 05/06/17 04:26 Roman Test Yes 05/06/17 04:26 VBG pH 7.38 (7.32-7.43) 05/03/17 11:36 VBG pCO2 36 mmHg (40-60) L 05/03/17 11:36 VBG HCO3 21.7 mmol/L 05/03/17 11:36 VBG Total CO2 22.4 mmol/L (22-28) 05/03/17 11:36 VBG O2 Sat (Calc) 74.7 % (40-65) H 05/03/17 11:36 VBG Base Excess -3.4 mmol/L (0.0-2.0) L 05/03/17 11:36 VBG Potassium 2.7 mmol/L (3.6-5.2) L 05/03/17 11:36 A-a O2 Difference 180.0 mm/Hg 05/06/17 04:26 Hgb O2 Saturation 96.3 % (95.0-98.0) 05/06/17 04:26 Sodium 155.0 mmol/L (132-148) H 05/03/17 11:36 Chloride 120.0 mmol/L (98-107) H 05/03/17 11:36 Glucose 328 mg/dL (65-105) H 05/03/17 11:36 Lactate 6.7 mmol/L (0.7-2.1) H* 05/03/17 11:36 Liter Flow 30 05/01/17 08:30 Vent Mode A/c 05/06/17 04:26 Mechanical Rate 14 05/06/17 04:26 FiO2 45.0 % 05/06/17 04:26 Tidal Volume 450 05/06/17 04:26 PEEP 5 05/06/17 04:26 CPAP 8 04/30/17 06:08 Blood Gas Comments Hiflow 30/80% 05/01/17 08:30 Crit Value Called To Dr brendan cardenas 05/05/17 06:00 Crit Value Called By Osman 05/05/17 06:00 Crit Value Read Back Y 05/05/17 06:00 Blood Gas Notified Time 600 05/05/17 06:00 Sodium 138 mmol/l (132-148) 05/07/17 04:20 Potassium 8.0 MMOL/L (3.6-5.0) H* D 05/07/17 04:20 Chloride 111 mmol/L (98-107) H 05/07/17 04:20 Carbon Dioxide 10 mmol/L (22-30) L* D 05/07/17 04:20 Anion Gap 25 (10-20) H 05/07/17 04:20 BUN 94 mg/dl (7-17) H 05/07/17 04:20 Creatinine 3.3 mg/dl (0.7-1.2) H 05/07/17 04:20 Est GFR ( Amer) 18 05/07/17 04:20 Est GFR (Non-Af Amer) 15 05/07/17 04:20 POC Glucose (mg/dL) 249 mg/dL (65-110) H 05/06/17 21:53 Random Glucose 169 mg/dL (65-105) H 05/07/17 04:20 Hemoglobin A1c 5.7 % (4.2-6.5) 04/28/17 05:30 Lactic Acid 12.8 MMOL/L (0.7-2.1) H* 05/06/17 11:45 Uric Acid 11.5 mg/Dl (2.2-7.5) H 04/27/17 11:45 Calcium 8.4 mg/dL (8.4-10.2) 05/07/17 04:20 Phosphorus 2.3 mg/dl (2.5-4.5) L 05/03/17 04:20 Magnesium 2.5 MG/DL (1.6-2.3) H 05/03/17 04:20 Total Bilirubin 11.4 mg/dl (0.2-1.3) H 05/07/17 04:20 Direct Bilirubin 8.5 mg/ml (0.0-0.4) H 05/02/17 12:16 AST TEST NOT PERFORMED 05/07/17 04:20 ALT TEST NOT PERFORMED 05/07/17 04:20 Alkaline Phosphatase 809 U/L (38-126) H D 05/07/17 04:20 Ammonia 26 umo/L (11-51) D 05/06/17 11:45 Lactate Dehydrogenase 1456 U/L (313-618) H 04/27/17 10:34 Total Creatine Kinase 70 U/L (30-135) 05/03/17 12:15 Troponin I 0.0660 ng/mL (0.00-0.120) 04/27/17 10:34 NT-Pro-B Natriuret Pep 06184 pg/ml (0-900) H 04/29/17 17:01 Total Protein 4.5 G/DL (6.3-8.2) L 05/07/17 04:20 Total Protein (PEP) 6.5 g/dL (6.1-8.1) 04/27/17 17:10 Albumin 2.0 g/dL (3.5-5.0) L 05/07/17 04:20 Albumin (PEP) 2.0 g/dL (3.8-4.8) L 04/27/17 17:10 Globulin 2.6 gm/dL (2.2-3.9) 05/07/17 04:20 Albumin/Globulin Ratio 0.8 (1.0-2.1) L 05/07/17 04:20 Zhvlt-2-Jyrdfnqzo 0.2 g/dL (0.2-0.3) 04/27/17 17:10 Lquye-7-Jcroiipzb 0.6 g/dL (0.5-0.9) 04/27/17 17:10 Aabt-8-Gwgdibxc 0.2 g/dL (0.4-0.6) L 04/27/17 17:10 Meba-6-Iytmxizx 0.4 g/dL (0.2-0.5) 04/27/17 17:10 Gamma Globulins 3.1 g/dL (0.8-1.7) H 04/27/17 17:10 Abnorm Protein Band 1 TEST NOT PERFORMED 04/27/17 17:10 Abnorm Protein Band 2 TEST NOT PERFORMED 04/27/17 17:10 Abnorm Protein Band 3 TEST NOT PERFORMED 04/27/17 17:10 Triglycerides 149 mg/DL (0-149) 04/28/17 05:30 Cholesterol 96 mg/dL (0-199) 04/28/17 05:30 LDL Cholesterol Direct 47 mg/dL (0-129) 04/28/17 05:30 HDL Cholesterol 6 MG/DL (30-70) L 04/28/17 05:30 Lipase 130 U/L (23-300) 04/27/17 10:34 Carcinoembryonic Ag 333.0 ng/mL (0-3.0) H 05/02/17 16:49 Thyroxine (T4) 7.84 ug/dl (5.5-11.0) 04/27/17 11:45 Total T3 0.909 nmol/L (1.49-2.60) L 04/27/17 11:45 T3 Uptake 42.7 % (23.0-41.0) H 04/27/17 11:45 TSH 3rd Generation 0.40 mIU/ML (0.46-4.68) L 04/27/17 11:45 PTH Intact Whole Molec 12 pg/mL (14-64) L 04/27/17 11:45 PTH Related Protein 7 pg/mL (14-27) L 04/28/17 05:30 Venous Blood Potassium 2.7 mmol/L (3.6-5.2) L 05/03/17 11:36 Urine Color Frieda (YELLOW) 04/27/17 10:34 Urine Clarity Cloudy (Clear) 04/27/17 10:34 Urine pH 6.0 (5.0-8.0) 04/27/17 10:34 Ur Specific Standard 1.013 (1.003-1.030) 04/27/17 10:34 Urine Protein Negative mg/dL (NEGATIVE) 04/27/17 10:34 Urine Glucose (UA) Neg mg/dL (Normal) 04/27/17 10:34 Urine Ketones Negative mg/dL (NEGATIVE) 04/27/17 10:34 Urine Blood Small (NEGATIVE) 04/27/17 10:34 Urine Nitrate Negative (NEGATIVE) 04/27/17 10:34 Urine Bilirubin Negative (NEGATIVE) 04/27/17 10:34 Urine Urobilinogen 4.0 mg/dL (0.2-1.0) H 04/27/17 10:34 Ur Leukocyte Esterase Neg Barak/uL (Negative) 04/27/17 10:34 Ur Squamous Epith Cells 1 /hpf (0-5) 04/27/17 10:34 Amorphous Sediment Rare /ul (<OCC) H 04/27/17 10:34 Hyaline Casts 0-2 /hpf (0-2) 04/27/17 10:34 Stool Occult Blood Negative (NEGATIVE) 04/27/17 11:20 Vancomycin Trough 19.1 ug/mL (5.0-10.0) H 05/03/17 04:20 Alcohol, Quantitative < 10 mg/dl (0-10) 04/27/17 10:34 IgG 2163 mg/dL (694-1618) H 04/27/17 17:10 IgA 386 mg/dL (81-463) 04/27/17 17:10 IgM 1778 mg/dL (48-271) H 04/27/17 17:10 BEKAH & SPEP Interp See note 04/27/17 17:10 Serum Immunofixation Not detected (Not Detected) 04/27/17 17:10 Urine Immunofixation Not detected (Not Detected) 04/28/17 18:15 ANCA Screen Negative (NEGATIVE) 05/01/17 04:20 c-ANCA Titer TNP 05/01/17 04:20 Proteinase 3 (PR3) <1.0 AI (<1.0) 05/01/17 04:20 p-ANCA Titer TNP 05/01/17 04:20 Atypical p-ANCA Titer TNP 05/01/17 04:20 Myeloperoxidase Ab <1.0 AI (<1.0) 05/01/17 04:20 Free [place] Light Chains 117.6 mg/L (3.3-19.4) H 04/28/17 05:30 Free Lambda Light Chain 54.8 mg/L (5.7-26.3) H 04/28/17 05:30 Free [place]/Lambda Ratio 2.15 (0.26-1.65) H 04/28/17 05:30 C. difficile Ag & Toxin Negative (NEGATIVE) 05/04/17 17:21 Hepatitis A IgM Ab Negative (NEGATIVE) 05/01/17 04:20 Hep Bs Antigen Negative (NEGATIVE) 05/01/17 04:20 Hep B Core IgM Ab Negative (NEGATIVE) 05/01/17 04:20 Hepatitis C Antibody Reactive (NEGATIVE) 05/01/17 04:20 HIV-1 Ab Rapid Screen Non reactive (NON REAC) 04/28/17 05:30 Mycoplasma pneumon IgG 2.63 (<=0.90) H 04/28/17 05:30 Mycoplasma pneumon IgM 1683 U/mL (<770) H 04/28/17 05:30 Blood Type A POSITIVE 05/01/17 21:40 Antibody Screen Negative 05/01/17 21:40 Crossmatch See Detail 05/01/17 21:40 BBK History Checked Patient has bt 05/01/17 21:40 - Hospital Course Hospital Course: 57 y/o female with PMH IDDM , HTN, dyslipidemia , Cirrhosis sec to Hep C was brought to ER bec of [facility]. For the past 3 days patient had not been herself, she was very weak, unable to get out of bed, confused , talking to herself, disoriented. Patient also appeared jaundiced. As per family she had been complaining of lower back pain and was seen by a physician who gave her an injection 1 month ago. Family denies any upper respiratory illness, nausea, vomiting , diarrhea, abdominal pain , recent illness or blood transfusion. In ER patient found to confused , jaundiced with Hgb 5.7, plt 39 K tea 6.7 , elevated LDH WBC 17 k lactic acid 5 cr 1.2 total protein 9 Ca 14 Peripheral Smear showed schistocytes , nucleated RBC-s Pt/INR elevated Patient is critically ill. Admitted to ICU for sepsis , Altered mental status, metabolic derangement with hypercalcemia, hyperkalemia ,hemolytic anemia and possible malignancy. Patient has very poor prognosis CT of the abd and pelvis: 1. 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 The differential considerations include metastasis and lymphoma. 2. Mild hepatomegaly and moderate splenomegaly. 3. Evaluation of the colon is limited in the absence of oral contrast. Allowing for this, apparent diffuse small bowel wall thickening is nonspecific and could be related to underdistention or nonspecific enteritis. Also noted is segmental mural thickening in the splenic flexure of colon, again could be related to underdistention however underlying mass cannot be excluded. Please correlate with colonoscopy. 3. Left lower lobe pneumonia. 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 ( Ribavirin can cause Hemolytic Anemia). Attempted to contct PMD to get more info however she has not called back - Ida Gomez [facility] - [phone] Hem/onc, pulmonary, ID, nephro, GI and ID were consulted initially she was started on plasmaphressis and IV hydrocortisone for possible TTP Also antibiotics Zosyn , Zithromax and vancomycin were given since patient had LLL infiltrate During hospital stay she developed acute hypoxemic respiratory failure and was intubated .Her mental status remained altered unable to communicate Her condition deteriorated with worsening liver function, kidney function ( anuria 0, coagulopathy , ileus and finally septic shock with need for pressors . long discussions were held with family members about patient's condition and code status. Patient 05/07/17 @ 5.30 AM .Family decided for DNR 1. Septic shock with multiple organ failure 2. Ileus 3. Acute hypoxemic respiratory failure ( intubated ) multifactorial -- secondary to pulmonary edema, pneumonia and metabolic encephalopathy patient was in respiratory distress with RR 40 while on high flow with FIO2 80 % , ABG with PO2 54 PCO2 22 HCO3 19 CXR showed pulmonary edema intubated and placed on MV, not sedated was treated with IV antibiotics Zosyn , vanco and Zithromax and pain management PRN Pulmonary eval with Dr Guaman appreciated patient 4. Sepsis sec to Pneumonia lactic acid elevated + leukocytosis, low grade fever Ct chest showed LLL pneumonia blood c/s : neg so far Mycoplasm IgM + given Zosyn and Azithro IV ID consulted Dr Topete 5. Altered mental status likely sec to Metabolic Encephalopathy most likely related to metabolic derangement with liver failure CT head showed no acute pathology hematology consult appreciated and case discussed Peripheral smear showed nucleated RBC-s and schisctocytes -- most likely hemolytic anemia . PT/INR elevated and fibrinogen low CT abdomen and pelvis showed diffuse ostelytic lesions of the skeleton -- r/o Malignancy) received IVF, IV antibiotics given Zometa for hypercalcemia Solucortef for hemolytic anemia transfused 3 unit PRBC Received plasmaphresis as rec by hematology (Plasma changed to Albumin when pt developed Pulm Edema) Lactulose started as per GI to improve mental status but discontinued due to diarrhea . 6. Hemolytic anemia -- unclear etiology at this point could be due to TTP/DIC, ribavirin, or Mycoplasma Pneumonia or Hep C Hgb 5.7 LDH elevated , bili 6.7 peripheral smear showed nucleated RBC-s and schistocytes s/p 3 unit PRBc transfusin with Hgb 10 today hematology consult appreciated Retic ct elevated Low Fibrinogen haptoglobin, Leonardo test ,Hepatis profile , FROYLAN,RF, mycoplasma-- pending patient has hepatitis C + on Solucortef 7. Thrombocytopenia/ coagulopathy prob sec to Cirrhosis suspected TTP and was started on Plasmapharesis PT/INR elevated , no proteinuria,Fibrinogen low - suggest possible DIC retic count: elevated to 6 ,haptoglobin pending, blood cx, urine cx : negative so far Hematology on board Platelet count 24 k today. transfused 1unit platelet as per hematology INR trending up 3.8 plasmaphresis has been discontinued 8.Diffuse Osteolytic lesions of the spine need to r/o MALIGNANCY Flow cytometry : negative protein electrophoresis: polyclonal spikes follow up with oncology recommendations elevated QBV=324 GI consulted - rec Triple phase CT once renal fxn better and outpt Colonoscopy Palpated right breast mass - will send pt for Sonogram was planned for bone marrow biopsy on Sunday Poor prognosis 9.Hypercalcemia prob sec to malignancy IVF on Zometa Endo consulted 10. 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 once kidney fxn is stable will order triple phase liver CT colonoscopy when stable liver fxn worsening AST/ALt 580/79 Alk phosp 434 INR 3.8 Tea total 18.6 Patient has poor prognosis and palliative / comfort care would be appropriate 11.DM uncontrolled on Suplena via OGT endo consulted started on Levemir 50 units Sq HS and Lispro 16 units SQ AC 12.KIRSTIN / Azotemia/ hyperkalemia/ anuric at the end continue IVF Became anuric Nephro on consult 13. Pulmonary Edema happened 2 hrs after Plasmapharesis minimal response to diuretics ? sec to Transfusion rx ??? vs Volume overload plasmaphresis was changed to albumin instead of plasma lasix PRN was given 14. Diarrhea-- resolved Possible related to lactulose use C.diff - negative occult blood - negative (Sent due to disproportionate elevation of BUN ( 100)) d/c lactulose 15.DVT/ GI prophylaxis SCD Protonix IV no anticoag sec to thrombocytopenia Discharge Exam - Head Exam Head Exam: ATRAUMATIC, NORMOCEPHALIC Discharge Plan - Follow Up Plan Condition: Disposition: HOME/ ROUTINE
--- NOTE | 2017-05-07 10:42 | RAD ---
PROCEDURE: CHEST RADIOGRAPH, 1 VIEW HISTORY: intubated COMPARISON: 05/06/2017 FINDINGS: LUNGS: Opacity at medial right lung base common nonspecific. Followup advised. PLEURA: No pneumothorax or pleural fluid seen. CARDIOVASCULAR: Normal heart size. ET tube and NG tube unchanged. OSSEOUS STRUCTURES: No significant abnormalities. VISUALIZED UPPER ABDOMEN: Normal. OTHER FINDINGS: None. IMPRESSION: Opacity at medial right lung base. Followup advised. ET tube and NG tube unchanged.
== END 2017-05-07 07:00 | DRG 584 ==
LOC: H.ER 09:24 → H.ERHOLD 13:15 → H.ICU/CCU 15:35
PROVIDERS: ADMIT Hospitalist; ATTEND Hospitalist
PROC: 30233N1 Transfusion of Nonautologous Red Blood Cells into Peripheral Vein, Percutaneous Approach (ICD-10-PCS; 2017-04-27)
PROC: 0BH17EZ Insertion of Endotracheal Airway into Trachea, Via Natural or Artificial Opening (ICD-10-PCS; principal; 2017-05-01)
PROC: 5A1955Z Respiratory Ventilation, Greater than 96 Consecutive Hours (ICD-10-PCS; 2017-05-01)
DX: A41.9 Sepsis, unspecified organism (principal); D65 Disseminated intravascular coagulation [defibrination syndrome]; J96.01 Acute respiratory failure with hypoxia; R65.21 Severe sepsis with septic shock; J69.0 Pneumonitis due to inhalation of food and vomit; G92 Toxic encephalopathy; E87.2 Acidosis; N17.9 Acute kidney failure, unspecified; C90.00 Multiple myeloma not having achieved remission; K72.90 Hepatic failure, unspecified without coma; D61.818 Other pancytopenia; E11.22 Type 2 diabetes mellitus with diabetic chronic kidney disease; E11.649 Type 2 diabetes mellitus with hypoglycemia without coma; B18.2 Chronic viral hepatitis C; E11.65 Type 2 diabetes mellitus with hyperglycemia; E87.5 Hyperkalemia; K56.7 Ileus, unspecified; K74.69 Other cirrhosis of liver; N18.9 Chronic kidney disease, unspecified; D58.9 Hereditary hemolytic anemia, unspecified; D89.0 Polyclonal hypergammaglobulinemia; E78.5 Hyperlipidemia, unspecified; E83.52 Hypercalcemia; I12.9 Hypertensive chronic kidney disease with stage 1 through stage 4 chronic kidney disease, or unspecified chronic kidney disease; J45.909 Unspecified asthma, uncomplicated; K76.6 Portal hypertension; N63.0 Unspecified lump in unspecified breast; R29.6 Repeated falls; Z51.5 Encounter for palliative care; Z66 Do not resuscitate; Z79.4 Long term (current) use of insulin; Z87.442 Personal history of urinary calculi; Z87.891 Personal history of nicotine dependence; Z90.49 Acquired absence of other specified parts of digestive tract; Z79.84 Long term (current) use of oral hypoglycemic drugs; R00.0 Tachycardia, unspecified; R16.0 Hepatomegaly, not elsewhere classified; R16.1 Splenomegaly, not elsewhere classified; R74.0 Nonspecific elevation of levels of transaminase and lactic acid dehydrogenase [LDH]; R97.0 Elevated carcinoembryonic antigen [CEA]